=== PATIENT | female | born 1950 | race Caucasian/White ===

== ENCOUNTER 2016-12-12 21:15 | Inpatient (IN) | payer OTHER ==
[~2016-12-12] VITALS: Ht 157.5 cm; Wt 118.6 kg
[~2016-12-12 21:15] MED LIST: ASPEC81 PO; CINN1CAP2 PO; CYAN250T PO; FLUO20CA35 PO; FURO-85 PO; INSDGI SC; LCTX PO; LEVO75TA PO; MECL1TAB42 PO; METO1TAB66 PO; NORT50CA PO; NVLGI SC; PANT40TA PO; SIMV20TA2 PO; TOLT2CAP PO; VTMD1000 PO
[2016-12-12] MEDS ORDERED: SODIUM CHLORIDE 0.9% 1000ML 1,000 ML IV STA (21:46)
[2016-12-12] MEDS ORDERED: ASPI81TA21 PO (21:48)
[2016-12-12] MEDS ORDERED: COLC1TAB25 PO (21:48)
[2016-12-12] MEDS ORDERED: LVMI SC (21:48)
[2016-12-12] MEDS ORDERED: LSN5 PO (21:49)
[2016-12-12] MEDS ORDERED: LPT40 PO (21:49)
[2016-12-12] MEDS ORDERED: WARF-280 PO (21:49)
--- NOTE | 2016-12-12 21:57 | EMERGENCY ROOM VISIT NOTE ---
History Report prepared by Lynnette: Tori Chaves Under the Supervision of: Dr. Hazel White M.D. First contact with patient: 21:44 Chief Complaint: HYPERGLYCEMIA Stated Complaint: HYPERGLYCEMIA Nursing Triage Summary: Patient arrived via EMS. EMS reports patient checked blood sugar for evening insulin coverage and was 647 at 1930. Patient took prescribd dose of insulin of 70 units at 1945 and called ems. Patient states she feels lethargic like she has when her sugar has been high in the past. History of Present Illness The patient is a 66 year old female who presents to the Emergency Room with complaints of constant hyperglycemia beginning yesterday. She states that she is a diabetic and does take insulin. She checked her sugar levels yesterday and it was 547. This evening at 7:30pm she checked her sugar levels again and they were 647. The patient feels lethargic which is common when she has high blood sugar levels. She denies a history of CHF. She denies any other symptoms at this time. Source of History: patient Onset: yesterday Position: other (global) Quality: other (hyperglycemia) Timing: constant Note: Patient feels lethargic. She denies any other symptoms at this time. Review of Systems See HPI for pertinent positives & negatives. A total of 10 systems reviewed and were otherwise negative. Past Medical & Surgical Medical Problems: (1) Abdominal aortic aneurysm (2) Anxiety (3) Atrial fibrillation (4) Benign hypertension (5) Cellulitis Of Leg (6) Chronic kidney disease stage 3 (7) Closed fracture of femur (8) Clostridium difficile infection (9) Deficient knowledge of leg surgery (10) Depression (11) Diab Rosario Wo Compl, Type Ii Or Unspec Type, Not Uncntrld (12) Diabetes (13) Diabetic neuropathy (14) Diabetic retinopathy (15) Generalized osteoarthritis (16) Heart disease (17) History of - peptic ulcer (18) HTN (hypertension) (19) Hyperglycemia (20) Hyperlipidemia (21) Kidney disease (22) Morbid Obesity (23) Obesity Family History Diabetes mellitus FHx: cancer FHx: heart disease FHx: lung disease Hypertension Kidney disease Social History Smoking Status: Former Smoker Alcohol Use: none Drug Use: none Marital Status: Housing Status: lives with family Occupation Status: retired Current/Historical Medications Scheduled Aspirin Enteric Coated (Ecotrin Or Generic), 81 MG PO DAILY Atorvastatin (Atorvastatin Calcium), 40 MG PO QAM Cyanocobalamin (Vitamin B-12), 250 MCG PO DAILY Fluoxetine (Prozac), 20 MG PO DAILY Furosemide (Lasix), 20 MG PO DAILY Insulin Detemir (Levemir), 70 UNITS SC AMHS Lactobacillus Acidophilus (Lactinex), 1 TAB PO TID Levothyroxine Sodium (Synthroid), 75 MCG PO DAILY Lisinopril (Lisinopril), 5 MG PO QAM Metoprolol Succinate (Toprol Xl), 50 MG PO DAILY Nortriptyline (Pamelor), 50 MG PO HS Pantoprazole (Protonix), 40 MG PO DAILY Simvastatin (Zocor), 20 MG PO QPM Tolterodine Tartrate (Detrol La), 2 MG PO DAILY Warfarin Sodium (Warfarin Sodium), 2.5 MG PO QPM Scheduled PRN Colchicine (Colchicine), 0.6 MG PO DAILY PRN for PRN Meclizine Hcl (Meclizine Hcl), 1 TAB PO TID PRN for Nausea Allergies Coded Allergies: No Known Allergies (Verified , 12/12/16) Physical Exam Vital Signs Date Time Temp Pulse Resp B/P Pulse Ox O2 Delivery O2 Flow Rate FiO2 12/13/16 00:21 116 16 113/65 94 Room Air 12/12/16 22:59 125 16 95/74 95 Room Air 12/12/16 22:28 122 12/12/16 21:22 36.7 115 16 95/60 95 Room Air Physical Exam CONSTITUTIONAL: No distress. HEENT: No icterus, moist mucous membranes NECK: No meningismus, trachea is midline. CARDIOVASCULAR: Regular rate, normal perfusion RESPIRATORY: Unlabored breathing. Clear to auscultation. GASTROINTESTINAL: Non-tender GENITOURINARY: No flank tenderness MUSCULOSKELETAL: Full range of motion NEUROLOGIC: No acute gross focal deficits. PSYCHIATRIC: Normal affect SKIN: Normal for ethnicity. Medical Decision & Procedures ER Provider Diagnostic Interpretation: X-ray results as stated below per interpretation by me and the radiologist. CHEST ONE VIEW PORTABLE HISTORY: hyperglycemia COMPARISON: Chest 03/26/2015. FINDINGS: Stable linear densities at the left lung base consistent with scarring or subsegmental atelectasis. The lungs are otherwise clear. The heart is normal in size. No pleural effusions. No pneumothorax. Stable blunting of the costophrenic sulci. IMPRESSION: No significant change compared to the prior study. No acute process. Electronically signed by: Hemant Espinoza M.D. 12/12/2016 10:06 PM Dictated Date/Time: 12/12/2016 10:05 PM Laboratory Results 12/12/16 21:55 Red Blood Count 5.01, Mean Corpuscular Volume 89.8, Mean Corpuscular Hemoglobin 31.1, Mean Corpuscular Hemoglobin Concent 34.7, Mean Platelet Volume 12.3, Neutrophils (%) (Auto) 84.2, Lymphocytes (%) (Auto) 10.8, Monocytes (%) (Auto) 4.1, Eosinophils (%) (Auto) 0.3, Basophils (%) (Auto) 0.4, Neutrophils # (Auto) 8.63, Lymphocytes # (Auto) 1.11, Monocytes # (Auto) 0.42, Eosinophils # (Auto) 0.03, Basophils # (Auto) 0.04 12/12/16 21:55 12/12/16 23:47 Test 12/12/16 21:55 12/12/16 22:30 12/12/16 23:47 White Blood Count 10.25 K/uL (4.8-10.8) Red Blood Count 5.01 M/uL (4.2-5.4) Hemoglobin 15.6 g/dL (12.0-16.0) Hematocrit 45.0 % (37-47) Mean Corpuscular Volume 89.8 fL (80-100) Mean Corpuscular Hemoglobin 31.1 pg (25-34) Mean Corpuscular Hemoglobin Concent 34.7 g/dl (32-36) Platelet Count 189 K/uL (130-400) Mean Platelet Volume 12.3 fL (7.4-10.4) Neutrophils (%) (Auto) 84.2 % Lymphocytes (%) (Auto) 10.8 % Monocytes (%) (Auto) 4.1 % Eosinophils (%) (Auto) 0.3 % Basophils (%) (Auto) 0.4 % Neutrophils # (Auto) 8.63 K/uL (1.4-6.5) Lymphocytes # (Auto) 1.11 K/uL (1.2-3.4) Monocytes # (Auto) 0.42 K/uL (0.11-0.59) Eosinophils # (Auto) 0.03 K/uL (0-0.5) Basophils # (Auto) 0.04 K/uL (0-0.2) RDW Standard Deviation 42.1 fL (36.4-46.3) RDW Coefficient of Variation 12.9 % (11.5-14.5) Immature Granulocyte % (Auto) 0.2 % Immature Granulocyte # (Auto) 0.02 K/uL (0.00-0.02) Anion Gap 14.0 mmol/L (3-11) Est Creatinine Clear Calc Drug Dose 33.8 ml/min Estimated GFR () 29.4 Estimated GFR (Non- 25.4 BUN/Creatinine Ratio 13.1 (10-20) Calcium Level 9.1 mg/dl (8.5-10.1) Troponin I < 0.015 ng/ml (0-0.045) Beta-Hydroxybutyric Acid 4.46 mg/dL (0.2-2.81) Venous Blood pH 7.35 (7.36-7.41) Venous Blood Partial Pressure CO2 58 mmHg (38.0-50.0) Venous Blood Partial Pressure O2 22 mmHg Venous Blood HCO3 31 mmol/L Venous Blood Oxygen Saturation < 60.0 % Venous Blood Base Excess 3.7 mmol/L Prothrombin Time 19.7 SECONDS (9.0-12.0) Prothromb Time International Ratio 1.8 (0.9-1.1) Magnesium Level 2.1 mg/dl (1.8-2.4) Chemistry Specimen Hemolysis Labs reviewed by ED physician. Medications Administered Medications (Trade) Dose Ordered Sig/Emily Route Start Time Stop Time Status Last Admin Dose Admin Sodium Chloride (Nss 500ml) 500 ml @ 999 mls/hr Q31M STAT IV 12/12/16 22:55 12/12/16 23:25 DC 12/13/16 00:17 999 MLS/HR Diltiazem HCl 10 mg 10 mg TODAY@2315 IV 12/12/16 23:15 12/12/16 23:16 DC 12/13/16 00:16 10 MG Insulin Human Regular 3 unit/ Syringe 3 ml @ 1 mls/min NOW STAT IV 12/12/16 23:22 12/12/16 23:24 DC 12/13/16 00:13 1 MLS/MIN Insulin Human Regular/Sodium Chloride (novoLIN-R/Nss 250ml) 252.5 ml @ 0 mls/hr NOW STAT IV 12/12/16 23:22 12/12/16 23:23 DC 12/12/16 23:22 2.9 MLS/HR ECG Indication: other (hypergylcemia) Rate (beats per minute): 128 Rhythm: other (narrow complex) Findings: other (no clear P wave) ED Course 2150: Past medical records reviewed. The patient was evaluated in room C10. A complete history and physical examination was performed. 2145: Sodium Chloride 1,000 ml @ 0 mls/hr Wide Open IV. 2249: Insulin Iv Infusion Protocol 1 ea N/A. 2254: Sodium Chloride 500 ml @ 999 mls/hr IV, Cardizem Bolus / Drip 1 ea IV. 0: Insulin Protocol Moderate Stress Level 1 ea N/A, Insulin Protocol Dka Goal Range 1 ea N/A. 2311: Discussed the patient's case with Dr. Khang Garcia. The patient will be evaluated for further management. 0900: Novolog Aspart Sliding scale SC. Medical Decision Differential diagnoses include but are not limited to; uncontrolled diabetes, DKA. 66-year-old insulin-dependent diabetic presents to the emergency for evaluation of worsening hyperglycemia or the last few days. She was noted to have a glucose over 500 here in the emergency department and serum ketones. He was noted to be in a narrow complex tachycardia that was irregular with a history of A. fib on Coumadin. Insulin drip as well as Cardizem drip were started. History of CHF on Lasix with creatinine 2.0 in context of baseline about 1.6. Normal saline 500 ML bolus ordered. Case d/w Dr. Quiñonez for admission Consults Time Called: [phone] Consulting Physician: Dr. Khang Garcia Returned Call: [phone] Discussed the patient's case. The patient will be evaluated for further management. Impression Primary Impression: DKA (diabetic ketoacidoses) Scribe Attestation The scribe's documentation has been prepared under my direction and personally reviewed by me in its entirety. I confirm that the note above accurately reflects all work, treatment, procedures, and medical decision making performed by me. Departure Information Dispostion Being Evaluated By Hospitalist Ric Gonzalez D.OAstrid (PCP)
[2016-12-12 22:08] LABS: MEAN CELL VOLUME 89.8 fL (80-100); MEAN CORPUSCULAR HEMOGLOBIN 31.1 pg (25-34); MEAN CORPUSCULAR HGB CONC 34.7 g/dl (32-36); RED BLOOD COUNT 5.01 M/uL (4.2-5.4); WHITE BLOOD COUNT 10.25 K/uL (4.8-10.8)
--- NOTE | 2016-12-12 22:08 | DIAGNOSTIC IMAGING REPORT ---
CHEST ONE VIEW PORTABLE HISTORY: hyperglycemia COMPARISON: Chest 03/26/2015. FINDINGS: Stable linear densities at the left lung base consistent with scarring or subsegmental atelectasis. The lungs are otherwise clear. The heart is normal in size. No pleural effusions. No pneumothorax. Stable blunting of the costophrenic sulci. IMPRESSION: No significant change compared to the prior study. No acute process. Electronically signed by: Hemant Espinoza M.D. 12/12/2016 10:06 PM Dictated Date/Time: 12/12/2016 10:05 PM
[2016-12-12 22:09] LABS: BASO % 0.4 %; BASO ABS # 0.04 K/uL (0-0.2); COMPLETE YES; EOS % 0.3 %; IG% 0.2 %; LYMPH % 10.8 %; LYMPH ABS # 1.11 K/uL (1.2-3.4); MEAN PLATELET VOLUME 12.3 fL (7.4-10.4); MONO % 4.1 %; NEUT % 84.2 %; PLATELET COUNT 189 K/uL (130-400)
[2016-12-12 22:28] LABS: BETA-HYDROXYBUTYRATE 4.46 mg/dL (0.2-2.81); BLOOD UREA NITROGEN 26 mg/dl (7-18); BUN/CREATININE RATIO 13.1 (10-20); CALCIUM 9.1 mg/dl (8.5-10.1); CARBON DIOXIDE 28 mmol/L (21-32); CHLORIDE 90 mmol/L (98-107); GLUCOSE 507 mg/dl (70-99); SODIUM 132 mmol/L (136-145)
[2016-12-12 22:40] LABS: VEN BLD GAS O2 SATURATION < 60.0 %; VEN BLOOD GAS BASE EXCESS 3.7 mmol/L; VENOUS BLOOD GAS PCO2 58 mmHg (38.0-50.0); VENOUS BLOOD GAS PO2 22 mmHg
[2016-12-12] MEDS ORDERED: INSULIN IV INFUSION PROTOCOL STA (22:50)
[2016-12-12] MEDS ORDERED: SODIUM CHLORIDE 0.9% 500ML 500 ML IV STA (22:55)
[2016-12-12] MEDS ORDERED: DILTIAZEM BOLUS / DRIP IV STA (22:58)
[2016-12-12] MEDS ORDERED: DKA GOAL RANGE 150-250 mg/dl 1 EA ONE (23:00)
[2016-12-12] MEDS ORDERED: MODERATE STRESS LEVEL ONE (23:00)
[2016-12-12] MEDS ORDERED: INSULIN IV INFUSION PROTOCOL SCH (23:15)
[2016-12-12] MEDS ORDERED: DILTIAZEM HCL 5 MG/ML 5 ML VIAL IV SCH (23:15)
[2016-12-12] MEDS ORDERED: DILTIAZEM HCL INJ 125 MG in DEXTROSE 5% 100ML IV PRN (23:15)
[2016-12-12] MEDS ORDERED: INSULIN HUMAN REGULAR IV BOLUS 3 UNIT in SYRINGE 0 ML IV STA (23:22)
[2016-12-12] MEDS ORDERED: INSULIN REGULAR 250 UNITS in SODIUM CHLORIDE 0.9% 250ML 250 ML IV STA (23:22)
[2016-12-13] VITALS (10 sets, daily range): BP systolic 107–153; BP diastolic 69–83; PULSE 104–124; TEMP 36.6–37.2; O2SAT 92–99; BMI 46.4
[2016-12-13 00:10] LABS: INR 1.8 (0.9-1.1); PROTHROMBIN TIME (PATIENT) 19.7 SECONDS (9.0-12.0)
[2016-12-13 00:14] LABS: MAGNESIUM 2.1 mg/dl (1.8-2.4); POTASSIUM 4.7 mmol/L (3.5-5.1)
[2016-12-13] MEDS ORDERED: INSULIN IV INFUSION PROTOCOL STA (00:19)
[2016-12-13] MEDS ORDERED: NORTRIPTYLINE HCL 25 MG CAP PO ONE (00:19)
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
[2016-12-13] MEDS ORDERED: ACETAMINOPHEN 325 MG TAB PO PRN (00:30)
[2016-12-13] MEDS ORDERED: INSULIN PROTOCOL GOAL RANGE ONE (00:30)
[2016-12-13] MEDS ORDERED: MODERATE STRESS LEVEL ONE (00:30)
[2016-12-13] MEDS ORDERED: WARFARIN SOD 5 MG TAB PO STA (00:35)
[2016-12-13] MEDS ORDERED: GLUCOSE 10 TABS/TUBE PO PRN (02:00)
[2016-12-13] MEDS ORDERED: DEXTROSE 50% 50 ML SYR IV PRN (02:00)
[2016-12-13] MEDS ORDERED: GLUCAGON FOR INJ 1 MG VIAL SQ PRN (02:00)
[2016-12-13] MEDS ORDERED: GLUCOSE 40% GEL 15 GM TUBE PO PRN (02:00)
[2016-12-13] MEDS: NSS + 20MEQ KCL 1000ML 1,000 ML IV SCH ×4 (02:05→23:23)
[2016-12-13] MEDS ORDERED: METOPROLOL TARTRATE 1 MG/ML VIAL IV STA (02:21)
[2016-12-13] MEDS: LEVOTHYROXINE 75 MCG TAB PO SCH (05:45)
[2016-12-13 06:58] LABS: HEMATOCRIT 41.6 % (37-47); MEAN CELL VOLUME 88.5 fL (80-100); MEAN CORPUSCULAR HEMOGLOBIN 30.6 pg (25-34); MEAN CORPUSCULAR HGB CONC 34.6 g/dl (32-36); MEAN PLATELET VOLUME 11.7 fL (7.4-10.4); PLATELET COUNT 181 K/uL (130-400); WHITE BLOOD COUNT 9.99 K/uL (4.8-10.8)
[2016-12-13 07:06] LABS: ESTIMATED AVERAGE GLUCOSE 329 mg/dl; HA1C FLAG Normal (Normal); INR 1.8 (0.9-1.1)
[2016-12-13 07:36] LABS: ALB/GLOB RATIO 0.6 (0.9-2); ALKALINE PHOSPHATASE 157 U/L (45-117); ALT/SGPT 30 U/L (12-78); AST/SGOT 35 U/L (15-37); BLOOD UREA NITROGEN 26 mg/dl (7-18); BUN/CREATININE RATIO 15.3 (10-20); CALCIUM 8.8 mg/dl (8.5-10.1); CARBON DIOXIDE 28 mmol/L (21-32); CHLORIDE 100 mmol/L (98-107); GLUCOSE 287 mg/dl (70-99); POTASSIUM 3.9 mmol/L (3.5-5.1); SODIUM 138 mmol/L (136-145)
[2016-12-13] MEDS: INSULIN ASPART 100 UNITS/ML 3 ML PEN SC SCH ×4 (08:00→21:06)
[2016-12-13] MEDS ORDERED: PHARMACY GLYCEMIC MGMT CONSULT PRN (08:28)
[2016-12-13] MEDS ORDERED: LISINOPRIL 5 MG TAB PO SCH (09:00)
[2016-12-13] MEDS ORDERED: INSULIN ASPART 100 UNITS/ML 3 ML PEN SC SCH (09:00)
[2016-12-13] MEDS: LACTOBACILLUS ACIDOPHILUS (FLORANEX) TAB PO SCH ×3 (09:17→17:17)
[2016-12-13] MEDS: FLUOXETINE HCL 20 MG CAP PO SCH (09:18)
[2016-12-13] MEDS: ATORVASTATIN 40 MG TAB PO SCH (09:18)
[2016-12-13] MEDS: METOPROLOL SUCC 50MG EXT REL TAB PO SCH (09:18)
[2016-12-13] MEDS: ASPIRIN 81 MG ECTAB PO SCH (09:18)
[2016-12-13] MEDS: PANTOprazole SOD 40 MG TAB PO SCH (09:19)
[2016-12-13] MEDS: TOLTERODINE TARTRATE LA 2 MG CAPCR PO SCH (09:19)
--- NOTE | 2016-12-13 09:35 | Pharmacy Progress Note ---
Glycemic Control Intl Consult Date of Service Dec 13, 2016. Scope Glycemic Pharmacist consulted by Dr Hunter on 12/13/16 for glycemic control and to write orders per [facility] inpatient glycemic control protocol Objective Weight (Kilograms): 115.100 Accuchecks BSG (last 24hrs): Test 12/12/16 21:55 12/13/16 02:03 12/13/16 03:59 12/13/16 05:05 Random Glucose 507 mg/dl (70-99) Bedside Glucose 487 mg/dl (70-90) 479 mg/dl (70-90) 417 mg/dl (70-90) Test 12/13/16 06:00 12/13/16 06:14 12/13/16 06:55 12/13/16 07:57 Random Glucose 287 mg/dl (70-99) Bedside Glucose 349 mg/dl (70-90) 229 mg/dl (70-90) 144 mg/dl (70-90) Test 12/13/16 09:16 Bedside Glucose 173 mg/dl (70-90) Laboratory Data (last 24hrs) Test 12/12/16 21:55 12/12/16 23:47 12/13/16 06:00 Anion Gap 14.0 mmol/L 10.0 mmol/L BUN/Creatinine Ratio 13.1 15.3 Blood Urea Nitrogen 26 mg/dl 26 mg/dl Creatinine 2.00 mg/dl 1.70 mg/dl Potassium Level mmol/L 4.7 mmol/L 3.9 mmol/L Sodium Level 132 mmol/L 138 mmol/L White Blood Count 10.25 K/uL 9.99 K/uL Red Blood Count 5.01 M/uL Hemoglobin 15.6 g/dL Hematocrit 45.0 % Mean Corpuscular Volume 89.8 fL Mean Corpuscular Hemoglobin 31.1 pg Mean Corpuscular Hemoglobin Concent 34.7 g/dl Platelet Count 189 K/uL Mean Platelet Volume 12.3 fL Neutrophils (%) (Auto) 84.2 % Lymphocytes (%) (Auto) 10.8 % Monocytes (%) (Auto) 4.1 % Eosinophils (%) (Auto) 0.3 % Basophils (%) (Auto) 0.4 % Neutrophils # (Auto) 8.63 K/uL Lymphocytes # (Auto) 1.11 K/uL Monocytes # (Auto) 0.42 K/uL Eosinophils # (Auto) 0.03 K/uL Basophils # (Auto) 0.04 K/uL Hemoglobin A1c 13.1 % HbA1c Test 12/13/16 06:00 Hemoglobin A1c 13.1 % (4.5-5.6) H Recent Pertinent Medications Outpatient Anti-diabetic Regimen: * Levemir 70 units SQ BID * A1c = 13.3 % 12/13/16 The patient is currently receiving: * Starting IV insulin infusion per moderate stress protocol * Goal Range 140 - 180 mg/dl * Rate of infusion has been about 4.1-4.9units/ hour over the past 6 hours Risk Factors for Insulin Resistance: * IVF: NS+20meqKCl @ 80cc/hr * Diet: Type 2 DM/AHA Assessment & Plan ASSESSMENT: * ADA & AACE recommend a goal blood sugar range 140-180 mg/dl for the majority of critically ill & non-critically ill patients. However, more stringent targets may be selected in individual cases. I will continue this goal range for patient's A1c. * 66 year old female type 2 diabetic, uncontrolled. * Patient's BSG has been at goal and patient is ready to be transitioned off of drip onto basal bolus insulin. 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 I will also check her BSG overnight to ensure glycemic control as she transitions off of drip. PLAN FOR INPATIENT GLYCEMIC CONTROL: * Continue IV insulin infusion protocol for the next 2 hours to overlap with SQ Levemir, then Discontinue at 1700 today * Goal Range 140 - 180 mg/dl * Basal insulin with LEVEMIR 70 units SQ BID - FIRST DOSE NOW * Correctional Insulin with NOVOLOG per scale ACHS or Q6hrs while NPO & at 0000 and 0400 overnight tonight * Goal Range: Low 140 mg/dL - High 180 mg/dL * Correction Factor: 18 mg/dL/unit * Nutritional / Prandial insulin per carb ratio of 1 unit per 6 grams CHO consumed * Please note that the plan above was derived based on current level of insulin resistance and hospital stress. These recommendations are appropriate for inpatient admission only. Plan of care upon discharge will need to be reassessed to avoid potential outpatient hypo/hyperglycemia. Thank you.
[2016-12-13] MEDS ORDERED: INSULIN REGULAR 250 UNITS in SODIUM CHLORIDE 0.9% 250ML 250 ML IV SCH (11:30)
[2016-12-13] MEDS: INSULIN DETEMIR SC SCH ×2 (15:48→21:07)
--- NOTE | 2016-12-13 16:37 | Progress Note ---
Medicine Progress Note Date & Time of Visit: Dec 13, 2016 at 16:31. Subjective Patient seen and examined. Feels good and wants to go home. Objective Last 8 Hrs Date Time Temp Pulse Resp B/P Pulse Ox O2 Delivery O2 Flow Rate FiO2 12/13/16 16:12 36.6 104 18 117/78 98 Room Air 12/13/16 12:17 Room Air 12/13/16 11:01 36.9 107 18 116/69 98 Room Air Physical Exam: General-awake; alert; NAD Eyes-EOMI; no scleral icterus Neck-no stridor; trachea midline Lungs-CTA bilaterally; no wheezes/crackles Heart-irregularly irregular; no m/r/g Abdomen-soft; NTND; nBS Extremities-trace LE edema; no deformity; chronic venous stasis skin changes Neuro-no gross focal deficits Laboratory Results: Last 24 Hours Test 12/12/16 21:55 12/12/16 22:30 12/12/16 23:47 12/13/16 02:03 White Blood Count 10.25 K/uL Red Blood Count 5.01 M/uL Hemoglobin 15.6 g/dL Hematocrit 45.0 % Mean Corpuscular Volume 89.8 fL Mean Corpuscular Hemoglobin 31.1 pg Mean Corpuscular Hemoglobin Concent 34.7 g/dl Platelet Count 189 K/uL Mean Platelet Volume 12.3 fL Neutrophils (%) (Auto) 84.2 % Lymphocytes (%) (Auto) 10.8 % Monocytes (%) (Auto) 4.1 % Eosinophils (%) (Auto) 0.3 % Basophils (%) (Auto) 0.4 % Neutrophils # (Auto) 8.63 K/uL Lymphocytes # (Auto) 1.11 K/uL Monocytes # (Auto) 0.42 K/uL Eosinophils # (Auto) 0.03 K/uL Basophils # (Auto) 0.04 K/uL RDW Standard Deviation 42.1 fL RDW Coefficient of Variation 12.9 % Immature Granulocyte % (Auto) 0.2 % Immature Granulocyte # (Auto) 0.02 K/uL Sodium Level 132 mmol/L Potassium Level mmol/L 4.7 mmol/L Chloride Level 90 mmol/L Carbon Dioxide Level 28 mmol/L Anion Gap 14.0 mmol/L Blood Urea Nitrogen 26 mg/dl Creatinine 2.00 mg/dl Est Creatinine Clear Calc Drug Dose 33.8 ml/min Estimated GFR () 29.4 Estimated GFR (Non- 25.4 BUN/Creatinine Ratio 13.1 Random Glucose 507 mg/dl Calcium Level 9.1 mg/dl Magnesium Level mg/dl 2.1 mg/dl Troponin I < 0.015 ng/ml Beta-Hydroxybutyric Acid 4.46 mg/dL Venous Blood pH 7.35 Venous Blood Partial Pressure CO2 58 mmHg Venous Blood Partial Pressure O2 22 mmHg Venous Blood HCO3 31 mmol/L Venous Blood Oxygen Saturation < 60.0 % Venous Blood Base Excess 3.7 mmol/L Prothrombin Time 19.7 SECONDS Prothromb Time International Ratio 1.8 Chemistry Specimen Hemolysis Bedside Glucose 487 mg/dl Test 12/13/16 03:59 12/13/16 05:05 12/13/16 06:00 12/13/16 06:14 Bedside Glucose 479 mg/dl 417 mg/dl 349 mg/dl White Blood Count 9.99 K/uL Red Blood Count 4.70 M/uL Hemoglobin 14.4 g/dL Hematocrit 41.6 % Mean Corpuscular Volume 88.5 fL Mean Corpuscular Hemoglobin 30.6 pg Mean Corpuscular Hemoglobin Concent 34.6 g/dl RDW Standard Deviation 41.6 fL RDW Coefficient of Variation 12.8 % Platelet Count 181 K/uL Mean Platelet Volume 11.7 fL Prothrombin Time 20.0 SECONDS Prothromb Time International Ratio 1.8 Sodium Level 138 mmol/L Potassium Level 3.9 mmol/L Chloride Level 100 mmol/L Carbon Dioxide Level 28 mmol/L Anion Gap 10.0 mmol/L Blood Urea Nitrogen 26 mg/dl Creatinine 1.70 mg/dl Est Creatinine Clear Calc Drug Dose 39.1 ml/min Estimated GFR () 35.8 Estimated GFR (Non- 30.9 BUN/Creatinine Ratio 15.3 Random Glucose 287 mg/dl Estimated Average Glucose 329 mg/dl Hemoglobin A1c 13.1 % Calcium Level 8.8 mg/dl Magnesium Level 2.0 mg/dl Total Bilirubin 0.4 mg/dl Aspartate Amino Transf (AST/SGOT) 35 U/L Alanine Aminotransferase (ALT/SGPT) 30 U/L Alkaline Phosphatase 157 U/L Troponin I < 0.015 ng/ml Total Protein 6.9 gm/dl Albumin 2.7 gm/dl Globulin 4.2 gm/dl Albumin/Globulin Ratio 0.6 Thyroid Stimulating Hormone (TSH) 1.310 uIu/ml Test 12/13/16 06:55 12/13/16 07:57 12/13/16 09:16 12/13/16 10:38 Bedside Glucose 229 mg/dl 144 mg/dl 173 mg/dl 186 mg/dl Test 12/13/16 11:25 12/13/16 12:16 12/13/16 13:38 12/13/16 14:28 Bedside Glucose 174 mg/dl 166 mg/dl 140 mg/dl 145 mg/dl Test 12/13/16 15:31 12/13/16 16:15 Bedside Glucose 138 mg/dl 128 mg/dl Assessment & Plan DM TYPE 2, UNCONTROLLED DM type 2 x many years, complicated by retinopathy, nephropathy, neuropathy. A1C 13.1. No obvious precipitating factors such as HI or infection. IV fluid resuscitation and insulin infusion initiated in ED. Insulin drip transitioned to SQ insulin. Consulted Diabetes Management Team. ATRIAL FLUTTER WITH RAPID VENTRICULAR RESPONSE Chronic AF / flutter, managed with metoprolol and warfarin. HR in EKG 115-125; EKG shows atrial flutter with variable conduction. Rapid ventricular response may be due to uncontrolled DM. Continue metoprolol and warfarin. TSH normal. HYPOTENSION Systolic BP's in the 90's on admission. Hypotension most likely due to volume depletion from hyperglycemia. Rapid atrial flutter may be contributing factor. Hold lisinopril. IV fluid resuscitation. Improved. ACUTE KIDNEY INJURY CKD III with baseline creatinine of 1.3-1.4 Serum creatinine 2.0 on admission. LAUREN most likely secondary to poorly controlled DM with osmotic diuresis. Continue IV fluids. Downtrending. HYPERTENSION Hypotensive at time of admission as discussed above. Continue metoprolol with hold parameters. Hold lisinopril until renal function improves. VENOUS INSUFFICIENCY / CHRONIC EDEMA Hold furosemide due to LAUREN. GERD Continue pantoprazole. HYPOTHYROIDISM TSH normal. Continue levothyroxine. VTE PROPHYLAXIS Continue warfarin. RESUSCITATION STATUS No living will. Full code. DISPOSITION Expected discharge to home. Family Medicine follow-up with Dr. Keene. Discharge planning: home Current Inpatient Medications: Current Inpatient Medications Medications (Trade) Dose Ordered Sig/Emily Route Start Time Stop Time Status Last Admin Dose Admin Acetaminophen 650 mg 650 mg Q4H PRN PO 12/13/16 00:30 01/12/17 00:29 Potassium Chloride/Sodium Chloride (Nss + 20meq KCl 1000ml) 1,000 ml @ 80 mls/hr [id number] IV 12/13/16 01:45 12/13/16 12:04 200 MLS/HR Nortriptyline HCl (Pamelor Cap) 50 mg HS PO 12/13/16 21:00 01/12/17 20:59 Warfarin Sodium (Coumadin Tab) 2.5 mg QPM PO 12/13/16 21:00 01/12/17 20:59 Aspirin (Ecotrin Tab) 81 mg DAILY PO 12/13/16 09:00 01/12/17 08:59 12/13/16 09:18 81 MG Atorvastatin Calcium (Lipitor Tab) 40 mg QAM PO 12/13/16 09:00 01/12/17 08:59 12/13/16 09:18 40 MG Fluoxetine HCl (Prozac Cap) 20 mg DAILY PO 12/13/16 09:00 01/12/17 08:59 12/13/16 09:18 20 MG Levothyroxine Sodium (Synthroid Tab) 75 mcg DAILYBB PO 12/13/16 06:00 01/12/17 06:59 12/13/16 05:45 75 MCG Metoprolol Succinate (Toprol Xl Tab) 50 mg DAILY PO 12/13/16 09:00 01/12/17 08:59 12/13/16 09:18 50 MG Pantoprazole Sodium (Protonix Tab) 40 mg DAILY PO 12/13/16 09:00 01/12/17 08:59 12/13/16 09:19 40 MG Tolterodine Tartrate (Detrol LA Cap) 2 mg DAILY PO 12/13/16 09:00 01/12/17 08:59 12/13/16 09:19 2 MG Lactobacillus Acidophilus 1 tab 1 tab TIDM PO 12/13/16 08:00 01/12/17 07:59 12/13/16 12:04 1 TAB Insulin Human Regular/Sodium Chloride (novoLIN-R/Nss 250ml) 252.5 ml @ 0 mls/hr DAILY@1130 IV 12/13/16 11:30 12/13/16 17:00 12/13/16 12:13 4.9 MLS/HR Glucose (Glucose 40% Gel) 15-30 GRAMS 15 GRAMS... UD PRN PO 12/13/16 02:00 01/12/17 01:59 Glucose (Glucose Chew Tab) 4-8 Tablets 4 Tabl... UD PRN PO 12/13/16 02:00 01/12/17 01:59 Dextrose (Dextrose 50% 50ML Syringe) 25-50ML OF 50% DW IV FOR... UD PRN IV 12/13/16 02:00 01/12/17 01:59 Glucagon (Glucagon Inj) 1 mg UD PRN SQ 12/13/16 02:00 01/12/17 01:59 Miscellaneous Information (Consult Glycemic Management Pharmacy) 1 ea UD PRN N/A 12/13/16 08:28 01/12/17 08:27 Insulin Detemir (Levemir Insulin) 70 units BID SC 12/13/16 15:00 01/12/17 14:59 12/13/16 15:48 70 UNITS Insulin Aspart (novoLOG ASPART) SLIDING SCALE ACHS SC 12/13/16 16:15 01/12/17 16:14 Insulin Aspart (novoLOG ASPART) SLIDING SCALE 0000,0400 SC 12/14/16 00:00 01/13/17 00:00
[2016-12-13 19:00] LABS: URINE APPEARANCE TURBID (CLEAR); URINE BILIRUBIN NEG (NEG); URINE COLOR YELLOW; URINE EPITHELIAL CELL AUTO >30 /lpf (0-5); URINE NITRITE POS (NEG); URINE SPECIFIC GRAVITY 1.016 (1.000-1.030); UROBILINOGEN NEG (NEG); ZZUR CULT IF INDIC CLEAN CATCH YES
[2016-12-13 19:41] LABS: MANUAL MICROSCOPIC REQUIRED? NO; REVIEW REQ? NO
[2016-12-13] MEDS ORDERED: WARFARIN SOD 2.5 MG TAB PO SCH (21:00)
[2016-12-13] MEDS ORDERED: NORTRIPTYLINE HCL 25 MG CAP PO SCH (21:00)
[2016-12-14] MEDS: INSULIN ASPART 100 UNITS/ML 3 ML PEN SC SCH ×3 (00:03→07:50)
[2016-12-14 04:00] VITALS: O2SAT 99
[2016-12-14 04:14] VITALS: BP 114/78; PULSE 108; TEMP 36.7; O2SAT 97
[2016-12-14] MEDS: LEVOTHYROXINE 75 MCG TAB PO SCH (05:39)
[2016-12-14] MEDS: LACTOBACILLUS ACIDOPHILUS (FLORANEX) TAB PO SCH (05:40)
[2016-12-14 06:18] LABS: HEMATOCRIT 44.9 % (37-47); MEAN CELL VOLUME 89.3 fL (80-100); MEAN CORPUSCULAR HEMOGLOBIN 30.2 pg (25-34); MEAN CORPUSCULAR HGB CONC 33.9 g/dl (32-36); MEAN PLATELET VOLUME 11.6 fL (7.4-10.4); PLATELET COUNT 170 K/uL (130-400); RED BLOOD COUNT 5.03 M/uL (4.2-5.4); WHITE BLOOD COUNT 6.64 K/uL (4.8-10.8)
[2016-12-14 06:26] LABS: INR 2.2 (0.9-1.1); PROTHROMBIN TIME (PATIENT) 24.8 SECONDS (9.0-12.0)
[2016-12-14 06:49] LABS: BUN/CREATININE RATIO 20.3 (10-20); CALCIUM 8.8 mg/dl (8.5-10.1); CREATININE 1.2 mg/dl (0.60-1.20); POTASSIUM 4.6 mmol/L (3.5-5.1)
[2016-12-14 07:37] VITALS: BP 100/69; PULSE 108; TEMP 36.6; O2SAT 97
[2016-12-14] MEDS: METOPROLOL SUCC 50MG EXT REL TAB PO SCH (07:42)
[2016-12-14] MEDS: ASPIRIN 81 MG ECTAB PO SCH (07:42)
[2016-12-14] MEDS: PANTOprazole SOD 40 MG TAB PO SCH (07:43)
[2016-12-14] MEDS: FLUOXETINE HCL 20 MG CAP PO SCH (07:43)
[2016-12-14] MEDS: TOLTERODINE TARTRATE LA 2 MG CAPCR PO SCH (07:43)
[2016-12-14] MEDS: ATORVASTATIN 40 MG TAB PO SCH (07:44)
[2016-12-14] MEDS: INSULIN DETEMIR SC SCH (07:51)
[2016-12-14] MEDS ORDERED: CIPROFLOXACIN 500 MG TAB PO SCH (09:00)
--- NOTE | 2016-12-14 09:46 | Discharge Instructions ---
Discharge Instructions Admission Reason for Admission: A-Fib, Hyperglycemia Discharge Discharge Diagnosis / Problem: Uncontrolled type 2 diabetes; Atrial fibrillation; Urinary tract infection Discharge Goals Goal(s): Improve disease control Activity Recommendations Activity Limitations: resume your previous activity . Instructions / Follow-Up Instructions / Follow-Up You will be contacted regarding a hospital discharge follow up appointment with Family Medicine. Please take the antibiotic Ciprofloxacin as prescribed until complete for your urinary tract infection. Please do not take Lisinopril until instructed to do so by Dr. Keene. Metoprolol was increased from 50mg to 75mg daily. Current Hospital Diet Patient's current hospital diet: AHA Diet (Heart Healthy), Diabetes Type 2 Diet Discharge Diet Recommended Diet: AHA Diet (Heart Healthy), Diabetes Type 2 Diet Pending Studies Studies pending at discharge: yes List of pending studies: Urine culture result Laboratory Results Hemoglobin A1c Test 12/13/16 06:00 Range/Units Estimated Average Glucose 329 mg/dl Hemoglobin A1c 13.1 H 4.5-5.6 % Medical Emergencies . Who to Call and When: Medical Emergencies: If at any time you feel your situation is an emergency, please call 911 immediately. . Non-Emergent Contact Non-Emergency issues call your: Primary Care Provider . . "Provider Documentation" section prepared by Nirali Alvarado. VTE Core Measure Inpt VTE Proph given/why not?: Warfarin (Coumadin)
[2016-12-14] MEDS ORDERED: CPR500 PO (09:51)
[2016-12-14] MEDS ORDERED: METO1TAB66 PO (09:51)
[2016-12-14] MEDS ORDERED: METOPROLOL SUCC 25MG EXT REL TAB PO ONE (10:00)
[2016-12-14 10:19] VITALS: BP 100/69; PULSE 108; TEMP 36.6; O2SAT 97
--- NOTE | 2016-12-14 18:32 | Discharge Summary ---
Discharge Summary Admission Date: Dec 13, 2016 at 00:27 Discharge Date: Dec 14, 2016 Discharge Disposition: Home Principal Diagnosis: Uncontrolled type 2 diabetes Secondary Diagnoses/Problems: A flutter with RVR Uncomplicated UTI Medication Reconciliation New Medications: Cephalexin Monohydrate (Keflex) 500 Mg Cap 500 MG PO QID for 3 Days, #12 CAP Changed Medications: Metoprolol Succinate (Toprol Xl) 50 Mg Tab 75 MG PO DAILY for 30 Days, #45 TABS (Changed from: 50 MG) Continued Medications: Aspirin Enteric Coated (Ecotrin Or Generic) 81 Mg Tab 81 MG PO DAILY, TAB Atorvastatin (Atorvastatin Calcium) 40 Mg Tab 40 MG PO QAM Colchicine (Colchicine) 0.6 Mg Tab 0.6 MG PO DAILY PRN for PRN, #12 Cyanocobalamin (Vitamin B-12) 250 Mcg Tab 250 MCG PO DAILY, 0 Refills Fluoxetine (Prozac) 20 Mg Cap 20 MG PO DAILY, CAP Furosemide (Lasix) 20 Mg Tab 20 MG PO DAILY, TAB Insulin Detemir (Levemir) 100 Units/Ml Inj 70 UNITS SC [facility] Lactobacillus Acidophilus (Lactinex) Tab 1 TAB PO TID, TAB Levothyroxine Sodium (Synthroid) 75 Mcg Tab 75 MCG PO DAILY, TAB Nortriptyline (Pamelor) 50 Mg Cap 50 MG PO HS, 0 Refills Pantoprazole (Protonix) 40 Mg Tab 40 MG PO DAILY Tolterodine Tartrate (Detrol La) 2 Mg Cap 2 MG PO DAILY Warfarin Sodium (Warfarin Sodium) 2.5 Mg Tab 2.5 MG PO QPM Discontinued Medications: Lisinopril (Lisinopril) 5 Mg Tab 5 MG PO QAM Admission Information HPI (per Admitting provider): 66 YO female followed by Dr. Keene for Family Medicine. History of chronic atrial fib / flutter, hypertension, DM type 2, and other problems noted below. Blood sugars running in the 400's - 500's over the past few days. She has noted intermitted blurred vision, polyuria, polydipsia. Today she felt weak and dizzy. EMS summoned. Random blood sugar in the field was 647. She was brought to ED for evaluation. Tachycardic and hypotensive on arrival. No obvious precipitating etiologies for uncontrolled DM. Patient states that she is compliant with insulin and other meds. She indicates that perhaps she could be more careful with her diet. No chest pain or other acute cardiac symptoms. No fever or signs / symptoms of infection. . Physical Exam (per Admitting): General Appearance: WD/WN, no apparent distress Head: normocephalic, atraumatic Eyes: normal inspection, PERRL, EOMI, sclerae normal (conjunctivae pink) ENT: normal ENT inspection, pharynx normal Neck: supple, no adenopathy, thyroid normal, trachea midline Respiratory/Chest: lungs clear, no respiratory distress, no accessory muscle use Cardiovascular: + pertinent finding (neck veins difficult to assess; RRR, tachy; II/ sys murmur @ base; no gallop; 1+ pretibial edema with chronic venous stasis changes) Abdomen/GI: normal bowel sounds, non tender, soft, no organomegaly, no pulsatile mass, + pertinent finding (umbilical hernia) Extremities/Musculoskelatal: no calf tenderness, + slow capillary refill ( about 2 sec), + swelling (bilat 1+ pretibial edema) Neurologic/Psych: marine water tender II-XII nml as tested (PERRL, EOMI, no facial palsy), no motor/sensory deficits (motor grossly intact), alert, oriented x 3 Skin: warm/dry, + pertinent finding (chronic venous stasis changes bilat lower extr) Lymphatic: no adenopathy Hospital Course Patient was admitted with hyperglycemia (in the setting of uncontrolled type 2 DM) and A fib with RVR. A1c was 13.1. Patient received IVF's and was started on an insulin drip due to anion gap. Sugars normalized and insulin was transitioned to patient's home dose of 70units BID. Manager Mobile was consulted to review with patient DM diet as she reported compliance with taking insulin. Patient was in A flutter with RVR on admission. Patient received IVF's and metoprolol dose was increased from 50mg to 75mg daily with improvement of rate control. Patient was continued on warfarin. Patient had LAUREN on admission that resolved with IVF's. Lisinopril was held during hospitalization and was not resumed on discharge due to up-titration of metoprolol. Patient was noted to have a UTI with dirty urinalysis. This may have been the precipitating factor for hyperglycemia and RVR. Urine culture with E coli upon discharge. Patient was discharged on a course of cephalexin based on susceptibilities. Patient was continued on the remainder of her home medications with the exceptions noted above. Patient deemed stable for discharge with Family Medicine followup. PE on discharge: General- awake; alert; NAD Eyes- EOMI; no scleral icterus Neck- no stridor; trachea midline Lungs- CTA bilaterally; no wheezes/crackles Heart- tachycardic but regular; no m/r/g Abdomen- soft; NTND; nBS Back- no gross abnormalities Extremities- no c/c/e; no deformity; wearing compression stockings Neuro- no gross focal deficits Skin- no appreciable rash or bruise . Total time spent on discharge = This includes examination of the patient, discharge planning, medication reconciliation, and communication with other providers. Discharge Instructions Discharge Instructions Admission Reason for Admission: A-Fib, Hyperglycemia Discharge Discharge Diagnosis / Problem: Uncontrolled type 2 diabetes; Atrial fibrillation; Urinary tract infection Discharge Goals Goal(s): Improve disease control Activity Recommendations Activity Limitations: resume your previous activity . Instructions / Follow-Up Instructions / Follow-Up You will be contacted regarding a hospital discharge follow up appointment with Family Medicine. Please take the antibiotic Ciprofloxacin as prescribed until complete for your urinary tract infection. Please do not take Lisinopril until instructed to do so by Dr. Keene. Metoprolol was increased from 50mg to 75mg daily. Current Hospital Diet Patient's current hospital diet: AHA Diet (Heart Healthy), Diabetes Type 2 Diet Discharge Diet Recommended Diet: AHA Diet (Heart Healthy), Diabetes Type 2 Diet Pending Studies Studies pending at discharge: yes List of pending studies: Urine culture result Laboratory Results Hemoglobin A1c Test 12/13/16 06:00 Range/Units Estimated Average Glucose 329 mg/dl Hemoglobin A1c 13.1 H 4.5-5.6 % Medical Emergencies . Who to Call and When: Medical Emergencies: If at any time you feel your situation is an emergency, please call 911 immediately. . Non-Emergent Contact Non-Emergency issues call your: Primary Care Provider . . "Provider Documentation" section prepared by Nirali Alvarado. VTE Core Measure Inpt VTE Proph given/why not?: Warfarin (Coumadin) Additional Copies To Wayne Keene M.D. ([facility])
[2016-12-15] MEDS ORDERED: CEPH500C2 PO (09:39)
--- NOTE | 2016-12-15 09:42 | Progress Note ---
Progress Note Urine culture results showing E coli resistant to fluoroquinolones. Called and left message for patient with significant other. Stop ciprofloxacin. Prescription for cephalexin sent to [facility]. Updated discharge medication list and discharge summary.
[2016-12-17 16:12] VITALS: Ht 157.5 cm; Wt 118.6 kg
[2017-06-10] MEDS ORDERED: CALC0.2510 PO (08:04)
[2017-06-10] MEDS ORDERED: LISI-729 PO (08:05)
[2017-06-10] MEDS ORDERED: METO50TA7 PO (08:07)
[2017-06-10] MEDS ORDERED: ALLO300T2 PO (08:08)
[2017-06-10] MEDS ORDERED: INSPMPNVLG (08:09)
== END 2016-12-14 11:10 | disposition home or self-care (01) | DRG 638 ==
LOC: ENRESERVDT → ENRESERVTM → EDBD 21:15 → C.EDC 21:17 → C.2T 12-13 00:27
PROVIDERS: ADMIT Hospitalist; ATTEND Internal Medicine
DX: E11.65 Type 2 diabetes mellitus with hyperglycemia (principal); I48.92 Unspecified atrial flutter; N39.0 Urinary tract infection, site not specified; N17.9 Acute kidney failure, unspecified; Z68.42 Body mass index [BMI] 45.0-49.9, adult; I48.2 Chronic atrial fibrillation; E11.40 Type 2 diabetes mellitus with diabetic neuropathy, unspecified; E11.319 Type 2 diabetes mellitus with unspecified diabetic retinopathy without macular edema; E11.22 Type 2 diabetes mellitus with diabetic chronic kidney disease; E11.21 Type 2 diabetes mellitus with diabetic nephropathy; K21.9 Gastro-esophageal reflux disease without esophagitis; E03.9 Hypothyroidism, unspecified; F41.9 Anxiety disorder, unspecified; B96.20 Unspecified Escherichia coli [E. coli] as the cause of diseases classified elsewhere; N18.3 Chronic kidney disease, stage 3 (moderate); N39.3 Stress incontinence (female) (male); I87.2 Venous insufficiency (chronic) (peripheral); I12.9 Hypertensive chronic kidney disease with stage 1 through stage 4 chronic kidney disease, or unspecified chronic kidney disease; M19.90 Unspecified osteoarthritis, unspecified site; R60.0 Localized edema; E78.5 Hyperlipidemia, unspecified; K42.9 Umbilical hernia without obstruction or gangrene; F32.9 Major depressive disorder, single episode, unspecified; E66.01 Morbid (severe) obesity due to excess calories; I35.0 Nonrheumatic aortic (valve) stenosis; Z86.79 Personal history of other diseases of the circulatory system; Z87.11 Personal history of peptic ulcer disease; Z87.891 Personal history of nicotine dependence; Z86.19 Personal history of other infectious and parasitic diseases; Z16.23 Resistance to quinolones and fluoroquinolones; Z79.82 Long term (current) use of aspirin; Z79.01 Long term (current) use of anticoagulants; Z79.899 Other long term (current) drug therapy

== ENCOUNTER → 2017-06-10 | Day surgery (SDC) | payer OTHER ==
[~2017-06-10] VITALS: Ht 154.9 cm; Wt 113.0 kg
[2017-06-10] VITALS (9 sets, daily range): BP systolic 124–155; BP diastolic 53–75; PULSE 90–120; TEMP 37.1; O2SAT 93–99; Ht 154.9 cm; Wt 113.0 kg
[~2017-06-10] MED LIST changes: +ALLO300T2 PO; -ASPEC81 PO; +ASPI81TA21 PO; +BENZOCAIN/TETRACA/BUTAM SPRAY 200 APPLN/20 GM SPRY ONE; +CALC0.2510 PO; +CANNULA ONE; -CINN1CAP2 PO; +COLC1TAB25 PO; +FENTANYL CITRATE INJ 50 MCG/1 ML 2 ML VIAL ONE; +GLYCOPYRROLATE INJ 0.2 MG/ML VIAL ONE; -INSDGI SC; +INSPMPNVLG; +LISI-729 PO; +LPT40 PO; +LVMI SC; -MECL1TAB42 PO; +METO50TA7 PO; +MIDAZOLAM HCL 1 MG/ML 2ML VIAL ONE; -NVLGI SC; -SIMV20TA2 PO; -VTMD1000 PO; +WARF-280 PO
[2017-06-10 09:10] LABS: BUN/CREATININE RATIO 21.3 (10-20); CALCIUM 9.7 mg/dl (8.5-10.1); CREATININE 1.6 mg/dl (0.60-1.20); POTASSIUM 5.2 mmol/L (3.5-5.1)
--- NOTE | 2017-06-10 09:30 | History & Physical Bridge Note ---
H&P Re-Evaluation Bridge Note: I have examined the patient, reviewed the History & Physical and in the interval since the performance of the History & Physical I have noted the following changes of clinical significance: No changes noted
--- NOTE | 2017-06-10 09:30 | Procedure Note ---
Pre-Mod Sedation Assessment General Date of Moderate Sedation: Jun 10, 2017. Vital Signs: Vital Signs Past 12 Hours Date Time Temp Pulse Resp B/P (MAP) Pulse Ox O2 Delivery O2 Flow Rate FiO2 06/10/17 07:42 37.1 115 16 139/67 96 Room Air Review Cardiovascular: no edema, no gallop, no JVD, no murmur, normal peripheral pulses, + irregularly irregular Abdomen: normal bowel sounds, non tender, soft, no organomegaly, no pulsatile mass Lungs: chest non-tender, lungs clear, normal breath sounds, no respiratory distress, no accessory muscle use Airway Class: II Pre-Sedation Airway Assessment Oral Cavity: Dentures Short Thick Neck: Yes Hx of Sleep Apnea: No Smoking Status: Former Smoker Notes The planned sedation has been discussed with the patient and consent obtained. I have identified the patient, determined the appropriateness of sedation and have assessed the patient immediately prior to the procedure. All medicine(s) and interventions are by my order.
--- NOTE | 2017-06-10 09:30 | Procedure Note ---
Post-Mod Sedation Assessment General Date of Moderate Sedation Jun 10, 2017. Vital Signs: Vital Signs Past 12 Hours Date Time Temp Pulse Resp B/P (MAP) Pulse Ox O2 Delivery O2 Flow Rate FiO2 06/10/17 07:42 37.1 115 16 139/67 96 Room Air Review - Discharge Criteria Vital Signs Stable: Yes Alert/Oriented/Conversant: Yes Returned to Baseline Mental St: Yes Nausea Absent/Minimal: Yes Pain/Discomfort/Absent/Minimal: Yes Normal/Baseline Respirations: Yes Active Bleeding?: No Pt Received D/C Instructions: Yes Prescriptions Given: None
--- NOTE | 2017-06-10 09:32 | [facility] Post Operative Brief Note ---
Immediate Operative Summary Operative Date Jun 10, 2017. Pre-Operative Diagnosis atrial flutter with variable av block Post-Operative Diagnosis same Procedure(s) Performed NICKO guided cardioversion Surgeon Ervin Grassroots Organizer Surgeon(s) Cheryl PHILLIPS Estimated Blood Loss none Findings no left atrial thrombus successful cardioversion to sinus rhythm start time: Stop time: moderate sedation with a total of 5mg of Versed and 125mcg of Fentanyl Specimens none Complication(s) None Disposition [facility]
--- NOTE | 2017-06-10 09:35 | Procedure Note ---
Procedure Note Date of Service Jun 10, 2017. Procedure Note Informed consent obtained Pt prepped Adequate moderate sedation with a total of 5mg of Versed and 125mcg of Fentanyl NICKO revealed no thrombus in the left atrial appendage with good velocities NICKO completed, probe removed further sedation given 200J of synchronized energy delivered with successful cardioversion to sinus rhythm pt tolerate well recover per protocol in [facility] Plan: cont current meds f/u with EP to discuss possible ablation
--- NOTE | 2017-06-10 10:12 | Discharge Instructions ---
Discharge Instructions Date of Service Jun 10, 2017. Admission Reason for Admission: Ervin Pritchard To Do Discharge Discharge Diagnosis / Problem: atrial flutter s/p cardioversion Discharge Goals Goal(s): Improve function Activity Recommendations Activity Limitations: as noted below Lifting Limitations: none Exercise/Sports Limitations: rest today May Resume Sexual Activity: when tolerated Shower/Bathe: no limitations Driving or Machine Use: resume 1 day after discharge . Instructions / Follow-Up Instructions / Follow-Up F/u with Dr. Hewitt as scheduled Current Hospital Diet Patient's current hospital diet: Discharge Diet Recommended Diet: Regular Diet Procedures Procedures Performed: NICKO guided cardioversion Pending Studies Studies pending at discharge: no Medical Emergencies . Who to Call and When: Medical Emergencies: If at any time you feel your situation is an emergency, please call 911 immediately. . Non-Emergent Contact Non-Emergency issues call your: Primary Care Provider . . "Provider Documentation" section prepared by Aravind Mueller. . VTE Core Measure Inpt VTE Proph given/why not?: Warfarin (Coumadin)
--- NOTE | 2017-06-10 10:47 | TEE ---
*NOTICE TO RECEIVING REPUBLICAN AGENCY This information is strictly Confidential and protected under [place] law. [place] law prohibits you from making any further disclosure of this information unless further disclosure is expressly permitted by the written consent of the person to whom it pertains or is authorized by law. A general authorization for the release of medical or other information is not sufficient for this purpose. Hospital accepts no responsibility if the information is made available to any other person, INCLUDING THE PATIENT. Interpretation Summary * Name: FRANCINE CHAVES Study Date: 06/10/2017 09:07 AM BP: 139/67 mmHg * Patient Location: Cardiopulmonary Lab HR: 114 * : 1950 (M/d/yyyy) Gender: Female Height: 61 in * Age: 66 yrs Ethnicity: [place] Weight: 249 lb * Ordering Physician: Aravind Mueller DO * Referring Physician: Aravind Mueller DO * Performed By: Ivett Diaz RCS * * Reason For Study: A-Fib, Pre-C/V, Eval for CSOE * BSA: 2.1 m2 * -- Conclusions -- * Robinul 0.4 mg administered for to reduce oral secretions. * No thrombus present in the left atrial appendage. * Trileaflet aortic valve, moderately calcified, mild to moderate aortic stenosis, mild aortic regurgitation. Procedure Details * NICKO Probe #1 utilized for procedure. * The study was performed in Cardiopulmonary Department. * Time out was conducted by the physician, nurse, and automotive specialty technician with positive identification of patient and procedure. * Informed consent for Transesophageal Echocardiogram was obtained prior to the procedure. * An intravenous line was placed. A topical anesthetic agent was used for oropharangeal anesthesia. A bite block was inserted. * The patient's vital signs, including blood pressure, heart rate, pulse oximetry and cardiac rhythm were monitored throughout the procedure . * Fentanyl 75 mcg was administered for procedural sedation. * Midazolam 3 mg administered for sedation. * Robinul 0.4 mg administered for to reduce oral secretions. * A multifrequency, multiplane transesopheageal echocardiographic endoscope was inserted and manipulated in the standard fashion to achieve multiplane views. * The transesophageal probe was passed without difficulty. * A 2D transesophageal echocardiogram with spectral and color flow Doppler was performed. * Contrast injection with agitated saline was performed. * The usual views were obtained; basal, mid-esophageal, transgastric and aortic views. * The patient tolerated the procedure well without evidence of orophangeal or esophageal trauma. * Probe insertion time 0911. Probe removable time 09. * A 2D transesophageal echocardiogram was performed. * A 2D transesophageal echocardiogram with color flow Doppler was performed. * A 2D transesophageal echocardiogram with Doppler and color flow Doppler was performed. Left Ventricle * The left ventricle is normal in size. * There is normal left ventricular wall thickness. * Left ventricular systolic function is normal. * The left ventricular wall motion is normal. Right Ventricle * The right ventricular systolic function is normal. Atria * The left atrial size is normal. * No thrombus is detected in the left atrial appendage. * Right atrial size is normal. * Injection of contrast documented no interatrial shunt. Mitral Valve * The mitral valve anatomy is normal. * There is no mitral valve stenosis. * There is trace mitral regurgitation. Tricuspid Valve * The tricuspid valve is normal in structure and function. Aortic Valve * The aortic valve is trileaflet. * Mild to moderate valvular aortic stenosis. * Mild aortic regurgitation. Pulmonic Valve * The pulmonary valve is not well seen, but the Doppler examination is normal without significant regurgitation or stenosis. Great Vessels * The aortic root and proximal ascending aorta are normal sized. Pericardium * There is no pericardial effusion.
== END | disposition home or self-care (01) ==
LOC: C.CPL 06:39
PROVIDERS: ATTEND Internal Medicine Cardiovascular Disease
DX: I48.92 Unspecified atrial flutter (principal); I44.30 Unspecified atrioventricular block; E11.22 Type 2 diabetes mellitus with diabetic chronic kidney disease; I12.9 Hypertensive chronic kidney disease with stage 1 through stage 4 chronic kidney disease, or unspecified chronic kidney disease; N18.3 Chronic kidney disease, stage 3 (moderate); E78.5 Hyperlipidemia, unspecified; F32.9 Major depressive disorder, single episode, unspecified; Z87.891 Personal history of nicotine dependence; Z79.01 Long term (current) use of anticoagulants; Z79.82 Long term (current) use of aspirin; Z79.4 Long term (current) use of insulin; Z79.899 Other long term (current) drug therapy

== ENCOUNTER 2020-09-27 12:41 | Inpatient (IN) ==
[2020-09-27] MEDS ORDERED: ALBUT/IPRATROP 3MG/0.5MG NEB 3 ML VIAL NEB STA (13:02)
--- NOTE | 2020-09-27 13:11 | Emergency Department Note ---
History of Present Illness General Chief complaint: Shortness of Breath/Dyspnea Stated complaint: SOB Time Seen by Provider: 09/27/20 12:42 Source: patient Mode of arrival: EMS Limitations: no limitations History of Present Illness Provider complaint: Shortness of breath This is a 70-year-old female who presents to the ED with a chief complaint of shortness of breath. The patient has been feeling short of breath over the past couple of weeks but significantly worsened over the past day or 2. Patient is on chronic warfarin therapy for A. fib. He denies any fevers. No upper respiratory infectious symptoms such as a runny nose, cough or sneezing. Abdominal pain. Symptoms are worse if she lies flat and with exertion. Home Medications Home Medications Medication Instructions Recorded Confirmed Type Lactobacillus acidoph-L.bulgar 1 tab PO QAM 02/27/19 04/05/20 History [Lactinex] allopurinol 300 mg PO QAM 02/27/19 04/05/20 History aspirin 81 mg PO QAM 02/27/19 04/05/20 History atorvastatin 40 mg PO QAM 02/27/19 04/05/20 History cyanocobalamin (vitamin B-12) 0 mcg PO QAM 02/27/19 04/05/20 History [Vitamin B-12] fluoxetine 40 mg PO QAM 02/27/19 04/05/20 History insulin detemir U-100 [Levemir 85 unit SUBCUT AMHS 02/27/19 04/05/20 History U-100 Insulin] levothyroxine 75 mcg PO QAM 02/27/19 04/05/20 History metoprolol succinate 25 mg PO QAM 02/27/19 04/05/20 History nortriptyline 50 mg PO HS 02/27/19 04/05/20 History tolterodine 2 mg PO QAM 02/27/19 04/05/20 History warfarin See Rx Instructions .ROUTE .COMPLEX 02/27/19 04/05/20 History insulin aspart U-100 [Novolog 50 unit SUBCUT BIDM 04/05/20 04/05/20 History U-100 Insulin aspart] Allergies Allergy/AdvReac Type Severity Reaction Status Date / Time colchicine Allergy Mild GI SYMPTOMS Verified 09/27/20 14:18 Past Med/Surg History Medical History (Updated 09/27/20 @ 14:22 by Vinicius Cochran DO) Anticoagulated on warfarin Aortic stenosis "moderate" Atrial fibrillation Dyslipidemia GERD (gastroesophageal reflux disease) History of Clostridium difficile infection Hypothyroidism Stress incontinence Umbilical hernia Surgical History Status post cataract extraction Family History Other Cancer Diabetes Heart disease Hypertension Kidney disease Social History Smoking Status: Former smoker Tobacco Type: Cigarettes Preferred Language: Amharic Feels Safe at Home: Yes Review of Systems A total of 10 systems reviewed and were otherwise negative Physical Exam Vital Signs Vital Signs - 24 hr 09/27/20 13:00 09/27/20 13:06 09/27/20 13:29 Temperature 37.3 C Temperature Source Oral Pulse Rate 79 Pulse Rate [Right Finger] 78 Respiratory Rate 24 16 Respiratory Effort / Characteristics Non-Labored Spontaneous Blood Pressure 225/94 H Blood Pressure Mean 137 Pulse Oximetry 98 98 95 Oxygen Delivery Method Room Air Room Air Room Air Sepsis Recent Fever Within 48 Hours No Sepsis New/Unexplained Change in Mental Status N/A Sepsis Action Taken by Nursing No Action Required CONSTITUTIONAL/VITAL SIGNS: Reviewed / noted above. GENERAL: Non-toxic in appearance. INTEGUMENTARY: Warm, dry, and [place]. HEAD: Normocephalic. EYES: without scleral icterus or trauma. ENT/OROPHARYNX: clear and moist. LYMPHADENOPATHY/NECK: Is supple without lymphadenopathy or meningismus. RESPIRATORY: Lungs clear and equal. CARDIOVASCULAR: Systolic ejection murmur,regular rate and rhythm. GI/ABDOMEN: Soft and nontender. No organomegaly or pulsatile mass. No rebound or guarding. Normal bowel sounds. EXTREMITIES: Warm and well perfused. BACK: No CVA tenderness. NEUROLOGICAL: Intact without focal deficits. PSYCHIATRIC: normal affect. MUSCULOSKELETAL: Normally developed with good muscle tone. TRIAGE NURSING DOCUMENTATION REVIEWED. Course Administered Medications Discontinued Medications Albuterol (Albut/Ipratrop 3mg/0.5mg Neb 3 Ml Vial) 3 ml NEB NOW STA Stop: 09/27/20 13:03 Last Admin: 09/27/20 13:27 Dose: 3 ml Documented by: [id number] Clonidine HCl (Clonidine Hcl 0.1 Mg Tab) 0.1 mg PO NOW ONE Stop: 09/27/20 13:44 Last Admin: 09/27/20 13:53 Dose: 0.1 mg Documented by: [id number] Furosemide (Furosemide 40 Mg/4 Ml Vial) 40 mg IV NOW STA Stop: 09/27/20 13:43 Last Admin: 09/27/20 13:52 Dose: 40 mg Documented by: [id number] Medical Decision Making Differential Diagnosis The differential was considered includes acute myocardial infarction, acute coronary syndrome, myocarditis, pericarditis, pericardial effusions /tamponad, esophageal perforation, pulmonary embolism, pneumonia, pneumothorax, cardiomyopathy, congestive heart, anemia , COPD/asthma exacerbation. Medical Records Attestation: I reviewed the patient's medical records. Home Medications Current Medication List: was personally reviewed by me Laboratory Data Attestation: I reviewed the patient's lab results. Result diagrams: 09/27/20 13:20 09/27/20 13:20 Lab Results 09/27/20 09/27/20 09/27/20 Range/Units 13:20 13:20 13:20 WBC 9.08 (4.8-10.8) K/uL RBC 4.79 (4.2-5.4) M/uL Hgb 14.0 (12.0-16.0) g/dL Hct 43.3 (37-47) % MCV 90.4 (80-100) fL MCH 29.2 (25-34) pg MCHC 32.3 (32-36) g/dL RDW Std Deviation 44.5 (36.4-46.3) fL RDW Coeff of Mario 13.6 (11.5-14.5) % Plt Count 293 (130-400) K/uL MPV 10.7 H (7.4-10.4) fL Immature Gran % (Auto) 0.2 % Neut % (Auto) 81.9 % Lymph % (Auto) 12.1 % King % (Auto) 4.6 % Eos % (Auto) 1.0 % Baso % (Auto) 0.2 % Neut # (Auto) 7.43 H (1.4-6.5) K/uL Lymph # (Auto) 1.10 L (1.2-3.4) K/uL King # (Auto) 0.42 (0.11-0.59) K/uL Eos # (Auto) 0.09 (0-0.5) K/uL Baso # (Auto) 0.02 (0-0.2) K/uL Immature Gran # (Auto) 0.02 (0.00-0.02) K/uL PT 15.1 H (9.0-12.0) Seconds INR 1.5 H (0.9-1.1) APTT 31.4 H (21.0-31.0) Seconds PTT Ratio 1.1 Sodium 140 (136-145) mmol/L Potassium 4.6 (3.5-5.1) mmol/L Chloride 106 (98-107) mmol/L Carbon Dioxide 32 (21-32) mmol/L Anion Gap 2.0 L (3-11) BUN 21 H (7-18) mg/dl Creatinine 1.17 (0.6-1.2) mg/dl Est Cr Clr Drug Dosing 51.5 ml/min Est GFR ( Amer) 54.7 Est GFR (Non-Af Amer) 47.2 BUN/Creatinine Ratio 17.9 (10-20) Glucose 215 H (70-99) mg/dl Calcium 9.0 (8.5-10.1) mg/dl Magnesium 2.2 (1.8-2.4) mg/dl Total Bilirubin 0.5 (0.2-1) mg/dl AST 13 L (15-37) U/L ALT 11 L (12-78) U/L Alkaline Phosphatase 146 H (45-117) U/L Troponin I 0.179 H* (0-0.045) ng/ml NT-Pro-B Natriuret Pep 4111 H (0-900) pg/ml Total Protein 6.6 (6.4-8.2) gm/dl Albumin 2.2 L (3.4-5.0) gm/dl Globulin 4.4 H (2.5-4.0) gm/dl Albumin/Globulin Ratio 0.5 L (0.9-2) Imaging Data Radiologist's Impression: XR chest 1V portable HISTORY: 70 years-old Female Dyspnea acute shortness of breath COMPARISON: Chest and rib radiographs 04/05/2020 and 02/27/2019. TECHNIQUE: Portable AP view of the chest FINDINGS: Cardiac silhouette is enlarged. Calcified plaque of the thoracic aortic arch. No pneumothorax. Small left greater than right pleural effusions with bibasilar consolidation. Pulmonary vascular congestion. There is sclerosis projecting over the proximal left humerus which on comparison. To represent calcifications within the adjacent soft tissues. Degenerative changes of the shoulders and spine. IMPRESSION: 1. Cardiomegaly with pulmonary vascular congestion. 2. Left greater than right pleural effusions with bibasilar consolidation suggestive of probable atelectasis. ECG Data Attestation: I personally reviewed and interpreted this ECG as follows: Indication: + SOB/dyspnea Rate (beats per minute): 74 Rhythm: + normal sinus ECG Intervals/blocks: + First degree AV block ECG ST segments: + ST depression (Lateral); no ST elevation ECG Findings: no PVCs MDM Narrative This is a 70-year-old female who presents to the ED with a chief complaint of shortness of breath that has progressively worsened over the past couple weeks. It is worse with lying down and exertion. Details listed above. Denies any upper respiratory infectious symptoms. The patient's initial blood pressure was elevated at 225/94. Pulse ox was 95% on room air. She is afebrile. Lung sounds were diminished bilaterally. She is obese. She does have a systolic ejection murmur that is related to her aortic stenosis. A twelve-lead EKG shows a sinus rhythm at a rate of 70 with some T wave inversions laterally. These were previously present on an EKG dated February 27, 2019. Chest x-ray reveals some congestive heart failure findings. The patient's CBC was unremarkable. INR is 1.5. She is on Coumadin. Chemistry panel was unremarkable. Glucose is 215. Troponin is elevated at 0.179. The patient was given clonidine p.o. for hypertension and IV Lasix for her congestive heart failure. The patient was also provided aspirin p.o. She was started on IV heparin without a bolus as her INR is only 1.5. She was also given Nitropaste to the chest wall as well as a breathing treatment. She will be seen with the hospitalist for further evaluation and care. Impression & Plan Hypertensive emergency, Congestive heart failure, Elevated troponin Discharge Plan Visit Data Chief Complaint: Shortness of Breath/Dyspnea Stated Complaint: SOB ED Provider: Vinicius Cochran Discharge Problem: Hypertensive emergency, Congestive heart failure, Elevated troponin Patient Disposition: Being Evaluated by Hospitalist Forms Stand Alone Forms: [facility], [facility] Emergency Department, Important Visit Information Prescriptions Prescriptions: No Action fluoxetine 40 mg capsule 40 mg PO QAM RF: 0 atorvastatin 40 mg tablet 40 mg PO QAM RF: 0 cyanocobalamin (vitamin B-12) [Vitamin B-12] 250 mcg Tablet 0 mcg PO QAM RF: 0 aspirin 81 mg Tablet,Delayed Release (Dr/Ec) 81 mg PO QAM RF: 0 allopurinol 300 mg tablet 300 mg PO QAM RF: 0 Levemir U-100 Insulin 100 unit/mL solution 85 unit subcut AMHS RF: 0 tolterodine 2 mg capsule,extended release 24hr 2 mg PO QAM RF: 0 levothyroxine 75 mcg Tablet 75 mcg PO QAM RF: 0 warfarin 5 mg tablet See Rx Instructions .ROUTE .COMPLEX RF: 0 metoprolol succinate 25 mg tablet extended release 24 hr 25 mg PO QAM RF: 0 nortriptyline 50 mg capsule 50 mg PO HS RF: 0 Lactinex 1 million cell Tablet,Chewable 1 tab PO QAM RF: 0 insulin aspart U-100 [Novolog U-100 Insulin aspart] 100 unit/mL solution 50 unit subcut BIDM RF: 0 Referrals Referrals: Wayne Keene MD [Primary Care Provider] -
--- NOTE | 2020-09-27 13:35 | XRay Report ---
XR chest 1V portable HISTORY: 70 years-old Female Dyspnea acute shortness of breath COMPARISON: Chest and rib radiographs 04/05/2020 and 02/27/2019. TECHNIQUE: Portable AP view of the chest FINDINGS: Cardiac silhouette is enlarged. Calcified plaque of the thoracic aortic arch. No pneumothorax. Small left greater than right pleural effusions with bibasilar consolidation. Pulmonary vascular congestion . There is sclerosis projecting over the proximal left humerus which on comparison. To represent calc ifications within the adjacent soft tissues. Degenerative changes of the shoulders and spine. IMPRESSION: 1. Cardiomegaly with pulmonary vascular congestion. 2. Left greater than right pleural effusions with bibasilar consolidation suggestive of probable atel ectasis. ACT 112: Negative or not required by law. The above report was generated using voice recognition software. It may contain grammatical, syntax o r spelling errors. Electronically signed by: Goyo Modi M.D. 09/27/2020 1:34 PM
[2020-09-27] MEDS ORDERED: FUROSEMIDE 40 MG/4 ML VIAL IV STA (13:42)
[2020-09-27] MEDS ORDERED: cloNIDine HCL 0.1 MG TAB PO ONE (13:43)
[2020-09-27 13:49] LABS: Basophils # (auto) 0.02 K/uL (0-0.2); Basophils % (auto) 0.2 %; Eosinophils # (auto) 0.09 K/uL (0-0.5); Hematocrit (blood only) 43.3 % (37-47); Immature Granulocytes # (auto) 0.02 K/uL (0.00-0.02); Immature Granulocytes % (auto) 0.2 %; Lymphocytes % (auto) 12.1 %; Mean Corpuscular Hemoglobin 29.2 pg (25-34); Mean Corpuscular Hgb Conc 32.3 g/dL (32-36); Mean Corpuscular Volume 90.4 fL (80-100); Mean Platelet Volume 10.7 fL (7.4-10.4); Monocytes # (auto) 0.42 K/uL (0.11-0.59); Monocytes % (auto) 4.6 %; Neutrophils # (auto) 7.43 K/uL (1.4-6.5); Neutrophils % (auto) 81.9 %; Platelet Count 293 K/uL (130-400); RDW Coefficient of Variation 13.6 % (11.5-14.5); RDW Standard Deviation 44.5 fL (36.4-46.3); Red Blood Count 4.79 M/uL (4.2-5.4); White Blood Count 9.08 K/uL (4.8-10.8)
[2020-09-27 13:53] LABS: INR 1.5 (0.9-1.1); Partial Thromboplastin Ratio 1.1; Partial Thromboplastin Time 31.4 Seconds (21.0-31.0); Prothrombin Time 15.1 Seconds (9.0-12.0)
[2020-09-27 14:03] LABS: Albumin Level 2.2 gm/dl (3.4-5.0); BUN Creatinine Ratio 17.9 (10-20); Creatinine Clr Calc Pharmacy 51.5 ml/min; Est GFR (African American) 54.7; Est GFR (Non-African American) 47.2; Magnesium 2.2 mg/dl (1.8-2.4); Potassium 4.6 mmol/L (3.5-5.1)
[2020-09-27 14:12] LABS: Albumin Globulin Ratio 0.5 (0.9-2); Bilirubin,Total 0.5 mg/dl (0.2-1); Globulin 4.4 gm/dl (2.5-4.0); Total Protein 6.6 gm/dl (6.4-8.2); Troponin I 0.179 ng/ml (0-0.045)
[2020-09-27] MEDS ORDERED: NITROGLYCERIN 2% OINTMENT 30GM TUBE EXT STA (14:17)
[2020-09-27] MEDS ORDERED: Heparin IV Standard *NO* Bolus IV ONE (14:18)
[2020-09-27] MEDS ORDERED: ASPIRIN CHEW 324 MG PO STA (14:18)
--- NOTE | 2020-09-27 14:43 | History & Physical Report ---
Date of Service September 27, 2020 Assessment & Plan (1) Hypertensive emergency: (2) Acute heart failure with preserved ejection fraction (HFpEF): (3) Elevated troponin: This is a 70-year-old female who has significant past medical history of insulin-dependent T2DM uncontrolled, paroxysmal atrial fibrillation anticoagulated on warfarin, HTN, HLD, CKD stage III, moderate aortic stenosis, hypothyroidism, depression with anxiety who presents to ED secondary to worsening shortness of breath x2 days. Admit to PCU obtain echocardiogram cycle troponins continue IV heparin in setting of subtherapeutic INR and elevated troponin Lasix IV 40 mg twice daily Daily weights, strict I's and O's nitro paste 1 in continue to monitor BP closely consult cardiology (4) T2DM (type 2 diabetes mellitus): Uncontrolled, last A1c 9.0 With diabetic retinopathy and nephropathy Lantus/NovoLog per protocol Consultation with pharmacy for glycemic management (5) Atrial fibrillation: PAF, rate controlled with metoprolol INR subtherapeutic at 1.5 Patient took 5 mg warfarin this morning, will add additional 2.5 this evening Continue home regimen of 5 mg Thursday, Thursday, and 7.5 mg all other days Continue IV heparin bridge until INR is greater than 2 (6) HTN (hypertension): Pt admitted for hypertensive emergency BP reviewed in [facility] and mostly controlled on metoprolol previously had been on lisinopril 5mg and lasix but no longer takes per pt may need additional agent prior to d/c, will monitor (7) Aortic stenosis: Pt with hx of mild documented on echo in 2014 repeat echo cards on board (8) CKD (chronic kidney disease), stage III: baseline cr 1.1 bun/cr 21 and 1.17 today monitor with diuresis (9) DVT prophylaxis: IV Heparin bridge, d/c Heparin when INR > or = 2.0 Disposition: admit to PCU Follow up: PCP Dr. Keene upon discharge Pt was seen and examined in collaboration with Dr. Bennett, please see addendum History of Present Illness Chief Complaint: Worsening shortness of breath x2 days. Primary Care Provider: Wayne Keene MD This is a 70-year-old female who has significant past medical history of insulin-dependent T2DM uncontrolled, paroxysmal atrial fibrillation anticoagulated on warfarin, HTN, HLD, CKD stage III, moderate aortic stenosis, hypothyroidism, depression with anxiety who presents to ED secondary to worsening shortness of breath x2 days. She admits to having BURTON for the past 2 weeks. She would get short of breath even with little activity. Over the past 2 days it has significantly worsened and she has been having difficulty catching her breath. Even admits to shortness of breath at rest. She denies any recent fever, chills, sweats, lightheadedness, dizziness, chest pain, palpitations, cough, hemoptysis, nausea, vomiting, abdominal pain, dysuria, increased urgency or frequency with urination, melena or hematochezia. She denies any PND. She has 4 pillow orthopnea. She denies any lower extremity edema or significant weight gain. Her baseline weight is approximately 224 and she states previously she had been up in the 400s. She does not take any diuretic on a regular basis. She denies any prior history of coronary artery disease or CHF. She does not monitor her blood pressure at home. She denies any change in dietary intake including salt intake. She denies any known exposure to coronavirus stating she mostly stays home. She is an insulin-dependent diabetic with an A1c of 9.0 and uncontrolled. She does take significant doses of insulin and does not monitor blood sugar on a regular basis. She does have history of PAF anticoagulated on warfarin and she did take her morning dose today. In ED patient was found to have hypertensive emergency with systolic blood pressure of 225. She not requiring supplemental oxygen. She had elevated troponin 0.179, proBNP 4111 glucose 215, BUN 21, creatinine 1.17, INR 1.5. She was afebrile and did not have any leukocytosis. Chest x-ray revealed mild pulmonary vascular congestion. She received 40 mg IV Lasix as well as 0.1 mg of clonidine which improved blood pressure to 181/95. She was 140 systolically during my visit. After receiving Lasix she has urinated and currently states she is feeling much improved and breathing easier. Allergies Allergy/AdvReac Type Severity Reaction Status Date / Time colchicine Allergy Mild GI SYMPTOMS Verified 09/27/20 14:18 Home Medications Home Medications Medication Instructions Recorded Confirmed Type Lactobacillus acidoph-L.bulgar 1 tab PO QAM 02/27/19 09/27/20 History [Lactinex] allopurinol 300 mg PO QAM 02/27/19 09/27/20 History aspirin 81 mg PO QAM 02/27/19 09/27/20 History atorvastatin 40 mg PO QAM 02/27/19 09/27/20 History fluoxetine 40 mg PO QAM 02/27/19 09/27/20 History insulin detemir U-100 [Levemir 80 unit SUBCUT AMHS 02/27/19 09/27/20 History U-100 Insulin] metoprolol succinate 25 mg PO QAM 02/27/19 09/27/20 History nortriptyline 50 mg PO HS 02/27/19 09/27/20 History tolterodine 2 mg PO QAM 02/27/19 09/27/20 History insulin aspart U-100 [Novolog 35 unit SUBCUT BIDM 04/05/20 09/27/20 History U-100 Insulin aspart] pantoprazole 40 mg PO DAILY 09/27/20 09/27/20 History warfarin 5 mg PO SUTUTH 09/27/20 09/27/20 History warfarin 7.5 mg PO MOWEFRSA 09/27/20 09/27/20 History Past Med/Surg History Medical History (Updated 09/27/20 @ 15:37 by Jacey Boles PA-C) Anticoagulated on warfarin Aortic stenosis "moderate" Atrial fibrillation Dyslipidemia GERD (gastroesophageal reflux disease) History of Clostridium difficile infection HTN (hypertension) Hypothyroidism Stress incontinence T2DM (type 2 diabetes mellitus) Umbilical hernia Surgical History History of fracture of leg s/p surgical fixation Status post cataract extraction Family History (Updated 09/27/20 @ 14:40 by Jacey Boles PA-C) Mother , 67 Alzheimer disease Father Myocardial infarction, Onset Age: 47 Social History (Updated 09/27/20 @ 14:42 by Jacey Boles PA-C) Smoking Status: Never smoker Tobacco Type: Cigarettes Years Smoked: 5; Cigarettes Per Day: 20; Smoking End Date: 1979; Hx Alcohol Use: No Hx Substance Use: No Preferred Language: [place]ian Communication Ability: Effective 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 Cleaner Required: No Beliefs That Will Affect Care: None marital status: / Current Living Situation: Alone Other Information That Helps Us Care for You: No Feels Safe at Home: Yes Safety Concerns: Feels Safe At This Time Assistive Devices: None Review of Systems Review of Systems: All systems reviewed & are unremarkable except as noted in HPI & below Physical Exam Physical Exam: Constitutional: WD/WN, vitals as above, NAD, sitting up in bed, pleasant, conversing easily Head: Normocephalic, Atraumatic Eyes: PERRL, conjunctivae normal, anicteric sclerae ENMT: external ear and nose normal, oropharynx normal Neck: trachea midline, no thyromegaly normal visual inspection Respiratory: normal respiratory effort, lungs clear to auscultation, no wheeze, rales, rhonchi. Normal insp/exp effort, no accessory muscle use Cardiovascular: RRR, harsh 3/6 EDE noted best RUSB but heard throughout precordium and into back, bilateral lower extremity venous stasis without active cellulitis, bilateral pedal pulse +2 Vessels: no JVD or carotid bruit Chest: normal inspection of chest Abdomen: normal bowel sounds, soft, nontender, no hepatosplenomegaly Musculoskeletal: no cyanosis or clubbing, extremities motor strength 5/5 Skin: no rashes, warm and dry normal turgor Neurologic: PERRL, EOMI, accommodation nl, no face palsy, no dysarthria CN's II-XI intact bilaterally and moves all extremities Psychiatric: A+Ox3, euthymic affect Lymphatic: no cervical or axillary lymphadenopathy : deferred Results & Data Results & Data ([facility]) Vital Signs (Past 12 Hours) Vital Signs Temp Pulse Pulse Resp BP Pulse Ox 09/27/20 13:29 78 16 95 09/27/20 13:06 98 09/27/20 13:00 37.3 C 79 24 225/94 H 98 Laboratory Results Short CBC 09/27/20 09/27/20 Range/Units 13:20 13:20 WBC 9.08 (4.8-10.8) K/uL Hgb 14.0 (12.0-16.0) g/dL Hct 43.3 (37-47) % Plt Count 293 (130-400) K/uL Troponin I 0.179 H* (0-0.045) ng/ml BMP 09/27/20 13:20 Sodium 140 Potassium 4.6 Chloride 106 Carbon Dioxide 32 BUN 21 H Creatinine 1.17 Glucose 215 H Calcium 9.0 Cardiac Enzymes 09/27/20 Range/Units 13:20 Troponin I 0.179 H* (0-0.045) ng/ml Liver Function 09/27/20 Range/Units 13:20 Total Bilirubin 0.5 (0.2-1) mg/dl AST 13 L (15-37) U/L ALT 11 L (12-78) U/L Alkaline Phosphatase 146 H (45-117) U/L Albumin 2.2 L (3.4-5.0) gm/dl Diagnostic Findings CXR: IMPRESSION: 1. Cardiomegaly with pulmonary vascular congestion. 2. Left greater than right pleural effusions with bibasilar consolidation suggestive of probable atelectasis. Medications Administered Discontinued Medications Albuterol (Albut/Ipratrop 3mg/0.5mg Neb 3 Ml Vial) 3 ml NEB NOW STA Stop: 09/27/20 13:03 Last Admin: 09/27/20 13:27 Dose: 3 ml Documented by: [id number] Clonidine HCl (Clonidine Hcl 0.1 Mg Tab) 0.1 mg PO NOW ONE Stop: 09/27/20 13:44 Last Admin: 09/27/20 13:53 Dose: 0.1 mg Documented by: [id number] Furosemide (Furosemide 40 Mg/4 Ml Vial) 40 mg IV NOW STA Stop: 09/27/20 13:43 Last Admin: 09/27/20 13:52 Dose: 40 mg Documented by: [id number] Code Status & VTE Plan Code Status Full Code VTE Prophylaxis Plan VTE Prophylaxis will be ordered: No Reason for no VTE drug order: Contraindicated Reason for no VTE mechanical prophylaxis: Treatment not indicated Supervising Physician Co-Signing Physician Notes ATTENDING ADDENDUM ; pt seen and examined, care co-ordinated Jacey Boles PA-C 70 yo female with past medical hx chronic Afib /CHF with diastolic dysfunction , type 2 DM , HTN presents to ER with progressively worsening of SOB , orthopnea , increased abdominal girth Chest xray shows pulmonary congestion, BP significantly elevated 225/94 given Lasix 40 mg IV in ER and nitro paste during pt exam -appears to be comfortable SOB improved , no chest pain , no cough physical exam : focused : Gen: obese , no sign of distress HEENT : NAD Heart : no JVD , afib , rate controlled trace bilat lower ext edema Abdomen ; distended , non tender A/p : VOL OVERLOAD /DECOMPENSATED CHF WITH DIASTOLIC HEART FAILURE ( HFpEF) : given IV Lasix 40 mg in ER continue with IV 40 mg BID ECHO ordered cardiology consult requested Hypertensive Urgency : BP was significantly elevated , possible causing decompensated CHF ? continue Nitro paste pt was on Lisinopril 5 mg daily -stopped taking it ordered Lisinopril 5 mg one dose now , then cont in AM Cont Lasix 40 mg IV BID continued home dose of beta raman ECHO to assess hypertensive heart disease Cardiology consulted Chronic Afib : rate controlled on beta raman on coumadin , INR subtheraputic 1.5 cont Iv heparin bridge till INR ~2 please refer to further documentation by Jacey Boles PA-C for discussion of other chronic issues Kiara Bennett MD
[2020-09-27] MEDS: HEPARIN SODIUM/DEXTROSE 25,000 UNITS/500 ML BAG IV SCH (14:47)
[2020-09-27 15:52] LABS: Thyroid Stimulating Hormone 2.33 uIu/ml (0.300-4.500)
--- NOTE | 2020-09-27 16:10 | Electrocardiogram Report ---
Test Reason : Blood Pressure : / mmHG Vent. Rate : 070 BPM Atrial Rate : 070 BPM P-R Int : 214 ms QRS Dur : 076 ms QT Int : 426 ms P-R-T Axes : 039 011 144 degrees QTc Int : 460 ms Sinus rhythm with 1st degree A-V block Septal infarct (cited on or before 12-DEC-2016) T wave abnormality, consider lateral ischemia Abnormal ECG When compared with ECG of 27-FEB-2019 14:14, QRS duration has decreased Confirmed by Joe Frank ([id number]) on 09/27/2020 4:09:45 PM Referred By: REFERRED SELF Confirmed By:Joe Frank
[2020-09-27] MEDS ORDERED: GLUCOSE 10 TABS/TUBE PO PRN (17:23)
[2020-09-27] MEDS ORDERED: POLYETHYLENE (MIRALAX) 17 GM PACK PO PRN (17:23)
[2020-09-27] MEDS ORDERED: ALUMINUM/MAGNESIUM SUSP 30 ML UDC PO PRN (17:23)
[2020-09-27] MEDS ORDERED: MAGNESIUM HYDROXIDE SUSP 30 ML UDC PO PRN (17:23)
[2020-09-27] MEDS ORDERED: ACETAMINOPHEN 325 MG TAB PO PRN (17:23)
[2020-09-27] MEDS ORDERED: GLUCOSE 40% GEL 15 GM TUBE PO PRN (17:23)
[2020-09-27] MEDS ORDERED: GLUCAGON FOR INJ 1 MG VIAL SQ PRN (17:23)
[2020-09-27] MEDS ORDERED: ONDANSETRON INJ 2 MG/ML 2 ML VIAL IV PRN (17:23)
[2020-09-27] MEDS ORDERED: DEXTROSE 50% 50 ML SYRINGE IV PRN (17:23)
[2020-09-27] MEDS ORDERED: PHARMACY GLYCEMIC MGMT CONSULT PRN (17:32)
[2020-09-27] MEDS ORDERED: WARFARIN SOD 5 MG TAB PO SCH (18:00)
[2020-09-27] MEDS: INSULIN ASPART 100 UNITS/ML 3 ML PEN SC SCH ×2 (18:10→20:02)
[2020-09-27] MEDS: NITROGLYCERIN 2% OINTMENT 30GM TUBE EXT SCH ×2 (18:18→23:45)
[2020-09-27] MEDS ORDERED: WARFARIN SOD 2.5 MG TAB PO ONE (18:30)
[2020-09-27] MEDS ORDERED: lisinopril 5 MG TAB PO ONE (18:54)
[2020-09-27] MEDS: NORTRIPTYLINE HCL 25 MG CAP PO SCH (19:40)
[2020-09-27] MEDS: INSULIN GLARGINE SOLOSTAR 100 UNITS/ML 3 ML PEN SC SCH (20:00)
[2020-09-27] MEDS ORDERED: FUROSEMIDE 40 MG in SYRINGE 0 ML IV SCH (21:00)
[2020-09-27] MEDS ORDERED: FUROSEMIDE 40 MG/4 ML VIAL IV SCH (21:00)
[2020-09-27] MEDS ORDERED: INSULIN GLARGINE SOLOSTAR 100 UNITS/ML 3 ML PEN SC SCH ×2 (21:00)
[2020-09-27 21:26] LABS: Partial Thromboplastin Ratio 2.8
[2020-09-27 21:28] LABS: Partial Thromboplastin Time 77.2 Seconds (21.0-31.0)
[2020-09-28 03:38] LABS: Hematocrit (blood only) 40.1 % (37-47); Mean Corpuscular Hemoglobin 29.2 pg (25-34); Mean Corpuscular Hgb Conc 32.4 g/dL (32-36); Mean Corpuscular Volume 90.1 fL (80-100); Mean Platelet Volume 10.3 fL (7.4-10.4); Platelet Count 281 K/uL (130-400); RDW Coefficient of Variation 13.5 % (11.5-14.5); RDW Standard Deviation 44.6 fL (36.4-46.3); Red Blood Count 4.45 M/uL (4.2-5.4)
[2020-09-28 03:55] LABS: BUN Creatinine Ratio 18.3 (10-20); Calcium 8.8 mg/dl (8.5-10.1); Est GFR (African American) 43.6; Est GFR (Non-African American) 37.6; Magnesium 1.7 mg/dl (1.8-2.4); Potassium 4.4 mmol/L (3.5-5.1)
[2020-09-28 03:57] LABS: INR 1.6 (0.9-1.1); Partial Thromboplastin Ratio 3.8; Prothrombin Time 16.1 Seconds (9.0-12.0)
[2020-09-28 04:08] LABS: Partial Thromboplastin Time 105.6 Seconds (21.0-31.0)
[2020-09-28] MEDS: NITROGLYCERIN 2% OINTMENT 30GM TUBE EXT SCH ×3 (05:07→18:25)
[2020-09-28 06:24] LABS: Estimated Average Glucose 220 mg/dl; Hemoglobin A1C 9.3 % (4.5-5.6)
[2020-09-28] MEDS ORDERED: ACETAMINOPHEN 325 MG TAB PO PRN (06:59)
[2020-09-28] MEDS ORDERED: MAGNESIUM SULFATE / D5W 1 GM/100 ML BAG IV ONE (07:15)
[2020-09-28] MEDS: INSULIN ASPART 100 UNITS/ML 3 ML PEN SC SCH ×4 (08:03→20:55)
[2020-09-28] MEDS: INSULIN GLARGINE SOLOSTAR 100 UNITS/ML 3 ML PEN SC SCH ×2 (08:04→20:57)
[2020-09-28] MEDS: PANTOprazole 40 MG TAB PO SCH (08:07)
[2020-09-28] MEDS: lisinopril 5 MG TAB PO SCH (08:07)
[2020-09-28] MEDS: allopurinoL 300 MG TAB PO SCH (08:08)
[2020-09-28] MEDS: ADVANCED PROBIOTIC 1250 MG CAPSULE PO SCH (08:08)
[2020-09-28] MEDS: TOLTERODINE TARTRATE LA 2 MG CAPCR PO SCH (08:08)
[2020-09-28] MEDS: METOPROLOL SUCC 25MG EXT REL TAB PO SCH (08:09)
[2020-09-28] MEDS: FLUoxetine HCL 20 MG CAP PO SCH (08:09)
[2020-09-28] MEDS: ASPIRIN 81 MG ECTAB PO SCH (08:09)
[2020-09-28] MEDS: ATORVASTATIN 40 MG TAB PO SCH (08:09)
--- NOTE | 2020-09-28 08:31 | Cardiology Consultation ---
Date of Consultation September 28, 2020 Assessment & Plan (1) Heart failure due to valvular disease: (2) Aortic stenosis: (3) HTN (hypertension): (4) CKD (chronic kidney disease), stage III: (5) T2DM (type 2 diabetes mellitus): By echocardiography the patient's aortic stenosis has progressed to severe along with at least moderate aortic insufficiency. I believe her symptoms are related to acute pulmonary edema from heart failure on the basis of valvular heart disease as well as possible under compliance with medications. The troponin elevation is type II and not due to ACS. She is comfortable now. I would continue IV Lasix through today. Reassess tomorrow. I discussed with her the pathophysiology of aortic stenosis and treatment options. At some point she will most likely require a cardiac catheterization followed by referral for valve replacement. For now however, I would continue to keep treat her heart failure and optimize her medications. History of Present Illness Attending Physician: Kurt Rahman MD History of Present Illness This is a 70-year-old type II diabetic with the below past medical history. She has a history of paroxysmal atrial fibrillation which has been treated with long-term anticoagulation and rate control. She does have a previous history of moderate aortic stenosis. According to our records however, she has never seen a city recorder. She was actually scheduled to see a provider in our clinic in 2018 but was a no-show. She presented with progressive shortness of breath and orthopnea. She was also markedly hypertensive on admission. She has been given IV Lasix with improvement of her symptoms. Her admission INR was 1.6 which suggests possibly reduce compliance with medications. Problem List: 16 items Diabetes mellitus with background retinopathy (HCC) DM type 2 causing neurological disease (HCC) DM type 2 causing renal disease (HCC) Typical atrial flutter (HCC) Type 2 diabetes mellitus with hemoglobin A1c goal of less than 8.0% (HCC) Type 2 diabetes mellitus with stage 3 chronic kidney disease, with long-term current use of insulin (HCC) Female stress incontinence Vitamin D deficiency Acquired hypothyroidism Dyslipidemia, goal LDL below 100 HTN, goal below 140/90 Depression with anxiety Moderate aortic stenosis Gastroesophageal reflux disease without esophagitis Type 2 diabetes mellitus with diabetic neuropathy, unspecified (HCC) Hypertensive kidney disease with stage 3a chronic kidney disease Allergies Allergy/AdvReac Type Severity Reaction Status Date / Time colchicine Allergy Mild GI SYMPTOMS Verified 09/27/20 14:18 Home Medications Home Medications Medication Instructions Recorded Confirmed Type Lactobacillus acidoph-L.bulgar 1 tab PO QAM 02/27/19 09/27/20 History [Lactinex] allopurinol 300 mg PO QAM 02/27/19 09/27/20 History aspirin 81 mg PO QAM 02/27/19 09/27/20 History atorvastatin 40 mg PO QAM 02/27/19 09/27/20 History fluoxetine 40 mg PO QAM 02/27/19 09/27/20 History insulin detemir U-100 [Levemir 80 unit SUBCUT AMHS 02/27/19 09/27/20 History U-100 Insulin] metoprolol succinate 25 mg PO QAM 02/27/19 09/27/20 History nortriptyline 50 mg PO HS 02/27/19 09/27/20 History tolterodine 2 mg PO QAM 02/27/19 09/27/20 History insulin aspart U-100 [Novolog 35 unit SUBCUT BIDM 04/05/20 09/27/20 History U-100 Insulin aspart] pantoprazole 40 mg PO DAILY 09/27/20 09/27/20 History warfarin 5 mg PO SUTUTH 09/27/20 09/27/20 History warfarin 7.5 mg PO MOWEFRSA 09/27/20 09/27/20 History Patient History Medical History Anticoagulated on warfarin Aortic stenosis "moderate" Atrial fibrillation Dyslipidemia GERD (gastroesophageal reflux disease) History of Clostridium difficile infection HTN (hypertension) Hypothyroidism Stress incontinence T2DM (type 2 diabetes mellitus) Umbilical hernia Surgical History History of fracture of leg s/p surgical fixation Status post cataract extraction Family History Mother , 67 Alzheimer disease Father Myocardial infarction, Onset Age: 47 Social History Smoking Status: Never smoker Tobacco Type: Cigarettes Years Smoked: 5; Cigarettes Per Day: 20; Smoking End Date: 1979; Hx Alcohol Use: No Hx Substance Use: No Preferred Language: Frisian Communication Ability: Effective 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 Physical Exam Physical Exam: General: no acute distress and stated age Head: normocephalic, no masses, lesions, tenderness or abnormalities Eyes: conjunctiva are pink and non-injected, sclera clear Neck: supple, no adenopathy, no bruits, normal jugular venous pulse, no hepatojugular reflux Chest: normal shape and normal respiratory effort Lungs: clear to auscultation and percussion Cardiac Exam: - regular rate & rhythm, systolic murmur left sternal border- normal S1, normal S2 Pulses: 2(+) throughout Abdomen: abdomen soft, non-tender, no abnormal masses and no hepatosplenomegaly Musculoskeletal: no gait disturbance, no joint inflammation, no deforming arthritis Extremities: no edema and no cyanosis Neuro: grossly normal exam Results & Data ([facility]) Vital Signs (Past 12 Hours) Vital Signs Temp Pulse Resp BP Pulse Ox 09/28/20 07:53 36.5 C 64 16 149/73 H 96 09/28/20 05:00 36.6 C 63 136/73 94 09/28/20 00:00 36.4 C L 65 18 163/71 H 95 Laboratory Results Laboratory Results - last 24 hr 09/27/20 09/27/20 09/27/20 13:20 13:20 13:20 WBC 9.08 RBC 4.79 Hgb 14.0 Hct 43.3 MCV 90.4 MCH 29.2 MCHC 32.3 RDW Std Deviation 44.5 RDW Coeff of Mario 13.6 Plt Count 293 MPV 10.7 H Immature Gran % (Auto) 0.2 Neut % (Auto) 81.9 Lymph % (Auto) 12.1 [facility] [facility] % (Auto) 4.6 Eos % (Auto) 1.0 Baso % (Auto) 0.2 Neut # (Auto) 7.43 H Lymph # (Auto) 1.[address] [place] # (Auto) 0.42 Eos # (Auto) 0.09 Baso # (Auto) 0.02 Immature Gran # (Auto) 0.02 PT 15.1 H INR 1.5 H APTT 31.4 H PTT Ratio 1.1 Sodium 140 Potassium 4.6 Chloride 106 Carbon Dioxide 32 Anion Gap 2.0 L BUN 21 H Creatinine 1.17 Est Cr Clr Drug Dosing 51.5 Est GFR ( Amer) 54.7 Est GFR (Non-Af Amer) 47.2 BUN/Creatinine Ratio 17.9 Glucose 215 H POC Glucose Estimat Average Glucose Hemoglobin A1c Calcium 9.0 Magnesium 2.2 Total Bilirubin 0.5 AST 13 L ALT 11 L Alkaline Phosphatase 146 H Troponin I 0.179 H* NT-Pro-B Natriuret Pep 4111 H Total Protein 6.6 Albumin 2.2 L Globulin 4.4 H Albumin/Globulin Ratio 0.5 L TSH 2.330 COVID-19 Eval Order SARS-CoV-2, RNA, NAAT 09/27/20 09/27/20 09/27/20 15:22 15:22 16:23 WBC RBC Hgb Hct MCV MCH MCHC RDW Std Deviation RDW Coeff of Mario Plt Count MPV Immature Gran % (Auto) Neut % (Auto) Lymph % (Auto) [facility] [facility] % (Auto) Eos % (Auto) Baso % (Auto) Neut # (Auto) Lymph # (Auto) [facility] # (Auto) Eos # (Auto) Baso # (Auto) Immature Gran # (Auto) PT INR APTT PTT Ratio Sodium Potassium Chloride Carbon Dioxide Anion Gap BUN Creatinine Est Cr Clr Drug Dosing Est GFR ( Amer) Est GFR (Non-Af Amer) BUN/Creatinine Ratio Glucose POC Glucose 194 H Estimat Average Glucose Hemoglobin A1c Calcium Magnesium Total Bilirubin AST ALT Alkaline Phosphatase Troponin I NT-Pro-B Natriuret Pep Total Protein Albumin Globulin Albumin/Globulin Ratio TSH COVID-19 Eval Order Covid19 [facility]Now [facility], 1928–1983 SARS-CoV-2, RNA, NAAT NEGATIVE 09/27/20 09/27/20 09/27/20 17:36 19:50 20:55 WBC RBC Hgb Hct MCV MCH MCHC RDW Std Deviation RDW Coeff of Mario Plt Count MPV Immature Gran % (Auto) Neut % (Auto) Lymph % (Auto) [facility] % (Auto) Eos % (Auto) Baso % (Auto) Neut # (Auto) Lymph # (Auto) [facility] # (Auto) Eos # (Auto) Baso # (Auto) Immature Gran # (Auto) PT INR APTT 77.2 H* PTT Ratio 2.8 Sodium Potassium Chloride Carbon Dioxide Anion Gap BUN Creatinine Est Cr Clr Drug Dosing Est GFR ( Amer) Est GFR (Non-Af Amer) BUN/Creatinine Ratio Glucose POC Glucose 175 H Estimat Average Glucose Hemoglobin A1c Calcium Magnesium Total Bilirubin AST ALT Alkaline Phosphatase Troponin I 0.184 H* NT-Pro-B Natriuret Pep Total Protein Albumin Globulin Albumin/Globulin Ratio [facility] COVID-19 Eval Order SARS-CoV-2, RNA, NAAT 09/27/20 09/28/20 09/28/20 23:30 00:23 03:16 WBC RBC Hgb Hct MCV MCH MCHC RDW Std Deviation RDW Coeff of Mario Plt Count MPV Immature Gran % (Auto) Neut % (Auto) Lymph % (Auto) [facility] % (Auto) Eos % (Auto) Baso % (Auto) Neut # (Auto) Lymph # (Auto) [facility] # (Auto) Eos # (Auto) Baso # (Auto) Immature Gran # (Auto) PT 16.1 H INR 1.6 H APTT 105.6 H* PTT Ratio 3.8 Sodium Potassium Chloride Carbon Dioxide Anion Gap BUN Creatinine Est Cr Clr Drug Dosing Est GFR ( Amer) Est GFR (Non-Af Amer) BUN/Creatinine Ratio Glucose POC Glucose 114 H Estimat Average Glucose Hemoglobin A1c Calcium Magnesium Total Bilirubin AST ALT Alkaline Phosphatase Troponin I 0.198 H* NT-Pro-B Natriuret Pep Total Protein Albumin Globulin Albumin/Globulin Ratio [facility] COVID-19 Eval Order SARS-CoV-2, RNA, NAAT 09/28/20 09/28/20 09/28/20 03:16 03:16 03:16 WBC 8.40 RBC 4.45 Hgb 13.0 Hct 40.1 MCV 90.1 MCH 29.2 MCHC 32.4 RDW Std Deviation 44.6 RDW Coeff of Mario 13.5 Plt Count 281 MPV 10.3 Immature Gran % (Auto) Neut % (Auto) Lymph % (Auto) [facility] % (Auto) Eos % (Auto) Baso % (Auto) Neut # (Auto) Lymph # (Auto) [facility] # (Auto) Eos # (Auto) Baso # (Auto) Immature Gran # (Auto) PT INR APTT PTT Ratio Sodium 140 Potassium 4.4 Chloride 105 Carbon Dioxide 32 Anion Gap 3.0 BUN 26 H Creatinine 1.41 H Est Cr Clr Drug Dosing 42.0 Est GFR ( Amer) 43.6 Est GFR (Non-Af Amer) 37.6 BUN/Creatinine Ratio 18.3 Glucose 120 H POC Glucose Estimat Average Glucose 220 Hemoglobin A1c 9.3 H Calcium 8.8 Magnesium 1.7 L Total Bilirubin AST ALT Alkaline Phosphatase Troponin I NT-Pro-B Natriuret Pep Total Protein Albumin Globulin Albumin/Globulin Ratio TSH COVID-19 Eval Order SARS-CoV-2, RNA, NAAT 09/28/20 07:42 WBC RBC Hgb Hct MCV MCH MCHC RDW Std Deviation RDW Coeff of Mario Plt Count MPV Immature Gran % (Auto) Neut % (Auto) Lymph % (Auto) [facility] % (Auto) Eos % (Auto) Baso % (Auto) Neut # (Auto) Lymph # (Auto) [facility] # (Auto) Eos # (Auto) Baso # (Auto) Immature Gran # (Auto) PT INR APTT PTT Ratio Sodium Potassium Chloride Carbon Dioxide Anion Gap BUN Creatinine Est Cr Clr Drug Dosing Est GFR ( Amer) Est GFR (Non-Af Amer) BUN/Creatinine Ratio Glucose POC Glucose 111 H Estimat Average Glucose Hemoglobin A1c Calcium Magnesium Total Bilirubin AST ALT Alkaline Phosphatase Troponin I NT-Pro-B Natriuret Pep Total Protein Albumin Globulin Albumin/Globulin Ratio TSH COVID-19 Eval Order SARS-CoV-2, RNA, NAAT Diagnostic Findings EKG reveals a sinus rhythm with left ventricular hypertrophy. Echocardiogram indicates severe calcific aortic stenosis Medications Administered Current Inpatient Medications Acetaminophen (Acetaminophen 325 Mg Tab) 325 mg PO Q6H PRN PRN Reason: Pain or Fever Stop: 10/27/20 17:22 Allopurinol ([facility]ol 300 Mg Tab) [facility] Stop: 10/28/20 08:59 Last Admin: 09/28/20 08:08 Dose: 300 mg Documented by: Aspirin (Aspirin 81 Mg Ectab) [facility] [place] Stop: 10/28/20 08:59 Last Admin: 09/28/20 08:09 Dose: 81 mg Documented by: Atorvastatin Calcium (Atorvastatin 40 Mg Tab) [facility] [place] Stop: 10/28/20 08:59 Last Admin: 09/28/20 08:09 Dose: 40 mg Documented by: Dextrose (Dextrose 50% 50 Ml Syringe) 25 - 50 ml IV UD PRN; Protocol PRN Reason: Hypoglycemia Protocol Stop: 10/27/20 17:22 Fluoxetine HCl (Fluoxetine Hcl 20 Mg Cap) 40 mg PO QAM [facility] Stop: 10/28/20 08:59 Last Admin: 09/28/20 08:09 Dose: 40 mg Documented by: Glucagon (Glucagon For Inj 1 Mg Vial) 1 mg SQ UD PRN; Protocol PRN Reason: Hypoglycemia Protocol Stop: 10/27/20 17:22 Glucose (Glucose 10 Tabs/Tube) 4 - 8 tabs PO UD PRN; Protocol PRN Reason: Hypoglycemia Protocol Stop: 10/27/20 17:22 Glucose (Glucose 40% Gel 15 Gm Tube) 15 - 30 gm PO UD PRN; Protocol PRN Reason: Hypoglycemia Protocol Stop: 10/27/20 17:22 Heparin Sodium/Dextrose (Heparin Sodium/Dextrose) 25,000 units in 500 mls @ 21 mls/hr IV .[id number] [facility]; Protocol Stop: 10/27/20 14:29 Last Titration: 09/28/20 05:11 Dose: 1,050 units/hr, 21 mls/hr Documented by: Furosemide 40 mg/ Syringe 4 mls @ 4 mls/min IV BID [facility] Stop: 10/27/20 20:59 Last Admin: 09/27/20 19:39 Dose: 4 mls/min Documented by: Insulin Aspart (Insulin Aspart 100 Units/Ml 3 Ml Pen) 0 units SC ACHS [facility] Stop: 10/27/20 17:44 Last Admin: 09/28/20 08:03 Dose: 8 units Documented by: Insulin Glargine (Insulin Glargine Solostar 100 Units/Ml 3 Ml Pen) 0 units SC BID [facility]; Protocol Stop: 10/27/20 20:59 Last Admin: 09/28/20 08:04 Dose: 20 units Documented by: Lactobacillus Acidoph/Casei/Rhamnos (Advanced Probiotic 1250 Mg Capsule) 2 cap PO QAM [facility] Stop: 10/28/20 08:59 Last Admin: 09/28/20 08:08 Dose: 2 cap Documented by: Lisinopril (Lisinopril 5 Mg Tab) 5 mg PO QAM [facility] Stop: 10/28/20 08:59 Last Admin: 09/28/20 08:07 Dose: 5 mg Documented by: Magnesium Hydroxide (Magnesium Hydroxide Susp 30 Ml Udc) 30 ml PO Q12H PRN PRN Reason: Constipation Stop: 10/27/20 17:22 Metoprolol Succinate (Metoprolol Succ 25mg Ext Rel Tab) 25 mg PO QAM [facility] Stop: 10/28/20 08:59 Last Admin: 09/28/20 08:09 Dose: 25 mg Documented by: Miscellaneous (Carbohydrates For Hypoglycemia ) 15 - 30 gm PO UD PRN PRN Reason: Hypoglycemia Protocol Stop: 10/27/20 17:22 Miscellaneous Information (Pharmacy Glycemic Mgmt Consult) 1 ea N/A UD PRN; Pr otocol PRN Reason: Consult Stop: 10/27/20 17:31 Nitroglycerin (Nitroglycerin 2% Ointment 30gm Tube) 1 inch EXT Q6 [facility] Stop: 10/27/20 17:59 Last Admin: 09/28/20 05:07 Dose: 1 inch Documented by: Nortriptyline HCl (Nortriptyline Hcl 25 Mg Cap) 50 mg PO HS [facility] Stop: 10/27/20 20:59 Last Admin: 09/27/20 19:40 Dose: 50 mg Documented by: Ondansetron HCl (Ondansetron Inj 2 Mg/Ml 2 Ml Vial) 4 mg IV Q6H PRN PRN Reason: Nausea Stop: 10/27/20 17:22 Pantoprazole Sodium (Pantoprazole 40 Mg Tab) 40 mg PO DAILY [facility] Stop: 10/28/20 08:59 Last Admin: 09/28/20 08:07 Dose: 40 mg Documented by: Polyethylene Glycol (Polyethylene (Miralax) 17 Gm Pack) 17 gm PO DAILY PRN PRN Reason: Constipation Stop: 10/27/20 17:22 Tolterodine Tartrate (Tolterodine Tartrate La 2 Mg Capcr) [facility] [place] Stop: 10/28/20 08:59 Last Admin: 09/28/20 08:08 Dose: 2 mg Documented by: Warfarin Sodium (Warfarin Sod 7.5 Mg Tab) 7.5 mg PO MoWeFrSa@1600 [facility] Stop: 10/28/20 15:59 Warfarin Sodium (Warfarin Sod 5 Mg Tab) 5 mg PO SuTuTh@1600 [facility] Stop: 10/27/20 17:59
[2020-09-28] MEDS ORDERED: FUROSEMIDE 40 MG in SYRINGE 0 ML IV ONE (11:30)
[2020-09-28] MEDS ORDERED: WARFARIN SOD 5 MG TAB PO SCH (11:30)
[2020-09-28 11:49] LABS: Partial Thromboplastin Time 83.3 Seconds (21.0-31.0)
--- NOTE | 2020-09-28 11:51 | Pharmacy Report ---
Glycemic Control Consultation - Date of Service September 28, 2020 - Scope Scope: Glycemic Pharmacist consulted for glycemic control and to write orders per [facility] inpatient glycemic control protocol. - Objective Weight: 103.9 kg Accuchecks BSG (last 24hrs): 09/27/20 09/27/20 09/27/20 13:20 16:23 19:50 Glucose 215 H POC Glucose 194 H 175 H 09/28/20 09/28/20 09/28/20 00:23 03:16 07:42 Glucose 120 H POC Glucose 114 H 111 H 09/28/20 11:19 Glucose POC Glucose 171 H Laboratory Data (last 24hrs): 09/27/20 09/28/20 13:20 03:16 Potassium 4.6 4.4 Carbon Dioxide 32 32 Anion Gap 2.0 L 3.0 Creatinine 1.17 1.41 H Est Cr Clr Drug Dosing 51.5 42.0 HbA1c: Hemoglobin A1c 9.3 % (4.5-5.6) H 09/28/20 03:16 - Recent Pertinent Medications Outpatient Anti-diabetic Regimen: * Levemir 80 units SQ BID + Novolog 35 units SQ BIDM * A1c = 9.3% (09/28/2020) Risk Factors for Insulin Resistance: * IVF: * Heparin drip in D5W * Diet: * T2DM - Assessment & Plan Assessment & Plan: ASSESSMENT: * 70 yo F admitted secondary to hypertensive emergency and acute heart failure exacerbation. Pharmacy is consulted for inpatient glycemic management. * Patient reports taking 80 units of Levemir yesterday morning prior to admission. Her admission BSG was 194 mg/dL. She received 30 units of Lantus last evening. * Fasting BSG this AM was 111 mg/dL - well controlled * No changes will be made to basal regimen at this time * Stressors expected to remain constant over the next 24 hours * Will continue with Novolog parameters based on a weight/stress of 3 PLAN FOR INPATIENT GLYCEMIC CONTROL: * Basal insulin * Lantus 20-40 units SQ BID per BSG (see eMAR for more details) * Bolus insulin * NovoLog per scale ACHS or Q6hrs while NPO * Goal Range: Low 120 mg/dL - High 150 mg/dL * Correction Factor: 15 mg/dL/unit * Nutritional / Prandial insulin per carb ratio of 1 unit per 5 grams CHO consumed * Please note that the plan above was derived based on current level of insulin resistance and hospital stress. These recommendations are appropriate for inpatient admission only. Plan of care upon discharge will need to be reassessed to avoid potential outpatient hypo/hyperglycemia. Thank you.
--- NOTE | 2020-09-28 11:51 | Hospitalist Progress Note ---
Date of Service September 28, 2020 Assessment & Plan (1) Aortic stenosis: Severe Aortic Stenosis -09/27/2020: "This is a 70-year-old female who has significant past medical history of insulin-dependent T2DM uncontrolled, paroxysmal atrial fibrillation anticoagulated on warfarin, HTN, HLD, CKD stage III, moderate aortic stenosis, hypothyroidism, depression with anxiety who presents to ED secondary to worsening shortness of breath x2 days." -mild documented on echo in 2015 -based on this hospitalization echocardiogram and cardiology consultation by Dr. Jeffery on 09/28/2020 "By echocardiography the patient's aortic stenosis has progressed to severe along with at least moderate aortic insufficiency. I believe her symptoms are related to acute pulmonary edema from heart failure on the basis of valvular heart disease as well as possible under compliance with medications. The troponin elevation is type II and not due to ACS. She is comfortable now. I would continue IV Lasix through today. Reassess tomorrow. I discussed with her the pathophysiology of aortic stenosis and treatment options. At some point she will most likely require a cardiac catheterization followed by referral for valve replacement. For now however, I would continue to keep treat her heart failure and optimize her medications." 09/28/2020: Patient seen and examined today while sitting up in the chair and with IV heparin drip running. No acute distress. breathing on room air. she reports her breathing subjectively better today. Her lung bases with some crackles. Patient denies chest pain or pain elsewhere. Patient subsequently seen again after hospitalist discussion with mortgage field inspector. Patient was seen then walking with IV pole with physical therapy (2) Elevated troponin: Elevated troponins on this admission secondary to Type II demand ischemia -assessment as above by cardiology (3) Acute heart failure with preserved ejection fraction (HFpEF): -admission CXR on 09/28/2020 "Cardiomegaly with pulmonary vascular congestion. Left greater than right pleural effusions with bibasilar consolidation suggestive of probable atelectasis" -BNP on admission above 4000 -management with IV diuretics on presentation, currently on IV Lasix 40 mg BID for now (4) Hypertensive emergency: -initial blood pressure in the ED on 09/27/2020 as 225/94 (5) HTN (hypertension): -currently on IV Lasix 40 mg BID with lisinopril 5 mg daily (6) CKD (chronic kidney disease), stage III: acute kidney injury on chronic kidney disease -baseline creatinine around 1.1 -09/27/2020 presentation creatinine of 1.17, patient subsequently received IV Lasix -09/28/[address] Jeffery about elevations in creatinine of 1.41. 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 She had taken coumadin 5 mg prior to ED presentation and given an additional 2.5 mg coumadin. Because of subtherapeutic INR and concerns of initial elevated troponins, patient was started on IV heparin as well -09/28/2020 INR is 1.6. Continue the IV heparin with coumadin as per cardiology Dr. jeffery -trend the INR (9) DVT prophylaxis: -current on IV heparin, continue home dose coumadin, goal INR is between 2 to 3 -because of multiple cardiac issues as above and being on IV heparin and IV Lasix, patient's initial observation is upgraded to full admission on 09/28/2020 -PT/OT evalautions Admission and Anticipated Discharge Date Admission Date: September 27, 2020 Subjective Patient seen and examined today while sitting up in the chair and with IV heparin drip running. No acute distress. breathing on room air. she reports her breathing subjectively better today. Her lung bases with some crackles. Patient denies chest pain or pain elsewhere. Patient subsequently seen again after hospitalist discussion with mortgage field inspector. Patient was seen then walking with IV pole with physical therapy Patient denies other symptoms on review of systems Review of Systems Review of Systems: All systems reviewed & are unremarkable except as noted in Subjective Physical Exam Constitutional: cooperative Eyes: PERRL, conjunctivae normal, anicteric sclerae EOM intact bilaterally ENMT: external ear and nose normal, oropharynx normal Neck: normal visual inspection Respiratory: normal respiratory effort Auscultation: + crackles Cardiovascular: Rate/Rhythm: + bradycardic Gastrointestinal (Abdomen): normal bowel sounds, soft, nontender, no hepatosplenomegaly Musculoskeletal: Head/Neck/Chest: normocephalic and head atraumatic Neurologic: PERRL, EOMI, accommodation nl, no face palsy, no dysarthria CN's II-XI intact bilaterally and moves all extremities Psychiatric: A+Ox3, euthymic affect Results & Data Results & Data ([facility]) Vital Signs (Past 12 Hours) Vital Signs Temp Pulse Resp BP Pulse Ox 09/28/20 11:18 36.7 C 61 18 159/75 H 95 09/28/20 07:53 36.5 C 64 16 149/73 H 96 09/28/20 05:00 36.6 C 63 136/73 94 09/28/20 00:00 36.4 C L 65 18 163/71 H 95
--- NOTE | 2020-09-28 12:19 | Electrocardiogram Report ---
Test Reason : Blood Pressure : / mmHG Vent. Rate : 061 BPM Atrial Rate : 061 BPM P-R Int : 230 ms QRS Dur : 082 ms QT Int : 474 ms P-R-T Axes : 028 003 147 degrees QTc Int : 477 ms Sinus rhythm with 1st degree A-V block Left ventricular hypertrophy with repolarization abnormality Cannot rule out Septal infarct (cited on or before 12-DEC-2016) Abnormal ECG When compared with ECG of 27-SEP-2020 12:57, No significant change was found Confirmed by Joe Frank ([id number]) on 09/28/2020 12:19:04 PM Referred By: REFERRED SELF Confirmed By:Joe Frank
[2020-09-28] MEDS: HEPARIN SODIUM/DEXTROSE 25,000 UNITS/500 ML BAG IV SCH ×2 (12:22→20:58)
[2020-09-28] MEDS: WARFARIN SOD 7.5 MG TAB PO SCH (16:49)
[2020-09-28 18:57] LABS: Partial Thromboplastin Ratio 2.5
[2020-09-28] MEDS: NORTRIPTYLINE HCL 25 MG CAP PO SCH (20:54)
[2020-09-29] MEDS: NITROGLYCERIN 2% OINTMENT 30GM TUBE EXT SCH ×2 (00:09→05:52)
[2020-09-29 01:42] LABS: Hematocrit (blood only) 38.7 % (37-47); Hemoglobin 12.9 g/dL (12.0-16.0); Mean Corpuscular Hemoglobin 29.7 pg (25-34); Mean Corpuscular Hgb Conc 33.3 g/dL (32-36); Mean Platelet Volume 10.5 fL (7.4-10.4); Platelet Count 279 K/uL (130-400); RDW Coefficient of Variation 13.4 % (11.5-14.5); RDW Standard Deviation 43.8 fL (36.4-46.3); Red Blood Count 4.35 M/uL (4.2-5.4); White Blood Count 8.28 K/uL (4.8-10.8)
[2020-09-29 01:51] LABS: INR 1.5 (0.9-1.1); Prothrombin Time 15.6 Seconds (9.0-12.0)
[2020-09-29 02:00] LABS: Albumin Level 2.1 gm/dl (3.4-5.0); BUN Creatinine Ratio 19.1 (10-20); Calcium 8.8 mg/dl (8.5-10.1); Creatinine Clr Calc Pharmacy 35.4 ml/min; Est GFR (African American) 35.6; Est GFR (Non-African American) 30.7; Magnesium 1.9 mg/dl (1.8-2.4); Potassium 4.4 mmol/L (3.5-5.1)
[2020-09-29 02:01] LABS: Partial Thromboplastin Ratio 2.5
[2020-09-29 02:02] LABS: Albumin Globulin Ratio 0.5 (0.9-2); Bilirubin,Total 0.3 mg/dl (0.2-1); Globulin 4.2 gm/dl (2.5-4.0); Total Protein 6.3 gm/dl (6.4-8.2)
[2020-09-29 02:05] LABS: Partial Thromboplastin Time 68.8 Seconds (21.0-31.0)
[2020-09-29] MEDS: ATORVASTATIN 40 MG TAB PO SCH (08:34)
[2020-09-29] MEDS: METOPROLOL SUCC 25MG EXT REL TAB PO SCH ×2 (08:34→20:30)
[2020-09-29] MEDS: lisinopril 5 MG TAB PO SCH (08:35)
[2020-09-29] MEDS: ADVANCED PROBIOTIC 1250 MG CAPSULE PO SCH (08:35)
[2020-09-29] MEDS: TOLTERODINE TARTRATE LA 2 MG CAPCR PO SCH (08:35)
[2020-09-29] MEDS: allopurinoL 300 MG TAB PO SCH (08:35)
[2020-09-29 08:36] LABS: Partial Thromboplastin Ratio 2.5
[2020-09-29] MEDS: FLUoxetine HCL 20 MG CAP PO SCH (08:36)
[2020-09-29] MEDS: ASPIRIN 81 MG ECTAB PO SCH (08:36)
[2020-09-29] MEDS: PANTOprazole 40 MG TAB PO SCH (08:36)
[2020-09-29] MEDS: INSULIN ASPART 100 UNITS/ML 3 ML PEN SC SCH ×4 (08:37→21:00)
[2020-09-29] MEDS: INSULIN GLARGINE SOLOSTAR 100 UNITS/ML 3 ML PEN SC SCH (08:37)
--- NOTE | 2020-09-29 11:16 | Hospitalist Progress Note ---
Date of Service September 29, 2020 Assessment & Plan (1) Aortic stenosis: Severe Aortic Stenosis -09/27/2020: "This is a 70-year-old female who has significant past medical history of insulin-dependent T2DM uncontrolled, paroxysmal atrial fibrillation anticoagulated on warfarin, HTN, HLD, CKD stage III, moderate aortic stenosis, hypothyroidism, depression with anxiety who presents to ED secondary to worsening shortness of breath x2 days." -mild documented on echo in 2015 -based on this hospitalization echocardiogram and cardiology consultation by Dr. Jeffery on 09/28/2020 "By echocardiography the patient's aortic stenosis has progressed to severe along with at least moderate aortic insufficiency. I believe her symptoms are related to acute pulmonary edema from heart failure on the basis of valvular heart disease as well as possible under compliance with medications. The troponin elevation is type II and not due to ACS. She is comfortable now. I would continue IV Lasix through today. Reassess tomorrow. I discussed with her the pathophysiology of aortic stenosis and treatment options. At some point she will most likely require a cardiac catheterization followed by referral for valve replacement. For now however, I would continue to keep treat her heart failure and optimize her medications." -09/28/2020: Patient seen and examined today while sitting up in the chair and with IV heparin drip running. No acute distress. breathing on room air. she reports her breathing subjectively better today. Her lung bases with some crackles. Patient denies chest pain or pain elsewhere. Patient subsequently seen again after hospitalist discussion with grid trimmer. Patient was seen then walking with IV pole with physical therapy and was not feeling shortness of breath -09/29/2020: Patient seen and examined today again in chair with IV Lasix. Continues to be on room air with some residual but mild crackles of the lungs. The creatinine increased to 1.[address] Spencer from cardiology of holding Lasix today. Patient subjectively feels comfortable with her breathing. Patient denies other symptoms currently. No chest pain. No dizziness. No nausea. No other symptoms on review of systems. hospitalist asked nurse to remove the nitropaste and monitor blood pressure. INR is 1.5 and not at goal of between 2 to 3 (2) Elevated troponin: Elevated troponins on this admission secondary to Type II demand ischemia -assessment as above by cardiology (3) Acute heart failure with preserved ejection fraction (HFpEF): -admission CXR on 09/28/2020 "Cardiomegaly with pulmonary vascular congestion. Left greater than right pleural effusions with bibasilar consolidation suggestive of probable atelectasis" -BNP on admission above 4000 -initial management with IV Lasix -09/29/2020: remains on room air with mild crackles on posterior lung exam (4) Hypertensive emergency: -initial blood pressure in the ED on 09/27/2020 as 225/94, patient's blood pressure medication that was started initially also included nitro paste (5) HTN (hypertension): -on home dose lisinopril 5 mg daily -monitor the blood pressure after removing the nitro paste on 09/29/2020 -holding the Lasix at this time because of acute kidney injury (6) CKD (chronic kidney disease), stage III: acute kidney injury on chronic kidney disease -baseline creatinine around 1.1 -09/27/2020 presentation creatinine of 1.17, patient subsequently received IV Lasix -09/28/[address] Jeffery about elevations in creatinine of 1.41. 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 She had taken coumadin 5 mg prior to ED presentation and given an additional 2.5 mg coumadin. Because of subtherapeutic INR and concerns of initial elevated troponins, patient was started on IV heparin as well -09/28/2020 INR is 1.6. Continue the IV heparin with coumadin as per cardiology Dr. Jeffery -09/29/2020 INR is 1.5. discuss further anticoagulation strategy with Dr. Spencer (9) DVT prophylaxis: -current on IV heparin, continue home dose coumadin, goal INR is between 2 to 3 -because of multiple cardiac issues as above and being on IV heparin and IV Lasix, patient's initial observation is upgraded to full admission on 09/28/2020 -PT/OT evalautions Admission and Anticipated Discharge Date Admission Date: September 28, 2020 Subjective -09/29/2020: Patient seen and examined today again in chair with IV Lasix. Continues to be on room air with some residual but mild crackles of the lungs. The creatinine increased to 1.[address] Spencer from cardiology of holding Lasix today. Patient subjectively feels comfortable with her breathing. Patient denies other symptoms currently. No chest pain. No dizziness. No nausea. No other symptoms on review of systems. hospitalist asked nurse to remove the nitropaste and monitor blood pressure. INR is 1.5 and not at goal of between 2 to 3 Review of Systems Review of Systems: All systems reviewed & are unremarkable except as noted in Subjective Physical Exam Constitutional: cooperative Eyes: PERRL, conjunctivae normal, anicteric sclerae EOM intact bilaterally ENMT: external ear and nose normal, oropharynx normal Neck: normal visual inspection Respiratory: normal respiratory effort Auscultation: + crackles ((mild)) Cardiovascular: Rate/Rhythm: + bradycardic Heart Sounds: + murmur Gastrointestinal (Abdomen): normal bowel sounds, soft, nontender, no hepatos plenomegaly (has chronic hernia) Musculoskeletal: Head/Neck/Chest: normocephalic and head atraumatic Neurologic: PERRL, EOMI, accommodation nl, no face palsy, no dysarthria CN's II-XI intact bilaterally and moves all extremities Psychiatric: A+Ox3, euthymic affect Results & Data Results & Data ([facility]) Vital Signs (Past 12 Hours) Vital Signs Temp Pulse Pulse Resp BP Pulse Ox 09/29/20 08:43 59 L 09/29/20 07:10 36.4 C L 63 16 142/76 H 94 09/29/20 04:23 36.4 C L 61 18 127/78 94 09/28/20 23:16 36.5 C 65 18 116/50 L 95
[2020-09-29] MEDS ORDERED: INSULIN GLARGINE SOLOSTAR 100 UNITS/ML 3 ML PEN SC ONE (12:00)
--- NOTE | 2020-09-29 13:18 | Cardiology Progress Note ---
Date of Service September 29, 2020 Assessment & Plan (1) Aortic stenosis: (2) Heart failure due to valvular disease: (3) Pleural effusion, bilateral: (4) Acute kidney injury superimposed on chronic kidney disease: (5) PSVT (paroxysmal supraventricular tachycardia): (6) Atrial flutter, paroxysmal: 7-year-old female admitted with palpitations, acute congestive heart failure, and severe aortic stenosis. Clinically improving with IV diuretic therapy, however, renal function continues to decline suggesting intravascular volume depletion. At least moderate left-sided pleural effusion noted per x-ray and physical exam. Recommend pulmonary consultation to consider thoracentesis. Cou madin will remain on hold today and tomorrow. Continue intravenous heparin infusion for subtherapeutic INR. Titrate Toprol-XL to 25 mg twice daily given salvos of paroxysmal supraventricular tachycardia noted on telemetry. No recurrent episodes of atrial flutter since admission. Ultimately, patient will require a cardiac catheterization in preparation for aortic valve replacement, however, this can likely be performed the outpatient setting when pulmonary and renal status have stabilized. Admission and Anticipated Discharge Date Admission Date: September 28, 2020 Subjective Patient seen and examined the bedside. Feeling better since admission with diuretic therapy, however, creatinine trending upward to 1.6 today. Diuretics placed on hold. Telemetry demonstrates sinus rhythm. No evidence of recurrent atrial flutter. Brief ruiz of paroxysmal supraventricular tachycardia recorded. Patient reports significant palpitations "heart racing" prior to admission. Denies lightheadedness, dizziness, syncope, or near syncope. Echocardiogram performed on admission demonstrates progression of aortic stenosis to severe. X-ray demonstrates bilateral pleural effusion, left greater than right. Review of Systems Review of Systems: All systems reviewed & are unremarkable except as noted in HPI & below Physical Exam Constitutional: well developed and well nourished; no acute distress and not ill appearing Respiratory: Auscultation: + breath sounds absent (Left base) and + diminished lung sounds (Right base and left midlung field); no crackles, no rales, no rhonchi and no wheezes Cardiovascular: Rate/Rhythm: regular rate and regular rhythm Heart Sounds: normal S1 and + murmur (4/6 high-pitched late peaking systolic ejection murmur heard best at the ri); + abnormal S2 (Absent) Vessels: no JVD and + radial pulses abnormal (Right radial pulse not palpable) Extremities: no edema Gastrointestinal (Abdomen): Inspection/Auscultation: abdomen normal to inspection and normal bowel sounds; abdomen not distended Percussion/Palpation: abdomen soft; abdomen nontender, no guarding and abdomen not rigid Skin: Bilateral lower extremity pretibial stasis changes with superficial skin excoriations and contusions bilaterally. Psychiatric: A+Ox3, euthymic affect Results & Data ([facility]) Vital Signs (Past 12 Hours) Vital Signs Temp Pulse Pulse Resp BP BP Pulse Ox 09/29/20 11:22 36.5 C 68 18 135/75 96 09/29/20 08:43 59 L 09/29/20 07:10 36.4 C L 63 16 142/76 H 94 09/29/20 04:23 36.4 C L 61 18 127/78 94
--- NOTE | 2020-09-29 13:55 | Pulmonary Consultation ---
Date of Consultation September 29, 2020 Assessment & Plan (1) Pleural effusion, bilateral: I did do a bedside ultrasound. The effusions are tiny. There is no indication for thoracentesis at this time. The patient symptomatically feels less short of breath since hospital admission. She is saturating 96% on room air. I am going to obtain a post diuresis chest x-ray today. If the chest x- ray demonstrates similar findings or improved findings, we can follow her clinically. I would recommend getting out of bed and physical therapy as she does have some atelectasis related to inactivity. Significant weight loss is advised. Thank you for the consult. We will continue to follow peripherally. Please call with questions. Present on Admission?: Yes (2) Acute kidney injury superimposed on chronic kidney disease: (3) PSVT (paroxysmal supraventricular tachycardia): (4) Atrial flutter, paroxysmal: (5) Acute heart failure with preserved ejection fraction (HFpEF): History of Present Illness Reason for Consultation: Bilateral small pleural effusions Requesting Physician: Certified Hand Therapist Attending Physician: Kurt Rahman MD History of Present Illness 70-year-old female with a past medical history of diastolic heart failure, CKD stage III, diabetes mellitus type 2, hypertension, atrial fibrillation, history of C. difficile infection and severe aortic stenosis who presented to the hospital 2 days ago due to increasing shortness of breath. She is currently saturating 96% on room air. Echo completed on 09/28/2020 demonstrated moderate aortic regurg, severe concentric left ventricular hypertrophy and a severely calcified aortic valve with stenosis. She apparently was having increasing shortness of breath and orthopnea at home. She was very hypertensive at home. She does feel better after IV Lasix. INR was suboptimal on admission. It was 1.6. She is currently on a heparin drip. Chest x-ray completed 2 days ago demonstrated right and left pleural effusions with atelectasis. Pulmonary vascular congestion noted. Pulmonary is consulted for thoracentesis. I evaluated the right and left pleural effusions. There was really very minimal effusion on the right and a small effusion on the left that would likely not improve her symptoms at this point. The risks would likely outweigh the benefits at this point given the small size of the left-sided effusion. I am going to obtain a follow-up chest x-ray that would effectively be a post diuresis film. She has been having significant diarrhea today. Allergies Allergy/AdvReac Type Severity Reaction Status Date / Time colchicine Allergy Mild GI SYMPTOMS Verified 09/27/20 14:18 Home Medications Home Medications Medication Instructions Recorded Confirmed Type Lactobacillus acidoph-L.bulgar 1 tab PO QAM 02/27/19 09/27/20 History [Lactinex] allopurinol 300 mg PO QAM 02/27/19 09/27/20 History aspirin 81 mg PO QAM 02/27/19 09/27/20 History atorvastatin 40 mg PO QAM 02/27/19 09/27/20 History fluoxetine 40 mg PO QAM 02/27/19 09/27/20 History insulin detemir U-100 [Levemir 80 unit SUBCUT AMHS 02/27/19 09/27/20 History U-100 Insulin] metoprolol succinate 25 mg PO QAM 02/27/19 09/27/20 History nortriptyline 50 mg PO HS 02/27/19 09/27/20 History tolterodine 2 mg PO QAM 02/27/19 09/27/20 History insulin aspart U-100 [Novolog 35 unit SUBCUT BIDM 04/05/20 09/27/20 History U-100 Insulin aspart] pantoprazole 40 mg PO DAILY 09/27/20 09/27/20 History warfarin 5 mg PO SUTUTH 09/27/20 09/27/20 History warfarin 7.5 mg PO MOWEFRSA 09/27/20 09/27/20 History Patient History Medical History Anticoagulated on warfarin Aortic stenosis "moderate" Atrial fibrillation Dyslipidemia GERD (gastroesophageal reflux disease) History of Clostridium difficile infection HTN (hypertension) Hypothyroidism Stress incontinence T2DM (type 2 diabetes mellitus) Umbilical hernia Surgical History History of fracture of leg s/p surgical fixation Status post cataract extraction Family History Mother , 67 Alzheimer disease Father Myocardial infarction, Onset Age: 47 Social History Smoking Status: Never smoker Tobacco Type: Cigarettes Years Smoked: 5; Cigarettes Per Day: 20; Smoking End Date: 1979; Hx Alcohol Use: No Hx Substance Use: No Preferred Language: Polish Communication Ability: Effective Floor Tiling Professional Required: No Beliefs That Will Affect Care: None marital status: / Current Living Situation: Alone Other Information That Helps Us Care for You: No Feels Safe at Home: Yes Safety Concerns: Feels Safe At This Time Assistive Devices: None Review of Systems Review of Systems: All systems reviewed & are unremarkable except as noted in HPI & below Physical Exam Constitutional: WD/WN, vitals as above + morbidly obese Eyes: PERRL, conjunctivae normal, anicteric sclerae ENMT: external ear and nose normal, oropharynx normal Neck: trachea midline, no thyromegaly Respiratory: normal respiratory effort, lungs clear to auscultation Cardiovascular: RRR, no murmur, no edema Gastrointestinal (Abdomen): normal bowel sounds, soft, nontender, no hepatosplenomegaly Musculoskeletal: no cyanosis or clubbing, extremities motor strength 5/5 Skin: no rashes, warm and dry Neurologic: PERRL, EOMI, accommodation nl, no face palsy, no dysarthria Psychiatric: A+Ox3, euthymic affect Results & Data Results & Data ([facility]) Vital Signs (Past 12 Hours) Vital Signs Temp Pulse Pulse Resp BP BP Pulse Ox 09/29/20 11:22 97.7 F 68 18 135/75 96 09/29/20 08:43 59 L 09/29/20 07:10 97.5 F L 63 16 142/76 H 94 09/29/20 04:23 97.5 F L 61 18 127/78 94 I reviewed the vital signs, labs and imaging PG Care Time/CCT Total # of Minutes Spent Total Time Spent with Patient: Total time spent is greater than 50% in coordination of care (as documented) at patient's floor/unit and/or counseling patient: Coding Level of Care Code 90309 Initial Inpt Care Lvl 2 Diagnoses Pleural effusion, bilateral J90 Acute kidney injury superimposed on chronic kidney disease N17.9; N18.9 PSVT (paroxysmal supraventricular tachycardia) I47.1 Atrial flutter, paroxysmal I48.92 Acute heart failure with preserved ejection fraction (HFpEF) I50.31
[2020-09-29] MEDS ORDERED: NYSTATIN POWDER 15GM BTL EXT PRN (14:05)
--- NOTE | 2020-09-29 14:17 | Communication Note ---
Date of Service: September 29, 2020 No thoracentesis needed at this time. home dose warfarin can be resumed as the INR remains subtherapeutic. patient noted blood in loose bowel movement. stop current IV heparin. will check the CBC
--- NOTE | 2020-09-29 14:40 | Pharmacy Report ---
Pharmacy Glycemic Short Note 2 - Date of Service September 29, 2020 - Glycemic Short BSG Results (Last 24 hours): 09/28/20 09/28/20 09/28/20 16:37 20:34 22:10 Glucose POC Glucose 172 H 109 H 70 09/29/20 09/29/20 09/29/20 01:10 07:38 11:15 Glucose 106 H POC Glucose 180 H 250 H OUTPATIENT ANTIDIABETIC REGIMEN: * Levemir 80 units SQ BID + Novolog 35 units SQ BIDM * A1c = 9.3% (09/28/2020) ASSESSMENT: * 70 yo F admitted secondary to hypertensive emergency and acute heart failure exacerbation. * Patient received 84 units of insulin yesterday with decent control: * 50 units of basal * 34 units of bolus * Fasting BSG trending upward. Patient takes 160 units of Levemir at home. Will increase basal insulin scale. * Post prandial BSGs looked good yesterday. No change to Novolog today. * Of note, lunch BSG was 250 mg/dL -> I suspect this is partially due to basal deficiency. If this trend continues, carb coverage with be tightened. PLAN FOR INPATIENT GLYCEMIC CONTROL: * Basal insulin - increase * Lantus 30 units qAM + additional 10 units ordered with lunch, then BID per scale: * 20 units for BSG less than 120 * 30 units for BSG 120- 160 * 40 units for BSG greater than 160 * Bolus insulin * NovoLog per scale ACHS or Q6hrs while NPO * Goal Range: Low 120 mg/dL - High 150 mg/dL * Correction Factor: 15 mg/dL/unit * Nutritional / Prandial insulin per carb ratio of 1 unit per 5 grams CHO consumed
[2020-09-29 15:04] LABS: Basophils # (auto) 0.01 K/uL (0-0.2); Basophils % (auto) 0.1 %; Eosinophils # (auto) 0.27 K/uL (0-0.5); Eosinophils % (auto) 3.6 %; Hematocrit (blood only) 39.5 % (37-47); Hemoglobin 12.7 g/dL (12.0-16.0); Immature Granulocytes # (auto) 0.02 K/uL (0.00-0.02); Immature Granulocytes % (auto) 0.3 %; Lymphocytes % (auto) 21.3 %; Mean Corpuscular Hemoglobin 28.6 pg (25-34); Mean Corpuscular Hgb Conc 32.2 g/dL (32-36); Mean Platelet Volume 10.3 fL (7.4-10.4); Monocytes # (auto) 0.38 K/uL (0.11-0.59); Monocytes % (auto) 5.1 %; Neutrophils # (auto) 5.23 K/uL (1.4-6.5); Neutrophils % (auto) 69.6 %; Platelet Count 247 K/uL (130-400); RDW Coefficient of Variation 13.6 % (11.5-14.5); RDW Standard Deviation 44.3 fL (36.4-46.3); Red Blood Count 4.44 M/uL (4.2-5.4); White Blood Count 7.51 K/uL (4.8-10.8)
[2020-09-29 15:18] LABS: Partial Thromboplastin Ratio 1.8
[2020-09-29 15:19] LABS: BUN Creatinine Ratio 22.1 (10-20); Calcium 8.9 mg/dl (8.5-10.1); Creatinine Clr Calc Pharmacy 36.4 ml/min; Est GFR (African American) 36.6; Est GFR (Non-African American) 31.6; Potassium 4.6 mmol/L (3.5-5.1)
[2020-09-29 15:26] LABS: Partial Thromboplastin Time 50.5 Seconds (21.0-31.0)
[2020-09-29] MEDS ORDERED: LOPERAMIDE HCL 2 MG CAP PO STA (16:04)
[2020-09-29] MEDS: WARFARIN SOD 7.5 MG TAB PO SCH (16:49)
[2020-09-29] MEDS: CARBOHYDRATES FOR HYPOGLYCEMIA PO PRN ×2 (20:26→20:58)
[2020-09-29] MEDS: NORTRIPTYLINE HCL 25 MG CAP PO SCH (20:30)
[2020-09-29] MEDS: LOPERAMIDE HCL 2 MG CAP PO PRN (20:49)
[2020-09-29] MEDS ORDERED: DEXTROSE 50% 50 ML SYRINGE IV STA (21:34)
[2020-09-30] MEDS: INSULIN ASPART 100 UNITS/ML 3 ML PEN SC SCH ×6 (00:32→20:47)
[2020-09-30] MEDS ORDERED: LOPERAMIDE HCL 2 MG CAP PO STA (01:15)
--- NOTE | 2020-09-30 06:43 | Electrocardiogram Report ---
Test Reason : Blood Pressure : / mmHG Vent. Rate : 064 BPM Atrial Rate : 064 BPM P-R Int : 222 ms QRS Dur : 078 ms QT Int : 476 ms P-R-T Axes : 054 012 139 degrees QTc Int : 491 ms Sinus rhythm with 1st degree A-V block Septal infarct (cited on or before 12-DEC-2016) Abnormal ECG When compared with ECG of 28-SEP-2020 06:35, No significant change was found Confirmed by Joe Frank ([id number]) on 09/30/2020 6:43:40 AM Referred By: REFERRED SELF Confirmed By:Joe Frank
[2020-09-30 07:17] LABS: Basophils # (auto) 0.02 K/uL (0-0.2); Basophils % (auto) 0.2 %; Eosinophils # (auto) 0.34 K/uL (0-0.5); Hemoglobin 13.1 g/dL (12.0-16.0); Immature Granulocytes # (auto) 0.04 K/uL (0.00-0.02); Immature Granulocytes % (auto) 0.5 %; Lymphocytes # (auto) 2.04 K/uL (1.2-3.4); Mean Corpuscular Hemoglobin 29.2 pg (25-34); Mean Corpuscular Hgb Conc 32.8 g/dL (32-36); Mean Corpuscular Volume 89.1 fL (80-100); Mean Platelet Volume 10.6 fL (7.4-10.4); Monocytes # (auto) 0.77 K/uL (0.11-0.59); Monocytes % (auto) 9.1 %; Neutrophils # (auto) 5.28 K/uL (1.4-6.5); Neutrophils % (auto) 62.2 %; Platelet Count 258 K/uL (130-400); RDW Coefficient of Variation 13.7 % (11.5-14.5); RDW Standard Deviation 44.6 fL (36.4-46.3); Red Blood Count 4.49 M/uL (4.2-5.4); White Blood Count 8.49 K/uL (4.8-10.8)
[2020-09-30 07:33] LABS: INR 1.7 (0.9-1.1); Partial Thromboplastin Ratio 1.2; Partial Thromboplastin Time 33.4 Seconds (21.0-31.0); Prothrombin Time 17.5 Seconds (9.0-12.0)
[2020-09-30 07:55] LABS: BUN Creatinine Ratio 23.8 (10-20); Creatinine Clr Calc Pharmacy 38.7 ml/min; Est GFR (African American) 39.5; Est GFR (Non-African American) 34.1; Potassium 5.2 mmol/L (3.5-5.1)
[2020-09-30] MEDS: METOPROLOL SUCC 25MG EXT REL TAB PO SCH ×2 (08:16→20:52)
[2020-09-30] MEDS: FLUoxetine HCL 20 MG CAP PO SCH (08:16)
[2020-09-30] MEDS: TOLTERODINE TARTRATE LA 2 MG CAPCR PO SCH (08:16)
[2020-09-30] MEDS: ASPIRIN 81 MG ECTAB PO SCH (08:16)
[2020-09-30] MEDS: ADVANCED PROBIOTIC 1250 MG CAPSULE PO SCH (08:16)
[2020-09-30] MEDS: PANTOprazole 40 MG TAB PO SCH (08:16)
[2020-09-30] MEDS: allopurinoL 300 MG TAB PO SCH (08:17)
[2020-09-30] MEDS: ATORVASTATIN 40 MG TAB PO SCH (08:17)
--- NOTE | 2020-09-30 09:04 | XRay Report ---
XR chest 2V PA/lateral HISTORY: 70 years-old Female post diuresis COMPARISON: Chest radiograph 09/27/2020 TECHNIQUE: PA and lateral views of the chest FINDINGS: Unchanged calcifications projecting over the proximal left humerus. Degenerative changes of the shoul ders and spine. Cardiac silhouette is mildly enlarged. Calcified plaque of the thoracic aorta. No pne umothorax. Small bilateral pleural effusions with decreased size of the left effusion. Minimal bibasi lar opacities. No overt pulmonary edema. IMPRESSION: 1. Small pleural effusions have decreased in size from comparison. 2. Mildly improved aeration of the lung bases. ACT 112: Negative or not required by law. The above report was generated using voice recognition software. It may contain grammatical, syntax o r spelling errors. Electronically signed by: Goyo Modi M.D. 09/30/2020 9:03 AM
--- NOTE | 2020-09-30 10:55 | Cardiology Progress Note ---
Date of Service September 30, 2020 Assessment & Plan (1) Aortic stenosis: (2) Heart failure due to valvular disease: (3) Pleural effusion, bilateral: (4) Acute kidney injury superimposed on chronic kidney disease: (5) PSVT (paroxysmal supraventricular tachycardia): (6) Atrial flutter, paroxysmal: 70-year-old female admitted with palpitations, acute congestive heart failure, and severe aortic stenosis. Bilateral pleural effusions have nearly resolved per review of repeat chest x-r ay today. Creatinine trending downward. I had a long discussion with the patient regarding the natural history and pathophysiology of severe calcific aortic stenosis. Discussed indications for aortic valve replacement and preoperative cardiac catheterization. She is reluctant to proceed with further testing or intervention at this time. She would like to follow-up in the cardiology clinic to discuss further. She appears euvolemic/compensated today. Recommend low-dose Lasix, 20 mg on Thursday, Thursday, and Thursday pending review of repeat BMP this week in the outpatient setting. Continue Toprol-XL 25 mg twice daily. Close cardiology follow-up in 1 week. Patient previously followed by Dr. Mueller as well as the undersigned in the outpatient clinic. Admission and Anticipated Discharge Date Admission Date: September 28, 2020 Subjective Patient seen and examined at the bedside. Feeling well from a cardiovascular perspective today. No recurrent palpitations or shortness of breath. Hypoglycemia reported overnight. Tolerating medications including titration of metoprolol. Anxious for discharge. Offers no other concerns/complaints today. Review of Systems Review of Systems: All systems reviewed & are unremarkable except as noted in HPI & below Physical Exam Constitutional: well developed and well nourished; no acute distress and not ill appearing Respiratory: Auscultation: + breath sounds absent (Left base) and + diminished lung sounds (Right base and left midlung field); no crackles, no rales, no rhonchi and no wheezes Cardiovascular: Rate/Rhythm: regular rate and regular rhythm Heart Sounds: normal S1 and + murmur (4/6 high-pitched late peaking systolic ejection murmur heard best at the ri); + abnormal S2 (Absent) Vessels: no JVD and + radial pulses abnormal (Right radial pulse not palpable) Extremities: no edema Gastrointestinal (Abdomen): Inspection/Auscultation: abdomen normal to inspection and normal bowel sounds; abdomen not distended Percussion/Palpation: abdomen soft; abdomen nontender, no guarding and abdomen not rigid Psychiatric: A+Ox3, euthymic affect Results & Data ([facility]) Vital Signs (Past 12 Hours) Vital Signs Temp Pulse Pulse Resp BP Pulse Ox 09/30/20 07:58 73 09/30/20 07:11 36.3 C L 66 19 150/77 H 94 09/30/20 04:12 36.4 C L 86 16 152/78 H 96 09/29/20 23:10 36.5 C 68 16 130/71 95
[2020-09-30] MEDS ORDERED: INSULIN GLARGINE SOLOSTAR 100 UNITS/ML 3 ML PEN SC ONE (11:45)
--- NOTE | 2020-09-30 12:18 | Hospitalist Progress Note ---
Date of Service September 30, 2020 Assessment & Plan (1) Aortic stenosis: Severe Aortic Stenosis -09/27/2020: "This is a 70-year-old female who has significant past medical history of insulin-dependent T2DM uncontrolled, paroxysmal atrial fibrillation anticoagulated on warfarin, HTN, HLD, CKD stage III, moderate aortic stenosis, hypothyroidism, depression with anxiety who presents to ED secondary to worsening shortness of breath x2 days." -mild documented on echo in 2015 -based on this hospitalization echocardiogram and cardiology consultation by Dr. Jeffery on 09/28/2020 "By echocardiography the patient's aortic stenosis has progressed to severe along with at least moderate aortic insufficiency. I believe her symptoms are related to acute pulmonary edema from heart failure on the basis of valvular heart disease as well as possible under compliance with medications. The troponin elevation is type II and not due to ACS. She is comfortable now. I would continue IV Lasix through today. Reassess tomorrow. I discussed with her the pathophysiology of aortic stenosis and treatment options. At some point she will most likely require a cardiac catheterization followed by referral for valve replacement. For now however, I would continue to keep treat her heart failure and optimize her medications." -09/28/2020: Patient seen and examined today while sitting up in the chair and with IV heparin drip running. No acute distress. breathing on room air. she reports her breathing subjectively better today. Her lung bases with some crackles. Patient denies chest pain or pain elsewhere. Patient subsequently seen again after hospitalist discussion with rotary screen printing machine operator. Patient was seen then walking with IV pole with physical therapy and was not feeling shortness of breath -09/29/2020: Patient seen and examined today again in chair with IV Lasix. Continues to be on room air with some residual but mild crackles of the lungs. The creatinine increased to 1.[address] Spencer from cardiology of holding Lasix today. Patient subjectively feels comfortable with her breathing. Patient denies other symptoms currently. No chest pain. No dizziness. No nausea. No other symptoms on review of systems. hospitalist asked nurse to remove the nitropaste and monitor blood pressure. 09/30/2020: CXR with Small pleural effusions have decreased in size from comparison and Mildly improved aeration of the lung bases. As per cardiology Dr. Spencer "discussion with the patient regarding the natural history and pathophysiology of severe calcific aortic stenosis. Discussed indications for aortic valve replacement and preoperative cardiac catheterization. She is reluctant to proceed with further testing or intervention at this time. She would like to follow-up in the cardiology clinic to discuss further. She appears euvolemic/compensated today. Recommend low-dose Lasix, 20 mg on Thursday, Thursday, and Thursday pending review of repeat BMP this week in the outpatient setting. Continue Toprol-XL 25 mg twice daily." (2) Elevated troponin: Elevated troponins on this admission secondary to Type II demand ischemia -assessment as above by cardiology (3) Acute heart failure with preserved ejection fraction (HFpEF): -admission CXR on 09/28/2020 "Cardiomegaly with pulmonary vascular congestion. Left greater than right pleural effusions with bibasilar consolidation suggestive of probable atelectasis" -BNP on admission above 4000 -initial management with IV Lasix -09/29/2020: remains on room air with mild crackles on posterior lung exam (4) Hypertensive emergency: -initial blood pressure in the ED on 09/27/2020 as 225/94, patient's blood pressure medication that was started initially also included nitro paste (5) HTN (hypertension): -has been on home dose lisinopril 5 mg daily -monitor the blood pressure after removing the nitro paste on 09/29/2020, initial Lasix are stopped because of LAUREN -Lisinopril is stopped on 09/30/2020 to prevent hyperkalemia risk (6) CKD (chronic kidney disease), stage III: acute kidney injury on chronic kidney disease -baseline creatinine around 1.1 -09/27/2020 presentation creatinine of 1.17, patient subsequently received IV Lasix -09/28/[address] Jeffery about elevations in creatinine of 1.41. he recommended to continue IV Lasix and a dose given in AM of 09/28/2020 -09/29/2020 creatinine as 1.67 -09/30/2020 creatinine 1.53 Diarrhea -loose bowel movements reported by patient that started on 09/28/2020 -09/29/2020 stool negative of C.difficile -on prn loperamide (7) T2DM (type 2 diabetes mellitus): Uncontrolled Diabetes Mellitus with diabetic retinopathy and nephropathy with tank terminal gauger current use of insulin -HbA1c of 9 in the past, and 9.3 on this admission -currently managed by pharmacy glycemic control service with subcutaneous insulin dosing. patient had hypoglycemic episodes on night times of 09/29/2020. currently insulin being readjusted by pharmacy glycemic control before considering hospital discharge (8) Atrial fibrillation: Paroxysmal Atrial Fibrillation -continue rate control with home dose metoprolol succinate 25 mg daily -her home regimen of coumadin is 5 mg Thursday, Thursday, and 7.5 mg all other days -INR on 09/27/2020 was subtherapeutic as 1.5. She had taken coumadin 5 mg prior to ED presentation and given an additional 2.5 mg coumadin. Because of subtherapeutic INR and concerns of initial elevated troponins, patient was started on IV heparin as well -09/28/2020 INR is 1.6. Continued the IV heparin with coumadin as per cardiology Dr. Jeffery -09/29/2020 INR is 1.5 The IV heparin stopped on 09/29/2020 because patient concerned of blood in loose bowel movements. continued the coumadin -09/30/2020 INR is 1.7 (9) DVT prophylaxis: -on coumadin Admission and Anticipated Discharge Date Admission Date: September 28, 2020 Subjective Patient not ready for hospital discharge because of overnight hypoglycemia while on insulin and also reports diarrhea/loose bowel movements. Patient wishes further monitoring of the glucose and the labs Patient denies acute blood loss per rectum today. on loperamide, continue. no abdomen pain. no dizziness. no chest pain. continues to be breathing on room air. denies pain elsewhere of the body. no other symptoms on review of systems Review of Systems Review of Systems: All systems reviewed & are unremarkable except as noted in Subjective Physical Exam Constitutional: cooperative Eyes: PERRL, conjunctivae normal, anicteric sclerae EOM intact bilaterally ENMT: external ear and nose normal, oropharynx normal Neck: normal visual inspection Respiratory: normal respiratory effort Cardiovascular: Rate/Rhythm: + bradycardic Heart Sounds: + murmur Gastrointestinal (Abdomen): normal bowel sounds, soft, nontender, no hepatosplenomegaly (has chronic hernia) Musculoskeletal: Head/Neck/Chest: normocephalic and head atraumatic Neurologic: PERRL, EOMI, accommodation nl, no face palsy, no dysarthria CN's II-XI intact bilaterally and moves all extremities Psychiatric: A+Ox3, euthymic affect Results & Data Results & Data ([facility]) Vital Signs (Past 12 Hours) Vital Signs Temp Pulse Pulse Resp BP Pulse Ox 09/30/20 11:25 36.6 C 64 19 145/76 H 96 09/30/20 07:58 73 09/30/20 07:11 36.3 C L 66 19 150/77 H 94 09/30/20 04:12 36.4 C L 86 16 152/78 H 96
--- NOTE | 2020-09-30 14:27 | Pharmacy Report ---
Pharmacy Glycemic Short Note 2 - Date of Service September 30, 2020 - Glycemic Short BSG Results (Last 24 hours): 09/29/20 09/29/20 09/29/20 14:38 16:36 20:11 Glucose 161 H POC Glucose 93 62 L* 09/29/20 09/29/20 09/29/20 20:13 20:14 20:51 Glucose POC Glucose 75 64 L* 58 L* 09/29/20 09/29/20 09/29/20 20:53 21:25 22:09 Glucose POC Glucose 62 L* 66 L* 91 09/30/20 09/30/20 09/30/20 00:19 02:08 04:10 Glucose POC Glucose 75 85 81 09/30/20 09/30/20 09/30/20 06:48 07:20 11:22 Glucose 83 POC Glucose 92 192 H 09/30/20 12:33 Glucose POC Glucose 243 H OUTPATIENT ANTIDIABETIC REGIMEN: * Levemir 80 units SQ BID + Novolog 35 units SQ BIDM * A1c = 9.3% (09/28/2020) ASSESSMENT: 09/30: * Patient received 77 units of insulin yesterday: * 40 units of basal * 37 units of bolus * Pt experienced hypoglycemia last evening despite significant reduction compared to home dose of 230 units/day. BSG of 58 mg/dL. She was treated with OJ and IV dextrose. PM Lantus dose was held and Novolog loosened. * Fasting BSG of 92 mg/dL this AM was slightly below goal. Lantus administration was delayed to lunchtime. Dose reduced due to above. * Post prandial BSG elevation noted with lunch. Will tighten Novolog parameters since hypoglycemia resolved overnight. 09/29: * 70 yo F admitted secondary to hypertensive emergency and acute heart failure exacerbation. * Patient received 84 units of insulin yesterday with decent control: * 50 units of basal * 34 units of bolus * Fasting BSG trending upward. Patient takes 160 units of Levemir at home. Will increase basal insulin scale. * Post prandial BSGs looked good yesterday. No change to Novolog today. * Of note, lunch BSG was 250 mg/dL -> I suspect this is partially due to basal deficiency. If this trend continues, carb coverage with be tightened. PLAN FOR INPATIENT GLYCEMIC CONTROL: * Basal insulin - decrease * Lantus 15 units at lunch, then BID per scale: * 10 units for BSG less than 140 * 18 units for BSG 140-200 * 25 units for BSG greater than 200 * Bolus insulin * NovoLog per scale ACHS or Q6hrs while NPO * Goal Range: Low 120 mg/dL - High 150 mg/dL * Correction Factor: 25 mg/dL/unit * Nutritional / Prandial insulin per carb ratio of 1 unit per 8 grams CHO consumed
[2020-09-30] MEDS: INSULIN GLARGINE SOLOSTAR 100 UNITS/ML 3 ML PEN SC SCH (20:48)
[2020-09-30] MEDS: NORTRIPTYLINE HCL 25 MG CAP PO SCH (20:51)
[2020-09-30] MEDS: LOPERAMIDE HCL 2 MG CAP PO PRN (23:33)
[2020-10-01 07:48] LABS: Basophils # (auto) 0.02 K/uL (0-0.2); Basophils % (auto) 0.3 %; Eosinophils % (auto) 3.9 %; Hematocrit (blood only) 39.1 % (37-47); Hemoglobin 12.4 g/dL (12.0-16.0); Immature Granulocytes # (auto) 0.02 K/uL (0.00-0.02); Immature Granulocytes % (auto) 0.3 %; Lymphocytes % (auto) 23.1 %; Mean Corpuscular Hemoglobin 28.8 pg (25-34); Mean Corpuscular Hgb Conc 31.7 g/dL (32-36); Mean Corpuscular Volume 90.9 fL (80-100); Mean Platelet Volume 10.8 fL (7.4-10.4); Monocytes # (auto) 0.66 K/uL (0.11-0.59); Monocytes % (auto) 8.5 %; Neutrophils # (auto) 4.99 K/uL (1.4-6.5); Neutrophils % (auto) 63.9 %; Platelet Count 249 K/uL (130-400); RDW Coefficient of Variation 13.8 % (11.5-14.5); RDW Standard Deviation 45.1 fL (36.4-46.3); White Blood Count 7.79 K/uL (4.8-10.8)
[2020-10-01 07:58] LABS: INR 2.3 (0.9-1.1); Prothrombin Time 23.5 Seconds (9.0-12.0)
[2020-10-01] MEDS: INSULIN ASPART 100 UNITS/ML 3 ML PEN SC SCH ×4 (08:33→21:37)
[2020-10-01] MEDS: INSULIN GLARGINE SOLOSTAR 100 UNITS/ML 3 ML PEN SC SCH ×2 (08:34→21:36)
[2020-10-01] MEDS: METOPROLOL SUCC 25MG EXT REL TAB PO SCH ×2 (08:43→21:35)
[2020-10-01] MEDS: TOLTERODINE TARTRATE LA 2 MG CAPCR PO SCH (08:43)
[2020-10-01] MEDS: ASPIRIN 81 MG ECTAB PO SCH (08:43)
[2020-10-01] MEDS: PANTOprazole 40 MG TAB PO SCH (08:44)
[2020-10-01] MEDS: ADVANCED PROBIOTIC 1250 MG CAPSULE PO SCH (08:44)
[2020-10-01] MEDS: allopurinoL 300 MG TAB PO SCH (08:44)
[2020-10-01] MEDS: ATORVASTATIN 40 MG TAB PO SCH (08:44)
[2020-10-01] MEDS: FLUoxetine HCL 20 MG CAP PO SCH (08:44)
[2020-10-01 09:35] LABS: Albumin Level 2.2 gm/dl (3.4-5.0); BUN Creatinine Ratio 22.3 (10-20); Bilirubin,Total 0.2 mg/dl (0.2-1); Calcium 8.9 mg/dl (8.5-10.1); Creatinine Clr Calc Pharmacy 31.1 ml/min; Est GFR (African American) 30.4; Est GFR (Non-African American) 26.3; Potassium 5.1 mmol/L (3.5-5.1)
[2020-10-01 09:39] LABS: Albumin Globulin Ratio 0.6 (0.9-2); Globulin 3.6 gm/dl (2.5-4.0); Total Protein 5.8 gm/dl (6.4-8.2)
[2020-10-01] MEDS ORDERED: SODIUM CHLORIDE 0.9% 500 ML IV SCH ×2 (09:45→16:30)
--- NOTE | 2020-10-01 10:03 | Cardiology Progress Note ---
Date of Service October 01, 2020 Assessment & Plan (1) Aortic stenosis: (2) Heart failure due to valvular disease: (3) Pleural effusion, bilateral: (4) Acute kidney injury superimposed on chronic kidney disease: (5) PSVT (paroxysmal supraventricular tachycardia): (6) Atrial flutter, paroxysmal: 70-year-old female admitted with palpitations, acute congestive heart failure, and severe aortic stenosis. Serum creatinine trending upward today despite withholding diuretic therapy x48 hours. We discussed indication for diagnostic cardiac catheterization prior to CT surgery referral. Radial and femoral pulses are not easily palpable on exam suggesting peripheral vascular disease. Recommend bilateral lower extremity arterial duplex for further assessment. Natural history and pathophysiology of severe calcific aortic stenosis. Discussed indications for aortic valve replacement. She appears euvolemic/compensated today. With creatinine trending upward, hold diuretic therapy today. Continue Toprol-XL 25 mg twice daily, aspirin 81 mg daily, and atorvastatin. Admission and Anticipated Discharge Date Admission Date: September 28, 2020 Subjective Patient seen and examined at the bedside. Feeling fairly well from a cardiovascular perspective. No dysrhythmias on telemetry. Has questions today regarding proceeding with cardiac catheterization and aortic valve replacement. Notes intermittent cramping of her calves. Radial and femoral pulses are not readily palpable on exam. Her creatinine trending upward to 1.9 today. INR is therapeutic. Review of Systems Review of Systems: All systems reviewed & are unremarkable except as noted in HPI & below Physical Exam Constitutional: well developed and well nourished; no acute distress and not ill appearing Respiratory: Auscultation: + breath sounds absent (Left base) and + diminished lung sounds (Right base and left midlung field); no crackles, no rales, no rhonchi and no wheezes Cardiovascular: Rate/Rhythm: regular rate and regular rhythm Heart Sounds: normal S1 and + murmur (4/6 high-pitched late peaking systolic ejection murmur heard best at the ri); + abnormal S2 (Absent) Vessels: no JVD, + femoral pulses abnormal and + radial pulses abnormal (Right radial pulse not palpable) Extremities: no edema Gastrointestinal (Abdomen): Inspection/Auscultation: abdomen normal to inspection and normal bowel sounds; abdomen not distended Percussion/Palpation: abdomen soft; abdomen nontender, no guarding and abdomen n ot rigid Psychiatric: A+Ox3, euthymic affect Results & Data ([place]) Vital Signs (Past 12 Hours) Vital Signs Temp Pulse Pulse Resp BP Pulse Ox 10/01/20 07:26 36.4 C L 61 18 136/69 96 10/01/20 04:07 36.6 C 60 18 126/68 94 09/30/20 23:40 36.4 C L 56 L 19 137/72 96
--- NOTE | 2020-10-01 10:23 | Hospitalist Progress Note ---
Date of Service October 01, 2020 Assessment & Plan (1) Aortic stenosis: Severe Aortic Stenosis -09/27/2020: "This is a 70-year-old female who has significant past medical history of insulin-dependent T2DM uncontrolled, paroxysmal atrial fibrillation anticoagulated on warfarin, HTN, HLD, CKD stage III, moderate aortic stenosis, hypothyroidism, depression with anxiety who presents to ED secondary to worsening shortness of breath x2 days." -mild documented on echo in 2015 -based on this hospitalization echocardiogram and cardiology consultation by Dr. Jeffery on 09/28/2020 "By echocardiography the patient's aortic stenosis has progressed to severe along with at least moderate aortic insufficiency. I believe her symptoms are related to acute pulmonary edema from heart failure on the basis of valvular heart disease as well as possible under compliance with medications. The troponin elevation is type II and not due to ACS. She is comfortable now. I would continue IV Lasix through today. Reassess tomorrow. I discussed with her the pathophysiology of aortic stenosis and treatment options. At some point she will most likely require a cardiac catheterization followed by referral for valve replacement. For now however, I would continue to keep treat her heart failure and optimize her medications." -09/28/2020: Patient seen and examined today while sitting up in the chair and with IV heparin drip running. No acute distress. breathing on room air. she reports her breathing subjectively better today. Her lung bases with some crackles. Patient denies chest pain or pain elsewhere. Patient subsequently seen again after hospitalist discussion with retention representative. Patient was seen then walking with IV pole with physical therapy and was not feeling shortness of breath -09/29/2020: Patient seen and examined today again in chair with IV Lasix. Continues to be on room air with some residual but mild crackles of the lungs. The creatinine increased to 1.[address] Spencer from cardiology of holding Lasix today. Patient subjectively feels comfortable with her breathing. Patient denies other symptoms currently. No chest pain. No dizziness. No nausea. No other symptoms on review of systems. hospitalist asked nurse to remove the nitropaste and monitor blood pressure. 09/30/2020: CXR with Small pleural effusions have decreased in size from comparison and Mildly improved aeration of the lung bases. As per cardiology Dr. Spencer "discussion with the patient regarding the natural history and pathophysiology of severe calcific aortic stenosis. Discussed indications for aortic valve replacement and preoperative cardiac catheterization. She is reluctant to proceed with further testing or intervention at this time. She would like to follow-up in the cardiology clinic to discuss further. She appears euvolemic/compensated today. Recommend low-dose Lasix, 20 mg on Thursday, Thursday, and Thursday pending review of repeat BMP this week in the outpatient setting. Continue Toprol-XL 25 mg twice daily." for when patient is discharged from hospital (2) Elevated troponin: Elevated troponins on this admission secondary to Type II demand ischemia -assessment as above by cardiology (3) Acute heart failure with preserved ejection fraction (HFpEF): -admission CXR on 09/28/2020 "Cardiomegaly with pulmonary vascular congestion. Left greater than right pleural effusions with bibasilar consolidation suggestive of probable atelectasis" -BNP on admission above 4000 -initial management with IV Lasix -09/29/2020: remains on room air with mild crackles on posterior lung exam (4) Hypertensive emergency: -initial blood pressure in the ED on 09/27/2020 as 225/94, patient's blood pressure medication that was started initially also included nitro paste (5) HTN (hypertension): -has been on home dose lisinopril 5 mg daily -monitor the blood pressure after removing the nitro paste on 09/29/2020, initial Lasix are stopped because of LAUREN -Lisinopril is stopped on 09/30/2020 to prevent hyperkalemia risk (6) CKD (chronic kidney disease), stage III: acute kidney injury on chronic kidney disease -baseline creatinine around 1.1 -09/27/2020 presentation creatinine of 1.17, patient subsequently received IV Lasix -09/28/[address] Jeffery about elevations in creatinine of 1.41. he recommended to continue IV Lasix and a dose given in AM of 09/28/2020 -09/29/2020 creatinine as 1.67 -09/30/2020 creatinine 1.53 Lasix remained held -10/01/2020 creatinine 1.90 Diarrhea -loose bowel movements reported by patient that started on 09/28/2020 -09/29/2020 stool negative of C.difficile -on prn loperamide -diarrhea stopped as of 10/01/2020 report from patient. However her creatinine 1.9 likely from previous diarrhea. Patient to get 500 cc IV fluids of normal saline at 100 ml/hr and will have creatinine rechecked. Otherwise patient feeling well and ambulating well on room air. Patient denies other symptoms. no abdomen pain. no nausea. no vomiting. no dizziness. no blood per rectum in bowel movements. negative review of systems for other symptoms (7) T2DM (type 2 diabetes mellitus): Uncontrolled Diabetes Mellitus with diabetic retinopathy and nephropathy with long-term current use of insulin -HbA1c of 9 in the past, and 9.3 on this admission -currently managed by pharmacy glycemic control service with subcutaneous insulin dosing. patient had hypoglycemic episodes on night times of 09/29/2020. currently insulin being readjusted by pharmacy glycemic control before considering hospital discharge (8) Atrial fibrillation: Paroxysmal Atrial Fibrillation -continue rate control with home dose metoprolol succinate 25 mg daily -her home regimen of coumadin is 5 mg Thursday, Thursday, and 7.5 mg all other days -INR on 09/27/2020 was subtherapeutic as 1.5. She had taken coumadin 5 mg prior to ED presentation and given an additional 2.5 mg coumadin. Because of subtherapeutic INR and concerns of initial elevated troponins, patient was started on IV heparin as well -09/28/2020 INR is 1.6. Continued the IV heparin with coumadin as per cardiology Dr. Jeffery -09/29/2020 INR is 1.5 The IV heparin stopped on 09/29/2020 because patient concerned of blood in loose bowel movements. continued the coumadin -09/30/2020 INR is 1.7 -INR 2.3 on 10/01/2020, no further blood in bowel movements as per patient (9) DVT prophylaxis: -on coumadin Admission and Anticipated Discharge Date Admission Date: September 28, 2020 Subjective -diarrhea stopped as of 10/01/2020 report from patient. However her creatinine 1.9 likely from previous diarrhea. Patient to get 500 cc IV fluids of normal saline at 100 ml/hr and will have creatinine rechecked. Otherwise patient feeling well and ambulating well on room air. Patient denies other symptoms. no abdomen pain. no nausea. no vomiting. no dizziness. no blood per rectum in bowel movements. negative review of systems for other symptoms Review of Systems Review of Systems: All systems reviewed & are unremarkable except as noted in Subjective Physical Exam Constitutional: cooperative Eyes: PERRL, conjunctivae normal, anicteric sclerae EOM intact bilaterally ENMT: external ear and nose normal, oropharynx normal Neck: normal visual inspection Respiratory: normal respiratory effort, lungs clear to auscultation Cardiovascular: Rate/Rhythm: + bradycardic Gastrointestinal (Abdomen): normal bowel sounds, soft, nontender, no hepatosplenomegaly (has chronic hernia) Musculoskeletal: Head/Neck/Chest: normocephalic and head atraumatic Neurologic: PERRL, EOMI, accommodation nl, no face palsy, no dysarthria CN's II-XI intact bilaterally and moves all extremities Psychiatric: A+Ox3, euthymic affect Results & Data Results & Data ([facility]) Vital Signs (Past 12 Hours) Vital Signs Temp Pulse Pulse Pulse Resp BP Pulse Ox 10/01/20 08:00 61 10/01/20 07:26 36.4 C L 61 18 136/69 96 10/01/20 04:07 36.6 C 60 18 126/68 94 09/30/20 23:40 36.4 C L 56 L 19 137/72 96
--- NOTE | 2020-10-01 15:21 | Ultrasound Report ---
BILATERAL LOWER EXTREMITY ARTERIAL DOPPLER ULTRASOUND CLINICAL HISTORY: PVD, femoral pulses not palpable, pre-cath COMPARISON STUDY: No previous studies for comparison. TECHNIQUE: Grayscale, color and duplex sonography of the arterial systems of both lower extremities w as performed. Ankle to brachial indices could not be obtained as patient was unable to tolerate compr ession. FINDINGS: Exam is compromised by suboptimal penetration. Extensive calcified atherosclerotic plaque w as noted within each lower extremity. However, no elevated velocities were identified to suggest a he modynamically significant stenosis. There was biphasic flow within the bilateral common femoral, supe rficial femoral, popliteal, anterior tibial, posterior tibial, talus pedis and right peroneal arterie s. Left peroneal artery flow was not identified on this examination. IMPRESSION: 1. Extensive calcified atherosclerotic plaque within the bilateral lower extremities. No sonographic evidence for a hemodynamically significant stenosis. Patent bilateral groin vessels. 2. Biphasic flow throughout both lower extremities with the exception of no flow identified within th e left peroneal artery which could be due to slow flow or occlusion. ACT 112: Negative or not required by law. Electronically signed by: Napoleon Hutton M.D. 10/01/2020 3:20 PM
[2020-10-01 15:50] LABS: BUN Creatinine Ratio 25.4 (10-20); Calcium 9.2 mg/dl (8.5-10.1); Creatinine Clr Calc Pharmacy 32.7 ml/min; Est GFR (African American) 32.3; Est GFR (Non-African American) 27.8
[2020-10-01] MEDS: WARFARIN SOD 7.5 MG TAB PO SCH (16:45)
[2020-10-01] MEDS: NORTRIPTYLINE HCL 25 MG CAP PO SCH (21:34)
[2020-10-02] MEDS ORDERED: oxyCODONE HCL IR 5 MG TAB (IMMEDIATE RELEASE) PO STA (01:58)
[2020-10-02 08:34] LABS: INR 3.5 (0.9-1.1); Prothrombin Time 34.5 Seconds (9.0-12.0)
[2020-10-02 08:38] LABS: Albumin Level 2.3 gm/dl (3.4-5.0); BUN Creatinine Ratio 28.3 (10-20); Calcium 9.1 mg/dl (8.5-10.1); Creatinine Clr Calc Pharmacy 33.1 ml/min; Est GFR (African American) 32.5; Potassium 5.4 mmol/L (3.5-5.1)
[2020-10-02 08:39] LABS: Albumin Globulin Ratio 0.6 (0.9-2); Bilirubin,Total 0.1 mg/dl (0.2-1); Globulin 3.7 gm/dl (2.5-4.0)
[2020-10-02] MEDS: INSULIN ASPART 100 UNITS/ML 3 ML PEN SC SCH ×4 (08:44→21:16)
[2020-10-02] MEDS: METOPROLOL SUCC 25MG EXT REL TAB PO SCH ×2 (08:47→21:15)
[2020-10-02] MEDS: ASPIRIN 81 MG ECTAB PO SCH (08:47)
[2020-10-02] MEDS: ADVANCED PROBIOTIC 1250 MG CAPSULE PO SCH (08:47)
[2020-10-02] MEDS: allopurinoL 300 MG TAB PO SCH (08:48)
[2020-10-02] MEDS: ATORVASTATIN 40 MG TAB PO SCH (08:48)
[2020-10-02] MEDS: FLUoxetine HCL 20 MG CAP PO SCH (08:48)
[2020-10-02] MEDS: TOLTERODINE TARTRATE LA 2 MG CAPCR PO SCH (08:48)
[2020-10-02] MEDS: PANTOprazole 40 MG TAB PO SCH (08:48)
[2020-10-02] MEDS: INSULIN GLARGINE SOLOSTAR 100 UNITS/ML 3 ML PEN SC SCH ×2 (08:49→21:17)
[2020-10-02] MEDS ORDERED: SODIUM CHLORIDE 0.9% 500 ML IV SCH (09:00)
--- NOTE | 2020-10-02 09:01 | Hospitalist Progress Note ---
Date of Service October 02, 2020 Assessment & Plan (1) Aortic stenosis: Severe Aortic Stenosis -09/27/2020: "This is a 70-year-old female who has significant past medical history of insulin-dependent T2DM uncontrolled, paroxysmal atrial fibrillation anticoagulated on warfarin, HTN, HLD, CKD stage III, moderate aortic stenosis, hypothyroidism, depression with anxiety who presents to ED secondary to worsening shortness of breath x2 days." -mild documented on echo in 2015 -based on this hospitalization echocardiogram and cardiology consultation by Dr. Jeffery on 09/28/2020 "By echocardiography the patient's aortic stenosis has progressed to severe along with at least moderate aortic insufficiency. I believe her symptoms are related to acute pulmonary edema from heart failure on the basis of valvular heart disease as well as possible under compliance with medications. The troponin elevation is type II and not due to ACS. She is comfortable now. I would continue IV Lasix through today. Reassess tomorrow. I discussed with her the pathophysiology of aortic stenosis and treatment options. At some point she will most likely require a cardiac catheterization followed by referral for valve replacement. For now however, I would continue to keep treat her heart failure and optimize her medications." -09/28/2020: Patient seen and examined today while sitting up in the chair and with IV heparin drip running. No acute distress. breathing on room air. she reports her breathing subjectively better today. Her lung bases with some crackles. Patient denies chest pain or pain elsewhere. Patient subsequently seen again after hospitalist discussion with radiology specialist. Patient was seen then walking with IV pole with physical therapy and was not feeling shortness of breath -09/29/2020: Patient seen and examined today again in chair with IV Lasix. Continues to be on room air with some residual but mild crackles of the lungs. The creatinine increased to 1.[address] Spencer from cardiology of holding Lasix today. Patient subjectively feels comfortable with her breathing. Patient denies other symptoms currently. No chest pain. No dizziness. No nausea. No other symptoms on review of systems. hospitalist asked nurse to remove the nitropaste and monitor blood pressure. 09/30/2020: CXR with Small pleural effusions have decreased in size from comparison and Mildly improved aeration of the lung bases. As per cardiology Dr. Spencer "discussion with the patient regarding the natural history and pathophysiology of severe calcific aortic stenosis. Discussed indications for aortic valve replacement and preoperative cardiac catheterization. She is reluctant to proceed with further testing or intervention at this time. She would like to follow-up in the cardiology clinic to discuss further. She appears euvolemic/compensated today. 10/01/2020: BILATERAL LOWER EXTREMITY ARTERIAL DOPPLER ULTRASOUND 10/01/[address] Spencer in regards for any future cardiac workup up in regards to the using this information 1. Extensive calcified atherosclerotic plaque within the bilateral lower extremities. No sonographic evidence for a hemodynamically significant stenosis. Patent bilateral groin vessels. 2. Biphasic flow throughout both lower extremities with the exception of no flow identified within the left peroneal artery which could be due to slow flow or occlusion. 10/01/2020 to 10/02/2020 : although cardiology service suggested for possible outpatient dosing of Lasix as 20 mg on Thursday, Thursday, and Thursday; the patinet's diuretics were held on 10/01/2020 and 10/02/2020 because of creatinine above baseline. likely from combination of previous Lasix and recently resolved diarrhea see below (2) Elevated troponin: Elevated troponins on this admission secondary to Type II demand ischemia -assessment as above by cardiology (3) Acute heart failure with preserved ejection fraction (HFpEF): -admission CXR on 09/28/2020 "Cardiomegaly with pulmonary vascular congestion. Left greater than right pleural effusions with bibasilar consolidation suggestive of probable atelectasis" -BNP on admission above 4000 -initial management with IV Lasix -09/29/2020: remains on room air with mild crackles on posterior lung exam (4) Hypertensive emergency: -initial blood pressure in the ED on 09/27/2020 as 225/94, patient's blood pressure medication that was started initially also included nitro paste (5) HTN (hypertension): -has been on home dose lisinopril 5 mg daily -monitor the blood pressure after removing the nitro paste on 09/29/2020, initial Lasix are stopped because of LAUREN -Lisinopril is stopped on 09/30/2020 to prevent hyperkalemia risk (6) CKD (chronic kidney disease), stage III: acute kidney injury on chronic kidney disease -baseline creatinine around 1.1 -09/27/2020 presentation creatinine of 1.17, patient subsequently received IV Lasix -09/28/[address] Jeffery about elevations in creatinine of 1.41. he recommended to continue IV Lasix and a dose given in AM of 09/28/2020 -09/29/2020 creatinine as 1.67 -09/30/2020 creatinine 1.53 Lasix remained held, and off further lisinopril -10/01/2020 AM creatinine 1.90, after total 500 ml IV fluids the creatinine 1.81 on 10/01/2020 afternoon labs and and additional total 500 ml of IV fluids given -10/02/2020 creatinine still elevated as 1.8, IV fluids of 500 ml to be given as 80 ml/hr and patient agrees for nephrology consult Diarrhea -loose bowel movements reported by patient that started on 09/28/2020 -09/29/2020 stool negative of C.difficile -on prn loperamide -diarrhea stopped as of 10/01/2020 report from patient. However her creatinine 1.9 likely from previous diarrhea. Patient to get 500 cc IV fluids of normal saline at 100 ml/hr and will have creatinine rechecked. Otherwise patient fee ling well and ambulating well on room air. Patient denies other symptoms. no abdomen pain. no nausea. no vomiting. no dizziness. no blood per rectum in bowel movements. negative review of systems for other symptoms (7) T2DM (type 2 diabetes mellitus): Uncontrolled Diabetes Mellitus with diabetic retinopathy and nephropathy with retirement current use of insulin -HbA1c of 9 in the past, and 9.3 on this admission -currently managed by pharmacy glycemic control service with subcutaneous insulin dosing. patient had hypoglycemic episodes on night times of 09/29/2020. currently insulin being readjusted by pharmacy glycemic control before considering hospital discharge (8) Atrial fibrillation: Paroxysmal Atrial Fibrillation -continue rate control with home dose metoprolol succinate 25 mg daily -her home regimen of coumadin is 5 mg Thursday, Thursday, and 7.5 mg all other days -INR on 09/27/2020 was subtherapeutic as 1.5. She had taken coumadin 5 mg prior to ED presentation and given an additional 2.5 mg coumadin. Because of subtherapeutic INR and concerns of initial elevated troponins, patient was started on IV heparin as well -09/28/2020 INR is 1.6. Continued the IV heparin with coumadin as per cardiology Dr. Jeffery -09/29/2020 INR is 1.5 The IV heparin stopped on 09/29/2020 because patient con cerned of blood in loose bowel movements. continued the coumadin -09/30/2020 INR is 1.7 -INR 2.3 on 10/01/2020, no further blood in bowel movements as per patient and coumadin continued -INR 3.5 on 10/02/2020 hold home dose coumadin (9) DVT prophylaxis: -INR 3.5 on 10/02/2020 hold home dose coumadin Admission and Anticipated Discharge Date Admission Date: September 28, 2020 Subjective Patient breathing on room air. no respiratory distress. discussed results of creatinine which remains elevated and patient agrees to further IV fluids and nephrology consultation. discussed with patient about ultrasound results of the 10/01/2020 arterial ultrasound. patient has been walking okay. she has chronic brown skin colors of bilateral ann area. no nausea. no vomiting. no chest pain. no dizziness. no problems with current bowel movements. Review of Systems Review of Systems: All systems reviewed & are unremarkable except as noted in Subjective Physical Exam Constitutional: cooperative Eyes: PERRL, conjunctivae normal, anicteric sclerae EOM intact bilaterally ENMT: external ear and nose normal, oropharynx normal Neck: normal visual inspection Respiratory: normal respiratory effort Cardiovascular: Rate/Rhythm: + bradycardic Heart Sounds: + murmur Gastrointestinal (Abdomen): normal bowel sounds, soft, nontender, no hepatosplenomegaly (has chronic hernia) Musculoskeletal: Head/Neck/Chest: normocephalic and head atraumatic Extremities: + lower extremity abnormal to inspection (chronic skin changes of the bilateral shins) Neurologic: PERRL, EOMI, accommodation nl, no face palsy, no dysarthria CN's II-XI intact bilaterally and moves all extremities Psychiatric: A+Ox3, euthymic affect Results & Data Results & Data ([facility]) Vital Signs (Past 12 Hours) Vital Signs Temp Pulse Pulse Resp BP Pulse Ox 10/02/20 07:21 36.5 C 61 18 150/65 H 94 10/02/20 04:12 36.4 C L 59 L 16 144/71 H 97 10/02/20 00:23 37 C 97 H 16 125/74 95 10/01/20 23:00 61
--- NOTE | 2020-10-02 10:11 | Cardiology Progress Note ---
Date of Service October 02, 2020 Assessment & Plan (1) Aortic stenosis: (2) Heart failure due to valvular disease: (3) Pleural effusion, bilateral: (4) Acute kidney injury superimposed on chronic kidney disease: (5) PSVT (paroxysmal supraventricular tachycardia): (6) Atrial flutter, paroxysmal: 70-year-old female admitted with palpitations, acute congestive heart failure, and severe aortic stenosis. Renal function improving with gentle hydration. Diuretic therapy remains on ho ld. Results of lower extremity arterial duplex reviewed. Nonobstructed disease with severe calcification visualized. Reviewed the natural history and pathophysiology of severe calcific aortic steno sis. Discussed indications for coronary angiography and aortic valve replacement. She appears euvolemic/compensated today. Continue Toprol-XL 25 mg twice daily, aspirin 81 mg daily, and atorvastatin. Close outpatient cardiology follow-up within 1 week with repeat basic metabolic panel to evaluate volume status, diuretic requirements, and schedule diagnostic catheterization, cardiothoracic surgery evaluation in [place]. Admission and Anticipated Discharge Date Admission Date: September 28, 2020 Subjective Patient seen and examined at the bedside. Feeling fatigued today. Denies chest pain, palpitations, shortness of breath. Ambulating in the ortiz without restr iction. Denies lightheadedness, dizziness, syncope, or near syncope. Receiving gentle hydration with mild improvement of renal function. Lower extremity arterial duplex demonstrates patent proximal vessels with severe calcification. No dysrhythmias on telemetry. Review of Systems Review of Systems: All systems reviewed & are unremarkable except as noted in HPI & below Physical Exam Constitutional: well developed and well nourished; no acute distress and not ill appearing Respiratory: Auscultation: + breath sounds absent (Left base) and + diminished lung sounds (Right base and left midlung field); no crackles, no rales, no rhonchi and no wheezes Cardiovascular: Rate/Rhythm: regular rate and regular rhythm Heart Sounds: normal S1 and + murmur (4/6 high-pitched late peaking systolic ejection murmur heard best at the ri); + abnormal S2 (Absent) Vessels: no JVD, + femoral pulses abnormal and + radial pulses abnormal (Right radial pulse not palpable) Extremities: no edema Gastrointestinal (Abdomen): Inspection/Auscultation: abdomen normal to inspection and normal bowel sounds; abdomen not distended Percussion/Palpation: abdomen soft; abdomen nontender, no guarding and abdomen not rigid Psychiatric: A+Ox3, euthymic affect Results & Data ([facility]) Vital Signs (Past 12 Hours) Vital Signs Temp Pulse Pulse Resp BP Pulse Ox 10/02/20 07:21 36.5 C 61 18 150/65 H 94 10/02/20 04:12 36.4 C L 59 L 16 144/71 H 97 10/02/20 00:23 37 C 97 H 16 125/74 95 10/01/20 23:00 61
[2020-10-02] MEDS ORDERED: FUROSEMIDE 80 MG in SYRINGE 0 ML IV ONE (10:45)
--- NOTE | 2020-10-02 11:28 | Pharmacy Report ---
Pharmacy Glycemic Short Note 2 - Date of Service October 02, 2020 - Glycemic Short BSG Results (Last 24 hours): OUTPATIENT ANTIDIABETIC REGIMEN: * Levemir 80 units SQ BID + Novolog 35 units SQ BIDM * A1c = 9.3% (09/28/2020) ASSESSMENT: 10/02: * Quin received a total of 46 units of insulin yesterday - ~ 30% increase from previous day * 28 units basal + 18 units bolus * BSGs were acceptable: [id number] mg/dL * Fasting BSG was elevated this AM at 171 mg/dL * Will continue with the current basal scale that is ordered and continue to trend fasting BSGs * Lunchtime BSG was acceptable at 163 mg/dL * No changes to Novolog today 09/30: * 70 yo F admitted secondary to hypertensive emergency and acute heart failure exacerbation. * Patient received 77 units of insulin yesterday: * 40 units of basal * 37 units of bolus * Pt experienced hypoglycemia last evening despite significant reduction compared to home dose of 230 units/day. BSG of 58 mg/dL. She was treated with OJ and IV dextrose. PM Lantus dose was held and Novolog loosened. * Fasting BSG of 92 mg/dL this AM was slightly below goal. Lantus administration was delayed to lunchtime. Dose reduced due to above. * Post prandial BSG elevation noted with lunch. Will tighten Novolog parameters since hypoglycemia resolved overnight. PLAN FOR INPATIENT GLYCEMIC CONTROL: * Basal insulin - No change * Lantus 15 units at lunch, then BID per scale: * 10 units for BSG less than 140 * 18 units for BSG 140-200 * 25 units for BSG greater than 200 * Bolus insulin - No change * NovoLog per scale ACHS or Q6hrs while NPO * Goal Range: Low 120 mg/dL - High 150 mg/dL * Correction Factor: 25 mg/dL/unit * Nutritional / Prandial insulin per carb ratio of 1 unit per 8 grams CHO co nsumed DISCHARGE RECOMMENDATIONS: * HbA1c was 9.3% from 09/28/2020. Goal HbA1c for this patient would be < 8% given age and comorbidities. Patient does report frequent hypoglycemia prior to bed or during the middle of the night. She is on large doses of insulin as an outpatient and lives alone which is concerning. * Recommend decreasing Levemir to 65 units SC BID * This is an approximate 20% decrease in basal insulin dose to hopefully prevent any further bedtime/nocturnal hypoglycemia * Recommend changing Novolog to 10 units SC AC with sliding scale as follows: * Blood Sugar 70-150 --> administer --> 0 units * Blood Sugar 151-200 --> administer --> 1 units * Blood Sugar 201-250 --> administer --> 3 units * Blood Sugar 251-300 --> administer --> 5 units * Blood Sugar 301-350 --> administer --> 7 units * Blood Sugar 351-400 --> administer --> 9 units * Blood Sugar > 400 --> administer --> 11 units and call MD * This sliding scale should be in addition to scheduled 10 units prior to meals. As for bedtime accuchecks, patient should use sliding scale only for insulin dose. * Recommend close follow up with outpatient provider and consider MTM referral.
--- NOTE | 2020-10-02 12:54 | Consultation Report ---
DATE OF CONSULTATION: 10/02/2020 REASON FOR CONSULT: Acute renal failure in a patient with congestive heart failure. HISTORY OF PRESENT ILLNESS: The patient is a 70-year-old female with history of diabetes for more than 50 years, but relatively good kidney function prior to this hospitalization at baseline with creatinine of around 1.2. She presented to the hospital 4 days ago with severe shortness of breath and hypertensive urgency. This was attributed to decompensated congestive heart failure related mainly with worsening of the aortic stenosis. Her blood pressure has started to get gradually better after some diuresis. Creatinine was 1.17 at baseline, but since then it gradually went up to 1.9 after which diuretics were held. The patient does feel better from breathing standpoint by about 50%. She has not received any diuretics for the last 2 days. Potassium was slightly higher earlier today. She was started on IV fluid. ALLERGIES: COLCHICINE. HOME MEDICATIONS: List was reviewed in detail and includes Coumadin, Protonix, insulin, nortriptyline, metoprolol, insulin, fluoxetine, Lipitor, aspirin, allopurinol. PAST MEDICAL AND SURGICAL HISTORY: Includes moderate aortic stenosis which has now progressed to severe aortic stenosis, atrial fibrillation, dyslipidemia, GERD, hypertension, history of C. diff infection, hypothyroidism, type 2 diabetes for more than 50 years, chronic anticoagulation, fractured leg repair, cataracts. FAMILY HISTORY: Positive for Alzheimer's and myocardial infarction. SOCIAL HISTORY: No smoking, no alcohol. She is a , lives alone. REVIEW OF SYSTEMS: As detailed in HPI, unless stated otherwise, 12 systems reviewed and negative. PHYSICAL EXAMINATION: GENERAL: Elderly white female who is obese. She is awake, alert, oriented x3, able to speak in full clear sentence accurate history. HEENT: Mucous membranes moist. NECK: Supple. Cannot assess jugular venous distension because of short neck. CHEST: Decreased breath sounds, poor inspiratory effort. CARDIOVASCULAR: S1 and S2, regular. Loud systolic murmur heard. ABDOMEN: Soft, nontender, obese. EXTREMITIES: Shows trace to 1+ edema with chronic skin changes and as per the patient it appears to be better than before. VITAL SIGNS: Blood pressure 145/75, pulse 64, temperature 36.4, 95% on room air. Mucous membranes moist. LABORATORY TESTS: Sodium 139, potassium 5.4, BUN 51, creatinine is 1.8. Creatinine was 1.17, which peaked at 1.9 and is now trending down. BNP was 4111 at the time of admission. Urine test not done, hemoglobin 12.4, platelet count 249. Chest x-ray shows cardiomegaly with pulmonary vascular congestion at the time of admission as well as pleural effusion. Duplex of the lower extremity were done, did not show any DVT. ASSESSMENT AND PLAN: A 70-year-old female with longstanding type 2 diabetes and mild chronic kidney disease III prior to this hospitalization. Admitted 4 days ago with decompensated congestive heart failure/pulmonary edema with hypertensive urgency, most likely secondary to worsening of the aortic stenosis. I have been consulted for acute renal failure. Acute renal failure. ----With the significant worsening of the aortic stenosis, she will have a higher baseline creatinine going forward with diuretics. Her admission creatinine is misleading as it was in the setting of significant fluid overload with hypertensive urgency. We should not try to hold her diuretics anymore. She does need diuretics and will continue to need diuretics in the future. A higher baseline creatinine is not only acceptable, it is desirable in her case. Potassium is high. I will give her Lasix 80 mg x1 now. She will need some dose of loop diuretics for maintenance as an outpatient. The exact dose will be decided at the time of discharge. MTDD
[2020-10-02 13:21] LABS: Appearance Urine Cloudy (Clear); Bacteria Urine Automated 4+ (Negative); Bilirubin Urine Negative (Negative); Blood Urine 1+ (Negative); Color Urine Yellow; Epithelial Cell Urine Auto >30 /lpf (0-5); Glucose Urine UA Negative (Negative); Ketones Urine Negative (Negative); Leukocyte Esterase Urine 3+ (Negative); Nitrite Urine Negative (Negative); Protein Urine 2+ (Negative); RBC Urine Automated 0-4 /hpf (0-4); Specific Gravity Urine 1.014 (1.000-1.030); Urobilinogen Urine Negative (Negative); WBC Urine Automated >30 /hpf (0-5)
[2020-10-02 13:59] LABS: Creatinine Urine Random 54.4 mg/dl; Protein Creatinine Ratio Urine 1.3 (0-0.2); Total Protein Urine Random 72.6 mg/dl (0-11.9)
[2020-10-02 17:35] LABS: BUN Creatinine Ratio 30.7 (10-20); Calcium 9.3 mg/dl (8.5-10.1); Creatinine Clr Calc Pharmacy 35.1 ml/min; Est GFR (African American) 34.8; Potassium 5.2 mmol/L (3.5-5.1)
[2020-10-02] MEDS: NORTRIPTYLINE HCL 25 MG CAP PO SCH (21:15)
[2020-10-03 06:38] LABS: INR 4.1 (0.9-1.1); Prothrombin Time 39.9 Seconds (9.0-12.0)
[2020-10-03 06:44] LABS: Albumin Level 2.3 gm/dl (3.4-5.0); BUN Creatinine Ratio 31.2 (10-20); Calcium 9.3 mg/dl (8.5-10.1); Creatinine Clr Calc Pharmacy 32.9 ml/min; Est GFR (African American) 32.3; Est GFR (Non-African American) 27.8; Potassium 4.8 mmol/L (3.5-5.1)
[2020-10-03 06:47] LABS: Albumin Globulin Ratio 0.6 (0.9-2); Bilirubin,Total 0.2 mg/dl (0.2-1); Globulin 3.8 gm/dl (2.5-4.0); Total Protein 6.1 gm/dl (6.4-8.2)
[2020-10-03] MEDS: PANTOprazole 40 MG TAB PO SCH (07:55)
[2020-10-03] MEDS: ATORVASTATIN 40 MG TAB PO SCH (07:55)
[2020-10-03] MEDS: ADVANCED PROBIOTIC 1250 MG CAPSULE PO SCH (07:55)
[2020-10-03] MEDS: FLUoxetine HCL 20 MG CAP PO SCH (07:55)
[2020-10-03] MEDS: TOLTERODINE TARTRATE LA 2 MG CAPCR PO SCH (07:55)
[2020-10-03] MEDS: ASPIRIN 81 MG ECTAB PO SCH (07:55)
[2020-10-03] MEDS: allopurinoL 300 MG TAB PO SCH (07:56)
[2020-10-03] MEDS: METOPROLOL SUCC 25MG EXT REL TAB PO SCH ×2 (07:56→20:51)
[2020-10-03] MEDS: INSULIN GLARGINE SOLOSTAR 100 UNITS/ML 3 ML PEN SC SCH ×2 (08:27→20:52)
[2020-10-03] MEDS: INSULIN ASPART 100 UNITS/ML 3 ML PEN SC SCH ×4 (08:27→20:53)
--- NOTE | 2020-10-03 09:59 | Progress Notes ---
DATE: 10/03/2020 SUBJECTIVE: The patient feels better breathing smith. Her blood pressure is also better. No new issues. PHYSICAL EXAMINATION: VITAL SIGNS: Blood pressure 126/54, pulse rate 62, 95% on room air. HEENT: Mucous membranes moist. NECK: Supple. No jugular venous distention. CHEST: Bilateral clear to auscultation. Decreased breath sounds secondary to decreased inspiratory effort. CARDIOVASCULAR: S1 and S2, regular. Systolic murmur heard. ABDOMEN: Soft, nontender. EXTREMITIES: Shows trace edema with chronic skin changes from chronic edema. LABORATORY TESTS: From this morning shows BUN 57, creatinine 1.8. Creatinine has been in the 1.8 range now for the last 4 days and BUN has been in the 50s for the last 4 days and stable condition. ASSESSMENT AND PLAN: A 70-year-old female with longstanding type 2 diabetes and mild chronic kidney disease stage III, prior to this hospitalization. She was admitted 5 days ago with decompensated congestive heart failure/pulmonary edema with hypertensive urgency, most likely secondary to significant worsening of the aortic stenosis. I have been consulted for acute renal failure. Acute renal failure ----with significant worsening of the aortic stenosis, she will have a higher baseline creatinine going forward with diuretics. Her admission creatinine was misleading as it was in the setting of significant fluid overload with hypertensive urgency. We should restart her diuretics. She will definitely need some diuretics going forward to manage her fluid status. Higher baseline creatinine going forward, is not only acceptable but it is desirable in her case to keep her volume status in check. I would recommend using at least 40 mg daily of Lasix. She might need even more than that. Follow with Nephrology within the next 1-2 weeks. CARLOS
--- NOTE | 2020-10-03 11:29 | Cardiology Progress Note ---
Date of Service October 03, 2020 Assessment & Plan (1) Aortic stenosis: (2) Heart failure due to valvular disease: (3) Pleural effusion, bilateral: (4) Acute kidney injury superimposed on chronic kidney disease: (5) PSVT (paroxysmal supraventricular tachycardia): (6) Atrial flutter, paroxysmal: 70-year-old female admitted with palpitations, acute congestive heart failure, and severe aortic stenosis. Nephrology input appreciated. Add Lasix 40 mg daily. Results of lower extremity arterial duplex reviewed. Nonobstructed disease with severe calcification visualized. Reviewed the natural history and pathophysiology of severe calcific aortic stenosis. Discussed indications for coronary angiography and aortic valve replacement. Continue Toprol-XL 25 mg twice daily, aspirin 81 mg daily, and atorvastatin. Close outpatient cardiology follow-up within 1 week with repeat basic metabolic panel to evaluate volume status, diuretic requirements, and schedule diagnostic catheterization, cardiothoracic surgery evaluation in [place]. Admission and Anticipated Discharge Date Admission Date: September 28, 2020 Subjective Patient seen and examined the bedside. Reports dyspnea on exertion. No orthopnea or paroxysmal nocturnal dyspnea. No dysrhythmias on telemetry. Evaluated by nephrology yesterday who ordered 80 mg of Lasix. Renal function unchanged. Review of Systems Review of Systems: All systems reviewed & are unremarkable except as noted in HPI & below Physical Exam Constitutional: well developed and well nourished; no acute distress and not ill appearing Respiratory: Auscultation: + crackles (Bases bilaterally); no rhonchi and no wheezes Cardiovascular: Rate/Rhythm: regular rate and regular rhythm Heart Sounds: normal S1 and + murmur (4/6 high-pitched late peaking systolic ejection murmur heard best at the ri); + abnormal S2 (Absent) Vessels: no JVD, + femoral pulses abnormal and + radial pulses abnormal (Right radial pulse not palpable) Extremities: no edema Gastrointestinal (Abdomen): Inspection/Auscultation: abdomen normal to inspection and normal bowel sounds; abdomen not distended Percussion/Palpation: abdomen soft; abdomen nontender, no guarding and abdomen not rigid Psychiatric: A+Ox3, euthymic affect Results & Data ([facility]) Vital Signs (Past 12 Hours) Vital Signs Temp Pulse Pulse Resp BP Pulse Ox 10/03/20 11:14 36.5 C 60 18 152/70 H 98 10/03/20 07:16 37.0 C 62 18 126/54 L 95 10/03/20 07:06 62 10/03/20 03:35 36.5 C 67 18 167/60 H 95 10/03/20 01:00 63
--- NOTE | 2020-10-03 12:05 | Pharmacy Report ---
Pharmacy Glycemic Short Note 2 - Date of Service October 03, 2020 - Glycemic Short BSG Results (Last 24 hours): 10/02/20 10/02/20 10/02/20 16:19 16:49 20:49 Glucose 120 H POC Glucose 116 H 158 H 10/03/20 10/03/20 10/03/20 05:54 08:01 11:38 Glucose 100 H POC Glucose 82 84 OUTPATIENT ANTIDIABETIC REGIMEN: * Levemir 80 units SQ BID + Novolog 35 units SQ BIDM * A1c = 9.3% (09/28/2020) ASSESSMENT: 10/03: * Patient received a total of 47 units of insulin yesterday * 36 units basal + 11 units bolus * BSGs were acceptable at [phone] mg/dL * Fasting BSG was significantly decreased at 82 mg/dL this morning * Will reduce basal insulin scale today * Believe patient requires somewhere between 25-30 units of basal insulin per day 10/02: * [place] received a total of 46 units of insulin yesterday - ~ 30% increase from previous day * 28 units basal + 18 units bolus * BSGs were acceptable: [phone] mg/dL * Fasting BSG was elevated this AM at 171 mg/dL * Will continue with the current basal scale that is ordered and continue to trend fasting BSGs * Lunchtime BSG was acceptable at 163 mg/dL * No changes to Novolog today 09/30: * 70 yo F admitted secondary to hypertensive emergency and acute heart failure exacerbation. * Patient received 77 units of insulin yesterday: * 40 units of basal * 37 units of bolus * Pt experienced hypoglycemia last evening despite significant reduction compared to home dose of 230 units/day. BSG of 58 mg/dL. She was treated with OJ and IV dextrose. PM Lantus dose was held and Novolog loosened. * Fasting BSG of 92 mg/dL this AM was slightly below goal. Lantus administration was delayed to lunchtime. Dose reduced due to above. * Post prandial BSG elevation noted with lunch. Will tighten Novolog parameters since hypoglycemia resolved overnight. PLAN FOR INPATIENT GLYCEMIC CONTROL: * Basal insulin - decreased * Lantus 15 units at lunch, then BID per scale: * 10 units for BSG less than 140 * 15 units for BSG 140-200 * 20 units for BSG greater than 200 * Bolus insulin - No change * NovoLog per scale ACHS or Q6hrs while NPO * Goal Range: Low 120 mg/dL - High 150 mg/dL * Correction Factor: 25 mg/dL/unit * Nutritional / Prandial insulin per carb ratio of 1 unit per 8 grams CHO consumed DISCHARGE RECOMMENDATIONS: * HbA1c was 9.3% from 09/28/2020. Goal HbA1c for this patient would be < 8% given age and comorbidities. Patient does report frequent hypoglycemia prior to bed or during the middle of the night. She is on large doses of insulin as an outpatient and lives alone which is concerning because she has not required more than 90 units total in a single day since admission. * Recommend decreasing Levemir to 50 units SC BID * This is an approximate 40% decrease in basal insulin dose to hopefully prevent any further bedtime/nocturnal hypoglycemia * Recommend changing Novolog to 5 units SC AC with sliding scale as follows: * Blood Sugar 70-150 --> administer --> 0 units * Blood Sugar 151-200 --> administer --> 1 units * Blood Sugar 201-250 --> administer --> 3 units * Blood Sugar 251-300 --> administer --> 5 units * Blood Sugar 301-350 --> administer --> 7 units * Blood Sugar 351-400 --> administer --> 9 units * Blood Sugar > 400 --> administer --> 11 units and call MD * This sliding scale should be in addition to scheduled 10 units prior to meals. As for bedtime accuchecks, patient should use sliding scale only for insulin dose. * Recommend close follow up with outpatient provider and consider MTM referral.
[2020-10-03] MEDS: buPROPion SR 150 MG TABCR PO SCH ×2 (12:48→20:54)
[2020-10-03] MEDS: FUROSEMIDE 40 MG TAB PO SCH (12:48)
--- NOTE | 2020-10-03 18:56 | Hospitalist Progress Note ---
Date of Service October 03, 2020 Assessment & Plan (1) Aortic stenosis: Severe Aortic Stenosis -09/27/2020: "This is a 70-year-old female who has significant past medical history of insulin-dependent T2DM uncontrolled, paroxysmal atrial fibrillation anticoagulated on warfarin, HTN, HLD, CKD stage III, moderate aortic stenosis, hypothyroidism, depression with anxiety who presents to ED secondary to worsening shortness of breath x2 days." -mild documented on echo in 2015 -based on this hospitalization echocardiogram and cardiology consultation by Dr. Jeffery on 09/28/2020 "By echocardiography the patient's aortic stenosis has progressed to severe along with at least moderate aortic insufficiency. I believe her symptoms are related to acute pulmonary edema from heart failure on the basis of valvular heart disease as well as possible under compliance with medications. The troponin elevation is type II and not due to ACS. She is comfortable now. I would continue IV Lasix through today. Reassess tomorrow. I discussed with her the pathophysiology of aortic stenosis and treatment options. At some point she will most likely require a cardiac catheterization followed by referral for valve replacement. For now however, I would continue to keep treat her heart failure and optimize her medications." -09/28/2020: Patient seen and examined today while sitting up in the chair and with IV heparin drip running. No acute distress. breathing on room air. she reports her breathing subjectively better today. Her lung bases with some crackles. Patient denies chest pain or pain elsewhere. Patient subsequently seen again after hospitalist discussion with teacher resource. Patient was seen then walking with IV pole with physical therapy and was not feeling shortness of breath -09/29/2020: Patient seen and examined today again in chair with IV Lasix. Continues to be on room air with some residual but mild crackles of the lungs. The creatinine increased to 1.[address] Spencer from cardiology of holding Lasix today. Patient subjectively feels comfortable with her breathing. Patient denies other symptoms currently. No chest pain. No dizziness. No nausea. No other symptoms on review of systems. hospitalist asked nurse to remove the nitropaste and monitor blood pressure. 09/30/2020: CXR with Small pleural effusions have decreased in size from comparison and Mildly improved aeration of the lung bases. As per cardiology Dr. Spencer "discussion with the patient regarding the natural history and pathophysiology of severe calcific aortic stenosis. Discussed indications for aortic valve replacement and preoperative cardiac catheterization. She is reluctant to proceed with further testing or intervention at this time. She would like to follow-up in the cardiology clinic to discuss further. She appears euvolemic/compensated today. 10/01/2020: BILATERAL LOWER EXTREMITY ARTERIAL DOPPLER ULTRASOUND 10/01/[address] Spencer in regards for any future cardiac workup up in regards to the using this information 1. Extensive calcified atherosclerotic plaque within the bilateral lower extremities. No sonographic evidence for a hemodynamically significant stenosis. Patent bilateral groin vessels. 2. Biphasic flow throughout both lower extremities with the exception of no flow identified within the left peroneal artery which could be due to slow flow or occlusion. 10/01/2020 to 10/02/2020 : although cardiology service suggested for possible outpatient dosing of Lasix as 20 mg on Thursday, Thursday, and Thursday; the patinet's diuretics were held on 10/01/2020 and 10/02/2020 because of creatinine above baseline. likely from combination of previous Lasix and recently resolved diarrhea 10/03/20 Clinically improves Continue Toprol-XL 25 mg twice daily, aspirin 81 mg daily, and atorvastatin. Cardiology on board Continue lasix 40mg daily and monitor BMP while on lasix Follow up with cardiology in 1 week Plan to schedule for diagnostic catheterization, cardiothoracic surgery evaluation in [place]. (2) Elevated troponin: Elevated troponins on this admission secondary to Type II demand ischemia cardiology on board Continue metoprolol, Aspirin and Statin (3) Acute heart failure with preserved ejection fraction (HFpEF): CXR showed cardiomegaly with pulmonary vascular congestion. Left greater than right pleural effusions with bibasilar consolidation suggestive of probable atelectasis. BNP on admission above 4000 Continue lasix daily Clinically improves (4) Hypertensive emergency: BP on admission was 225/94 Continue Metoprolol and Lasix BP stable (5) HTN (hypertension): BP stable Lisinopril stopped on 09/30/2020 to prevent hyperkalemia risk (6) CKD (chronic kidney disease), stage III: Acute Kidney Injury on chronic kidney disease Creatinine increased to 1.9 on 12/01, baseline creatinine around 1.1 Nephrology on board recommeded to continue lasix 40mg Creatinine might get higher from baseline creatinine going forward, is not only acceptable but it is desirable in her case to keep her volume status stable as per nephrology Continue monitor BMP Diarrhea -loose bowel movements reported by patient that started on 09/28/2020 -09/29/2020 stool negative of C.difficile -on prn loperamide -diarrhea stopped as of 10/01/2020 report from patient. However her creatinine 1.9 likely from previous diarrhea. Patient to get 500 cc IV fluids of normal saline at 100 ml/hr and will have creatinine rechecked. Otherwise patient feeling well and ambulating well on room air. Patient denies other symptoms. no abdomen pain. no nausea. no vomiting. no dizziness. no blood per rectum in bowel movements. negative review of systems for other symptoms (7) T2DM (type 2 diabetes mellitus): Uncontrolled Diabetes Mellitus with diabetic retinopathy and nephropathy with fpc current use of insulin -HbA1c of 9 in the past, and 9.3 on this admission -currently managed by pharmacy glycemic control service with subcutaneous insulin dosing. patient had hypoglycemic episodes on night times of 09/29/2020. currently insulin being readjusted by pharmacy glycemic control before considering hospital discharge (8) Atrial fibrillation: Paroxysmal Atrial Fibrillation -continue rate control with home dose metoprolol succinate 25 mg daily -her home regimen of coumadin is 5 mg Thursday, Thursday, and 7.5 mg all other days -INR on 09/27/2020 was subtherapeutic as 1.5. She had taken coumadin 5 mg prior to ED presentation and given an additional 2.5 mg coumadin. Because of subtherapeutic INR and concerns of initial elevated troponins, patient was started on IV heparin as well -09/28/2020 INR is 1.6. Continued the IV heparin with coumadin as per cardiology Dr. Jeffery -09/29/2020 INR is 1.5 The IV heparin stopped on 09/29/2020 because patient concerned of blood in loose bowel movements. continued the coumadin -09/30/2020 INR is 1.7 -INR 2.3 on 10/01/2020, no further blood in bowel movements as per patient and coumadin continued -INR 3.5 on 10/02/2020 hold home dose coumadin -INR 4.1 today, continue to hold coumadin (9) DVT prophylaxis: -INR 4.1 today, continue to hold coumadin Admission and Anticipated Discharge Date Admission Date: September 28, 2020 Subjective Pt was seen and examined Lying in the recliner with no distress Pt said that her breathing seems to improve She said that she feels a little better today Pt said that she has history of depression and feels her mood seems to be the same She denies any psychosis, hallucination, suicidal thought, chest pain, palpitation and SOB Physical Exam Physical Exam: General- No acute distress Head- atraumatic Eyes- PERRL, EOMI, ENT- oropharynx clear Neck- supple, no JVD Lungs- clear to auscultation Heart- +murmur Abdomen- normal bowel sounds, soft, nontender Extremities- no calf tenderness Neuro- alert, oriented x 3; PERRL, EOMI; no facial palsy; no dysarthria Skin- warm & dry Results & Data Results & Data ([facility]) Vital Signs (Past 12 Hours) Vital Signs Temp Pulse Pulse Resp BP Pulse Ox 10/03/20 18:06 59 L 10/03/20 15:12 36.6 C 59 L 16 131/67 95 10/03/20 11:14 36.5 C 60 18 152/70 H 98 10/03/20 07:16 37.0 C 62 18 126/54 L 95 10/03/20 07:06 62
[2020-10-03] MEDS: NORTRIPTYLINE HCL 25 MG CAP PO SCH (20:51)
[2020-10-04 06:49] LABS: INR 3.5 (0.9-1.1); Prothrombin Time 34.5 Seconds (9.0-12.0)
[2020-10-04 07:15] LABS: BUN Creatinine Ratio 31.5 (10-20); Calcium 9.2 mg/dl (8.5-10.1); Creatinine Clr Calc Pharmacy 33.9 ml/min; Est GFR (African American) 33.1; Est GFR (Non-African American) 28.6
[2020-10-04] MEDS: METOPROLOL SUCC 25MG EXT REL TAB PO SCH ×2 (08:40→20:27)
[2020-10-04] MEDS: buPROPion SR 150 MG TABCR PO SCH ×2 (08:40→20:26)
[2020-10-04] MEDS: allopurinoL 300 MG TAB PO SCH (08:42)
[2020-10-04] MEDS: PANTOprazole 40 MG TAB PO SCH (08:42)
[2020-10-04] MEDS: ATORVASTATIN 40 MG TAB PO SCH (08:42)
[2020-10-04] MEDS: ASPIRIN 81 MG ECTAB PO SCH (08:43)
[2020-10-04] MEDS: ADVANCED PROBIOTIC 1250 MG CAPSULE PO SCH (08:43)
[2020-10-04] MEDS: FLUoxetine HCL 20 MG CAP PO SCH (08:43)
[2020-10-04] MEDS: TOLTERODINE TARTRATE LA 2 MG CAPCR PO SCH (08:43)
[2020-10-04] MEDS: FUROSEMIDE 40 MG TAB PO SCH (08:44)
[2020-10-04] MEDS: INSULIN ASPART 100 UNITS/ML 3 ML PEN SC SCH ×4 (08:46→20:27)
[2020-10-04] MEDS: INSULIN GLARGINE SOLOSTAR 100 UNITS/ML 3 ML PEN SC SCH ×2 (08:47→20:28)
--- NOTE | 2020-10-04 11:21 | Cardiology Progress Note ---
Date of Service October 04, 2020 Assessment & Plan (1) Aortic stenosis: (2) Heart failure due to valvular disease: (3) Pleural effusion, bilateral: (4) Acute kidney injury superimposed on chronic kidney disease: (5) PSVT (paroxysmal supraventricular tachycardia): (6) PVD (peripheral vascular disease): (7) Atrial flutter, paroxysmal: 70-year-old female admitted with palpitations, acute congestive heart failure, and severe aortic stenosis. Nephrology input appreciated. Continue Lasix 40 mg daily. Results of lower extremity arterial duplex reviewed. Nonobstructive disease with severe calcification visualized. Reviewed the natural history and pathophysiology of severe calcific aortic stenosis. Discussed indications for coronary angiography and aortic valve replacement. Continue Toprol-XL 25 mg twice daily, aspirin 81 mg daily, and atorvastatin.' Repeat BMP in the outpatient setting in 5 to 7 days. Outpatient cardiology follow-up scheduled 10/08/2020. Plan scheduling of cardiac catheterization and cardiothoracic surgery consultation in [place] pending review of repeat BMP during that visit. Admission and Anticipated Discharge Date Admission Date: September 28, 2020 Subjective Patient seen and examined at the bedside. Feeling better from a cardiovascular perspective. Dyspnea on exertion improved. Lower extremity edema stable. No orthopnea or paroxysmal nocturnal dyspnea. Denies chest discomfort, lightheadedness, dizziness, syncope, or near syncope. Telemetry demonstrates sinus rhythm. Review of Systems Review of Systems: All systems reviewed & are unremarkable except as noted in HPI & below Physical Exam Constitutional: well developed and well nourished; no acute distress and not ill appearing Respiratory: Auscultation: no crackles, no rales, no rhonchi and no wheezes Cardiovascular: Rate/Rhythm: regular rate and regular rhythm Heart Sounds: normal S1 and + murmur (4/6 high-pitched late peaking systolic ejection murmur heard best at the ri); + abnormal S2 (Absent) Vessels: no JVD, + femoral pulses abnormal and + radial pulses abnormal (Right radial pulse not palpable) Extremities: no edema Gastrointestinal (Abdomen): Inspection/Auscultation: abdomen normal to inspection and normal bowel sounds; abdomen not distended Percussion/Palpation: abdomen soft; abdomen nontender, no guarding and abdomen not rigid Psychiatric: A+Ox3, euthymic affect Results & Data ([facility]) Vital Signs (Past 12 Hours) Vital Signs Temp Pulse Pulse Resp BP Pulse Ox 10/04/20 07:17 37.0 C 61 18 138/73 95 10/04/20 07:15 61 10/04/20 03:00 36.7 C 60 16 145/75 H 94 10/04/20 01:00 61
[2020-10-04] MEDS: cephALEXin 500 MG CAP PO SCH ×2 (11:46→20:26)
--- NOTE | 2020-10-04 12:15 | Progress Notes ---
DATE: 10/04/2020 SUBJECTIVE: The patient feels better breathing. Making urine. Her blood pressure is also better. No new issues. PHYSICAL EXAMINATION: VITAL SIGNS: Blood pressure 138/73, pulse 61, respiratory rate 18, temperature 37 degrees Celsius, 95% on room air. HEENT: Mucous membranes moist. NECK: Supple. No jugular venous distention. CHEST: Bilateral clear to auscultation. CARDIOVASCULAR: S1, S2 regular. Loud systolic murmur heard. ABDOMEN: Soft, nontender. EXTREMITIES: Shows trace edema, but does has significant skin changes from chronic edema, which she had before. LABORATORIES: Sodium 140, potassium 5.0, chloride 110, CO2 of 27, BUN 56, creatinine is 1.77. ASSESSMENT AND PLAN: A 70-year-old female with longstanding type 2 diabetes and mild chronic kidney disease stage III, prior to this hospitalization. She was admitted with decompensated congestive heart failure/pulmonary edema with hypertensive urgency secondary to significant worsening of the aortic stenosis. I have been consulted for acute renal failure. Acute renal failure with significant worsening of the aortic stenosis. She will have a higher baseline creatinine going forward with diuretics. For the last 4 days, her creatinine has been in a pretty narrow range between 1.7 and 1.9. This might be her new baseline going forward. Continue Lasix 40 mg daily p.o. at the time of discharge. She might need more than that as an outpatient, but that can be adjusted as an outpatient. Follow with Nephrology within the next 1-2 weeks.
[2020-10-04] MEDS: WARFARIN SOD 5 MG TAB PO SCH (16:40)
[2020-10-04] MEDS: NORTRIPTYLINE HCL 25 MG CAP PO SCH (20:26)
--- NOTE | 2020-10-04 20:28 | Hospitalist Progress Note ---
Date of Service October 04, 2020 Assessment & Plan (1) Aortic stenosis: Severe Aortic Stenosis -09/27/2020: "This is a 70-year-old female who has significant past medical history of insulin-dependent T2DM uncontrolled, paroxysmal atrial fibrillation anticoagulated on warfarin, HTN, HLD, CKD stage III, moderate aortic stenosis, hypothyroidism, depression with anxiety who presents to ED secondary to worsening shortness of breath x2 days." -mild documented on echo in 2015 -based on this hospitalization echocardiogram and cardiology consultation by Dr. Jeffery on 09/28/2020 "By echocardiography the patient's aortic stenosis has progressed to severe along with at least moderate aortic insufficiency. I believe her symptoms are related to acute pulmonary edema from heart failure on the basis of valvular heart disease as well as possible under compliance with medications. The troponin elevation is type II and not due to ACS. She is comfortable now. I would continue IV Lasix through today. Reassess tomorrow. I discussed with her the pathophysiology of aortic stenosis and treatment options. At some point she will most likely require a cardiac catheterization followed by referral for valve replacement. For now however, I would continue to keep treat her heart failure and optimize her medications." -09/28/2020: Patient seen and examined today while sitting up in the chair and with IV heparin drip running. No acute distress. breathing on room air. she reports her breathing subjectively better today. Her lung bases with some crackles. Patient denies chest pain or pain elsewhere. Patient subsequently seen again after hospitalist discussion with profiling machine setup operator. Patient was seen then walking with IV pole with physical therapy and was not feeling shortness of breath -09/29/2020: Patient seen and examined today again in chair with IV Lasix. Continues to be on room air with some residual but mild crackles of the lungs. The creatinine increased to 1.[address] Spencer from cardiology of holding Lasix today. Patient subjectively feels comfortable with her breathing. Patient denies other symptoms currently. No chest pain. No dizziness. No nausea. No other symptoms on review of systems. hospitalist asked nurse to remove the nitropaste and monitor blood pressure. 09/30/2020: CXR with Small pleural effusions have decreased in size from comparison and Mildly improved aeration of the lung bases. As per cardiology Dr. Spencer "discussion with the patient regarding the natural history and pathophysiology of severe calcific aortic stenosis. Discussed indications for aortic valve replacement and preoperative cardiac catheterization. She is reluctant to proceed with further testing or intervention at this time. She would like to follow-up in the cardiology clinic to discuss further. She appears euvolemic/compensated today. 10/01/2020: BILATERAL LOWER EXTREMITY ARTERIAL DOPPLER ULTRASOUND 10/01/[address] Spencer in regards for any future cardiac workup up in regards to the using this information 1. Extensive calcified atherosclerotic plaque within the bilateral lower extremities. No sonographic evidence for a hemodynamically significant stenosis. Patent bilateral groin vessels. 2. Biphasic flow throughout both lower extremities with the exception of no flow identified within the left peroneal artery which could be due to slow flow or occlusion. 10/01/2020 to 10/02/2020 : although cardiology service suggested for possible outpatient dosing of Lasix as 20 mg on Thursday, Thursday, and Thursday; the patinet's diuretics were held on 10/01/2020 and 10/02/2020 because of creatinine above baseline. likely from combination of previous Lasix and recently resolved diarrhea 10/03/20 Clinically improves Continue Toprol-XL 25 mg twice daily, aspirin 81 mg daily, and atorvastatin. Cardiology on board Continue lasix 40mg daily and monitor BMP while on lasix Repeat BMP in the outpatient setting in 5 to 7 days. Outpatient cardiology follow-up scheduled 10/08/2020. Plan to schedule for diagnostic catheterization, cardiothoracic surgery evaluation in [place]. (2) Elevated troponin: Elevated troponins on this admission secondary to Type II demand ischemia cardiology on board Continue metoprolol, Aspirin and Statin (3) Acute heart failure with preserved ejection fraction (HFpEF): CXR showed cardiomegaly with pulmonary vascular congestion. Left greater than right pleural effusions with bibasilar consolidation suggestive of probable atelectasis. BNP on admission above 4000 Continue lasix daily Clinically improves (4) Hypertensive emergency: BP on admission was 225/94 Continue Metoprolol and Lasix BP stable (5) HTN (hypertension): BP stable Lisinopril stopped on 09/30/2020 to prevent hyperkalemia risk (6) UTI (urinary tract infection): Urine cx positive for Ecoli Will start on Keflex BID (7) CKD (chronic kidney disease), stage III: Acute Kidney Injury on chronic kidney disease Creatinine increased to 1.9 on 12/01, baseline creatinine around 1.1 Nephrology on board recommeded to continue lasix 40mg Creatinine might get higher from baseline creatinine going forward, is not only acceptable but it is desirable in her case to keep her volume status stable as per nephrology Continue monitor BMP Diarrhea -loose bowel movements reported by patient that started on 09/28/2020 -09/29/2020 stool negative of C.difficile -on prn loperamide -diarrhea stopped as of 10/01/2020 report from patient. However her creatinine 1.9 likely from previous diarrhea. Patient to get 500 cc IV fluids of normal saline at 100 ml/hr and will have creatinine rechecked. Otherwise patient feeling well and ambulating well on room air. Patient denies other symptoms. no abdomen pain. no nausea. no vomiting. no dizziness. no blood per rectum in bowel movements. 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 patient had hypoglycemic episodes on night times of 09/29/2020. currently insulin being readjusted by pharmacy glycemic control before considering hospital discharge (9) Atrial fibrillation: Paroxysmal Atrial Fibrillation -continue rate control with home dose metoprolol succinate 25 mg daily -her home regimen of coumadin is 5 mg Thursday, Thursday, and 7.5 mg all other days -INR on 09/27/2020 was subtherapeutic as 1.5. She had taken coumadin 5 mg prior to ED presentation and given an additional 2.5 mg coumadin. Because of subtherapeutic INR and concerns of initial elevated troponins, patient was started on IV heparin as well -09/28/2020 INR is 1.6. Continued the IV heparin with coumadin as per cardiology Dr. Jeffery -09/29/2020 INR is 1.5 The IV heparin stopped on 09/29/2020 because patient concerned of blood in loose bowel movements. continued the coumadin -09/30/2020 INR is 1.7 -INR 2.3 on 10/01/2020, no further blood in bowel movements as per patient and coumadin continued -INR 3.5 on 10/02/2020 hold home dose coumadin -INR 4.1 10/03/20 hold coumadin -INR 3.5 today, coumadin resumed (10) DVT prophylaxis: -INR 3.5 today Continue Coumadin Disposition Discharge home today Admission and Anticipated Discharge Date Admission Date: September 28, 2020 Subjective Pt was seen and examined Lying in the recliner with no distress Pt said that her breathing feels much better She said that she feels tired today today She would like to stay tonight in the hospital and discharge home tomorrow Denies any chest pain, palpitation, dizziness and SOB Physical Exam Physical Exam: General- No acute distress Head- atraumatic Eyes- PERRL, EOMI, ENT- oropharynx clear Neck- supple, no JVD Lungs- clear to auscultation Heart- +murmur Abdomen- normal bowel sounds, soft, nontender Extremities- no calf tenderness Neuro- alert, oriented x 3; PERRL, EOMI; no facial palsy; no dysarthria Skin- warm & dry Results & Data Results & Data ([facility]) Vital Signs (Past 12 Hours) Vital Signs Temp Pulse Pulse Pulse Resp BP Pulse Ox 10/04/20 20:26 65 145/75 H 10/04/20 19:00 36.7 C 63 20 153/76 H 99 10/04/20 15:07 36.5 C 64 18 131/67 98 10/04/20 15:00 63 10/04/20 11:45 36.4 C L 72 18 160/72 H 96
[2020-10-05] MEDS: LOPERAMIDE HCL 2 MG CAP PO PRN (01:58)
[2020-10-05] MEDS: INSULIN ASPART 100 UNITS/ML 3 ML PEN SC SCH ×2 (08:48→12:45)
[2020-10-05] MEDS: TOLTERODINE TARTRATE LA 2 MG CAPCR PO SCH (08:50)
[2020-10-05] MEDS: INSULIN GLARGINE SOLOSTAR 100 UNITS/ML 3 ML PEN SC SCH (08:51)
[2020-10-05] MEDS: cephALEXin 500 MG CAP PO SCH (08:51)
[2020-10-05] MEDS: ASPIRIN 81 MG ECTAB PO SCH (08:51)
[2020-10-05] MEDS: FUROSEMIDE 40 MG TAB PO SCH (08:52)
[2020-10-05] MEDS: ATORVASTATIN 40 MG TAB PO SCH (08:52)
[2020-10-05] MEDS: ADVANCED PROBIOTIC 1250 MG CAPSULE PO SCH (08:53)
[2020-10-05] MEDS: allopurinoL 300 MG TAB PO SCH (08:53)
[2020-10-05] MEDS: PANTOprazole 40 MG TAB PO SCH (08:53)
[2020-10-05] MEDS: FLUoxetine HCL 20 MG CAP PO SCH (08:53)
[2020-10-05] MEDS: buPROPion SR 150 MG TABCR PO SCH (08:53)
[2020-10-05] MEDS: METOPROLOL SUCC 25MG EXT REL TAB PO SCH (09:56)
[2020-10-05 12:09] LABS: INR 3.5 (0.9-1.1); Prothrombin Time 34.5 Seconds (9.0-12.0)
[2020-10-05] MEDS: WARFARIN SOD 5 MG TAB PO SCH (16:07)
--- NOTE | 2020-10-05 16:18 | Discharge Summary ---
Date of Service October 05, 2020 Admission HPI Per Admitting Provider This is a 70-year-old female who has significant past medical history of insulin-dependent T2DM uncontrolled, paroxysmal atrial fibrillation anticoagulated on warfarin, HTN, HLD, CKD stage III, moderate aortic stenosis, hypothyroidism, depression with anxiety who presents to ED secondary to worsening shortness of breath x2 days. She admits to having BURTON for the past 2 weeks. She would get short of breath even with little activity. Over the past 2 days it has significantly worsened and she has been having difficulty catching her breath. Even admits to shortness of breath at rest. She denies any recent fever, chills, sweats, lightheadedness, dizziness, chest pain, palpitations, cough, hemoptysis, nausea, vomiting, abdominal pain, dysuria, increased urgency or frequency with urination, melena or hematochezia. She denies any PND. She has 4 pillow orthopnea. She denies any lower extremity edema or significant weight gain. Her baseline weight is approximately 224 and she states previously she had been up in the 400s. She does not take any diuretic on a regular basis. She denies any prior history of coronary artery disease or CHF. She does not monitor her blood pressure at home. She denies any change in dietary intake including salt intake. She denies any known exposure to coronavirus stating she mostly stays home. She is an insulin-dependent diabetic with an A1c of 9.0 and uncontrolled. She does take significant doses of insulin and does not monitor blood sugar on a regular basis. She does have history of PAF anticoagulated on warfarin and she did take her morning dose today. In ED patient was found to have hypertensive emergency with systolic blood pressure of 225. She not requiring supplemental oxygen. She had elevated troponin 0.179, proBNP 4111 glucose 215, BUN 21, creatinine 1.17, INR 1.5. She was afebrile and did not have any leukocytosis. Chest x-ray revealed mild pulmonary vascular congestion. She received 40 mg IV Lasix as well as 0.1 mg of clonidine which improved blood pressure to 181/95. She was 140 systolically during my visit. After receiving Lasix she has urinated and currently states she is feeling much improved and breathing easier. Admission Exam Per Admitting Provider Constitutional: WD/WN, vitals as above, NAD, sitting up in bed, pleasant, conversing easily Head: Normocephalic, Atraumatic Eyes: PERRL, conjunctivae normal, anicteric sclerae ENMT: external ear and nose normal, oropharynx normal Neck: trachea midline, no thyromegaly normal visual inspection Respiratory: normal respiratory effort, lungs clear to auscultation, no wheeze, rales, rhonchi. Normal insp/exp effort, no accessory muscle use Cardiovascular: RRR, harsh 3/6 EDE noted best RUSB but heard throughout precordium and into back, bilateral lower extremity venous stasis without active cellulitis, bilateral pedal pulse +2 Vessels: no JVD or carotid bruit Chest: normal inspection of chest Abdomen: normal bowel sounds, soft, nontender, no hepatosplenomegaly Musculoskeletal: no cyanosis or clubbing, extremities motor strength 5/5 Skin: no rashes, warm and dry normal turgor Neurologic: PERRL, EOMI, accommodation nl, no face palsy, no dysarthria CN's II-XI intact bilaterally and moves all extremities Psychiatric: A+Ox3, euthymic affect Lymphatic: no cervical or axillary lymphadenopathy : deferred Principal Diagnosis Hypertension/Hypertensive Emergency Acute heart failure with preserved ejection fraction (Heart failure due to valvular disease) Severe Aortic Stenosis Elevated troponins on this admission secondary to Type II demand ischemia Acute kidney injury on chronic kidney disease Paroxysmal Atrial Fibrillation Type 2 diabetes mellitus with long term care pharmacist current use of insulin (with hypoglycemia when in hospital) Diarrhea Discharge Exam General- No acute distress Head- atraumatic Eyes- PERRL, EOMI, ENT- oropharynx clear Neck- supple, no JVD Lungs- clear to auscultation Heart- +murmur Abdomen- normal bowel sounds, soft, nontender Extremities- no calf tenderness Neuro- alert, oriented x 3; PERRL, EOMI; no facial palsy; no dysarthria Skin- warm & dry Discharge Data Allergies Allergy/AdvReac Type Severity Reaction Status Date / Time colchicine Allergy Mild GI SYMPTOMS Verified 09/27/20 14:18 Consultations 09/27/20 14:33 ED Decision to Admit Stat 09/27/20 14:49 Consult Cardiology Routine 09/27/20 17:23 Consult Case Management - Discharge Planning Routine 09/29/20 13:07 Consult Pulmonology Routine 10/02/20 08:59 Consult Nephrology Routine 10/02/20 13:20 Consult Behavioral Health Liaison Routine Ordered Studies 10/01/20 14:00 US arterial duplex LE BI Urgent BILATERAL LOWER EXTREMITY ARTERIAL DOPPLER ULTRASOUND CLINICAL HISTORY: PVD, femoral pulses not palpable, pre-cath COMPARISON STUDY: No previous studies for comparison. TECHNIQUE: Grayscale, color and duplex sonography of the arterial systems of both lower extremities was performed. Ankle to brachial indices could not be obtained as patient was unable to tolerate compression. FINDINGS: Exam is compromised by suboptimal penetration. Extensive calcified atherosclerotic plaque was noted within each lower extremity. However, no elevated velocities were identified to suggest a hemodynamically significant stenosis. There was biphasic flow within the bilateral common femoral, superficial femoral, popliteal, anterior tibial, posterior tibial, talus pedis and right peroneal arteries. Left peroneal artery flow was not identified on this examination. IMPRESSION: 1. Extensive calcified atherosclerotic plaque within the bilateral lower extremities. No sonographic evidence for a hemodynamically significant stenosis. Patent bilateral groin vessels. 2. Biphasic flow throughout both lower extremities with the exception of no flow identified within the left peroneal artery which could be due to slow flow or occlusion. ACT 112: Negative or not required by law. Electronically signed by: Napoleon Hutton M.D. 10/01/2020 3:20 PM Dictated: 10/01/20 1512Transcribed: 10/01/20 1514 XR chest 2V PA/lateral HISTORY: 70 years-old Female post diuresis COMPARISON: Chest radiograph 09/27/2020 TECHNIQUE: PA and lateral views of the chest FINDINGS: Unchanged calcifications projecting over the proximal left humerus. Degenerative changes of the shoulders and spine. Cardiac silhouette is mildly enlarged. Calcified plaque of the thoracic aorta. No pneumothorax. Small bilateral pleural effusions with decreased size of the left effusion. Minimal bibasilar opacities. No overt pulmonary edema. IMPRESSION: 1. Small pleural effusions have decreased in size from comparison. 2. Mildly improved aeration of the lung bases. ACT 112: Negative or not required by law. The above report was generated using voice recognition software. It may contain grammatical, syntax or spelling errors. Electronically signed by: Goyo Modi M.D. 09/30/2020 9:03 AM Dictated: 09/30/20901Transcribed: 09/30/20901 XR chest 1V portable HISTORY: 70 years-old Female Dyspnea acute shortness of breath COMPARISON: Chest and rib radiographs 04/05/2020 and 02/27/2019. TECHNIQUE: Portable AP view of the chest FINDINGS: Cardiac silhouette is enlarged. Calcified plaque of the thoracic aortic arch. No pneumothorax. Small left greater than right pleural effusions with bibasilar consolidation. Pulmonary vascular congestion. There is sclerosis projecting over the proximal left humerus which on comparison. To represent calcifications within the adjacent soft tissues. Degenerative changes of the shoulders and spine. IMPRESSION: 1. Cardiomegaly with pulmonary vascular congestion. 2. Left greater than right pleural effusions with bibasilar consolidation suggestive of probable atelectasis. ACT 112: Negative or not required by law. The above report was generated using voice recognition software. It may contain grammatical, syntax or spelling errors. Electronically signed by: Goyo Modi M.D. 09/27/2020 1:34 PM Dictated: 09/27/20 1332Transcribed: 09/27/20 1332 Diabetes Follow up Diabetes Follow-up Needed for HgbA1c >9% Hospital Course (1) Aortic stenosis: Severe Aortic Stenosis -09/27/2020: "This is a 70-year-old female who has significant past medical history of insulin-dependent T2DM uncontrolled, paroxysmal atrial fibrillation anticoagulated on warfarin, HTN, HLD, CKD stage III, moderate aortic stenosis, hypothyroidism, depression with anxiety who presents to ED secondary to worsening shortness of breath x2 days." -mild documented on echo in 2014 -based on this hospitalization echocardiogram and cardiology consultation by Dr. Jeffery on 09/28/2020 "By echocardiography the patient's aortic stenosis has progressed to severe along with at least moderate aortic insufficiency. I b elieve her symptoms are related to acute pulmonary edema from heart failure on the basis of valvular heart disease as well as possible under compliance with medications. The troponin elevation is type II and not due to ACS. She is comfortable now. I would continue IV Lasix through today. Reassess tomorrow. I discussed with her the pathophysiology of aortic stenosis and treatment options. At some point she will most likely require a cardiac catheterization followed by referral for valve replacement. For now however, I would continue to keep treat her heart failure and optimize her medications." -09/28/2020: Patient seen and examined today while sitting up in the chair and with IV heparin drip running. No acute distress. breathing on room air. she reports her breathing subjectively better today. Her lung bases with some crackles. Patient denies chest pain or pain elsewhere. Patient subsequently seen again after hospitalist discussion with motor setter. Patient was seen then walking with IV pole with physical therapy and was not feeling shortness of breath -09/29/2020: Patient seen and examined today again in chair with IV Lasix. Continues to be on room air with some residual but mild crackles of the lungs. The creatinine increased to 1.[address] Spencer from cardiology of holding Lasix today. Patient subjectively feels comfortable with her breathing. Patient denies other symptoms currently. No chest pain. No dizziness. No nausea. No other symptoms on review of systems. hospitalist asked nurse to remove the nitropaste and monitor blood pressure. 09/30/2020: CXR with Small pleural effusions have decreased in size from comparison and Mildly improved aeration of the lung bases. As per cardiology Dr. Spencer "discussion with the patient regarding the natural history and pathophysiology of severe calcific aortic stenosis. Discussed indications for aortic valve replacement and preoperative cardiac catheterization. She is reluctant to proceed with further testing or intervention at this time. She would like to follow-up in the cardiology clinic to discuss further. She appears euvolemic/compensated today. 10/01/2020: BILATERAL LOWER EXTREMITY ARTERIAL DOPPLER ULTRASOUND 10/01/[address] Spencer in regards for any future cardiac workup up in regards to the using this information 1. Extensive calcified atherosclerotic plaque within the bilateral lower extremities. No sonographic evidence for a hemodynamically significant stenosis. Patent bilateral groin vessels. 2. Biphasic flow throughout both lower extremities with the exception of no flow identified within the left peroneal artery which could be due to slow flow or occlusion. 10/01/2020 to 10/02/2020 : although cardiology service suggested for possible outpatient dosing of Lasix as 20 mg on Thursday, Thursday, and Thursday; the patinet's diuretics were held on 10/01/2020 and 10/02/2020 because of creatinine above baseline. likely from combination of previous Lasix and recently resolved diarrhea 10/04/20 Clinically improves Continue Toprol-XL 25 mg twice daily, aspirin 81 mg daily, and atorvastatin. Cardiology on board Continue lasix 40mg daily and monitor BMP while on lasix Repeat BMP in the outpatient setting in 5 to 7 days. Outpatient cardiology follow-up scheduled 10/08/2020. Plan to schedule for diagnostic catheterization, cardiothoracic surgery evaluation in [place]. (2) Elevated troponin: Elevated troponins on this admission secondary to Type II demand ischemia cardiology on board Continue metoprolol, Aspirin and Statin (3) Acute heart failure with preserved ejection fraction (HFpEF): CXR showed cardiomegaly with pulmonary vascular congestion. Left greater than right pleural effusions with bibasilar consolidation suggestive of probable atelectasis. BNP on admission above 4000 Continue lasix daily Clinically improves (4) Hypertensive emergency: BP on admission was 225/94 Continue Metoprolol and Lasix BP stable (5) HTN (hypertension): BP stable Lisinopril stopped on 09/30/2020 to prevent hyperkalemia risk (6) UTI (urinary tract infection): Urine cx positive for Ecoli Will start on Keflex BID (7) CKD (chronic kidney disease), stage III: Acute Kidney Injury on chronic kidney disease Creatinine increased to 1.9 on 12/01, baseline creatinine around 1.1 Nephrology on board recommeded to continue lasix 40mg Creatinine might get higher from baseline creatinine going forward, is not only acceptable but it is desirable in her case to keep her volume status stable as per nephrology Continue monitor BMP Diarrhea -loose bowel movements reported by patient that started on 09/28/2020 -09/29/2020 stool negative of C.difficile -on prn loperamide -diarrhea stopped as of 10/01/2020 report from patient. However her creatinine 1.9 likely from previous diarrhea. Patient to get 500 cc IV fluids of normal saline at 100 ml/hr and will have creatinine rechecked. Otherwise patient feeling well and ambulating well on room air. Patient denies other symptoms. no abdomen pain. no nausea. no vomiting. no dizziness. no blood per rectum in bowel movements. negative review of systems for other symptoms case discussed with pharmacy recommended to decrease levemir to 50units BID Novolog changed to 5 units before each meal in addition to follow the sliding scale before each meal and at bedtime as follows: Blood Sugar 70-150 --> administer --> 0 units Blood Sugar 151-200 --> administer --> 1 units Blood Sugar 201-250 --> administer --> 3 units Blood Sugar 251-300 --> administer --> 5 units Blood Sugar 301-350 --> administer --> 7 units Blood Sugar 351-400 --> administer --> 9 units Blood Sugar > 400 --> administer --> 11 units and call MD (8) T2DM (type 2 diabetes mellitus): Uncontrolled Diabetes Mellitus with diabetic retinopathy and nephropathy with long term care pharmacist current use of insulin -HbA1c of 9 in the past, and 9.3 on this admission -currently managed by pharmacy glycemic control service with subcutaneous insulin dosing. patient had hypoglycemic episodes on night times of 09/29/2020. currently insulin being readjusted by pharmacy glycemic control before considering hospital discharge (9) Atrial fibrillation: Paroxysmal Atrial Fibrillation -continue rate control with home dose metoprolol succinate 25 mg daily -her home regimen of coumadin is 5 mg Thursday, Thursday, and 7.5 mg all other days -INR on 09/27/2020 was subtherapeutic as 1.5. She had taken coumadin 5 mg prior to ED presentation and given an additional 2.5 mg coumadin. Because of subtherapeutic INR and concerns of initial elevated troponins, patient was started on IV heparin as well -09/28/2020 INR is 1.6. Continued the IV heparin with coumadin as per cardiology Dr. Jeffery -09/29/2020 INR is 1.5 The IV heparin stopped on 09/29/2020 because patient concerned of blood in loose bowel movements. continued the coumadin -09/30/2020 INR is 1.7 -INR 2.3 on 10/01/2020, no further blood in bowel movements as per patient and coumadin continued -INR 3.5 on 10/02/2020 hold home dose coumadin -INR 4.1 10/03/20 hold coumadin -INR 3.5 today, coumadin resumed Follow up with the coag clinic (10) DVT prophylaxis: -INR 3.5 today Continue Coumadin Disposition Discharge home today Total Time Total Time Spent Total Time Spent (In Minutes): 35 minutes Total Time Includes: Examination of the Patient, Discharge Planning, Medication Reconciliation, Communication With Other Providers and Other Discharge Plan Discharge Items Patient Disposition: Home - Self-Care Reason For Visit: HYPERTENSIVE EMERGNCY,ELEVATED TROPONIN,ACUTE CHF Discharge Diagnosis: Hypertension/Hypertensive Emergency Acute heart failure with preserved ejection fraction (Heart failure due to valvular disease) Severe Aortic Stenosis Elevated troponins on this admission secondary to Type II demand ischemia Acute kidney injury on chronic kidney disease Paroxysmal Atrial Fibrillation Type 2 diabetes mellitus with [facility] current use of insulin (with hy poglycemia when in hospital) Diarrhea Condition on Discharge: Good Activity: Per Instructions section Non-emergency contact: Primary Care Provider and Neonatal Intensive Care Unit Nurse Call non-emergency contact if: you have any medication questions Follow-up/Referrals: Wayne Keene MD [Primary Care Provider] - ( Date & Time 10/08/2020 6:00 PM Provider Wayne Keene MD Department [facility] ) Diet: Carb Consistent or DM2 and Heart Healthy Addtl Attending Provider Instructions: discharge pharmacy [facility] [address] [place] [address] Follow up appointment on 10/08/2020 @ 6:00 PM Provider Wayne Keene MD Department [facility] Follow up appointment on 10/08/2020 @ 1:[address] Merida at the [facility] Follow up with nephrology Dr. Alonzo or his colleague in 1 -2 weeks (Please call to schedule for the follow up appointment) Follow up with the coumadin clinic to monitor PT/INR (INR today 3.5) Continue coumadin 5 mg for now until the coumadin clinic intructing you to adjust the dose Lasix increased to 40mg daily to prevent dyspnea from aortic stenosis versus fluid overload Check BMP in 1 week to monitor your electrolytes and renal function Complete the course of the antibiotic with Keflex for the urinary tract infection Continue monitor your blood sugar and bring your blood sugar log at your next appointment with your provider Levemir decreased to 50 units SC twice a day Novolog changed to 5 units before each meal in addition to follow the sliding scale before each meal and at bedtime as follows: Blood Sugar 70-150 --> administer --> 0 units Blood Sugar 151-200 --> administer --> 1 units Blood Sugar 201-250 --> administer --> 3 units Blood Sugar 251-300 --> administer --> 5 units Blood Sugar 301-350 --> administer --> 7 units Blood Sugar 351-400 --> administer --> 9 units Blood Sugar > 400 --> administer --> 11 units and call Recommend close follow up with outpatient provider and consider MTM referral. The home dose lisinopril discontinued to prevent risk of increased creatinine or increase in serum potassium Complete the course of the antibiotic with Keflex for the urinary tract infection Addtl Scrip Clerk Provider Instructions: BILATERAL LOWER EXTREMITY ARTERIAL DOPPLER ULTRASOUND 10/01/[address] Spencer in regards for any future cardiac workup up in regards to the using this information 1. Extensive calcified atherosclerotic plaque within the bilateral lower extremities. No sonographic evidence for a hemodynamically significant stenosis. Patent bilateral groin vessels. 2. Biphasic flow throughout both lower extremities with the exception of no flow identified within the left peroneal artery which could be due to slow flow or occlusion. Continue home dose aspirin and warfarin. Pending Studies at Discharge: No Stand-Alone Forms: My [facility] [place], Smoking Cessation Medications and DC Order Prescriptions: New cephalexin 500 mg Capsule 500 mg PO BID 4 Days Qty: 8 RF: 0 furosemide 40 mg Tablet 40 mg PO QAM Qty: 30 RF: 0 Continued fluoxetine 40 mg capsule 40 mg PO QAM RF: 0 atorvastatin 40 mg tablet 40 mg PO QAM RF: 0 aspirin 81 mg Tablet,Delayed Release (Dr/Ec) 81 mg PO QAM RF: 0 allopurinol 300 mg tablet 300 mg PO QAM RF: 0 tolterodine 2 mg capsule,extended release 24hr 2 mg PO QAM RF: 0 metoprolol succinate 25 mg tablet extended release 24 hr 25 mg PO QAM RF: 0 nortriptyline 50 mg capsule 50 mg PO HS RF: 0 Lactinex 1 million cell Tablet,Chewable 1 tab PO QAM RF: 0 pantoprazole 40 mg tablet,delayed release (DR/EC) 40 mg PO DAILY RF: 0 bupropion HCl 150 mg tablet sustained-release 12 hr 150 mg PO BID RF: 0 Changed warfarin 5 mg Tablet 5 mg PO DAILY Qty: 0 RF: 0 insulin aspart U-100 [Novolog U-100 Insulin aspart] 100 unit/mL solution 5 unit subcut AC Qty: 0 RF: 0 Levemir U-100 Insulin 100 unit/mL solution 50 unit subcut AMHS Qty: 0 RF: 0 Discontinued warfarin 5 mg Tablet 7.5 mg PO MOWEFRSA RF: 0 Discharge Orders: Discharge Order (Routine); Ordered 10/05/20 Ordered By: Salazar Dewitt/Other Patient Handouts: Tips for Using Less Salt, Low-Salt Choices, Heart Failure Making Changes to ... Admission Data Admit Date/Time: 09/28/20 12:07 Attending Provider: Salazar Tiwari Admit Provider: Kiara Bennett Primary Care Provider: Wayne Keene Other Providers: Kiara Bennett ; Ron Jeffery ; Sukhjinder Weston ; Walter Phillips ; Mahnaz Glynn ; Kelvin Fregoso ; Doug Lam ; Ish Kapoor ; Rob Martinez ; Hakeem Reyna ; Duke Alonzo
== END 2020-10-05 17:15 | disposition home or self-care (01) | DRG 291 ==
LOC: ED 12:41 → 2S 12:41 → SUATTDRO 14:49 → 2S 15:55 → SUATTDRO 09-28 12:07 → 2N 10-02 20:48

== ENCOUNTER 2021-03-07 15:08 | Inpatient (IN) ==
--- NOTE | 2021-03-07 16:18 | XRay Report ---
XR chest 1V portable CLINICAL HISTORY: Shortness of breath COMPARISON STUDY: January 12, 2021 FINDINGS: The heart is mildly enlarged. Mild interstitial prominence may relate to technical factors given the patient's large body habitus. There is no lobar consolidation. There is mild basilar atelec tasis. Calcifications are visualized projected over the left proximal humerus.[ IMPRESSION: 1. Mild cardiomegaly 2. Minor basilar atelectasis 3. No evidence of lobar consolidation 4. Interstitial prominence, a finding which may be related to technical factors given the patient's l arge body habitus ACT 112: Negative or not required by law. Electronically signed by: Jasper Elliott M.D. 03/07/2021 4:17 PM
[2021-03-07 16:19] LABS: Basophils # (auto) 0.03 K/uL (0-0.2); Basophils % (auto) 0.3 %; Eosinophils # (auto) 0.14 K/uL (0-0.5); Eosinophils % (auto) 1.5 %; Hematocrit (blood only) 38.1 % (37-47); Hemoglobin 12.8 g/dL (12.0-16.0); Immature Granulocytes # (auto) 0.01 K/uL (0.00-0.02); Immature Granulocytes % (auto) 0.1 %; Lymphocytes % (auto) 18.3 %; Mean Corpuscular Hgb Conc 33.6 g/dL (32-36); Mean Corpuscular Volume 89.4 fL (80-100); Mean Platelet Volume 10.3 fL (7.4-10.4); Monocytes # (auto) 0.55 K/uL (0.11-0.59); Monocytes % (auto) 5.9 %; Neutrophils # (auto) 6.86 K/uL (1.4-6.5); Neutrophils % (auto) 73.9 %; Platelet Count 272 K/uL (130-400); RDW Coefficient of Variation 13.7 % (11.5-14.5); RDW Standard Deviation 43.9 fL (36.4-46.3); Red Blood Count 4.26 M/uL (4.2-5.4); White Blood Count 9.29 K/uL (4.8-10.8)
--- NOTE | 2021-03-07 16:35 | Emergency Department Note ---
History of Present Illness General Chief complaint: Shortness of Breath/Dyspnea Stated complaint: FLUID BUILD UP Time Seen by Provider: 03/07/21 15:52 Source: patient Mode of arrival: ambulatory Limitations: no limitations History of Present Illness Provider complaint: Shortness of breath, fluid retention Onset (ago): day(s) 3 Location: abdomen and lower extremity Radiation: non-radiation Severity: moderate Maximum Pain Intensity: 0 Relieved By: + none Exacerbated By: + movement Associated symptoms: + cough and + shortness of breath; no chest pain, no fever/chills and no nausea/vomiting Treatments prior to arrival: none This is a 70-year-old female presents the emergency department after being referred from her PCP for concern for fluid retention and volume overload. Patient states she does have a history of congestive heart failure and does see Dr. Spencer of cardiology as well as other early learning teacher down at [facility] in [place]. Patient states she started noticing approximately 3 days ago that she had increased fluid retention and felt more short of breath with talking and exertion. Also feels it is hard to breathe lying flat. Patient cannot recall the last time she saw Dr. Spencer. She states they had told her they were going to send her a special scale to check her weights daily but never did so she does not weigh herself. She states she does not make much urine and does have an additional history of kidney problems and does see a rn discharge. No recent illness or known sick contact. Patient has not yet had a Covid vaccination and denies any known exposure to a Covid positive individual. De nies accompanying fevers or chills, denies chest pain, abdominal pain. Patient denies any other change in her medications. Patient is anticoagulated. Pt seen during a time of high acuity and national emergency pandemic while wearing PPE. Home Medications Medication Instructions Recorded Confirmed Type allopurinol 300 mg PO QAM 02/27/19 03/07/21 History aspirin 81 mg PO QAM 02/27/19 03/07/21 History atorvastatin 40 mg PO QAM 02/27/19 03/07/21 History fluoxetine 40 mg PO QAM 02/27/19 03/07/21 History nortriptyline 50 mg PO HS 02/27/19 03/07/21 History tolterodine 2 mg PO QAM 02/27/19 03/07/21 History pantoprazole 40 mg PO DAILY 11/12/20 04/22/21 History bupropion HCl 150 mg PO DAILY 10/03/20 03/07/21 History Levemir U-100 Insulin 54 unit SUBCUT AMHS 01/12/21 03/07/21 History apixaban [Eliquis] 5 mg PO BID 01/12/21 03/07/21 History insulin aspart U-100 [Novolog 30 unit SUBCUT AC 01/12/21 03/07/21 History U-100 Insulin aspart] carvedilol 3.125 mg PO BID 03/07/21 03/07/21 History ferrous sulfate 27 mg PO DAILY 03/07/21 03/07/21 History furosemide 20 mg PO QAM 03/07/21 03/07/21 History magnesium oxide 400 mg PO DAILY 03/07/21 03/07/21 History nystatin [Nystop] 1 applic TOPICAL UD 03/07/21 03/07/21 History Allergies Allergy/AdvReac Type Severity Reaction Status Date / Time colchicine Allergy Mild GI SYMPTOMS Verified 03/07/21 17:40 Past Med/Surg History Medical History Anticoagulated on warfarin Atrial fibrillation Congestive heart failure Dyslipidemia Elevated troponin GERD (gastroesophageal reflux disease) History of Clostridium difficile infection HTN (hypertension) Hypertensive emergency Hypothyroidism Stress incontinence T2DM (type 2 diabetes mellitus) Umbilical hernia Surgical History History of fracture of leg s/p surgical fixation Status post cataract extraction Family History Mother , 67 Alzheimer disease Father Myocardial infarction, Onset Age: 47 Social History (Updated 03/07/21 @ 17:53 by Odalis Mathis PA-C) Smoking Status: Former smoker Tobacco Type: Cigarettes Years Smoked: 5; Hx Alcohol Use: No Hx Substance Use: No Preferred Language: Maldivian Communication Ability: Effective Pie Dough Roller Required: No Beliefs That Will Affect Care: None marital status: / Current Living Situation: Alone Other Information That Helps Us Care for You: No Feels Safe at Home: Yes Safety Concerns: Feels Safe At This Time Assistive Devices: Cane and Walker Review of Systems See HPI for pertinent positives & negatives. and A total of 10 systems reviewed and were otherwise negative Physical Exam Vital Signs Vital Signs - 24 hr 03/07/21 15:12 03/07/21 15:24 03/07/21 15:41 Temperature 36.6 C Temperature Source Oral Pulse Rate 64 61 Pulse Rate from SpO2 Sensor 61 Respiratory Rate 20 19 Respiratory Pattern Regular Blood Pressure 183/76 H 168/70 H Blood Pressure Mean 111 102 Pulse Oximetry 98 98 Oxygen Delivery Method Room Air Room Air Sepsis Recent Fever Within 48 Hours No Sepsis New/Unexplained Change in Mental Status N/A Sepsis Action Taken by Nursing No Action Required 03/07/21 15:44 03/07/21 15:50 03/07/21 16:00 Temperature Temperature Source Pulse Rate 62 60 59 L Pulse Rate from SpO2 Sensor 62 60 59 L Respiratory Rate 24 18 19 Respiratory Pattern Blood Pressure 168/67 H Blood Pressure Mean 100 Pulse Oximetry 98 97 97 Oxygen Delivery Method Sepsis Recent Fever Within 48 Hours Sepsis New/Unexplained Change in Mental Status Sepsis Action Taken by Nursing 03/07/21 16:10 03/07/21 16:20 03/07/21 16:30 Temperature Temperature Source Pulse Rate 61 61 73 Pulse Rate from SpO2 Sensor 61 61 Respiratory Rate 19 24 25 H Respiratory Pattern Blood Pressure Blood Pressure Mean Pulse Oximetry 97 98 Oxygen Delivery Method Sepsis Recent Fever Within 48 Hours Sepsis New/Unexplained Change in Mental Status Sepsis Action Taken by Nursing 03/07/21 16:31 03/07/21 16:40 03/07/21 16:50 Temperature Temperature Source Pulse Rate 70 63 60 Pulse Rate from SpO2 Sensor Respiratory Rate 23 20 17 Respiratory Pattern Blood Pressure 228/94 H Blood Pressure Mean 138 Pulse Oximetry Oxygen Delivery Method Sepsis Recent Fever Within 48 Hours Sepsis New/Unexplained Change in Mental Status Sepsis Action Taken by Nursing 03/07/21 17:00 03/07/21 17:01 03/07/21 17:10 Temperature Temperature Source Pulse Rate 61 64 64 Pulse Rate from SpO2 Sensor Respiratory Rate 21 23 24 Respiratory Pattern Blood Pressure 182/68 H Blood Pressure Mean 106 Pulse Oximetry Oxygen Delivery Method Sepsis Recent Fever Within 48 Hours Sepsis New/Unexplained Change in Mental Status Sepsis Action Taken by Nursing 03/07/21 17:20 Temperature Temperature Source Pulse Rate 63 Pulse Rate from SpO2 Sensor Respiratory Rate 24 Respiratory Pattern Blood Pressure Blood Pressure Mean Pulse Oximetry Oxygen Delivery Method Sepsis Recent Fever Within 48 Hours Sepsis New/Unexplained Change in Mental Status Sepsis Action Taken by Nursing GENERAL: alert, well appearing, well nourished, no distress, non-toxic, obese EYE EXAM: normal conjunctiva, PERRL and EOM's grossly intact OROPHARYNX: no exudate, no erythema, lips, buccal mucosa, and tongue normal and mucous membranes are moist NECK: supple, no nuchal rigidity, no adenopathy, non-tender LUNGS: Clear to auscultation. Normal chest wall mechanics, no w/r/r HEART: no murmurs, S1 normal and S2 normal ABDOMEN: abdomen soft, non-tender, normo-active bowel sounds, no masses, no rebound or guarding. BACK: Back is symmetrical on inspection and there is no deformity, no midline tenderness, no CVA tenderness. SKIN: no rashes and no bruising UPPER EXTREMITIES: upper extremities are grossly normal. FROM, nml pulses b/l. LOWER EXTREMITIES: 1+ b/l pitting edema. FROM, nml pulses b/l. NEURO EXAM: Normal sensorium, cranial nerves II-XII grossly intact, normal speech, no gross weakness of arms, no gross weakness of legs. Gross sensation intact. Course Course 1649: Discussed with Dr. Marinelli. 1719: Discussed with Jose Jacobo hospitalist team. Administered Medications Apixaban (Apixaban 5 Mg Tablet) 5 mg PO BID LISA Stop: 04/06/21 20:59 Last Admin: 03/07/21 21:10 Dose: 5 mg Documented by: [id number] Carvedilol (Carvedilol 3.125 Mg Tab) 3.125 mg PO BID LISA Stop: 04/06/21 20:59 Last Admin: 03/07/21 21:10 Dose: 3.125 mg Documented by: [id number] Furosemide 40 mg/ Syringe 4 mls @ 4 mls/min IV [id number] LISA Stop: 04/06/21 21:14 Last Admin: 03/07/21 21:46 Dose: 4 mls/min Documented by: [id number] Nortriptyline HCl (Nortriptyline Hcl 25 Mg Cap) 50 mg PO HS LISA Stop: 04/06/21 20:59 Last Admin: 03/07/21 21:11 Dose: 50 mg Documented by: [id number] Discontinued Medications Dextrose (Dextrose 50% 50 Ml Syringe) 50 ml IV NOW ONE Stop: 03/07/21 16:50 Last Admin: 03/07/21 17:03 Dose: 50 ml Documented by: [id number] Furosemide (Furosemide 40 Mg/4 Ml Vial) 40 mg IV NOW STA Stop: 03/07/21 16:55 Last Admin: 03/07/21 17:32 Dose: 40 mg Documented by: [id number] Medical Decision Making Differential Diagnosis Differential diagnoses includes but is not limited to pneumonia, bronchitis, COPD/Asthma exacerbation, pneumothorax, pulmonary embolism, congestive heart failure, acute coronary syndrome Medical Records Attestation: I reviewed the patient's medical records. Home Medications Current Medication List: was personally reviewed by sd Laboratory Data Attestation: I reviewed the patient's lab results. Result diagrams: 03/07/21 15:40 03/07/21 15:40 Lab Results 03/07/21 03/07/21 03/07/21 Range/Units 15:40 15:40 15:40 WBC 9.29 (4.8-10.8) K/uL RBC 4.26 (4.2-5.4) M/uL Hgb 12.8 (12.0-16.0) g/dL Hct 38.1 (37-47) % MCV 89.4 (80-100) fL MCH 30.0 (25-34) pg MCHC 33.6 (32-36) g/dL RDW Std Deviation 43.9 (36.4-46.3) fL RDW Coeff of Mario 13.7 (11.5-14.5) % Plt Count 272 (130-400) K/uL MPV 10.3 (7.4-10.4) fL Immature Gran % (Auto) 0.1 % Neut % (Auto) 73.9 % Lymph % (Auto) 18.3 % [place] % (Auto) 5.9 % Eos % (Auto) 1.5 % Baso % (Auto) 0.3 % Neut # (Auto) 6.86 H (1.4-6.5) K/uL Lymph # (Auto) 1.70 (1.2-3.4) K/uL [place] # (Auto) 0.55 (0.11-0.59) K/uL Eos # (Auto) 0.14 (0-0.5) K/uL Baso # (Auto) 0.03 (0-0.2) K/uL Immature Gran # (Auto) 0.01 (0.00-0.02) K/uL PT 11.0 (9.0-12.0) Seconds INR 1.1 (0.9-1.1) Sodium 143 (136-145) mmol/L Potassium 4.2 (3.5-5.1) mmol/L Chloride 112 H (98-107) mmol/L Carbon Dioxide 27 (21-32) mmol/L Anion Gap 4.0 (3-11) BUN 31 H (7-18) mg/dl Creatinine 1.22 H (0.6-1.2) mg/dl Est Cr Clr Drug Dosing Not Reportable Est GFR ( Amer) 52.0 Est GFR (Non-Af Amer) 44.8 BUN/Creatinine Ratio 25.6 H (10-20) Glucose 75 (70-99) mg/dl POC Glucose (70-99) mg/dl Calcium 9.0 (8.5-10.1) mg/dl Magnesium 1.9 (1.8-2.4) mg/dl Total Bilirubin 0.4 (0.2-1) mg/dl AST 12 L (15-37) U/L ALT 13 (12-78) U/L Alkaline Phosphatase 143 H (45-117) U/L Troponin I 0.023 (0-0.045) ng/ml NT-Pro-B Natriuret Pep 6070 H (0-900) pg/ml Total Protein 6.8 (6.4-8.2) gm/dl Albumin 2.7 L (3.4-5.0) gm/dl Globulin 4.1 H (2.5-4.0) gm/dl Albumin/Globulin Ratio 0.7 L (0.9-2) Lipase 68 L (73-393) U/L TSH 3.910 (0.300-4.500) uIu/ml COVID-19 Eval Order SARS-CoV-2 (PCR) (Negative) Influenza Type A (PCR) (Neg) Influenza Type B (PCR) (Neg) RSV (RT-PCR) (Neg) 03/07/21 03/07/21 03/07/21 Range/Units 16:24 16:44 17:30 WBC (4.8-10.8) K/uL RBC (4.2-5.4) M/uL Hgb (12.0-16.0) g/dL Hct (37-47) % MCV (80-100) fL MCH (25-34) pg MCHC (32-36) g/dL RDW Std Deviation (36.4-46.3) fL RDW Coeff of Mario (11.5-14.5) % Plt Count (130-400) K/uL MPV (7.4-10.4) fL Immature Gran % (Auto) % Neut % (Auto) % Lymph % (Auto) % [place] % (Auto) % Eos % (Auto) % Baso % (Auto) % Neut # (Auto) (1.4-6.5) K/uL Lymph # (Auto) (1.2-3.4) K/uL [place] # (Auto) (0.11-0.59) K/uL Eos # (Auto) (0-0.5) K/uL Baso # (Auto) (0-0.2) K/uL Immature Gran # (Auto) (0.00-0.02) K/uL PT (9.0-12.0) Seconds INR (0.9-1.1) Sodium (136-145) mmol/L Potassium (3.5-5.1) mmol/L Chloride (98-107) mmol/L Carbon Dioxide (21-32) mmol/L Anion Gap (3-11) BUN (7-18) mg/dl Creatinine (0.6-1.2) mg/dl Est Cr Clr Drug Dosing Est GFR ( Amer) Est GFR (Non-Af Amer) BUN/Creatinine Ratio (10-20) Glucose (70-99) mg/dl POC Glucose 61 L* 53 L* (70-99) mg/dl Calcium (8.5-10.1) mg/dl Magnesium (1.8-2.4) mg/dl Total Bilirubin (0.2-1) mg/dl AST (15-37) U/L ALT (12-78) U/L Alkaline Phosphatase (45-117) U/L Troponin I (0-0.045) ng/ml NT-Pro-B Natriuret Pep (0-900) pg/ml Total Protein (6.4-8.2) gm/dl Albumin (3.4-5.0) gm/dl Globulin (2.5-4.0) gm/dl Albumin/Globulin Ratio (0.9-2) Lipase (73-393) U/L TSH (0.300-4.500) uIu/ml COVID-19 Eval Order [facility] at [facility] SARS-CoV-2 (PCR) (Negative) Influenza Type A (PCR) (Neg) Influenza Type B (PCR) (Neg) RSV (RT-PCR) (Neg) 03/07/21 Range/Units 17:30 WBC (4.8-10.8) K/uL RBC (4.2-5.4) M/uL Hgb (12.0-16.0) g/dL Hct (37-47) % MCV (80-100) fL MCH (25-34) pg MCHC (32-36) g/dL RDW Std Deviation (36.4-46.3) fL RDW Coeff of Mario (11.5-14.5) % Plt Count (130-400) K/uL MPV (7.4-10.4) fL Immature Gran % (Auto) % Neut % (Auto) % Lymph % (Auto) % [place] % (Auto) % Eos % (Auto) % Baso % (Auto) % Neut # (Auto) (1.4-6.5) K/uL Lymph # (Auto) (1.2-3.4) K/uL [place] # (Auto) (0.11-0.59) K/uL Eos # (Auto) (0-0.5) K/uL Baso # (Auto) (0-0.2) K/uL Immature Gran # (Auto) (0.00-0.02) K/uL PT (9.0-12.0) Seconds INR (0.9-1.1) Sodium (136-145) mmol/L Potassium (3.5-5.1) mmol/L Chloride (98-107) mmol/L Carbon Dioxide (21-32) mmol/L Anion Gap (3-11) BUN (7-18) mg/dl Creatinine (0.6-1.2) mg/dl Est Cr Clr Drug Dosing Est GFR ( Amer) Est GFR (Non-Af Amer) BUN/Creatinine Ratio (10-20) Glucose (70-99) mg/dl POC Glucose (70-99) mg/dl Calcium (8.5-10.1) mg/dl Magnesium (1.8-2.4) mg/dl Total Bilirubin (0.2-1) mg/dl AST (15-37) U/L ALT (12-78) U/L Alkaline Phosphatase (45-117) U/L Troponin I (0-0.045) ng/ml NT-Pro-B Natriuret Pep (0-900) pg/ml Total Protein (6.4-8.2) gm/dl Albumin (3.4-5.0) gm/dl Globulin (2.5-4.0) gm/dl Albumin/Globulin Ratio (0.9-2) Lipase (73-393) U/L TSH (0.300-4.500) uIu/ml COVID-19 Eval Order SARS-CoV-2 (PCR) NEGATIVE (Negative) Influenza Type A (PCR) Negative (Neg) Influenza Type B (PCR) Negative (Neg) RSV (RT-PCR) Negative (Neg) Imaging Data Radiologist's Impression: Chest X-Ray 03/07/21 16:06 XR chest 1V portable CLINICAL HISTORY: Shortness of breath COMPARISON STUDY: January 12, 2021 FINDINGS: The heart is mildly enlarged. Mild interstitial prominence may relate to technical factors given the patient's large body habitus. There is no lobar consolidation. There is mild basilar atelectasis. Calcifications are visualized projected over the left proximal humerus.[ IMPRESSION: 1. Mild cardiomegaly 2. Minor basilar atelectasis 3. No evidence of lobar consolidation 4. Interstitial prominence, a finding which may be related to technical factors given the patient's large body habitus ACT 112: Negative or not required by law. Electronically signed by: Jasper Elliott M.D. 03/07/2021 4:17 PM ECG Data Attestation: I personally reviewed and interpreted this ECG as follows: Indication: + SOB/dyspnea Rate (beats per minute): 60 Rhythm: + normal sinus ECG Intervals/blocks: + First degree AV block, + Normal QRS and + Normal QT ECG ST segments: + T-wave inversions (I, aVL) Blood Pressure Blood Pressure Findings: Elevated blood pressure Blood Pressure Disposition: further management by hospitalist CHRISS Padilla This is a 70-year-old female who was sent to the emergency department for additional evaluation and possible admission from the [facility] cardiology group office. Patient states she has previously been admitted, has a history of CHF, heart valve problems, and chronic kidney disease. Patient admitted to recent worsening shortness of breath, worse with exertion and worse lying supine. Patient admitted to increased abdominal girth and lower extremity edema. Patient does have a history of CHF as noted in the records that were able to be obtained with the assistance of case management through the [employer] system. This list a history of paroxysmal atrial flutter for which patient is anticoagulated, history of chronic diastolic heart failure, as well as severe aortic stenosis. Labs are drawn and sent, chest x-ray performed, EKG performed, patient placed on the monitor. Given the story and concern for acute exacerbation of CHF, an additional dose of Lasix was ordered. I did discuss the case with Dr. Marinelli, [facility] cardiology on-call as a precaution given she was referred from their office. He agreed with the plan for additional diuresis as an inpatient. He states on his review of the records patient is scheduled to undergo a TAVR next month. On review of records patient did have an echo performed January 08, 2021 which showed an LVEF of 55 to 59% with normal LV wall motion. Severe aortic valve stenosis was present at that time with mild aortic valve regurgita tion. Patient was made aware of results and in agreement with plan. No known exposure to coronavirus, a swab was sent as a precaution due to need for hospitalization. Patient otherwise remained hemodynamically stable. Patient has not had any recent syncope or accompanying chest pain. Patient did have recurrent hypoglycemia when checked here. Patient stated she ate very little this morning it took her normal insulin. Patient was initially given food and drink, however bedside glucose check continued to drop so patient was given IV dextrose. No evidence of acute infectious etiology contributing to symptoms. An order was placed for continuous cardiac monitoring. The monitor shows a rate of _61_ with _normal sinus_ rhythm. Impression & Plan Dyspnea, Heart failure, diastolic, with acute decompensation, Hypoglycemia Discharge Plan Visit Data Chief Complaint: Shortness of Breath/Dyspnea Stated Complaint: FLUID BUILD UP ED Provider: Merary Dewitt Discharge Problem: Dyspnea, Heart failure, diastolic, with acute decompensation, Hypoglycemia Patient Disposition: Admitted As Inpatient Discharge Instructions Interventions: ED Discharge Assessment Last Done: 03/07/21 20:07 Discharge Problem: Dyspnea Qualifiers: Dyspnea type: shortness of breath Qualified Code(s): R06.02 - Shortness of breath
[2021-03-07 16:38] LABS: Alanine Aminotransferase 13 U/L (12-78); Albumin Level 2.7 gm/dl (3.4-5.0); Aspartate Aminotransferase 12 U/L (15-37); BUN Creatinine Ratio 25.6 (10-20); Blood Urea Nitrogen 31 mg/dl (7-18); Carbon Dioxide 27 mmol/L (21-32); Chloride 112 mmol/L (98-107); Est GFR (Non-African American) 44.8; Glucose 75 mg/dl (70-99); Lipase 68 U/L (73-393); Magnesium 1.9 mg/dl (1.8-2.4); Potassium 4.2 mmol/L (3.5-5.1); Sodium 143 mmol/L (136-145)
[2021-03-07 16:44] LABS: INR 1.1 (0.9-1.1)
[2021-03-07] MEDS ORDERED: DEXTROSE 50% 50 ML SYRINGE IV ONE (16:49)
[2021-03-07 16:50] LABS: Albumin Globulin Ratio 0.7 (0.9-2); Alkaline Phosphatase 143 U/L (45-117); Bilirubin,Total 0.4 mg/dl (0.2-1); Globulin 4.1 gm/dl (2.5-4.0); NT Pro B Type Natriuretic Pept 6070 pg/ml (0-900); Total Protein 6.8 gm/dl (6.4-8.2); Troponin I 0.023 ng/ml (0-0.045)
[2021-03-07] MEDS ORDERED: FUROSEMIDE 40 MG/4 ML VIAL IV STA (16:54)
--- NOTE | 2021-03-07 17:47 | History & Physical Report ---
Date of Service March 07, 2021 Assessment & Plan (1) Heart failure, diastolic, with acute decompensation: (2) Severe aortic stenosis: (3) Atrial flutter, paroxysmal: (4) HTN (hypertension): (5) PVD (peripheral vascular disease): (6) CKD (chronic kidney disease), stage III: (7) T2DM (type 2 diabetes mellitus): (8) Hypothyroidism: (9) Mood disorder: This is a 70-year-old female with PMH of chronic diastolic heart failure in the setting of severe aortic stenosis, type 2 diabetes, paroxysmal atrial flutter, CKD 3, hyperlipidemia, hypothyroidism and other medical problems as below who presents from cardiology clinic for treatment of decompensated heart failure. Acute decompensated chronic diastolic heart failure Severe aortic stenosis Sent from cardiology clinic due to decompensated heart failure with 18 pound weight gain, dyspnea on exertion, orthopnea [place] [facility] [place] ProBNP 6070, initial troponin within normal limits, chest x-ray with mild cardiomegaly and interstitial prominence noted ED physician discussed case with Dr. Marinelli of cardiology group Given 40 mg IV Lasix in ED Daily weights, strict I&O's, low-sodium diet Plan to continue 40 mg IV Lasix twice daily Continue carvedilol Cardiology consulted Paroxysmal atrial flutter Currently in normal sinus rhythm Continue carvedilol Eliquis for anticoagulation Monitor on telemetry Hypertension BP 163/59 with larger cuff Continue carvedilol Peripheral vascular disease Continue aspirin and statin CKD III Kidney function slightly improved from baseline of mid-1s Continue diuretic therapy, monitor renal function with daily BMP DM II A1c 5.9 in Dec 2020 Hypoglycemic initially in ED, given IV dextrose Glycemic consult placed BSG AC HS Hypothyroidism Continue levothyroxine Mood disorder Continue fluoxetine, bupropion DVT Ppx: Eliquis Code status: FULL PCP: Eliza Dispo: Admitted to PCU. Plan to return home once medically stable. Patient seen in collaboration with Dr. Box. Please see addendum. History of Present Illness Chief Complaint: Volume overload Primary Care Provider: MAURO Diamond This is a 70-year-old female with PMH of chronic diastolic heart failure in the setting of severe aortic stenosis, type 2 diabetes, paroxysmal atrial flutter, CKD 3, hyperlipidemia, hypothyroidism and other medical problems as below who presents from cardiology clinic for treatment of decompensated heart failure. Patient was seen in clinic today for CHF follow-up prior to scheduled TAVR on 03/14/2021. Presented with hypervolemia with an approximate 18 pound weight gain from baseline. Has been taking 40 mg of Lasix daily but remains short of breath at rest and with exertion. Endorsing orthopnea and dry cough. No fever, chills, lightheadedness, headache, chest pain, wheezing, nausea, vomiting, abdominal pain, dysuria, diarrhea or constipation. Taking all medications as scheduled. Allergies Allergy/AdvReac Type Severity Reaction Status Date / Time colchicine Allergy Mild GI SYMPTOMS Verified 03/07/21 17:40 Home Medications Medication Instructions Recorded Confirmed Type allopurinol 300 mg PO QAM 02/27/19 03/07/21 History aspirin 81 mg PO QAM 02/27/19 03/07/21 History atorvastatin 40 mg PO QAM 02/27/19 03/07/21 History fluoxetine 40 mg PO QAM 02/27/19 03/07/21 History nortriptyline 50 mg PO HS 02/27/19 03/07/21 History tolterodine 2 mg PO QAM 02/27/19 03/07/21 History pantoprazole 40 mg PO DAILY 09/27/20 03/07/21 History bupropion HCl 150 mg PO DAILY 10/03/20 03/07/21 History Levemir U-100 Insulin 54 unit SUBCUT AMHS 01/12/21 03/07/21 History apixaban [Eliquis] 5 mg PO BID 01/12/21 03/07/21 History insulin aspart U-100 [Novolog 30 unit SUBCUT AC 01/12/21 03/07/21 History U-100 Insulin aspart] carvedilol 3.125 mg PO BID 03/07/21 03/07/21 History ferrous sulfate 27 mg PO DAILY 03/07/21 03/07/21 History furosemide 20 mg PO QAM 03/07/21 03/07/21 History magnesium oxide 400 mg PO DAILY 03/07/21 03/07/21 History nystatin [Nystop] 1 applic TOPICAL UD 03/07/21 03/07/21 History Past Med/Surg History Medical History Anticoagulated on warfarin Atrial fibrillation Congestive heart failure Dyslipidemia Elevated troponin GERD (gastroesophageal reflux disease) History of Clostridium difficile infection HTN (hypertension) Hypertensive emergency Hypothyroidism Stress incontinence T2DM (type 2 diabetes mellitus) Umbilical hernia Surgical History History of fracture of leg s/p surgical fixation Status post cataract extraction Family History Mother , 67 Alzheimer disease Father Myocardial infarction, Onset Age: 47 Social History (Updated 03/07/21 @ 17:53 by Odalis Mathis PA-C) Smoking Status: Former smoker Tobacco Type: Cigarettes Years Smoked: 5; Hx Alcohol Use: No Hx Substance Use: No Preferred Language: Turkish Communication Ability: Effective French Drawer Required: No Beliefs That Will Affect Care: None marital status: / Current Living Situation: Alone Other Information That Helps Us Care for You: No Feels Safe at Home: Yes Safety Concerns: Feels Safe At This Time Assistive Devices: Cane and Walker Review of Systems Review of Systems: At least ten systems reviewed and negative except as noted in the HPI. Physical Exam Physical Exam: General Appearance: WD/WN, vitals as above, NAD, sitting up in bedside chair, conversational dyspnea, pleasant Head: normocephalic, atraumatic Eyes: normal inspection, PERRL, conjunctivae normal, anicteric sclerae ENT: external ear and nose normal, oropharynx normal Neck: normal visual inspection, trachea midline, no thyromegaly Respiratory: increased respiratory effort, coarse breath sounds at bases, no wheeze or rhonchi. No accessory muscle use Cardiovascular: regular rate, rhythm, +systolic murmur, normal peripheral pulses, trace BLE edema. Vessels: + JVD Chest: normal inspection of chest Abdomen/GI: normal bowel sounds, mildly distended but soft, nontender, no hepatosplenomegaly Extremities/Musculoskeletal: no cyanosis or clubbing, extremities motor strength 5/5 Neurologic: PERRL, EOMI, accommodation nl, no face palsy, no dysarthria, CN's II-XI intact bilaterally and moves all extremities Psychiatric: A+Ox3, euthymic affect Skin: no rashes, normal color, warm/dry Results & Data Results & Data ([facility]) Vital Signs (Past 12 Hours) Vital Signs Temp Pulse Resp BP Pulse Ox 03/07/21 15:12 36.6 C 64 20 183/76 H 98 Laboratory Results Short CBC 03/07/21 Range/Units 15:40 WBC 9.29 (4.8-10.8) K/uL Hgb 12.8 (12.0-16.0) g/dL Hct 38.1 (37-47) % Plt Count 272 (130-400) K/uL BMP 03/07/21 15:40 Sodium 143 Potassium 4.2 Chloride 112 H Carbon Dioxide 27 BUN 31 H Creatinine 1.22 H Glucose 75 Calcium 9.0 Cardiac Enzymes 03/07/21 Range/Units 15:40 Troponin I 0.023 (0-0.045) ng/ml Liver Function 03/07/21 Range/Units 15:40 Total Bilirubin 0.4 (0.2-1) mg/dl AST 12 L (15-37) U/L ALT 13 (12-78) U/L Alkaline Phosphatase 143 H (45-117) U/L Albumin 2.7 L (3.4-5.0) gm/dl Diagnostic Findings Chest X-Ray 03/07/21 16:06 XR chest 1V portable CLINICAL HISTORY: Shortness of breath COMPARISON STUDY: January 12, 2021 FINDINGS: The heart is mildly enlarged. Mild interstitial prominence may relate to technical factors given the patient's large body habitus. There is no lobar consolidation. There is mild basilar atelectasis. Calcifications are visualized projected over the left proximal humerus.[ IMPRESSION: 1. Mild cardiomegaly 2. Minor basilar atelectasis 3. No evidence of lobar consolidation 4. Interstitial prominence, a finding which may be related to technical factors given the patient's large body habitus ACT 112: Negative or not required by law. Electronically signed by: Jasper Elliott M.D. 03/07/2021 4:17 PM Supervising Physician Co-Signing Physician Notes I have seen and examined the patient and have discussed the case with the provi mateus above. I agree with the assessment and plan as stated. The patient is a 7-year-old female with symptomatic aortic stenosis and plan for TAVR next week presenting with acute heart failure after decrease in daily furosemide by 50% 2 weeks ago. She was taking 40 mg daily and reports being instructed to start taking 20 mg daily. She reports no dietary indiscretions and sticks to a very low salt diet according to her reports. She denies any edema but reports significant orthopnea PND and exercise intolerance. As discussed above she has had an 18 pound weight gain. She is mostly concerned that this will delay her surgery. Lasix started in the ER, patient declined Almanza but educated on importance of strict I's and O's. Physical exam reveals an obese female in no acute distress. Lungs are clear to auscultation throughout with no increased respiratory effort however, conversational dyspnea is present. She has a 3 out of 6 systolic ejection murmur throughout the precordium that is also heard when auscultating her posterior lung gomez. Abdomen is protuberant with large pannus but is soft and nondistended and nontender. No peripheral edema noted. No evidence of ACS on initial work-up. Continue Lasix and cardiology consult in a.m. Low-salt diet, daily weights. Continue other home medications as listed above. DO Isauro
--- NOTE | 2021-03-07 18:10 | Cardiology Consultation ---
Date of Consultation March 07, 2021 Assessment & Plan (1) Heart failure, diastolic, with acute decompensation: Patient with severe valvular disease with severe aortic stenosis, mild to moderate insufficiency presents with signs and symptoms of decompensated diastolic heart failure secondary to valvular disease. Weight is up 15 to 20 pounds and there is evidence of volume overload by exam. We will begin IV diuretics with ultimate goal hemodynamic optimization prior to upcoming procedure. Patient currently stable, renal function at baseline and in sinus rhythm. Patient is orally anticoagulated with apixaban We will follow in hospital (2) Severe aortic stenosis: (3) Atrial flutter, paroxysmal: (4) HTN (hypertension): (5) CKD (chronic kidney disease), stage III: History of Present Illness Reason for Consultation: Decompensated diastolic heart failure secondary to severe valvular disease History of Present Illness Patient is a 70-year-old female with underlying issues which include per review of outpatient rec 1. Severe Aortic Stenosis moderate aortic 2. Chronic diastolic heart failure, d/t to diastolic dysfunction and valvular heart disease, NYHA class III 3. Paroxysmal atrial flutter, on beta raman and eliquis 4. CKD 5. PVD 6. Diabetes type 2, HbA1c 5.9% 7. Hyperkalemia 8. Nonobstructive CAD, cardiac catheterization 11/22/2020 See full outpatient note of 03/07/2021 patient tentatively planned for TAVR for severe aortic stenosis on 02/11/2021. Previous cancellation due to urinary tract infection and scheduling issues. She presented today noting gradually increasing edema and shortness of breath with 18 to 20 pound weight gain despite outpatient oral diuretic regimen. She is referred now for IV diuresis/inpatient management. Allergies Allergy/AdvReac Type Severity Reaction Status Date / Time colchicine Allergy Mild GI SYMPTOMS Verified 03/07/21 17:40 Home Medications Medication Instructions Recorded Confirmed Type allopurinol 300 mg PO QAM 02/27/19 03/07/21 History aspirin 81 mg PO QAM 02/27/19 03/07/21 History atorvastatin 40 mg PO QAM 02/27/19 03/07/21 History fluoxetine 40 mg PO QAM 02/27/19 03/07/21 History nortriptyline 50 mg PO HS 02/27/19 03/07/21 History tolterodine 2 mg PO QAM 02/27/19 03/07/21 History pantoprazole 40 mg PO DAILY 09/27/20 03/07/21 History bupropion HCl 150 mg PO DAILY 10/03/20 03/07/21 History Levemir U-100 Insulin 54 unit SUBCUT AMHS 01/12/21 03/07/21 History apixaban [Eliquis] 5 mg PO BID 01/12/21 03/07/21 History insulin aspart U-100 [Novolog 30 unit SUBCUT AC 01/12/21 03/07/21 History U-100 Insulin aspart] carvedilol 3.125 mg PO BID 03/07/21 03/07/21 History ferrous sulfate 27 mg PO DAILY 03/07/21 03/07/21 History furosemide 20 mg PO QAM 03/07/21 03/07/21 History magnesium oxide 400 mg PO DAILY 03/07/21 03/07/21 History nystatin [Nystop] 1 applic TOPICAL UD 03/07/21 03/07/21 History Patient History Medical History Anticoagulated on warfarin Atrial fibrillation Congestive heart failure Dyslipidemia Elevated troponin GERD (gastroesophageal reflux disease) History of Clostridium difficile infection HTN (hypertension) Hypertensive emergency Hypothyroidism Stress incontinence T2DM (type 2 diabetes mellitus) Umbilical hernia Surgical History History of fracture of leg s/p surgical fixation Status post cataract extraction Family History Mother , 67 Alzheimer disease Father Myocardial infarction, Onset Age: 47 Social History (Updated 03/07/21 @ 17:53 by Odalis Mathis PA-C) Smoking Status: Former smoker Tobacco Type: Cigarettes Years Smoked: 5; Cigarettes Per Day: 20; Hx Alcohol Use: No Hx Substance Use: No Preferred Language: Frisian Communication Ability: Effective Tube Fitter Required: No Beliefs That Will Affect Care: None marital status: / Current Living Situation: Alone Feels Safe at Home: Yes Assistive Devices: None Review of Systems Review of Systems: All systems reviewed & are unremarkable except as noted in HPI & below Physical Exam Constitutional: + morbidly obese; no acute distress Eyes: PERRL, conjunctivae normal, anicteric sclerae ENMT: external ear and nose normal, oropharynx normal Neck: + thick neck Respiratory: Auscultation: + diminished lung sounds Cardiovascular: Rate/Rhythm: regular rate and regular rhythm Heart Sounds: + murmur (Harsh grade 3/6 systolic murmur no diastolic) Palpation: + abnormal PMI Vessels: + JVD Extremities: + edema Gastrointestinal (Abdomen): Inspection/Auscultation: + abdomen distended and + abdominal edema Musculoskeletal: no cyanosis or clubbing, extremities motor strength 5/5 Neurologic: PERRL, EOMI, accommodation nl, no face palsy, no dysarthria Results & Data ([facility]) Vital Signs (Past 12 Hours) Vital Signs Temp Pulse Resp BP Pulse Ox 03/07/21 18:01 66 20 179/46 H 96 03/07/21 17:20 63 24 03/07/21 17:10 64 24 03/07/21 17:01 64 23 182/68 H 03/07/21 17:00 61 21 03/07/21 16:50 60 17 03/07/21 16:40 63 20 03/07/21 16:31 70 23 228/94 H 03/07/21 16:30 73 25 H 03/07/21 16:20 61 24 98 03/07/21 16:10 61 19 97 03/07/21 16:00 59 L 19 168/67 H 97 03/07/21 15:50 60 18 97 03/07/21 15:44 62 24 98 03/07/21 15:41 61 19 168/70 H 98 03/07/21 15:12 36.6 C 64 20 183/76 H 98 Laboratory Results Laboratory Results - last 24 hr 03/07/21 03/07/21 03/07/21 15:40 15:40 15:40 WBC 9.29 RBC 4.26 Hgb 12.8 Hct 38.1 MCV 89.4 MCH 30.0 MCHC 33.6 RDW Std Deviation 43.9 RDW Coeff of Mario 13.7 Plt Count 272 MPV 10.3 Immature Gran % (Auto) 0.1 Neut % (Auto) 73.9 Lymph % (Auto) 18.3 [place] % (Auto) 5.9 Eos % (Auto) 1.5 Baso % (Auto) 0.3 Neut # (Auto) 6.86 H Lymph # (Auto) 1.70 [place] # (Auto) 0.55 Eos # (Auto) 0.14 Baso # (Auto) 0.03 Immature Gran # (Auto) 0.01 PT 11.0 INR 1.1 Sodium 143 Potassium 4.2 Chloride 112 H Carbon Dioxide 27 Anion Gap 4.0 BUN 31 H Creatinine 1.22 H Est Cr Clr Drug Dosing Not Reportable Est GFR ( Amer) 52.0 Est GFR (Non-Af Amer) 44.8 BUN/Creatinine Ratio 25.6 H Glucose 75 POC Glucose Calcium 9.0 Magnesium 1.9 Total Bilirubin 0.4 AST 12 L ALT 13 Alkaline Phosphatase 143 H Troponin I 0.023 NT-Pro-B Natriuret Pep 6070 H Total Protein 6.8 Albumin 2.7 L Globulin 4.1 H Albumin/Globulin Ratio 0.7 L Lipase 68 L TSH 3.910 COVID-19 Eval Order SARS-CoV-2 (PCR) Influenza Type A (PCR) Influenza Type B (PCR) RSV (RT-PCR) 03/07/21 03/07/21 03/07/21 16:24 16:44 17:30 WBC RBC Hgb Hct MCV MCH MCHC RDW Std Deviation RDW Coeff of Mario Plt Count MPV Immature Gran % (Auto) Neut % (Auto) Lymph % (Auto) [place] % (Auto) Eos % (Auto) Baso % (Auto) Neut # (Auto) Lymph # (Auto) [place] # (Auto) Eos # (Auto) Baso # (Auto) Immature Gran # (Auto) PT INR Sodium Potassium Chloride Carbon Dioxide Anion Gap BUN Creatinine Est Cr Clr Drug Dosing Est GFR ( Amer) Est GFR (Non-Af Amer) BUN/Creatinine Ratio Glucose POC Glucose 61 L* 53 L* Calcium Magnesium Total Bilirubin AST ALT Alkaline Phosphatase Troponin I NT-Pro-B Natriuret Pep Total Protein Albumin Globulin Albumin/Globulin Ratio Lipase TSH COVID-19 Eval Order CovFluRsv at [facility] SARS-CoV-2 (PCR) Influenza Type A (PCR) Influenza Type B (PCR) RSV (RT-PCR) 03/07/21 03/07/21 17:30 18:05 WBC RBC Hgb Hct MCV MCH MCHC RDW Std Deviation RDW Coeff of Mario Plt Count MPV Immature Gran % (Auto) Neut % (Auto) Lymph % (Auto) [place] % (Auto) Eos % (Auto) Baso % (Auto) Neut # (Auto) Lymph # (Auto) [place] # (Auto) Eos # (Auto) Baso # (Auto) Immature Gran # (Auto) PT INR Sodium Potassium Chloride Carbon Dioxide Anion Gap BUN Creatinine Est Cr Clr Drug Dosing Est GFR ( Amer) Est GFR (Non-Af Amer) BUN/Creatinine Ratio Glucose POC Glucose 225 H Calcium Magnesium Total Bilirubin AST ALT Alkaline Phosphatase Troponin I NT-Pro-B Natriuret Pep Total Protein Albumin Globulin Albumin/Globulin Ratio Lipase TSH COVID-19 Eval Order SARS-CoV-2 (PCR) NEGATIVE Influenza Type A (PCR) Negative Influenza Type B (PCR) Negative RSV (RT-PCR) Negative
[2021-03-07 18:27] LABS: Influenza A virus by PCR Negative (Neg); Influenza B virus by PCR Negative (Neg); RSV by PCR Negative (Neg); SARS CoV2 RNA(COVID-19) InHosp NEGATIVE (Negative)
[2021-03-07] MEDS ORDERED: NYSTATIN POWDER 15GM BTL EXT SCH (19:15)
[2021-03-07] MEDS ORDERED: GLUCAGON FOR INJ 1 MG VIAL SQ PRN (20:45)
[2021-03-07] MEDS ORDERED: CARBOHYDRATES FOR HYPOGLYCEMIA PO PRN (20:45)
[2021-03-07] MEDS ORDERED: GLUCOSE 40% GEL 15 GM TUBE PO PRN (20:45)
[2021-03-07] MEDS ORDERED: ACETAMINOPHEN 325 MG TAB PO PRN (20:45)
[2021-03-07] MEDS ORDERED: ONDANSETRON INJ 2 MG/ML 2 ML VIAL IV PRN (20:45)
[2021-03-07] MEDS ORDERED: DEXTROSE 50% 50 ML SYRINGE IV PRN (20:45)
[2021-03-07] MEDS ORDERED: POLYETHYLENE (MIRALAX) 17 GM PACK PO PRN (20:45)
[2021-03-07] MEDS ORDERED: GLUCOSE 10 TABS/TUBE PO PRN (20:45)
[2021-03-07] MEDS ORDERED: PHARMACY GLYCEMIC MGMT CONSULT SCH (21:02)
[2021-03-07] MEDS: carvediloL 3.125 MG TAB PO SCH (21:10)
[2021-03-07] MEDS: APIXABAN 5 MG TABLET PO SCH (21:10)
[2021-03-07] MEDS: NORTRIPTYLINE HCL 25 MG CAP PO SCH (21:11)
[2021-03-07] MEDS: FUROSEMIDE 40 MG in SYRINGE 0 ML IV SCH (21:46)
[2021-03-07] MEDS: INSULIN DETEMIR FLEXPEN/FLEX TOUCH 100 UNITS/ML 3ML SC SCH (22:04)
[2021-03-07] MEDS: INSULIN ASPART 100 UNITS/ML 3 ML PEN SC SCH (22:07)
[2021-03-07] MEDS ORDERED: NITROGLYCERIN 2% OINTMENT 30GM TUBE EXT SCH (22:45)
[2021-03-07] MEDS ORDERED: hydrALAZINE HCL 20 MG/ML VIAL IV STA (22:46)
[2021-03-08] MEDS: INSULIN ASPART 100 UNITS/ML 3 ML PEN SC SCH ×5 (02:10→20:58)
[2021-03-08 07:09] LABS: Hematocrit (blood only) 34.6 % (37-47); Hemoglobin 11.6 g/dL (12.0-16.0); Mean Corpuscular Hgb Conc 33.5 g/dL (32-36); Mean Corpuscular Volume 89.4 fL (80-100); Platelet Count 229 K/uL (130-400); RDW Coefficient of Variation 13.9 % (11.5-14.5); RDW Standard Deviation 45.1 fL (36.4-46.3); Red Blood Count 3.87 M/uL (4.2-5.4); White Blood Count 8.79 K/uL (4.8-10.8)
[2021-03-08 07:45] LABS: BUN Creatinine Ratio 24.5 (10-20); Calcium 8.6 mg/dl (8.5-10.1); Est GFR (African American) 48.6; Est GFR (Non-African American) 41.9; Potassium 4.5 mmol/L (3.5-5.1)
[2021-03-08] MEDS: FUROSEMIDE 40 MG in SYRINGE 0 ML IV SCH ×2 (08:16→17:48)
[2021-03-08] MEDS: MAGNESIUM OXIDE 400 MG TAB PO SCH (08:16)
[2021-03-08] MEDS: APIXABAN 5 MG TABLET PO SCH ×2 (08:16→20:57)
[2021-03-08] MEDS: PANTOprazole 40 MG TAB PO SCH (08:16)
[2021-03-08] MEDS: carvediloL 3.125 MG TAB PO SCH ×2 (08:16→20:57)
[2021-03-08] MEDS: buPROPion SR 150 MG TABCR PO SCH (08:17)
[2021-03-08] MEDS: FLUoxetine HCL 20 MG CAP PO SCH (08:17)
[2021-03-08] MEDS: ASPIRIN 81 MG ECTAB PO SCH (08:17)
[2021-03-08] MEDS: allopurinoL 300 MG TAB PO SCH (08:17)
[2021-03-08] MEDS: FERROUS SULFATE 325 MG TAB PO SCH (08:17)
[2021-03-08] MEDS: TOLTERODINE TARTRATE LA 2 MG CAPCR PO SCH (08:17)
[2021-03-08] MEDS: ATORVASTATIN 40 MG TAB PO SCH (08:17)
[2021-03-08] MEDS: INSULIN DETEMIR FLEXPEN/FLEX TOUCH 100 UNITS/ML 3ML SC SCH ×2 (08:18→20:58)
[2021-03-08] MEDS ORDERED: FUROSEMIDE 40 MG/4 ML VIAL IV SCH (09:00)
--- NOTE | 2021-03-08 10:22 | Cardiology Progress Note ---
Date of Service March 08, 2021 Assessment & Plan (1) Heart failure, diastolic, with acute decompensation: (2) Severe aortic stenosis: (3) Atrial flutter, paroxysmal: (4) HTN (hypertension): (5) CKD (chronic kidney disease), stage III: Improving evidence of acute decompensated diastolic heart failure secondary to severe aortic valvular disease. Maintaining sinus rhythm. Continue IV diuretics, goal of hemodynamic optimization prior to upcoming TAVR on 03/14/2021 at [facility] Continue low dose beta raman and Eliquis anticoagulation Monitor renal function and electrolytes. Admission and Anticipated Discharge Date Admission Date: March 07, 2021 Supervising Physician Co-Signing Physician Notes Patient was seen and personally examined. Chart and telemetry reviewed. Blood pressure was elevated last night but under better control today is responding to IV diuretics. No acute complaints at time of examination. Does note some GI nausea on occasion, no fevers chills Plan as outlined above we will continue slow gradual diuresis ultimate goal hemodynamic improvement prior to referral for TAVR next week. Subjective Patient seen and examined. Chart, medications, and telemetry review. Feels better overall since admission. Still short of breath, with orthopnea and abdominal fluid. No chest pain. No palpitations. No PND. No dizziness. No syncope. No fevers or chills. I/O's: - 805 mL's overall Weight 109.9 -> 108.1 kg Telemetry: Sinus in the 60's to 90's, currently at 70 bpm. November 22, 2020: Cardiac catheterization: Minimal luminal irregularities in left coronary system and diffuse 50% stenosis in mid RCA. Rescheduled for TAVR at [facility] on 03/14/2021 Review of Systems Review of Systems: All systems reviewed & are unremarkable except as noted in Subjective Physical Exam Physical Exam: General: A&Ox3. NAD. Elevated BMI HENT: Normocephalic. Atraumatic. Eyes: PER. Conjunctiva pink, sclera clear. Neck: Transmitted systolic murmur versus bilateral carotid bruits. No overt JVD. Heart: RRR. Grade III/ systolic murmur. No diastolic murmur appreciated. Lungs: Decreased. Diminished. No wheeze. Abdomen: +BS. Firm. Nontender. No overt masses or organomegaly. Extremities: Trace to 1+. Lymphedematous change. Stasis changes. No clubbing. No cyanosis. Limited neurological examination is without focal deficits. Pulses: radial=1/4, posterior tibial=1/4. Results & Data ([facility]) Vital Signs (Past 12 Hours) Vital Signs Temp Pulse Pulse Resp BP BP Pulse Ox 03/08/21 07:45 37.2 C 69 18 168/74 H 96 03/08/21 04:43 37.0 C 67 20 159/70 H 94 03/08/21 03:32 37 C 68 18 150/72 H 95 03/08/21 00:15 36.7 C 66 20 136/77 97 03/07/21 23:05 60 171/59 H 03/07/21 22:30 76 03/07/21 22:15 60 206/67 H Laboratory Results Laboratory Results - last 24 hr 03/07/21 03/07/21 03/07/21 15:40 15:40 15:40 WBC 9.29 RBC 4.26 Hgb 12.8 Hct 38.1 MCV 89.4 MCH 30.0 MCHC 33.6 RDW Std Deviation 43.9 RDW Coeff of Mario 13.7 Plt Count 272 MPV 10.3 Immature Gran % (Auto) 0.1 Neut % (Auto) 73.9 Lymph % (Auto) 18.3 Sully % (Auto) 5.9 Eos % (Auto) 1.5 Baso % (Auto) 0.3 Neut # (Auto) 6.86 H Lymph # (Auto) 1.70 Sully # (Auto) 0.55 Eos # (Auto) 0.14 Baso # (Auto) 0.03 Immature Gran # (Auto) 0.01 PT 11.0 INR 1.1 Sodium 143 Potassium 4.2 Chloride 112 H Carbon Dioxide 27 Anion Gap 4.0 BUN 31 H Creatinine 1.22 H Est Cr Clr Drug Dosing Not Reportable Est GFR ( Amer) 52.0 Est GFR (Non-Af Amer) 44.8 BUN/Creatinine Ratio 25.6 H Glucose 75 POC Glucose Calcium 9.0 Magnesium 1.9 Total Bilirubin 0.4 AST 12 L ALT 13 Alkaline Phosphatase 143 H Troponin I 0.023 NT-Pro-B Natriuret Pep 6070 H Total Protein 6.8 Albumin 2.7 L Globulin 4.1 H Albumin/Globulin Ratio 0.7 L Lipase 68 L TSH 3.910 COVID-19 Eval Order SARS-CoV-2 (PCR) Influenza Type A (PCR) Influenza Type B (PCR) RSV (RT-PCR) 03/07/21 03/07/21 03/07/21 16:24 16:44 17:30 WBC RBC Hgb Hct MCV MCH MCHC RDW Std Deviation RDW Coeff of Mario Plt Count MPV Immature Gran % (Auto) Neut % (Auto) Lymph % (Auto) Sully % (Auto) Eos % (Auto) Baso % (Auto) Neut # (Auto) Lymph # (Auto) Sully # (Auto) Eos # (Auto) Baso # (Auto) Immature Gran # (Auto) PT INR Sodium Potassium Chloride Carbon Dioxide Anion Gap BUN Creatinine Est Cr Clr Drug Dosing Est GFR ( Amer) Est GFR (Non-Af Amer) BUN/Creatinine Ratio Glucose POC Glucose 61 L* 53 L* Calcium Magnesium Total Bilirubin AST ALT Alkaline Phosphatase Troponin I NT-Pro-B Natriuret Pep Total Protein Albumin Globulin Albumin/Globulin Ratio Lipase TSH COVID-19 Eval Order [facility]Rsv at [facility] SARS-CoV-2 (PCR) Influenza Type A (PCR) Influenza Type B (PCR) RSV (RT-PCR) 03/07/21 03/07/21 03/07/21 17:30 18:05 21:53 WBC RBC Hgb Hct MCV MCH MCHC RDW Std Deviation RDW Coeff of Mario Plt Count MPV Immature Gran % (Auto) Neut % (Auto) Lymph % (Auto) Sully % (Auto) Eos % (Auto) Baso % (Auto) Neut # (Auto) Lymph # (Auto) Sully # (Auto) Eos # (Auto) Baso # (Auto) Immature Gran # (Auto) PT INR Sodium Potassium Chloride Carbon Dioxide Anion Gap BUN Creatinine Est Cr Clr Drug Dosing Est GFR ( Amer) Est GFR (Non-Af Amer) BUN/Creatinine Ratio Glucose POC Glucose 225 H 125 H Calcium Magnesium Total Bilirubin AST ALT Alkaline Phosphatase Troponin I NT-Pro-B Natriuret Pep Total Protein Albumin Globulin Albumin/Globulin Ratio Lipase TSH COVID-19 Eval Order SARS-CoV-2 (PCR) NEGATIVE Influenza Type A (PCR) Negative Influenza Type B (PCR) Negative RSV (RT-PCR) Negative 03/08/21 03/08/21 03/08/21 02:07 06:42 06:42 WBC 8.79 RBC 3.87 L Hgb 11.6 L Hct 34.6 L MCV 89.4 MCH 30.0 MCHC 33.5 RDW Std Deviation 45.1 RDW Coeff of Mario 13.9 Plt Count 229 MPV 10.0 Immature Gran % (Auto) Neut % (Auto) Lymph % (Auto) Sully % (Auto) Eos % (Auto) Baso % (Auto) Neut # (Auto) Lymph # (Auto) Sully # (Auto) Eos # (Auto) Baso # (Auto) Immature Gran # (Auto) PT INR Sodium 140 Potassium 4.5 Chloride 110 H Carbon Dioxide 28 Anion Gap 2.0 L BUN 32 H Creatinine 1.29 H Est Cr Clr Drug Dosing 47.0 Est GFR ( Amer) 48.6 Est GFR (Non-Af Amer) 41.9 BUN/Creatinine Ratio 24.5 H Glucose 177 H POC Glucose 167 H Calcium 8.6 Magnesium Total Bilirubin AST ALT Alkaline Phosphatase Troponin I NT-Pro-B Natriuret Pep Total Protein Albumin Globulin Albumin/Globulin Ratio Lipase TSH COVID-19 Eval Order SARS-CoV-2 (PCR) Influenza Type A (PCR) Influenza Type B (PCR) RSV (RT-PCR) 03/08/21 07:34 WBC RBC Hgb Hct MCV MCH MCHC RDW Std Deviation RDW Coeff of Mario Plt Count MPV Immature Gran % (Auto) Neut % (Auto) Lymph % (Auto) Sully % (Auto) Eos % (Auto) Baso % (Auto) Neut # (Auto) Lymph # (Auto) Sully # (Auto) Eos # (Auto) Baso # (Auto) Immature Gran # (Auto) PT INR Sodium Potassium Chloride Carbon Dioxide Anion Gap BUN Creatinine Est Cr Clr Drug Dosing Est GFR ( Amer) Est GFR (Non-Af Amer) BUN/Creatinine Ratio Glucose POC Glucose 196 H Calcium Magnesium Total Bilirubin AST ALT Alkaline Phosphatase Troponin I NT-Pro-B Natriuret Pep Total Protein Albumin Globulin Albumin/Globulin Ratio Lipase TSH COVID-19 Eval Order SARS-CoV-2 (PCR) Influenza Type A (PCR) Influenza Type B (PCR) RSV (RT-PCR)
--- NOTE | 2021-03-08 11:59 | Pharmacy Report ---
Pharmacy Glycemic Short Note 2 - Date of Service March 08, 2021 - Glycemic Short BSG Results (Last 24 hours): 03/07/21 03/07/21 03/07/21 15:40 16:24 16:44 Glucose 75 POC Glucose 61 L* 53 L* 03/07/21 03/07/21 03/08/21 18:05 21:53 02:07 Glucose POC Glucose 225 H 125 H 167 H 03/08/21 03/08/21 03/08/21 06:42 07:34 11:21 Glucose 177 H POC Glucose 196 H 223 H OUTPATIENT ANTIDIABETIC REGIMEN: * Levermir 54 units BID, Novolog 30 units AC * A1c 9.3% 09/2020 ASSESSMENT: * 70 year old admitted with CHF, hypoglycemic on admission. Type 2 diabetic managed on insulin at home. Per provider, patient with labile blood sugars and recent low BSGs. Pharmacy consulted for glycemic management * Fasting BSG 177 mg/dL this AM, patient recently admitted 09/27/20 and insulin needs were much less then home insulin needs at that time. Patient requiring about ~30-50 units total of insulin per day * Plan to continue with Levemir scale until insulin needs better known. Start novolog stress of 2/3. Will continue close follow up PLAN FOR INPATIENT GLYCEMIC CONTROL: * Hold outpatient oral diabetes medications * Basal insulin * Lantus 10-20 units bid based upon BSG value * Bolus insulin * NovoLog per scale ACHS or Q6hrs while NPO * Goal Range: Low 120 mg/dL - High 150 mg/dL * Correction Factor: 15 mg/dL/unit * Nutritional / Prandial insulin per carb ratio of 1 unit per 7 grams CHO consumed PLAN FOR DISCHARGE: * tbd
--- NOTE | 2021-03-08 13:00 | Electrocardiogram Report ---
Test Reason : Blood Pressure : / mmHG Vent. Rate : 060 BPM Atrial Rate : 060 BPM P-R Int : 248 ms QRS Dur : 092 ms QT Int : 458 ms P-R-T Axes : 046 026 126 degrees QTc Int : 458 ms Sinus rhythm with 1st degree A-V block Abnormal ECG Confirmed by Julian Schreiber ([id number]) on 03/08/2021 12:59:32 PM Referred By: Nicole Gibbs Confirmed By:Kali Schreiber
--- NOTE | 2021-03-08 13:07 | Hospitalist Progress Note ---
Date of Service March 08, 2021 Assessment & Plan (1) Heart failure, diastolic, with acute decompensation: Doing well on intravenous furosemide. Cont current regimen. Continue daily weights, low-salt diet, strict I/Os. Monitor BMP (2) Severe aortic stenosis: plan for TAVR upcoming. Optimizing her for surgery as a goal. (3) Atrial flutter, paroxysmal: Sinus rhythm overnight on telemetry continue apixaban, Coreg 3.125 p.o. twice daily per home regimen. (4) HTN (hypertension): Stable and at goal continue Coreg per home regimen. Also being diuresed with Lasix 40 mg IV twice daily (5) PVD (peripheral vascular disease): Continue medical management, stable (6) CKD (chronic kidney disease), stage III: Creatinine remains at baseline. Trend BMP in a.m. while diuresing with Lasix IV. (7) T2DM (type 2 diabetes mellitus): Glucose currently at goal, continue basal bolus insulin while hospitalized. Glycemic pharmacist is following and managing blood sugar. Will update A1c in a.m. (8) Mood disorder: Continue fluoxetine and bupropion per home regimen. Nortriptyline 50 mg p.o. nightly per home regimen also. (9) DVT prophylaxis: Eliquis Full code Disposition-continue monitoring in PCU. DO [facility] Hospitalist Admission and Anticipated Discharge Date Admission Date: March 07, 2021 Subjective 70 yo F with severe presented with fluid overload and admitted for acute heart failure exacerbation she feels improved today denies chest pain tolerating PO Review of Systems Review of Systems: All systems reviewed & are unremarkable except as noted in Subjective Physical Exam Physical Exam: CONSTITUTIONAL: obese, vitals as above, generally well- appearing EYES: normal conjunctivae, no scleral icterus ENT: external ear and nose normal, MMM RESPIRATORY: clear to auscultation bilaterally, no crackles, rales or wheezes, normal respiratory effort CARDIOVASCULAR: regular rate and rhythm, 3/6 EDE heard throughout precordium, no gallops or rubs, no JVD, no peripheral edema CHEST: inspection of chest was normal GASTROINTESTINAL: soft, nontender, nondistended, no guarding MUSCULOSKELETAL: strength 5/5 throughout, head is normocephalic and atraumatic SKIN: warm and dry NEUROLOGIC: CN 2-12 grossly intact, normal cognition, normal speech, no tremor, no gross focal deficits. PSYCHIATRIC: alert cooperative and oriented to person, place and time. Results & Data Results & Data ([facility]) Vital Signs (Past 12 Hours) Vital Signs Temp Pulse Resp BP BP Pulse Ox 03/08/21 11:58 36.7 C 64 17 157/73 H 95 03/08/21 07:45 37.2 C 69 18 168/74 H 96 03/08/21 04:43 37.0 C 67 20 159/70 H 94 03/08/21 03:32 37 C 68 18 150/72 H 95 Laboratory Results Short CBC 03/07/21 03/08/21 Range/Units 15:40 06:42 WBC 9.29 8.79 (4.8-10.8) K/uL Hgb 12.8 11.6 L (12.0-16.0) g/dL Hct 38.1 34.6 L (37-47) % Plt Count 272 229 (130-400) K/uL BMP 03/07/21 03/08/21 15:40 06:42 Sodium 143 140 Potassium 4.2 4.5 Chloride 112 H 110 H Carbon Dioxide 27 28 BUN 31 H 32 H Creatinine 1.22 H 1.29 H Glucose 75 177 H Calcium 9.0 8.6 Cardiac Enzymes 03/07/21 Range/Units 15:40 Troponin I 0.023 (0-0.045) ng/ml Liver Function 03/07/21 Range/Units 15:40 Total Bilirubin 0.4 (0.2-1) mg/dl AST 12 L (15-37) U/L ALT 13 (12-78) U/L Alkaline Phosphatase 143 H (45-117) U/L Albumin 2.7 L (3.4-5.0) gm/dl Medications Administered Current Inpatient Medications Acetaminophen (Acetaminophen 325 Mg Tab) 650 mg PO Q4H PRN PRN Reason: Pain or Fever Stop: 04/06/21 20:44 Allopurinol (Allopurinol 300 Mg Tab) 300 mg PO QAM [facility] Stop: 04/07/21 08:59 Last Admin: 03/08/21 08:17 Dose: 300 mg Documented by: Apixaban (Apixaban 5 Mg Tablet) 5 mg PO BID LISA Stop: 04/06/21 20:59 Last Admin: 03/08/21 08:16 Dose: 5 mg Documented by: Aspirin (Aspirin 81 Mg Ectab) 81 mg PO QAM [facility] Stop: 04/07/21 08:59 Last Admin: 03/08/21 08:17 Dose: 81 mg Documented by: Atorvastatin Calcium (Atorvastatin 40 Mg Tab) 40 mg PO QAM [facility] Stop: 04/07/21 08:59 Last Admin: 03/08/21 08:17 Dose: 40 mg Documented by: Bupropion HCl (Bupropion Sr 150 Mg Tabcr) 150 mg PO DAILY [facility] Stop: 04/07/21 08:59 Last Admin: 03/08/21 08:17 Dose: 150 mg Documented by: Carvedilol (Carvedilol 3.125 Mg Tab) 3.125 mg PO BID [facility] Stop: 04/06/21 20:59 Last Admin: 03/08/21 08:16 Dose: 3.125 mg Documented by: Dextrose (Dextrose 50% 50 Ml Syringe) 25 - 50 ml IV UD PRN; Protocol PRN Reason: Hypoglycemia Protocol Stop: 04/06/21 20:44 Ferrous Sulfate (Ferrous Sulfate 325 Mg Tab) 325 mg PO DAILY [facility] Stop: 04/07/21 08:59 Last Admin: 03/08/21 08:17 Dose: 325 mg Documented by: Fluoxetine HCl (Fluoxetine Hcl 20 Mg Cap) 40 mg PO [facility] Stop: 04/07/21 08:59 Last Admin: 03/08/21 08:17 Dose: 40 mg Documented by: Glucagon (Glucagon For Inj 1 Mg Vial) 1 mg SQ UD PRN; Protocol PRN Reason: Hypoglycemia Protocol Stop: 04/06/21 20:44 Glucose (Glucose 10 Tabs/Tube) 4 - 8 tabs PO UD PRN; Protocol PRN Reason: Hypoglycemia Protocol Stop: 04/06/21 20:44 Glucose (Glucose 40% Gel 15 Gm Tube) 15 - 30 gm PO UD PRN; Protocol PRN Reason: Hypoglycemia Protocol Stop: 04/06/21 20:44 Furosemide 40 mg/ Syringe 4 mls @ 4 mls/min IV BID17 [facility] Stop: 04/06/21 21:14 Last Admin: 03/08/21 08:16 Dose: 4 mls/min Documented by: Insulin Aspart (Insulin Aspart 100 Units/Ml 3 Ml Pen) 0 units SC ACHS [facility]; Protocol Stop: 04/06/21 21:14 Last Admin: 03/08/21 12:19 Dose: 8 units Documented by: Insulin Aspart (Insulin Aspart 100 Units/Ml 3 Ml Pen) 0 units SC 0200 [facility]; Protocol Stop: 04/07/21 01:59 Last Admin: 03/08/21 02:10 Dose: 1 units Documented by: Insulin Detemir (Insulin Detemir Flexpen/Flex Touch 100 Units/Ml 3ml) 0 units SC BID [facility]; Protocol Stop: 04/06/21 21:14 Last Admin: 03/08/21 08:18 Dose: 20 units Documented by: Magnesium Oxide (Magnesium Oxide 400 Mg Tab) 400 mg PO DAILY [facility] Stop: 04/07/21 08:59 Last Admin: 03/08/21 08:16 Dose: 400 mg Documented by: Miscellaneous (Carbohydrates For Hypoglycemia ) 15 - 30 gm PO UD PRN PRN Reason: Hypoglycemia Protocol Stop: 04/06/21 20:44 Miscellaneous Information (Pharmacy Glycemic Mgmt Consult) 1 ea N/A UD [facility]; Protocol Stop: 04/06/21 21:01 Nortriptyline HCl (Nortriptyline Hcl 25 Mg Cap) 50 mg PO HS [facility] Stop: 04/06/21 20:59 Last Admin: 03/07/21 21:11 Dose: 50 mg Documented by: Nystatin (Nystatin Powder 15gm Btl) 1 appln EXT UD [facility] Stop: 04/06/21 19:14 Ondansetron HCl (Ondansetron Inj 2 Mg/Ml 2 Ml Vial) 4 mg IV Q6H PRN PRN Reason: Nausea Stop: 04/06/21 20:44 Last Admin: 03/08/21 10:49 Dose: 4 mg Documented by: Pantoprazole Sodium (Pantoprazole 40 Mg Tab) 40 mg PO DAILY [facility] Stop: 04/07/21 08:59 Last Admin: 03/08/21 08:16 Dose: 40 mg Documented by: Polyethylene Glycol (Polyethylene (Miralax) 17 Gm Pack) 17 gm PO DAILY PRN PRN Reason: Constipation Stop: 04/06/21 20:44 Tolterodine Tartrate (Tolterodine Tartrate La 2 Mg Capcr) 2 mg PO QAM [facility] Stop: 04/07/21 08:59 Last Admin: 03/08/21 08:17 Dose: 2 mg Documented by:
--- NOTE | 2021-03-08 16:17 | Electrocardiogram Report ---
Test Reason : Blood Pressure : / mmHG Vent. Rate : 069 BPM Atrial Rate : 069 BPM P-R Int : 232 ms QRS Dur : 080 ms QT Int : 440 ms P-R-T Axes : 066 040 105 degrees QTc Int : 471 ms Sinus rhythm with 1st degree A-V block Abnormal ECG When compared with ECG of 07-MAR-2021 16:19, (unconfirmed) No significant change was found Confirmed by Julian Schreiber ([id number]) on 03/08/2021 4:16:54 PM Referred By: Nicole Gibbs Confirmed By:Kali Schreiber
[2021-03-08] MEDS: NORTRIPTYLINE HCL 25 MG CAP PO SCH (20:57)
[2021-03-09] MEDS: INSULIN ASPART 100 UNITS/ML 3 ML PEN SC SCH ×5 (02:30→20:07)
[2021-03-09 06:43] LABS: Hematocrit (blood only) 35.9 % (37-47); Hemoglobin 11.9 g/dL (12.0-16.0); Mean Corpuscular Hemoglobin 29.9 pg (25-34); Mean Corpuscular Hgb Conc 33.1 g/dL (32-36); Mean Corpuscular Volume 90.2 fL (80-100); Mean Platelet Volume 10.1 fL (7.4-10.4); Platelet Count 243 K/uL (130-400); RDW Coefficient of Variation 13.9 % (11.5-14.5); Red Blood Count 3.98 M/uL (4.2-5.4); White Blood Count 10.13 K/uL (4.8-10.8)
[2021-03-09 07:24] LABS: BUN Creatinine Ratio 23.2 (10-20); Creatinine Clr Calc Pharmacy 37.1 ml/min; Est GFR (African American) 37.2; Est GFR (Non-African American) 32.1; Potassium 4.6 mmol/L (3.5-5.1)
[2021-03-09] MEDS: carvediloL 3.125 MG TAB PO SCH ×2 (08:46→20:03)
[2021-03-09] MEDS: ASPIRIN 81 MG ECTAB PO SCH (08:46)
[2021-03-09] MEDS: FERROUS SULFATE 325 MG TAB PO SCH (08:46)
[2021-03-09] MEDS: MAGNESIUM OXIDE 400 MG TAB PO SCH (08:46)
[2021-03-09] MEDS: FLUoxetine HCL 20 MG CAP PO SCH (08:46)
[2021-03-09] MEDS: PANTOprazole 40 MG TAB PO SCH (08:46)
[2021-03-09] MEDS: FUROSEMIDE 40 MG in SYRINGE 0 ML IV SCH ×2 (08:46→16:43)
[2021-03-09] MEDS: buPROPion SR 150 MG TABCR PO SCH (08:46)
[2021-03-09] MEDS: TOLTERODINE TARTRATE LA 2 MG CAPCR PO SCH (08:46)
[2021-03-09] MEDS: allopurinoL 300 MG TAB PO SCH (08:46)
[2021-03-09] MEDS: ATORVASTATIN 40 MG TAB PO SCH (08:47)
[2021-03-09] MEDS: INSULIN DETEMIR FLEXPEN/FLEX TOUCH 100 UNITS/ML 3ML SC SCH ×2 (08:47→20:07)
[2021-03-09] MEDS: APIXABAN 5 MG TABLET PO SCH ×2 (08:53→20:03)
--- NOTE | 2021-03-09 13:54 | Cardiology Progress Note ---
Date of Service March 09, 2021 Assessment & Plan (1) Heart failure, diastolic, with acute decompensation: Patient with severe valvular disease with severe aortic stenosis, mild to moderate insufficiency presents with signs and symptoms of decompensated diastolic heart failure secondary to valvular disease. Weight is up 15 to 20 pounds and there is evidence of volume overload by exam. (2) Severe aortic stenosis: (3) Atrial flutter, paroxysmal: (4) HTN (hypertension): (5) CKD (chronic kidney disease), stage III: Improving evidence of acute decompensated diastolic heart failure secondary to severe aortic valvular disease. Maintaining sinus rhythm. Continue IV diuretics, goal of hemodynamic optimization prior to [place] [facility] Continue low dose beta raman and Eliquis anticoagulation Monitor renal function and electrolytes. Admission and Anticipated Discharge Date Admission Date: March 07, 2021 Subjective Patient seen and examined, chart reviewed. States that she is feeling better today. Notes that her breathing is improving and lower extremity edema seems to be improving as well. Denies chest pain, palpitations, lightheadedness, dizziness or syncope. Telemetry reviewed: Sinus rhythm without any significant arrhythmias. Review of Systems Review of Systems: All systems reviewed & are unremarkable except as noted in HPI & below Physical Exam Physical Exam: General: Awake, alert and oriented x 3. No acute distress. HEENT: Normocephalic, atraumatic. Pupils equal, round and reactive to light and accommodation. Extraocular muscles are intact. Anicteric sclera. Moist mucous membranes. Neck: No JVD. No bruit. Cardiovascular: Regular. Positive S-4. Normal S-1 and S-2. No S-3. 3/6 mid to late systolic ejection murmur, greatest at the right sternal border, second intercostal space with radiation to the bilateral carotids. No rubs. Pulmonary: Clear to auscultation bilaterally. No rales, rhonchi, or wheezing. Abdomen: Bowel sounds x 4, soft. No rebound, guarding or tenderness. No organomegaly. Extremities: No clubbing, cyanosis or edema. +2 pedal pulses bilaterally. Skin: Warm and dry. Results & Data ([facility]) Vital Signs (Past 12 Hours) Vital Signs Temp Pulse Pulse Pulse Resp BP BP 03/09/21 12:00 36.6 C 75 18 116/72 03/09/21 09:00 71 03/09/21 06:47 36.7 C 72 17 134/66 03/09/21 03:37 36.8 C 72 18 133/65 Pulse Ox 03/09/21 12:00 99 03/09/21 09:00 03/09/21 06:47 96 03/09/21 03:37 92
--- NOTE | 2021-03-09 15:17 | Hospitalist Progress Note ---
Date of Service March 09, 2021 Assessment & Plan (1) Heart failure, diastolic, with acute decompensation: Doing well on intravenous furosemide. Question diarrhea as a side effect, will discuss with head knitting machine fixer in a.m. regarding possible switch to Bumex and if this will help? Cont current regimen. Continue daily weights, low-salt diet, strict I/Os. Monitor BMP (2) Severe aortic stenosis: plan for TAVR upcoming. Optimizing her for surgery as a goal. (3) Atrial flutter, paroxysmal: Sinus rhythm overnight on telemetry continue apixaban, Coreg 3.125 p.o. twice daily per home regimen. (4) HTN (hypertension): Stable and at goal continue Coreg per home regimen. Also being diuresed with Lasix 40 mg IV twice daily (5) PVD (peripheral vascular disease): Continue medical management, stable (6) CKD (chronic kidney disease), stage III: Creatinine slightly elevated from 1.2 on admission to 1.6. Trend BMP in a.m. while diuresing with Lasix IV. (7) T2DM (type 2 diabetes mellitus): Glucose currently at goal, continue basal bolus insulin while hospitalized. Glycemic pharmacist is following and managing blood sugar. Will update A1c in a.m. (8) Mood disorder: Continue fluoxetine and bupropion per home regimen. Nortriptyline 50 mg p.o. nightly per home regimen also. (9) DVT prophylaxis: Eliquis Full code Disposition-continue monitoring in PCU. Bethany Box DO [facility] Hospitalist Admission and Anticipated Discharge Date Admission Date: March 07, 2021 Subjective 70-year-old female with history of severe aortic stenosis presented with acute decompensated heart failure. Doing well today except concerned about significant diarrhea She feels the diarrhea is in response to IV Lasix and happens only when she is in house Then she commented she uses up to 8 pills of Imodium at home and this has been ongoing for the last month Nurse sent C. difficile study this morning as patient has had several bouts of diarrhea today, this was negative but will send stool culture as well. Imodium as needed given for comfort Consider Bumex will discuss with cardiology in a.m. Patient denies any chest pain or trouble breathing and feels she is improving. Review of Systems Review of Systems: All systems reviewed & are unremarkable except as noted in Subjective Physical Exam Physical Exam: CONSTITUTIONAL: obese, vitals as above, generally well- appearing EYES: normal conjunctivae, no scleral icterus ENT: external ear and nose normal, MMM RESPIRATORY: clear to auscultation bilaterally, no crackles, rales or wheezes, normal respiratory effort CARDIOVASCULAR: regular rate and rhythm, S1 and 2 heard without murmurs, gallops or rubs, no JVD, no peripheral edema CHEST: inspection of chest was normal GASTROINTESTINAL: soft, nontender, nondistended, no guarding MUSCULOSKELETAL: strength 5/5 throughout, head is normocephalic and atraumatic SKIN: warm and dry NEUROLOGIC: CN 2-12 grossly intact, normal cognition, normal speech, no tremor, no gross focal deficits. PSYCHIATRIC: alert cooperative and oriented to person, place and time. Results & Data Results & Data ([facility]) Vital Signs (Past 12 Hours) Vital Signs Temp Pulse Pulse Pulse Resp BP BP 03/09/21 12:00 36.6 C 75 18 116/72 03/09/21 09:00 71 03/09/21 06:47 36.7 C 72 17 134/66 03/09/21 03:37 36.8 C 72 18 133/65 Pulse Ox 03/09/21 12:00 99 03/09/21 09:00 03/09/21 06:47 96 03/09/21 03:37 92
[2021-03-09] MEDS ORDERED: LOPERAMIDE HCL 2 MG CAP PO PRN (17:26)
[2021-03-09] MEDS: NORTRIPTYLINE HCL 25 MG CAP PO SCH (20:03)
[2021-03-10 07:50] LABS: BUN Creatinine Ratio 24.2 (10-20); Creatinine Clr Calc Pharmacy 32.6 ml/min; Est GFR (African American) 31.8; Est GFR (Non-African American) 27.5; Magnesium 1.8 mg/dl (1.8-2.4); Potassium 4.5 mmol/L (3.5-5.1)
[2021-03-10] MEDS: INSULIN ASPART 100 UNITS/ML 3 ML PEN SC SCH ×4 (08:53→21:48)
[2021-03-10] MEDS: allopurinoL 300 MG TAB PO SCH (08:54)
[2021-03-10] MEDS: APIXABAN 5 MG TABLET PO SCH ×2 (08:54→19:48)
[2021-03-10] MEDS: ATORVASTATIN 40 MG TAB PO SCH (08:55)
[2021-03-10] MEDS: carvediloL 3.125 MG TAB PO SCH ×2 (08:55→19:47)
[2021-03-10] MEDS: ASPIRIN 81 MG ECTAB PO SCH (08:55)
[2021-03-10] MEDS: buPROPion SR 150 MG TABCR PO SCH (08:55)
[2021-03-10] MEDS: FUROSEMIDE 40 MG in SYRINGE 0 ML IV SCH (08:56)
[2021-03-10] MEDS: FLUoxetine HCL 20 MG CAP PO SCH (08:56)
[2021-03-10] MEDS: FERROUS SULFATE 325 MG TAB PO SCH (08:56)
[2021-03-10] MEDS: INSULIN DETEMIR FLEXPEN/FLEX TOUCH 100 UNITS/ML 3ML SC SCH ×2 (08:58→21:48)
[2021-03-10] MEDS: MAGNESIUM OXIDE 400 MG TAB PO SCH (08:58)
[2021-03-10] MEDS: TOLTERODINE TARTRATE LA 2 MG CAPCR PO SCH (08:59)
[2021-03-10] MEDS: PANTOprazole 40 MG TAB PO SCH (08:59)
--- NOTE | 2021-03-10 12:32 | Pharmacy Report ---
Pharmacy Glycemic Short Note 2 - Date of Service March 10, 2021 - Glycemic Short BSG Results (Last 24 hours): 03/09/21 03/09/21 03/10/21 16:35 20:06 06:46 Glucose 110 H POC Glucose 118 H 125 H 03/10/21 03/10/21 07:11 11:41 Glucose POC Glucose 119 H 157 H OUTPATIENT ANTIDIABETIC REGIMEN: * Levermir 54 units BID, Novolog 30 units AC * A1c 9.3% 09/2020 ASSESSMENT: 03/10: * Quin received a total of 49 units of insulin yesterday * 30 units basal + 19 units bolus * BSGs were: [id number] mg/dL * Fasting BSG was 119 mg/dL this AM * No change to Levemir * Tightened carb ratio with breakfast only today 03/08: * 70 year old admitted with CHF, hypoglycemic on admission. Type 2 diabetic managed on insulin at home. Per provider, patient with labile blood sugars and recent low BSGs. Pharmacy consulted for glycemic management * Fasting BSG 177 mg/dL this AM, patient recently admitted 09/27/20 and insulin needs were much less then home insulin needs at that time. Patient requiring about ~30-50 units total of insulin per day * Plan to continue with Levemir scale until insulin needs better known. Start novolog stress of 2/3. Will continue close follow up PLAN FOR INPATIENT GLYCEMIC CONTROL: * Basal insulin * Lantus 10-20 units SC BID (based upon BSG value) * Bolus insulin * NovoLog per scale ACHS or Q6hrs while NPO * Goal Range: Low 120 mg/dL - High 150 mg/dL * Breakfast: Correction Factor: 15 mg/dL/unit; Carb ratio of 1 unit per 5 grams CHO consumed * Lunch, Dinner, Bedtime: Correction Factor: 15 mg/dL/unit; Carb ratio of 1 unit per 7 grams CHO consumed PLAN FOR DISCHARGE: * HbA1c = 5.9% from December 2020. Patient reports hypoglycemia at home. * Given HbA1c, hypoglycemia, and inpatient dosing, patient will likely require a dose reduction in insulin prior to discharge.
--- NOTE | 2021-03-10 12:39 | Cardiology Progress Note ---
Date of Service March 10, 2021 Assessment & Plan (1) Heart failure, diastolic, with acute decompensation: Patient with severe valvular disease with severe aortic stenosis, mild to moderate insufficiency presents with signs and symptoms of decompensated diastolic heart failure secondary to valvular disease. Weight is up 15 to 20 pounds and there is evidence of volume overload by exam. (2) Severe aortic stenosis: (3) Atrial flutter, paroxysmal: (4) HTN (hypertension): (5) CKD (chronic kidney disease), stage III: Improving evidence of acute decompensated diastolic heart failure secondary to severe aortic valvular disease. Maintaining sinus rhythm. Continue IV diuretics, goal of hemodynamic optimization prior to [place] [facility] [place] give p.m. dose of IV Lasix this evening and reevaluate volume status clinically in the a.m., hopeful for discharge at that time. Continue low dose beta raman and Eliquis anticoagulation Monitor renal function and electrolytes. Admission and Anticipated Discharge Date Admission Date: March 07, 2021 Subjective Patient seen and examined, chart reviewed. States that she is feeling much better today and that breathing is just about back to baseline. Notes the lower extremity edema is improving as well. Denies chest pain, palpitations, lightheadedness or dizziness. Telemetry reviewed: Sinus rhythm without arrhythmia. Review of Systems Review of Systems: All systems reviewed & are unremarkable except as noted in HPI & below Physical Exam Physical Exam: General: Awake, alert and oriented x 3. No acute distress. HEENT: Normocephalic, atraumatic. Pupils equal, round and reactive to light and accommodation. Extraocular muscles are intact. Anicteric sclera. Moist mucous membranes. Neck: No JVD. No bruit. Cardiovascular: Regular. Positive S-4. Normal S-1 and S-2. No S-3. 3/6 mid to late systolic ejection murmur, greatest at the right sternal border, second intercostal space with radiation to the bilateral carotids. No rubs. Pulmonary: Clear to auscultation bilaterally. No rales, rhonchi, or wheezing. Abdomen: Bowel sounds x 4, soft. No rebound, guarding or tenderness. No organomegaly. Extremities: No clubbing, cyanosis or edema. +2 pedal pulses bilaterally. Skin: Warm and dry. Results & Data ([facility]) Vital Signs (Past 12 Hours) Vital Signs Temp Pulse Resp BP Pulse Ox 03/10/21 12:09 37.1 C 87 16 146/72 H 93 03/10/21 08:27 36.7 C 81 18 100/57 L 92 03/10/21 05:02 36.9 C 78 16 147/79 H 92
--- NOTE | 2021-03-10 14:46 | Hospitalist Progress Note ---
Date of Service March 10, 2021 Assessment & Plan (1) Heart failure, diastolic, with acute decompensation: Doing well on intravenous furosemide. Cont current regimen, holding pm lasix today. Continue daily weights, low-salt diet, strict I/Os. Monitor BMP (2) Severe aortic stenosis: plan for TAVR upcoming. Optimizing her for surgery as a goal. (3) Atrial flutter, paroxysmal: Sinus rhythm overnight on telemetry continue apixaban, Coreg 3.125 p.o. twice daily per home regimen. (4) HTN (hypertension): Stable and at goal continue Coreg per home regimen. Lasix (5) PVD (peripheral vascular disease): Continue medical management, stable (6) CKD (chronic kidney disease), stage III: Creatinine remains at baseline. Trend BMP in a.m. while diuresing with Lasix IV. (7) T2DM (type 2 diabetes mellitus): Glucose currently at goal, continue basal bolus insulin while hospitalized. Glycemic pharmacist is following and managing blood sugar. Will update A1c in a.m. (8) Mood disorder: Continue fluoxetine and bupropion per home regimen. Nortriptyline 50 mg p.o. nightly per home regimen also. (9) DVT prophylaxis: Eliquis Full code Disposition-continue monitoring in PCU. Bethany Box DO [facility] Hospitalist Admission and Anticipated Discharge Date Admission Date: March 07, 2021 Subjective 70-year-old female with history of severe aortic stenosis presented with acute decompensated heart failure. Patient doing well today and states that her diarrhea has improved, she only had one episode this morning. Creatinine bumped so afternoon Lasix held She is asking when she can go home, deferred that decision between her and the roll filler Review of Systems Review of Systems: All systems reviewed & are unremarkable except as noted in Subjective Physical Exam Physical Exam: CONSTITUTIONAL: obese, vitals as above, generally well- appearing EYES: normal conjunctivae, no scleral icterus ENT: external ear and nose normal, MMM RESPIRATORY: clear to auscultation bilaterally, no crackles, rales or wheezes, normal respiratory effort CARDIOVASCULAR: regular rate and rhythm, 3/6 EDE heard throughout precordium, no gallops or rubs, no JVD, no peripheral edema CHEST: inspection of chest was normal GASTROINTESTINAL: soft, nontender, nondistended, no guarding MUSCULOSKELETAL: strength 5/5 throughout, head is normocephalic and atraumatic SKIN: warm and dry NEUROLOGIC: CN 2-12 grossly intact, normal cognition, normal speech, no tremor, no gross focal deficits. PSYCHIATRIC: alert cooperative and oriented to person, place and time. Results & Data Results & Data ([facility]) Vital Signs (Past 12 Hours) Vital Signs Temp Pulse Resp BP Pulse Ox 03/10/21 12:09 37.1 C 87 16 146/72 H 93 03/10/21 08:27 36.7 C 81 18 100/57 L 92 03/10/21 05:02 36.9 C 78 16 147/79 H 92 Laboratory Results BMP 03/10/21 06:46 Sodium 139 Potassium 4.5 Chloride 107 Carbon Dioxide 28 BUN 44 H Creatinine 1.83 H Glucose 110 H Calcium 9.0 Medications Administered Current Inpatient Medications Acetaminophen (Acetaminophen 325 Mg Tab) 650 mg PO Q4H PRN PRN Reason: Pain or Fever Stop: 04/06/21 20:44 Allopurinol (Allopurinol 300 Mg Tab) 300 mg PO QAM LISA Stop: 04/07/21 08:59 Last Admin: 03/10/21 08:54 Dose: 300 mg Documented by: Apixaban (Apixaban 5 Mg Tablet) 5 mg PO BID LISA Stop: 04/06/21 20:59 Last Admin: 03/10/21 08:54 Dose: 5 mg Documented by: Aspirin (Aspirin 81 Mg Ectab) 81 mg PO QAM LISA Stop: 04/07/21 08:59 Last Admin: 03/10/21 08:55 Dose: 81 mg Documented by: Atorvastatin Calcium (Atorvastatin 40 Mg Tab) 40 mg PO QAM LISA Stop: 04/07/21 08:59 Last Admin: 03/10/21 08:55 Dose: 40 mg Documented by: Bupropion HCl (Bupropion Sr 150 Mg Tabcr) 150 mg PO DAILY LISA Stop: 04/07/21 08:59 Last Admin: 03/10/21 08:55 Dose: 150 mg Documented by: Carvedilol (Carvedilol 3.125 Mg Tab) 3.125 mg PO BID LISA Stop: 04/06/21 20:59 Last Admin: 03/10/21 08:55 Dose: 3.125 mg Documented by: Dextrose (Dextrose 50% 50 Ml Syringe) 25 - 50 ml IV UD PRN; Protocol PRN Reason: Hypoglycemia Protocol Stop: 04/06/21 20:44 Ferrous Sulfate (Ferrous Sulfate 325 Mg Tab) 325 mg PO DAILY [facility] Stop: 04/07/21 08:59 Last Admin: 03/10/21 08:56 Dose: 325 mg Documented by: Fluoxetine HCl (Fluoxetine Hcl 20 Mg Cap) 40 mg PO QAM [facility] Stop: 04/07/21 08:59 Last Admin: 03/10/21 08:56 Dose: 40 mg Documented by: Glucagon (Glucagon For Inj 1 Mg Vial) 1 mg SQ UD PRN; Protocol PRN Reason: Hypoglycemia Protocol Stop: 04/06/21 20:44 Glucose (Glucose 10 Tabs/Tube) 4 - 8 tabs PO UD PRN; Protocol PRN Reason: Hypoglycemia Protocol Stop: 04/06/21 20:44 Glucose (Glucose 40% Gel 15 Gm Tube) 15 - 30 gm PO UD PRN; Protocol PRN Reason: Hypoglycemia Protocol Stop: 04/06/21 20:44 Furosemide 40 mg/ Syringe 4 mls @ 4 mls/min IV BID17 [facility] Stop: 04/06/21 21:14 Last Admin: 03/10/21 08:56 Dose: 4 mls/min Documented by: Insulin Aspart (Insulin Aspart 100 Units/Ml 3 Ml Pen) 0 units SC 1130,1630,2100 [facility]; Protocol Stop: 04/08/21 16:29 Last Admin: 03/10/21 12:13 Dose: 3 units Documented by: Insulin Aspart (Insulin Aspart 100 Units/Ml 3 Ml Pen) 0 units SC 0730 [facility]; Protocol Stop: 04/09/21 07:29 Last Admin: 03/10/21 08:53 Dose: 1 units Documented by: Insulin Detemir (Insulin Detemir Flexpen/Flex Touch 100 Units/Ml 3ml) 0 units SC BID [facility]; Protocol Stop: 04/06/21 21:14 Last Admin: 03/10/21 08:58 Dose: 10 units Documented by: Loperamide HCl (Loperamide Hcl 2 Mg Cap) 2 mg PO UD PRN PRN Reason: Diarrhea Stop: 04/08/21 17:25 Last Admin: 03/10/21 09:00 Dose: 2 mg Documented by: Magnesium Oxide (Magnesium Oxide 400 Mg Tab) 400 mg PO DAILY [facility] Stop: 04/07/21 08:59 Last Admin: 03/10/21 08:58 Dose: 400 mg Documented by: Miscellaneous (Carbohydrates For Hypoglycemia ) 15 - 30 gm PO UD PRN PRN Reason: Hypoglycemia Protocol Stop: 04/06/21 20:44 Miscellaneous Information (Pharmacy Glycemic Mgmt Consult) 1 ea N/A [facility] [place]; Protocol Stop: 04/06/21 21:01 Nortriptyline HCl (Nortriptyline Hcl 25 Mg Cap) 50 mg PO HS [facility] Stop: 04/06/21 20:59 Last Admin: 03/09/21 20:03 Dose: 50 mg Documented by: Nystatin (Nystatin Powder 15gm Btl) 1 appln EXT UD [facility] Stop: 04/06/21 19:14 Ondansetron HCl (Ondansetron Inj 2 Mg/Ml 2 Ml Vial) 4 mg IV Q6H PRN PRN Reason: Nausea Stop: 04/06/21 20:44 Last Admin: 03/08/21 10:49 Dose: 4 mg Documented by: Pantoprazole Sodium (Pantoprazole 40 Mg Tab) 40 mg PO DAILY [facility] Stop: 04/07/21 08:59 Last Admin: 03/10/21 08:59 Dose: 40 mg Documented by: Polyethylene Glycol (Polyethylene (Miralax) 17 Gm Pack) 17 gm PO DAILY PRN PRN Reason: Constipation Stop: 04/06/21 20:44 Tolterodine Tartrate (Tolterodine Tartrate La 2 Mg Capcr) 2 mg PO QAM [facility] Stop: 04/07/21 08:59 Last Admin: 03/10/21 08:59 Dose: 2 mg Documented by:
[2021-03-10] MEDS: NORTRIPTYLINE HCL 25 MG CAP PO SCH (19:48)
[2021-03-11 06:17] LABS: Estimated Average Glucose 143 mg/dl; Hemoglobin A1C 6.6 % (4.5-5.6)
[2021-03-11] MEDS: PANTOprazole 40 MG TAB PO SCH (07:57)
[2021-03-11] MEDS: MAGNESIUM OXIDE 400 MG TAB PO SCH (07:57)
[2021-03-11] MEDS: ASPIRIN 81 MG ECTAB PO SCH (07:57)
[2021-03-11] MEDS: FLUoxetine HCL 20 MG CAP PO SCH (07:57)
[2021-03-11] MEDS: ATORVASTATIN 40 MG TAB PO SCH (07:57)
[2021-03-11] MEDS: FERROUS SULFATE 325 MG TAB PO SCH (07:57)
[2021-03-11] MEDS: allopurinoL 300 MG TAB PO SCH (07:57)
[2021-03-11] MEDS: APIXABAN 5 MG TABLET PO SCH (07:57)
[2021-03-11] MEDS: TOLTERODINE TARTRATE LA 2 MG CAPCR PO SCH (07:57)
[2021-03-11] MEDS: buPROPion SR 150 MG TABCR PO SCH (07:57)
[2021-03-11] MEDS: INSULIN ASPART 100 UNITS/ML 3 ML PEN SC SCH ×2 (07:58→12:33)
[2021-03-11] MEDS: carvediloL 3.125 MG TAB PO SCH (07:59)
[2021-03-11] MEDS: INSULIN DETEMIR FLEXPEN/FLEX TOUCH 100 UNITS/ML 3ML SC SCH (07:59)
[2021-03-11 08:09] LABS: BUN Creatinine Ratio 26.6 (10-20); Calcium 9.1 mg/dl (8.5-10.1); Creatinine Clr Calc Pharmacy 33.8 ml/min; Est GFR (African American) 33.4; Est GFR (Non-African American) 28.8; Potassium 4.2 mmol/L (3.5-5.1)
--- NOTE | 2021-03-11 08:31 | Cardiology Progress Note ---
Date of Service March 11, 2021 Assessment & Plan (1) Heart failure, diastolic, with acute decompensation: Patient with severe valvular disease with severe aortic stenosis, mild to moderate insufficiency presents with signs and symptoms of decompensated diastolic heart failure secondary to valvular disease. Weight is up 15 to 20 pounds and there is evidence of volume overload by exam. (2) Severe aortic stenosis: (3) Atrial flutter, paroxysmal: (4) HTN (hypertension): (5) CKD (chronic kidney disease), stage III: Improving evidence of acute decompensated diastolic heart failure secondary to severe aortic valvular disease. Maintaining sinus rhythm. Patient has been adequately diuresed and now examines is euvolemic. I believe she is now medically optimized prior to upcoming [place]R on 03/14/2021 at [facility] [place] We will start torsemide 20 mg p.o. every morning with an afternoon dose as needed, signs and symptoms of volume overload reviewed with patient. Continue low dose beta raman and Eliquis anticoagulation Okay to discharge home from cardiac standpoint. Admission and Anticipated Discharge Date Admission Date: March 07, 2021 Subjective Patient seen and examined, chart reviewed. States that she is feeling much better today and that breathing is just about back to baseline. Notes the lower extremity edema is improving as well. Denies chest pain, palpitations, lightheadedness or dizziness. Anxious for discharge. Telemetry reviewed: Sinus rhythm without arrhythmia. Review of Systems Review of Systems: All systems reviewed & are unremarkable except as noted in HPI & below Physical Exam Physical Exam: General: Awake, alert and oriented x 3. No acute distress. HEENT: Normocephalic, atraumatic. Pupils equal, round and reactive to light and accommodation. Extraocular muscles are intact. Anicteric sclera. Moist mucous membranes. Neck: No JVD. No bruit. Cardiovascular: Regular. Positive S-4. Normal S-1 and S-2. No S-3. 3/6 mid to late systolic ejection murmur, greatest at the right sternal border, second intercostal space with radiation to the bilateral carotids. No rubs. Pulmonary: Clear to auscultation bilaterally. No rales, rhonchi, or wheezing. Abdomen: Bowel sounds x 4, soft. No rebound, guarding or tenderness. No organomegaly. Extremities: No clubbing, cyanosis or edema. +2 pedal pulses bilaterally. Skin: Warm and dry. Results & Data ([facility]) Vital Signs (Past 12 Hours) Vital Signs Temp Pulse Pulse Resp BP Pulse Ox 03/11/21 08:15 36.5 C 78 18 149/67 H 94 03/11/21 03:35 36.5 C 76 19 145/77 H 92 03/11/21 02:53 77 03/11/21 00:07 36.5 C 74 18 146/79 H 93
[2021-03-11] MEDS ORDERED: TORSEMIDE 10 MG TAB PO SCH (10:15)
--- NOTE | 2021-03-11 14:46 | Discharge Summary ---
Date of Service March 11, 2021 Admission HPI Per Admitting Provider This is a 70-year-old female with PMH of chronic diastolic heart failure in the setting of severe aortic stenosis, type 2 diabetes, paroxysmal atrial flutter, CKD 3, hyperlipidemia, hypothyroidism and other medical problems as below who presents from cardiology clinic for treatment of decompensated heart failure. Patient was seen in clinic today for CHF follow-up prior to scheduled TAVR on 03/14/2021. Presented with hypervolemia with an approximate 18 pound weight gain from baseline. Has been taking 40 mg of Lasix daily but remains short of breath at rest and with exertion. Endorsing orthopnea and dry cough. No fever, chills, lightheadedness, headache, chest pain, wheezing, nausea, vomiting, abdominal pain, dysuria, diarrhea or constipation. Taking all medications as scheduled. Admission Exam Per Admitting Provider General Appearance: WD/WN, vitals as above, NAD, sitting up in bedside chair, conversational dyspnea, pleasant Head: normocephalic, atraumatic Eyes: normal inspection, PERRL, conjunctivae normal, anicteric sclerae ENT: external ear and nose normal, oropharynx normal Neck: normal visual inspection, trachea midline, no thyromegaly Respiratory: increased respiratory effort, coarse breath sounds at bases, no wheeze or rhonchi. No accessory muscle use Cardiovascular: regular rate, rhythm, +systolic murmur, normal peripheral pulses, trace BLE edema. Vessels: + JVD Chest: normal inspection of chest Abdomen/GI: normal bowel sounds, mildly distended but soft, nontender, no hepatosplenomegaly Extremities/Musculoskeletal: no cyanosis or clubbing, extremities motor strength 5/5 Neurologic: PERRL, EOMI, accommodation nl, no face palsy, no dysarthria, CN's II-XI intact bilaterally and moves all extremities Psychiatric: A+Ox3, euthymic affect Skin: no rashes, normal color, warm/dry Principal Diagnosis Acute decompensated heart failure Severe aortic stenosis Discharge Exam CONSTITUTIONAL: obese, vitals as above, generally well-appearing EYES: normal conjunctivae, no scleral icterus ENT: external ear and nose normal, MMM RESPIRATORY: clear to auscultation bilaterally, no crackles, rales or wheezes, normal respiratory effort CARDIOVASCULAR: regular rate and rhythm, 3/6 EDE heard throughout precordium, no gallops or rubs, no JVD, no peripheral edema CHEST: inspection of chest was normal GASTROINTESTINAL: soft, nontender, nondistended, no guarding MUSCULOSKELETAL: strength 5/5 throughout, head is normocephalic and atraumatic SKIN: warm and dry NEUROLOGIC: CN 2-12 grossly intact, normal cognition, normal speech, no tremor, no gross focal deficits. PSYCHIATRIC: alert cooperative and oriented to person, place and time. Discharge Data Allergies Allergy/AdvReac Type Severity Reaction Status Date / Time colchicine Allergy Mild GI SYMPTOMS Verified 03/07/21 17:40 Consultations 03/07/21 17:22 ED Decision to Admit Stat 03/08/21 08:00 Consult Cardiology Routine Ordered Studies Laboratory Results WBC 10.13 K/uL (4.8-10.8) 03/09/21 06:12 RBC 3.98 M/uL (4.2-5.4) L 03/09/21 06:12 Hgb 11.9 g/dL (12.0-16.0) L 03/09/21 06:12 Hct 35.9 % (37-47) L 03/09/21 06:12 MCV 90.2 fL (80-100) 03/09/21 06:12 MCH 29.9 pg (25-34) 03/09/21 06:12 MCHC 33.1 g/dL (32-36) 03/09/21 06:12 RDW Std Deviation 45.0 fL (36.4-46.3) 03/09/21 06:12 RDW Coeff of Mario 13.9 % (11.5-14.5) 03/09/21 06:12 Plt Count 243 K/uL (130-400) 03/09/21 06:12 MPV 10.1 fL (7.4-10.4) 03/09/21 06:12 Immature Gran % (Auto) 0.1 % 03/07/21 15:40 Neut % (Auto) 73.9 % 03/07/21 15:40 Lymph % (Auto) 18.3 % 03/07/21 15:40 George % (Auto) 5.9 % 03/07/21 15:40 Eos % (Auto) 1.5 % 03/07/21 15:40 Baso % (Auto) 0.3 % 03/07/21 15:40 Neut # (Auto) 6.86 K/uL (1.4-6.5) H 03/07/21 15:40 Lymph # (Auto) 1.70 K/uL (1.2-3.4) 03/07/21 15:40 George # (Auto) 0.55 K/uL (0.11-0.59) 03/07/21 15:40 Eos # (Auto) 0.14 K/uL (0-0.5) 03/07/21 15:40 Baso # (Auto) 0.03 K/uL (0-0.2) 03/07/21 15:40 Immature Gran # (Auto) 0.01 K/uL (0.00-0.02) 03/07/21 15:40 PT 11.0 Seconds (9.0-12.0) 03/07/21 15:40 INR 1.1 (0.9-1.1) 03/07/21 15:40 Sodium 141 mmol/L (136-145) 03/11/21 07:04 Potassium 4.2 mmol/L (3.5-5.1) 03/11/21 07:04 Chloride 108 mmol/L (98-107) H 03/11/21 07:04 Carbon Dioxide 28 mmol/L (21-32) 03/11/21 07:04 Anion Gap 6.0 (3-11) 03/11/21 07:04 BUN 47 mg/dl (7-18) H 03/11/21 07:04 Creatinine 1.76 mg/dl (0.6-1.2) H 03/11/21 07:04 Est Cr Clr Drug Dosing 33.8 ml/min 03/11/21 07:04 Est GFR ( Amer) 33.4 03/11/21 07:04 Est GFR (Non-Af Amer) 28.8 03/11/21 07:04 BUN/Creatinine Ratio 26.6 (10-20) H 03/11/21 07:04 Glucose 112 mg/dl (70-99) H 03/11/21 07:04 POC Glucose 115 mg/dl (70-99) H 03/11/21 11:32 Estimat Average Glucose 143 mg/dl 03/10/21 06:46 Hemoglobin A1c 6.6 % (4.5-5.6) H 03/10/21 06:46 Calcium 9.1 mg/dl (8.5-10.1) 03/11/21 07:04 Magnesium 1.8 mg/dl (1.8-2.4) 03/10/21 06:46 Total Bilirubin 0.4 mg/dl (0.2-1) 03/07/21 15:40 AST 12 U/L (15-37) L 03/07/21 15:40 ALT 13 U/L (12-78) 03/07/21 15:40 Alkaline Phosphatase 143 U/L (45-117) H 03/07/21 15:40 Troponin I 0.023 ng/ml (0-0.045) 03/07/21 15:40 NT-Pro-B Natriuret Pep 6070 pg/ml (0-900) H 03/07/21 15:40 Total Protein 6.8 gm/dl (6.4-8.2) 03/07/21 15:40 Albumin 2.7 gm/dl (3.4-5.0) L 03/07/21 15:40 Globulin 4.1 gm/dl (2.5-4.0) H 03/07/21 15:40 Albumin/Globulin Ratio 0.7 (0.9-2) L 03/07/21 15:40 Lipase 68 U/L (73-393) L 03/07/21 15:40 TSH 3.910 uIu/ml (0.300-4.500) 03/07/21 15:40 Stl C. diff Tox B Gene Negative Cdiff Gene (Neg) 03/09/21 08:42 COVID-19 Eval Order [facility]sv at [facility] 03/07/21 17:30 SARS-CoV-2 (PCR) NEGATIVE (Negative) 03/07/21 17:30 Influenza Type A (PCR) Negative (Neg) 03/07/21 17:30 Influenza Type B (PCR) Negative (Neg) 03/07/21 17:30 RSV (RT-PCR) Negative (Neg) 03/07/21 17:30 Impressions Chest X-Ray 03/07/21 16:06 XR chest 1V portable CLINICAL HISTORY: Shortness of breath COMPARISON STUDY: January 12, 2021 FINDINGS: The heart is mildly enlarged. Mild interstitial prominence may relate to technical factors given the patient's large body habitus. There is no lobar consolidation. There is mild basilar atelectasis. Calcifications are visualized projected over the left proximal humerus.[ IMPRESSION: 1. Mild cardiomegaly 2. Minor basilar atelectasis 3. No evidence of lobar consolidation 4. Interstitial prominence, a finding which may be related to technical factors given the patient's large body habitus ACT 112: Negative or not required by law. Electronically signed by: Jasper Elliott M.D. 03/07/2021 4:17 PM Hospital Course (1) Heart failure, diastolic, with acute decompensation: (2) Severe aortic stenosis: The patient is a 70-year-old female with known history of severe aortic stenosis. She has an upcoming TAVR scheduled at [facility] on 03/14/2021. She presented after gaining approximately 20 pounds at home after cutting her diuretic in half a couple of weeks ago. She was admitted to the hospitalist service and started on intravenous diuretics. Cardiology was consulted. The goal of care was hemodynamic optimization prior to upcoming procedure. She remained at her baseline renal function with a gradual climb and creatinine to 1.76 at time of discharge from 1.22 at admission. She has a known history of CK D stage III and this is around her baseline. By time of discharge she had lost 5 kg, approximately 10 pounds with diuresis efforts. She was started on daily torsemide 20 mg every morning in place of her Lasix and continued on low-dose beta-raman and Eliquis anticoagulation. She was discharged in stable condition to home with close follow-up in 3 days with [facility] for her valve replacement. Primary care follow-up is recommended as soon as feasible post procedure to ensure she still doing well in follow-up from this hospital stay. BMP in 2 weeks is recommended with change to torsemide. Total Time Total Time Spent Total Time Spent (In Minutes): 60 Total Time Includes: Examination of the Patient, Discharge Planning, Medication Reconciliation and Communication With Other Providers Discharge Plan Discharge Items Patient Disposition: Home - Self-Care Reason For Visit: ACUTE DECOMPENSATED HF, AV STENOSIS Discharge Diagnosis: Acute decompensated heart failure Severe aortic stenosis Condition on Discharge: Fair Activity: Resume your previous activity Non-emergency contact: Primary Care Provider and Coder Call non-emergency contact if: you have any medication questions and your symptoms worsen Follow-up/Referrals: Garrett Kay DO [Outside Practitioners] - (Date & Time 03/15/2021 12:00 PM Provider Garrett Kay DO Department [facility] ) Nicole Gibbs CRNP [Primary Care Provider] - Diet: Carb Consistent or DM2 and Low Sodium (2gm) Addtl Attending Provider Instructions: Please take all medications as instructed on discharge list below. Please follow all pre-operative instructions to hold medications per your Cardiothoracic surgeon in [facility]. It is recommended that you follow-up with your primary care provider (PCP) within one week of discharge from your procedure, to ensure you are doing well after going home. It was a pleasure taking care of you! Please call if you have any questions or problems. You can reach a [facility] hospitalist on duty at [facility] [address] 24 hours a day by calling [phone]. Take care of yourself. Bethany Box DO [facility] Pending Studies at Discharge: No Stand-Alone Forms: My [facility] Medications and DC Order Prescriptions: New torsemide 20 mg tablet 20 mg PO QAM Qty: 30 RF: 0 Continued Eliquis 5 mg tablet 5 mg PO BID RF: 0 Levemir U-100 Insulin 100 unit/mL solution 54 unit subcut AMHS RF: 0 insulin aspart U-100 [Novolog U-100 Insulin aspart] 100 unit/mL solution 30 unit subcut AC RF: 0 fluoxetine 40 mg capsule 40 mg PO QAM RF: 0 atorvastatin 40 mg tablet 40 mg PO QAM RF: 0 aspirin 81 mg Tablet,Delayed Release (Dr/Ec) 81 mg PO QAM RF: 0 allopurinol 300 mg tablet 300 mg PO QAM RF: 0 tolterodine 2 mg capsule,extended release 24hr 2 mg PO QAM RF: 0 nortriptyline 50 mg capsule 50 mg PO HS RF: 0 pantoprazole 40 mg tablet,delayed release (DR/EC) 40 mg PO DAILY RF: 0 bupropion HCl 150 mg tablet sustained-release 12 hr 150 mg PO DAILY RF: 0 carvedilol 3.125 mg tablet 3.125 mg PO BID RF: 0 nystatin [Nystop] 100,000 unit/gram powder 1 applic TOPICAL UD RF: 0 ferrous sulfate 27 mg iron Tablet 27 mg PO DAILY RF: 0 magnesium oxide 400 mg magnesium Tablet 400 mg PO DAILY RF: 0 Discontinued furosemide 40 mg tablet 20 mg PO QAM RF: 0 Discharge Orders: Discharge Order (Routine); Ordered 03/11/21 Ordered By: Bethany Dewitt/Other Patient Handouts: Managing Type 2 Diabetes, Managing Diabetes: The A1C Test Admission Data Admit Date/Time: 03/07/21 17:45 Attending Provider: Bethany Box Admit Provider: Bethany Box Primary Care Provider: Nicole Gibbs Other Providers: Bethany Box ; Roberto Marinelli Other Interventions: Discharge Summary Assessment (RN) Last Done: 03/11/21 15:35
== END 2021-03-11 16:16 | disposition home or self-care (01) | DRG 291 ==
LOC: ED 15:08 → 2S 17:45

== ENCOUNTER 2021-08-27 13:45 | Inpatient (IN) ==
[2021-08-27] MEDS ORDERED: dilTIAZem HCl 5 MG/ML 5 ML VIAL IV STA ×2 (14:02→15:05)
[2021-08-27] MEDS ORDERED: SODIUM CHLORIDE 0.9% 1000ML 500 ML IV ONE (14:02)
--- NOTE | 2021-08-27 14:11 | Emergency Department Note ---
Impression & Plan Atrial fibrillation with rapid ventricular response, Hypomagnesemia, Chest pain, Abnormal EKG ED Provider Note NAME: FRANCINE CHAVES AGE: 70 SEX: F : 1950 ARRIVES VIA: Ambulance INFORMANT: Patient, ED PROVIDER(S): Sukhjinder Dubois DO CHIEF COMPLAINT: Palpitations HPI: The patient is a 70-year-old female who presented to emergency department by ambulance for an evaluation of palpitations and chest pain. The patient stat es that she has a history of atrial fibrillation. She also has a history of valve replacement. The patient states she has a history of using medications for blood pressure rate control as well as a blood thinner. Unfortunately she is not been compliant with her medications over the last 48 hours. She started having episodes of nausea and vomiting today. She was also having chest pain and palpitations. She called 911 after the visiting nurse came to see her today and found her to be in tachycardia. The patient states at this time she has no chest pain. She notices no further nausea or vomiting. She denies having any abdominal pain or back pain. The patient states she has noticed some swelling in her legs but this is not new for her. She denies having any weight gain. She was not seen by her primary care physician prior to coming to the emergency department. ROS: See above HPI for pertinent positives & negatives. A total of 10 systems reviewed and were otherwise negative. PAST MEDICAL HISTORY: See Below PAST SURGICAL HISTORY: See Below FAMILY HISTORY: See Below SOCIAL HISTORY: See Below HOME MEDICATIONS: See Below ALLERGIES: See Below VITALS: See Below PHYSICAL EXAMINATION: GENERAL: Patient is awake alert in no acute distress patient is resting comfortably and showing no signs of anxiety EYES: The conjunctivae are clear. The pupils are round and reactive. EARS, NOSE, MOUTH AND THROAT: The nose is without any evidence of any deformity. Mucous membranes are moist. There is a small area of ecchymosis on the left forehead. NECK: The neck is nontender and supple. RESPIRATORY: Normal respiratory effort is noted there is no evidence of wheezing rhonchi or rales CARDIOVASCULAR: Tachycardic and regular heart sounds were noted to auscultation. No definite murmur could be noted to auscultation.. GASTROINTESTINAL: The abdomen is soft. Abdomen is nontender. MUSCULOSKELETAL/EXTREMITIES: There is no evidence of gross deformity full range of motion is noted in the hips and shoulders. SKIN: Chronic venous stasis changes were noted. Pedal edema was noted bilaterally. Skin is warm dry NEUROLOGIC: Patient is awake alert and oriented x3 MEDICAL DECISION MAKING: The patient is a 70-year-old female who presented to the emergency department for palpitations. The patient was found to have an EKG consistent with atrial fibrillation. She has a history of atrial fibrillation. She is been having some loose bowel movements and also some vomiting. She thinks she may have not kept her morning medications down. She was treated with IV fluids as well as IV Lopressor and IV Cardizem in the emergency department. She was reevaluated multiple times. Symptoms improved somewhat. She was no longer having any chest pain. Her heart rate improved. I discussed her condition [facility] They have agreed to evaluate the patient in the emergency department for further management and disposition. The patient was also treated with magnesium replacement as well as IV fluids. Her creatinine was mildly elevated compared to baseline. Triage Nursing notes reviewed. Prior medical records reviewed Vital Signs: reviewed and remarkable for tachycardia. Differential diagnosis: Cardiac ischemia, aortic dissection, pulmonary embolism, pneumothorax, pneumonia, pericarditis, myocarditis, esophageal rupture, GERD, cholecystitis, pancreatitis, musculoskeletal, as well as other pathologies. ER treatment provided: See below Diagnostics interpreted by me: ECG: EKG was obtained in the emergency department. My interpretation is atrial flutter at 138 beats per minute. There were no PVCs. Left bundle branch block pattern was suggested. LVH was suggested by voltage criteria. There was also low lateral T wave abnormalities. This was compared to a tracing from July 252020. The left bundle branch block is new as well as the T wave versions. Cardiac Monitoring: An order was placed for continuous cardiac monitoring. The monitor shows a rate of 132 bpm with atrial fibrillation rhythm. Laboratory studies: As stated above and show below. Imaging studies: See below Consultation(s): I discussed this case with Rosamaria wood who is on-call for the [facility]. She will evaluate the patient in the emergency department. ED COURSE: Procedures: none PDMP:reviewed and no issues Critical Care: I have personally spent greater than 45 minutes of critical care time in the direct management of this patient. This includes bedside care, interpretation of diagnostic studies, and testing, discussion with consultants, patient, and family members, and other required patient management activities. This 45 minutes is in excess of all separately billable procedures. Past Med/Surg History Medical History Chronic anticoagulation Chronic diastolic CHF (congestive heart failure) CKD (chronic kidney disease), stage III DM type 2 (diabetes mellitus, type 2) Dyslipidemia Dyspnea GERD (gastroesophageal reflux disease) History of Clostridium difficile infection Hypothyroidism Paroxysmal atrial flutter Stress incontinence Umbilical hernia Surgical History History of fracture of leg s/p surgical fixation S/P TAVR (transcatheter aortic valve replacement) 03/2021 Status post cataract extraction Family History Mother , 67 Alzheimer disease Father Myocardial infarction, Onset Age: 47 Social History Smoking Status: Former smoker Tobacco Type: Cigarettes Years Smoked: 5; Second Hand Exposure: No; Do You Dip or Chew Tobacco: No; Tobacco Cessation Education Requested by Patient: No Hx Alcohol Use: No Hx Substance Use: No Preferred Language: Bengali Communication Ability: Effective Master Ocean Required: No Beliefs That Will Affect Care: None marital status: / Current Living Situation: Alone Other Information That Helps Us Care for You: No Feels Safe at Home: Yes Safety Concerns: Feels Safe At This Time Assistive Devices: Glasses and Walker Allergies Allergies Allergy/AdvReac Type Severity Reaction Status Date / Time colchicine Allergy Mild GI SYMPTOMS Verified 08/27/21 14:28 Home Meds Home Medications Medication Instructions Recorded Confirmed allopurinol 300 mg tablet 300 mg PO QAM 02/27/19 08/27/21 aspirin 81 mg tablet,delayed 81 mg PO QAM 02/27/19 08/27/21 release atorvastatin 40 mg tablet 40 mg PO QAM 02/27/19 08/27/21 fluoxetine 40 mg capsule 40 mg PO QAM 02/27/19 08/27/21 nortriptyline 50 mg capsule 50 mg PO HS 02/27/19 08/27/21 tolterodine 2 mg capsule,extended 2 mg PO QAM 02/27/19 08/27/21 release 24 hr pantoprazole 40 mg tablet,delayed 40 mg PO DAILY 09/27/20 08/27/21 release bupropion HCl 150 mg tablet,12 hr 150 mg PO DAILY 10/03/20 08/27/21 sustained-release apixaban 5 mg tablet (Eliquis) 5 mg PO BID 01/12/21 08/27/21 insulin aspart U-100 100 unit/mL 30 unit SUBCUT BIDM 01/12/21 08/27/21 subcutaneous solution (Novolog U-100 Insulin aspart) insulin detemir U-100 100 unit/mL 55 unit SUBCUT AMHS 01/12/21 08/27/21 subcutaneous solution (Levemir U-100 Insulin) magnesium oxide 400 mg PO DAILY 03/07/21 08/27/21 nystatin 100,000 unit/gram topical 1 applic TOPICAL UD PRN 03/07/21 08/27/21 powder (Nystop) amlodipine 5 mg tablet 5 mg PO DAILY 08/27/21 08/27/21 carvedilol 12.5 mg tablet 12.5 mg PO BID 08/27/21 08/27/21 furosemide 40 mg tablet 20 mg PO DAILY 08/27/21 08/27/21 multivitamin 1 tab PO DAILY 08/27/21 08/27/21 ondansetron 4 mg disintegrating 4 mg PO Q8H PRN 08/27/21 08/27/21 tablet Results & Data (ED) Vital Signs Vital Signs - 24 hr 08/27/21 13:45 08/27/21 14:04 08/27/21 14:05 Temperature 37.5 C Temperature Source Oral Pulse Rate 137 H 139 H Pulse Rate from SpO2 Sensor 140 H Pulse Rhythm Irregular Irregular Respiratory Rate 21 19 Respiratory Effort / Characteristics Non-Labored Spontaneous Respiratory Depth Normal Respiratory Pattern Regular Blood Pressure 165/87 H Blood Pressure Mean 113 Blood Pressure Position Lying Pulse Oximetry 98 96 97 Oxygen Delivery Method Room Air Room Air Room Air Sepsis Recent Fever Within 48 Hours No Sepsis New/Unexplained Change in Mental Status No Sepsis Action Taken by Nursing No Action Required 08/27/21 14:15 08/27/21 14:30 08/27/21 14:46 Temperature Temperature Source Pulse Rate 138 H 137 H 136 H Pulse Rate from SpO2 Sensor 138 H 137 H 137 H Pulse Rhythm Respiratory Rate 18 23 19 Respiratory Effort / Characteristics Respiratory Depth Respiratory Pattern Blood Pressure Blood Pressure Mean Blood Pressure Position Pulse Oximetry 97 96 96 Oxygen Delivery Method Sepsis Recent Fever Within 48 Hours Sepsis New/Unexplained Change in Mental Status Sepsis Action Taken by Nursing 08/27/21 15:00 08/27/21 15:15 08/27/21 15:30 Temperature Temperature Source Pulse Rate 137 H 138 H 140 H Pulse Rate from SpO2 Sensor 138 H 138 H 140 H Pulse Rhythm Respiratory Rate 18 19 19 Respiratory Effort / Characteristics Respiratory Depth Respiratory Pattern Blood Pressure Blood Pressure Mean Blood Pressure Position Pulse Oximetry 94 94 95 Oxygen Delivery Method Sepsis Recent Fever Within 48 Hours Sepsis New/Unexplained Change in Mental Status Sepsis Action Taken by Nursing 08/27/21 15:45 08/27/21 16:10 08/27/21 16:15 Temperature Temperature Source Pulse Rate 139 H 125 H 125 H Pulse Rate from SpO2 Sensor 140 H 125 H Pulse Rhythm Respiratory Rate 16 17 Respiratory Effort / Characteristics Respiratory Depth Respiratory Pattern Blood Pressure Blood Pressure Mean Blood Pressure Position Pulse Oximetry 94 98 Oxygen Delivery Method Sepsis Recent Fever Within 48 Hours Sepsis New/Unexplained Change in Mental Status Sepsis Action Taken by Nursing 08/27/21 16:30 Temperature Temperature Source Pulse Rate 124 H Pulse Rate from SpO2 Sensor 123 H Pulse Rhythm Respiratory Rate 15 Respiratory Effort / Characteristics Respiratory Depth Respiratory Pattern Blood Pressure Blood Pressure Mean Blood Pressure Position Pulse Oximetry 99 Oxygen Delivery Method Sepsis Recent Fever Within 48 Hours Sepsis New/Unexplained Change in Mental Status Sepsis Action Taken by [facility] Medications Current Medication List: was personally reviewed by me Laboratory Data Attestation: I reviewed the patient's lab results. Result diagrams: 08/27/21 14:15 08/27/21 14:15 Lab Results 08/27/21 08/27/21 08/27/21 Range/Units 14:07 14:07 14:15 WBC 12.32 H (4.8-10.8) K/uL RBC 4.51 (4.2-5.4) M/uL Hgb 13.2 (12.0-16.0) g/dL Hct 40.0 (37-47) % MCV 88.7 (80-100) fL MCH 29.3 (25-34) pg MCHC 33.0 (32-36) g/dL RDW Std Deviation 46.8 H (36.4-46.3) fL RDW Coeff of Mario 14.4 (11.5-14.5) % Plt Count 226 (130-400) K/uL MPV 10.3 (7.4-10.4) fL Immature Gran % (Auto) 0.2 % Neut % (Auto) 84.5 % Lymph % (Auto) 9.8 % [place] % (Auto) 4.4 % Eos % (Auto) 0.9 % Baso % (Auto) 0.2 % Neut # (Auto) 10.41 H (1.4-6.5) K/uL Lymph # (Auto) 1.21 (1.2-3.4) K/uL [place] # (Auto) 0.54 (0.11-0.59) K/uL Eos # (Auto) 0.11 (0-0.5) K/uL Baso # (Auto) 0.02 (0-0.2) K/uL Immature Gran # (Auto) 0.03 H (0.00-0.02) K/uL PT (9.0-12.0) Seconds INR (0.9-1.1) APTT (21.0-31.0) Seconds PTT Ratio Sodium (136-145) mmol/L Potassium (3.5-5.1) mmol/L Chloride (98-107) mmol/L Carbon Dioxide (21-32) mmol/L Anion Gap (3-11) BUN (7-18) mg/dl Creatinine (0.6-1.2) mg/dl Est Cr Clr Drug Dosing ml/min Est GFR ( Amer) ml/min Est GFR (Non-Af Amer) ml/min BUN/Creatinine Ratio (10-20) Glucose (70-99) mg/dl Calcium (8.5-10.1) mg/dl Magnesium (1.8-2.4) mg/dl Total Bilirubin (0.2-1) mg/dl AST (15-37) U/L ALT (12-78) U/L Alkaline Phosphatase (45-117) U/L Troponin I (0-0.045) ng/ml Total Protein (6.4-8.2) gm/dl Albumin (3.4-5.0) gm/dl Globulin (2.5-4.0) gm/dl Albumin/Globulin Ratio (0.9-2) TSH (0.300-4.500) uIu/ml COVID-19 Eval Order Covid19 at [facility] SARS-CoV-2 (PCR) NEGATIVE (Negative) 08/27/21 08/27/21 Range/Units 14:15 14:15 WBC (4.8-10.8) K/uL RBC (4.2-5.4) M/uL Hgb (12.0-16.0) g/dL Hct (37-47) % MCV (80-100) fL MCH (25-34) pg MCHC (32-36) g/dL RDW Std Deviation (36.4-46.3) fL RDW Coeff of Mario (11.5-14.5) % Plt Count (130-400) K/uL MPV (7.4-10.4) fL Immature Gran % (Auto) % Neut % (Auto) % Lymph % (Auto) % [place] % (Auto) % Eos % (Auto) % Baso % (Auto) % Neut # (Auto) (1.4-6.5) K/uL Lymph # (Auto) (1.2-3.4) K/uL [place] # (Auto) (0.11-0.59) K/uL Eos # (Auto) (0-0.5) K/uL Baso # (Auto) (0-0.2) K/uL Immature Gran # (Auto) (0.00-0.02) K/uL PT 10.9 (9.0-12.0) Seconds INR 1.1 (0.9-1.1) APTT 25.9 (21.0-31.0) Seconds PTT Ratio 1.0 Sodium 136 (136-145) mmol/L Potassium 4.9 (3.5-5.1) mmol/L Chloride 104 (98-107) mmol/L Carbon Dioxide 26 (21-32) mmol/L Anion Gap 6.0 (3-11) BUN 38 H (7-18) mg/dl Creatinine 1.83 H (0.6-1.2) mg/dl Est Cr Clr Drug Dosing 32.0 ml/min Est GFR ( Amer) 31.8 ml/min Est GFR (Non-Af Amer) 27.5 ml/min BUN/Creatinine Ratio 20.8 H (10-20) Glucose 167 H (70-99) mg/dl Calcium 9.3 (8.5-10.1) mg/dl Magnesium 1.6 L (1.8-2.4) mg/dl Total Bilirubin 0.4 (0.2-1) mg/dl AST 19 (15-37) U/L ALT 13 (12-78) U/L Alkaline Phosphatase 141 H (45-117) U/L Troponin I 0.015 (0-0.045) ng/ml Total Protein 6.5 (6.4-8.2) gm/dl Albumin 2.5 L (3.4-5.0) gm/dl Globulin 4.0 (2.5-4.0) gm/dl Albumin/Globulin Ratio 0.6 L (0.9-2) TSH 4.110 (0.300-4.500) uIu/ml COVID-19 Eval Order SARS-CoV-2 (PCR) (Negative) Administered Medications Apixaban (Apixaban 5 Mg Tablet) 5 mg PO BID LISA Stop: 09/26/21 20:59 Last Admin: 08/27/21 20:40 Dose: 5 mg Documented by: [id number] Carvedilol (Carvedilol 25 Mg Tab) 25 mg PO BID LISA Stop: 09/26/21 17:39 Last Admin: 08/27/21 20:41 Dose: 25 mg Documented by: [id number] Sodium Chloride (Nss 1000ml) 1,000 mls @ 100 mls/hr IV .Q10H LISA Stop: 08/28/21 13:44 Last Admin: 08/27/21 20:40 Dose: 100 mls/hr Documented by: [id number] Insulin Aspart (Insulin Aspart 100 Units/Ml 3 Ml Pen) 0 units SC ACHS LISA Stop: 09/26/21 20:59 Last Admin: 08/27/21 21:37 Dose: 4 units Documented by: [id number] Cosigned by: [id number] Insulin Glargine (Insulin Glargine Solostar 100 Units/Ml 3 Ml Pen) 20 units SC BID LISA Stop: 09/26/21 20:59 Last Admin: 08/27/21 21:36 Dose: 20 units Documented by: [id number] Cosigned by: [id number] Nortriptyline HCl (Nortriptyline Hcl 25 Mg Cap) 50 mg PO HS LISA Stop: 09/26/21 20:59 Last Admin: 08/27/21 21:36 Dose: 50 mg Documented by: [id number] Discontinued Medications Diltiazem HCl (Diltiazem Hcl 5 Mg/Ml 5 Ml Vial) 20 mg IV NOW STA Stop: 08/27/21 14:03 Last Admin: 08/27/21 14:19 Dose: 20 mg Documented by: [id number] Cosigned by: [id number] Diltiazem HCl (Diltiazem Hcl 5 Mg/Ml 5 Ml Vial) 10 mg IV NOW STA Stop: 08/27/21 15:06 Last Admin: 08/27/21 15:13 Dose: 10 mg Documented by: [id number] Cosigned by: [id number] Sodium Chloride (Nss 1000ml) 500 mls @ 999 mls/hr IV .Q31M ONE Stop: 08/27/21 14:32 Last Infusion: 08/27/21 14:45 Dose: 0 mls/hr Documented by: [id number] Admin: 08/27/21 14:17 Dose: 999 mls/hr Documented by: [id number] Magnesium Sulfate/Dextrose (Magnesium Sulfate / D5w) 1 gm in 100 mls @ 100 mls/hr IV Q1H LISA Stop: 08/27/21 17:04 Last Infusion: 08/27/21 19:00 Dose: 0 mls/hr Documented by: [id number] Admin: 08/27/21 17:13 Dose: 100 mls/hr Documented by: [id number] Infusion: 08/27/21 15:49 Dose: 0 mls/hr Documented by: [id number] Admin: 08/27/21 15:13 Dose: 100 mls/hr Documented by: [id number] Sodium Chloride (Nss) 500 mls @ 999 mls/hr IV .Q31M ONE Stop: 08/27/21 16:13 Last Infusion: 08/27/21 16:37 Dose: 0 mls/hr Documented by: [id number] Admin: 08/27/21 15:49 Dose: 999 mls/hr Documented by: [id number] Metoprolol Tartrate (Metoprolol Tartrate 1 Mg/Ml Vial) 5 mg IV NOW STA Stop: 08/27/21 15:44 Last Admin: 08/27/21 15:49 Dose: 5 mg Documented by: [id number] Metoprolol Tartrate (Metoprolol Tartrate 1 Mg/Ml Vial) 5 mg IV NOW STA Stop: 08/27/21 16:18 Last Admin: 08/27/21 16:27 Dose: 5 mg Documented by: [id number] Imaging Data Radiologist's Impression: Chest X-Ray 08/27/21 14:02 XR chest 1V portable HISTORY: weakness COMPARISON: Chest 03/07/2021. FINDINGS: No pneumothorax. No pleural effusions. The cardiac silhouette remains normal in size. A few left basilar linear densities likely representing scarring or subsegmental atelectasis. Otherwise, lungs are clear. No evidence for pulmonary edema. IMPRESSION: No acute process. ACT 112: Negative or not required by law. Electronically signed by: Hemant Espinoza M.D. 08/27/2021 2:50 PM Discharge Plan Visit Data Chief Complaint: Tachycardia Stated Complaint: TACHYCARDIA ED Provider: Sukhjinder Dubois Discharge Problem: Atrial fibrillation with rapid ventricular response, Hypomagnesemia, Chest pain, Abnormal EKG Patient Disposition: Admitted As Inpatient Discharge Instructions Interventions: ED Discharge Assessment Last Done: 08/27/21 19:44
[2021-08-27 14:30] LABS: Basophils # (auto) 0.02 K/uL (0-0.2); Basophils % (auto) 0.2 %; Eosinophils # (auto) 0.11 K/uL (0-0.5); Eosinophils % (auto) 0.9 %; Hemoglobin 13.2 g/dL (12.0-16.0); Immature Granulocytes # (auto) 0.03 K/uL (0.00-0.02); Immature Granulocytes % (auto) 0.2 %; Lymphocytes # (auto) 1.21 K/uL (1.2-3.4); Lymphocytes % (auto) 9.8 %; Mean Corpuscular Hemoglobin 29.3 pg (25-34); Mean Corpuscular Volume 88.7 fL (80-100); Mean Platelet Volume 10.3 fL (7.4-10.4); Monocytes # (auto) 0.54 K/uL (0.11-0.59); Monocytes % (auto) 4.4 %; Neutrophils # (auto) 10.41 K/uL (1.4-6.5); Neutrophils % (auto) 84.5 %; Platelet Count 226 K/uL (130-400); RDW Coefficient of Variation 14.4 % (11.5-14.5); RDW Standard Deviation 46.8 fL (36.4-46.3); Red Blood Count 4.51 M/uL (4.2-5.4); White Blood Count 12.32 K/uL (4.8-10.8)
[2021-08-27 14:49] LABS: Albumin Level 2.5 gm/dl (3.4-5.0); BUN Creatinine Ratio 20.8 (10-20); Calcium 9.3 mg/dl (8.5-10.1); Est GFR (African American) 31.8 ml/min; Est GFR (Non-African American) 27.5 ml/min; Magnesium 1.6 mg/dl (1.8-2.4); Potassium 4.9 mmol/L (3.5-5.1)
[2021-08-27 14:50] LABS: INR 1.1 (0.9-1.1); Partial Thromboplastin Time 25.9 Seconds (21.0-31.0); Prothrombin Time 10.9 Seconds (9.0-12.0)
--- NOTE | 2021-08-27 14:52 | XRay Report ---
XR chest 1V portable HISTORY: weakness COMPARISON: Chest 03/07/2021. FINDINGS: No pneumothorax. No pleural effusions. The cardiac silhouette remains normal in size. A few left basilar linear densities likely representing scarring or subsegmental atelectasis. Otherwise, l ungs are clear. No evidence for pulmonary edema. IMPRESSION: No acute process. ACT 112: Negative or not required by law. Electronically signed by: Hemant Espinoza M.D. 08/27/2021 2:50 PM
[2021-08-27 15:00] LABS: Albumin Globulin Ratio 0.6 (0.9-2); Bilirubin,Total 0.4 mg/dl (0.2-1); Thyroid Stimulating Hormone 4.11 uIu/ml (0.300-4.500); Total Protein 6.5 gm/dl (6.4-8.2); Troponin I 0.015 ng/ml (0-0.045)
[2021-08-27] MEDS: MAGNESIUM SULFATE / D5W 1 GM/100 ML BAG IV SCH ×2 (15:13→17:13)
--- NOTE | 2021-08-27 15:41 | Electrocardiogram Report ---
Test Reason : Blood Pressure : / mmHG Vent. Rate : 138 BPM Atrial Rate : 138 BPM P-R Int : 130 ms QRS Dur : 116 ms QT Int : 284 ms P-R-T Axes : 069 -17 167 degrees QTc Int : 430 ms Sinus tachycardia Septal infarct (cited on or before 27-AUG-2021) Left ventricular hypertrophy with repolarization abnormality Abnormal ECG When compared with ECG of 25-JUL-2021 21:13, Premature atrial complexes are no longer Present PA interval has decreased Vent. rate has increased BY 51 BPM QRS duration has increased Serial changes of Septal infarct Present Confirmed by Sukhjinder Funk ([id number]) on 08/27/2021 3:40:59 PM Referred By: REFERRED SELF Confirmed By:Sukhjinder Funk
[2021-08-27] MEDS ORDERED: SODIUM CHLORIDE 0.9% 500 ML IV ONE (15:43)
[2021-08-27] MEDS ORDERED: METOPROLOL TARTRATE 1 MG/ML VIAL IV STA ×2 (15:43→16:17)
--- NOTE | 2021-08-27 18:22 | History & Physical Report ---
Date of Service August 27, 2021 Assessment & Plan (1) Atrial flutter with rapid ventricular response: Plan: -Admit to telemetry -Patient presenting from home with reports of generalized weakness and diarrhea x 2 weeks -In the ED, found to be in atrial flutter with RVR with rates in the 130s. History of paroxysmal atrial flutter typically controlled on carvedilol 12.5 mg twice daily and anticoagulated on apixaban. History of aortic stenosis s/p TAVR 03/2021 -Patient received diltiazem 10 mg and 20mg IV, metoprolol 5 mg IV x 2 doses without much improvement in HR -RVR likely secondary to dehydration from ongoing diarrhea in combination with missed a.m. dose beta-raman dose -Case discussed with Dr. Marinelli -increase carvedilol to 25 mg twice daily giving evening dose now, treat dehydration with IVF, replace magnesium. N.p.o. after midnight for possible cardioversion tomorrow. -Continue apixaban for anticoagulation (2) Acute kidney injury superimposed on CKD: (3) CKD (chronic kidney disease), stage III: Plan: -Creatinine 1.8, baseline ~ 1.5 -Likely prerenal in nature due to dehydration from diarrhea -IVF, follow renal functions (4) Diarrhea: Plan: -No abdominal pain, has had some intermittent nausea and vomiting -Clear liquid diet for now -C. difficile and stool culture (5) Chronic diastolic CHF (congestive heart failure): Plan: -Hold furosemide and giving IVF as above (6) DM type 2 (diabetes mellitus, type 2): Plan: -Hgb A1c 5.9 12/2020 -Lantus/NovoLog (7) DVT prophylaxis: Plan: -On apixaban History of Present Illness Chief Complaint: Weakness, diarrhea Primary Care Provider: Garrett Kay DO 70-year-old female with PMH IDDM, CKD stage III, paroxysmal atrial flutter rate controlled on beta-raman and anticoagulated on apixaban, chronic diastolic CHF, aortic valve stenosis s/p TAVR 03/2021, HTN, GERD, and other problems listed below who presents the ED for evaluation of generalized weakness and diarrhea. Patient reports she has been having diarrhea for the past 2 weeks. Reports going up to 10 times per day. Describes stools as watery and brown. Denies abdominal pain. Has had some intermittent episodes of nausea and vomiting however ate a cheese steak last night for dinner. Last episode of vomiting was this morning. Patient denies bright red bleeding per rectum, dark tarry stools, hematemesis, coffee-ground emesis. Today while walking back from the bathroom she had a brief episode of left-sided chest pain. She reports this resolved quickly with sitting down. Denies shortness of breath and palpitations. No lig htheadedness, dizziness, diaphoresis, syncopal events. She denies fevers and chills. No urinary symptoms. In the ED, patient is found to be in atrial flutter with RVR with rates in the 130s. Labs show a mild LAUREN with creatinine 1.8 (baseline 1.5) and mild hypomagnesemia with magnesium 1.6. Patient received diltiazem 10 mg IV and 20 mg IV, metoprolol 5 mg IV x2 doses, IVF, magnesium replacement. Allergies Allergy/AdvReac Type Severity Reaction Status Date / Time colchicine Allergy Mild GI SYMPTOMS Verified 08/27/21 14:28 Home Medications Medication Instructions Recorded Confirmed Type allopurinol 300 mg tablet 300 mg PO QAM 02/27/19 08/27/21 History aspirin 81 mg tablet,delayed 81 mg PO QAM 02/27/19 08/27/21 History release atorvastatin 40 mg tablet 40 mg PO QAM 02/27/19 08/27/21 History fluoxetine 40 mg capsule 40 mg PO QAM 02/27/19 08/27/21 History nortriptyline 50 mg capsule 50 mg PO HS 02/27/19 08/27/21 History tolterodine 2 mg capsule,extended 2 mg PO QAM 02/27/19 08/27/21 History release 24 hr pantoprazole 40 mg tablet,delayed 40 mg PO DAILY 09/27/20 08/27/21 History release bupropion HCl 150 mg tablet,12 hr 150 mg PO DAILY 10/03/20 08/27/21 History sustained-release apixaban 5 mg tablet (Eliquis) 5 mg PO BID 01/12/21 08/27/21 History insulin aspart U-100 100 unit/mL 30 unit SUBCUT BIDM 01/12/21 08/27/21 History subcutaneous solution (Novolog U-100 Insulin aspart) insulin detemir U-100 100 unit/mL 55 unit SUBCUT AMHS 01/12/21 08/27/21 History subcutaneous solution (Levemir U-100 Insulin) magnesium oxide 400 mg PO DAILY 03/07/21 08/27/21 History nystatin 100,000 unit/gram topical 1 applic TOPICAL UD PRN 03/07/21 08/27/21 History powder (Nystop) amlodipine 5 mg tablet 5 mg PO DAILY 08/27/21 08/27/21 History carvedilol 12.5 mg tablet 12.5 mg PO BID 08/27/21 08/27/21 History furosemide 40 mg tablet 20 mg PO DAILY 08/27/21 08/27/21 History multivitamin 1 tab PO DAILY 08/27/21 08/27/21 History ondansetron 4 mg disintegrating 4 mg PO Q8H PRN 08/27/21 08/27/21 History tablet Past Med/Surg History Medical History Chronic anticoagulation Chronic diastolic CHF (congestive heart failure) CKD (chronic kidney disease), stage III DM type 2 (diabetes mellitus, type 2) Dyslipidemia Dyspnea GERD (gastroesophageal reflux disease) History of Clostridium difficile infection Hypothyroidism Paroxysmal atrial flutter Stress incontinence Umbilical hernia Surgical History History of fracture of leg s/p surgical fixation S/P TAVR (transcatheter aortic valve replacement) 03/2021 Status post cataract extraction Family History Mother , 67 Alzheimer disease Father Myocardial infarction, Onset Age: 47 Social History Smoking Status: Former smoker Tobacco Type: Cigarettes Years Smoked: 5; Second Hand Exposure: No; Do You Dip or Chew Tobacco: No; Tobacco Cessation Education Requested by Patient: No Hx Alcohol Use: No Hx Substance Use: No Preferred Language: Yoruba Communication Ability: Effective 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 Beliefs That Will Affect Care: None marital status: / Current Living Situation: Alone Other Information That Helps Us Care for You: No Feels Safe at Home: Yes Safety Concerns: Feels Safe At This Time Assistive Devices: Glasses and Walker Review of Systems Review of Systems: ROS per HPI, all other systems reviewed and negative Physical Exam Constitutional: WD/WN, vitals as above Eyes: PERRL, conjunctivae normal, anicteric sclerae ENMT: external ear and nose normal, oropharynx normal Respiratory: normal respiratory effort, lungs clear to auscultation Cardiovascular: Rate/Rhythm: regular rhythm and + tachycardic Vessels: normal peripheral pulses Extremities: no edema Gastrointestinal (Abdomen): normal bowel sounds, soft, nontender, no hepatosplenomegaly Musculoskeletal: no cyanosis or clubbing, extremities motor strength 5/5 Skin: no rashes, warm and dry Chronic venous changes BLE Neurologic: PERRL, EOMI, accommodation nl, no face palsy, no dysarthria Psychiatric: A+Ox3, euthymic affect Results & Data Results & Data ([facility]) Vital Signs (Past 12 Hours) Vital Signs Temp Pulse Resp BP Pulse Ox 08/27/21 17:45 127 H 19 96 08/27/21 17:30 127 H 18 167/104 H 96 08/27/21 17:15 133 H 23 99 08/27/21 17:03 131 H 16 99 08/27/21 16:30 124 H 15 99 08/27/21 16:15 125 H 17 98 08/27/21 16:10 125 H 08/27/21 15:45 139 H 16 94 08/27/21 15:30 140 H 19 95 08/27/21 15:15 138 H 19 94 08/27/21 15:00 137 H 18 94 08/27/21 14:46 136 H 19 96 08/27/21 14:30 137 H 23 96 08/27/21 14:15 138 H 18 97 08/27/21 14:05 97 08/27/21 14:04 139 H 19 96 08/27/21 13:45 37.5 C 137 H 21 165/87 H 98 Laboratory Results Short CBC 08/27/21 Range/Units 14:15 WBC 12.32 H (4.8-10.8) K/uL Hgb 13.2 (12.0-16.0) g/dL Hct 40.0 (37-47) % Plt Count 226 (130-400) K/uL BMP 08/27/21 14:15 Sodium 136 Potassium 4.9 Chloride 104 Carbon Dioxide 26 BUN 38 H Creatinine 1.83 H Glucose 167 H Calcium 9.3 Cardiac Enzymes 08/27/21 Range/Units 14:15 Troponin I 0.015 (0-0.045) ng/ml Liver Function 08/27/21 Range/Units 14:15 Total Bilirubin 0.4 (0.2-1) mg/dl AST 19 (15-37) U/L ALT 13 (12-78) U/L Alkaline Phosphatase 141 H (45-117) U/L Albumin 2.5 L (3.4-5.0) gm/dl Diagnostic Findings Chest X-Ray 08/27/21 14:02 XR chest 1V portable HISTORY: weakness COMPARISON: Chest 03/07/2021. FINDINGS: No pneumothorax. No pleural effusions. The cardiac silhouette remains normal in size. A few left basilar linear densities likely representing scarring or subsegmental atelectasis. Otherwise, lungs are clear. No evidence for pulmonary edema. IMPRESSION: No acute process. ACT 112: Negative or not required by law. Electronically signed by: Hemant Espinoza M.D. 08/27/2021 2:50 PM Code Status & VTE Plan Code Status Patient is a full code as per my discussion with her. VTE Prophylaxis Plan VTE Prophylaxis will be ordered: No Supervising Physician Co-Signing Physician Notes I have seen and examined the patient and have discussed the case with the provider above. I agree with the assessment and plan as stated. 70 yo F diabetic female with chronic diastolic heart failure and h/o atrial fluter s/p TAVR this year presents with rapid ventricular response after two weeks of reported diarrhea. Has a h/o c-diff, currently denying any fevers, chills, abdominal pain and no distension or concerning findings on abdominal exam. There is no evidence of underlying infection from initial workup and patient reports actually feeling well despite her heart rate in the 120s. Denies chest pain, SOB or other issues. She is enjoying her broth for dinner and is NPO after midnight in case a DCCV is recommended by cardiology after evaluation. She has undergone cardioversions in the past. She does have some protein and min microscopic hematuria so further characterization with spot protein/creat ratio and urine cytology was ordered. She does have LAUREN which is likely prerenal in setting of diarrhea and diuretic use. Low magnesium is possible evidence of this and was replaced. BMP and Mg in am. Cont with plan as listed above. Isauro, DO
[2021-08-27] MEDS ORDERED: CARBOHYDRATES FOR HYPOGLYCEMIA PO PRN (20:00)
[2021-08-27] MEDS ORDERED: DEXTROSE 50% 50 ML SYRINGE IV PRN (20:00)
[2021-08-27] MEDS ORDERED: GLUCOSE 40% GEL 15 GM TUBE PO PRN (20:00)
[2021-08-27] MEDS ORDERED: GLUCOSE 10 TABS/TUBE PO PRN (20:00)
[2021-08-27] MEDS ORDERED: GLUCAGON FOR INJ 1 MG VIAL SQ PRN (20:00)
[2021-08-27] MEDS ORDERED: ACETAMINOPHEN 325 MG TAB PO PRN (20:00)
[2021-08-27 20:10] LABS: Appearance Urine Clear (Clear); Bacteria Urine Automated Negative (Negative); Bilirubin Urine Negative (Negative); Blood Urine 2+ (Negative); Color Urine Yellow; Epithelial Cell Urine Auto >30 /lpf (0-5); Glucose Urine UA 1+ (Negative); Ketones Urine Negative (Negative); Leukocyte Esterase Urine Negative (Negative); Nitrite Urine Negative (Negative); Protein Urine 3+ (Negative); Specific Gravity Urine 1.015 (1.000-1.030); Urobilinogen Urine Negative (Negative); pH Urine 5.5 (4.5-7.5)
[2021-08-27] MEDS: SODIUM CHLORIDE 0.9% 1000ML 1,000 ML IV SCH (20:40)
[2021-08-27] MEDS: APIXABAN 5 MG TABLET PO SCH (20:40)
[2021-08-27] MEDS: carvediloL 25 MG TAB PO SCH (20:41)
[2021-08-27] MEDS: INSULIN GLARGINE SOLOSTAR 100 UNITS/ML 3 ML PEN SC SCH (21:36)
[2021-08-27] MEDS: NORTRIPTYLINE HCL 25 MG CAP PO SCH (21:36)
[2021-08-27] MEDS: INSULIN ASPART 100 UNITS/ML 3 ML PEN SC SCH (21:37)
[2021-08-28 01:51] LABS: Protein Creatinine Ratio Urine 2.2 (0-0.2); Total Protein Urine Random 225.3 mg/dl (0-11.9)
[2021-08-28] MEDS: SODIUM CHLORIDE 0.9% 1000ML 1,000 ML IV SCH (04:55)
[2021-08-28 06:25] LABS: Hematocrit (blood only) 36.4 % (37-47); Hemoglobin 11.8 g/dL (12.0-16.0); Mean Corpuscular Hemoglobin 28.8 pg (25-34); Mean Corpuscular Hgb Conc 32.4 g/dL (32-36); Mean Corpuscular Volume 88.8 fL (80-100); Mean Platelet Volume 10.9 fL (7.4-10.4); Platelet Count 193 K/uL (130-400); RDW Coefficient of Variation 14.7 % (11.5-14.5); RDW Standard Deviation 47.6 fL (36.4-46.3); White Blood Count 7.48 K/uL (4.8-10.8)
[2021-08-28 07:08] LABS: BUN Creatinine Ratio 21.5 (10-20); Calcium 8.6 mg/dl (8.5-10.1); Est GFR (African American) 34.3 ml/min; Est GFR (Non-African American) 29.6 ml/min; Potassium 4.7 mmol/L (3.5-5.1)
[2021-08-28 07:41] LABS: Estimated Average Glucose 263 mg/dl; Hemoglobin A1C 10.8 % (4.5-5.6)
[2021-08-28] MEDS: INSULIN ASPART 100 UNITS/ML 3 ML PEN SC SCH ×4 (08:09→21:12)
[2021-08-28] MEDS: carvediloL 25 MG TAB PO SCH ×2 (08:10→20:04)
[2021-08-28] MEDS: TOLTERODINE TARTRATE LA 2 MG CAPCR PO SCH (08:11)
[2021-08-28] MEDS: buPROPion SR 150 MG TABCR PO SCH (08:11)
[2021-08-28] MEDS: FLUoxetine HCL 20 MG CAP PO SCH (08:11)
[2021-08-28] MEDS: ASPIRIN 81 MG ECTAB PO SCH (08:11)
[2021-08-28] MEDS: amLODIPine BESYLATE 5 MG TAB PO SCH (08:11)
[2021-08-28] MEDS: MAGNESIUM OXIDE 400 MG TAB PO SCH (08:11)
[2021-08-28] MEDS: ATORVASTATIN 40 MG TAB PO SCH (08:12)
[2021-08-28] MEDS: APIXABAN 5 MG TABLET PO SCH ×2 (08:12→20:04)
[2021-08-28] MEDS: INSULIN GLARGINE SOLOSTAR 100 UNITS/ML 3 ML PEN SC SCH ×3 (08:24→21:13)
--- NOTE | 2021-08-28 09:51 | Anesthesiology Consultation ---
Date of Service August 28, 2021 Assessment & Plan (1) Encounter for pre-operative examination: Chart Review Chart Review: clerk entry level initiated History Height/Weight Height: 5 ft 2 in Weight: 101.7 kg Allergies Allergy/AdvReac Type Severity Reaction Status Date / Time colchicine Allergy Mild GI SYMPTOMS Verified 08/27/21 14:28 Medications Home Medications Medication Instructions Recorded Confirmed Last Taken allopurinol 300 mg tablet 300 mg PO QAM 02/27/19 08/27/21 08/20/21 aspirin 81 mg tablet,delayed 81 mg PO QAM 02/27/19 08/27/21 08/26/21 release atorvastatin 40 mg tablet 40 mg PO QAM 02/27/19 08/27/21 08/26/21 fluoxetine 40 mg capsule 40 mg PO QAM 02/27/19 08/27/21 08/26/21 nortriptyline 50 mg capsule 50 mg PO HS 02/27/19 08/27/21 08/26/21 tolterodine 2 mg capsule,extended 2 mg PO QAM 02/27/19 08/27/21 08/26/21 release 24 hr pantoprazole 40 mg tablet,delayed 40 mg PO DAILY 09/27/20 08/27/21 08/20/21 release bupropion HCl 150 mg tablet,12 hr 150 mg PO DAILY 10/03/20 08/27/21 08/26/21 sustained-release apixaban 5 mg tablet (Eliquis) 5 mg PO BID 01/12/21 08/27/21 08/26/21 insulin aspart U-100 100 unit/mL 30 unit SUBCUT BIDM 01/12/21 08/27/21 08/26/21 subcutaneous solution (Novolog U-100 Insulin aspart) insulin detemir U-100 100 unit/mL 55 unit SUBCUT AMHS 01/12/21 08/27/21 08/26/21 subcutaneous solution (Levemir U-100 Insulin) magnesium oxide 400 mg PO DAILY 03/07/21 08/27/21 08/26/21 nystatin 100,000 unit/gram topical 1 applic TOPICAL UD PRN 03/07/21 08/27/21 08/26/21 powder (Nystop) amlodipine 5 mg tablet 5 mg PO DAILY 08/27/21 08/27/21 08/26/21 carvedilol 12.5 mg tablet 12.5 mg PO BID 08/27/21 08/27/21 08/26/21 furosemide 40 mg tablet 20 mg PO DAILY 08/27/21 08/27/21 08/20/21 multivitamin 1 tab PO DAILY 08/27/21 08/27/21 08/26/21 ondansetron 4 mg disintegrating 4 mg PO Q8H PRN 08/27/21 08/27/21 Unknown tablet Active Medications Generic Name Dose Route Start Last Admin Trade Name Bryce PRN Reason Stop Dose Admin Amlodipine Besylate 5 mg 08/28/21 09:00 08/28/21 08:11 Amlodipine Besylate 5 Mg Tab PO 09/27/21 08:59 5 mg DAILY LISA Administration Apixaban 5 mg 08/27/21 21:00 08/28/21 08:12 Apixaban 5 Mg Tablet PO 09/26/21 20:59 5 mg BID LISA Administration Aspirin 81 mg 08/28/21 09:00 08/28/21 08:11 Aspirin 81 Mg Ectab PO 09/27/21 08:59 81 mg QAM LISA Administration Atorvastatin Calcium 40 mg 08/28/21 09:00 08/28/21 08:12 Atorvastatin 40 Mg Tab PO 09/27/21 08:59 40 mg QAM LISA Administration Bupropion HCl 150 mg 08/28/21 09:00 08/28/21 08:11 Bupropion Sr 150 Mg Tabcr PO 09/27/21 08:59 150 mg DAILY LISA Administration Carvedilol 25 mg 08/27/21 17:40 08/28/21 08:10 Carvedilol 25 Mg Tab PO 09/26/21 17:39 25 mg BID LISA Administration Fluoxetine HCl 40 mg 08/28/21 09:00 08/28/21 08:11 Fluoxetine Hcl 20 Mg Cap PO 09/27/21 08:59 40 mg QAM LISA Administration Sodium Chloride 1,000 mls @ 100 mls/hr 08/27/21 17:45 08/28/21 04:55 Nss 1000ml IV 08/28/21 13:44 100 mls/hr .Q10H LISA Administration Insulin Aspart 0 units 08/27/21 21:00 08/28/21 08:09 Insulin Aspart 100 Units/Ml 3 Ml Pen SC 09/26/21 20:59 3 units ACHS LISA Administration Insulin Glargine 20 units 08/27/21 21:00 08/28/21 08:24 Insulin Glargine Solostar 100 Units/Ml 3 Ml Pen SC 09/26/21 20:59 Not Given BID LISA Magnesium Oxide 400 mg 08/28/21 09:00 08/28/21 08:11 Magnesium Oxide 400 Mg Tab PO 09/27/21 08:59 400 mg DAILY LISA Administration Nortriptyline HCl 50 mg 08/27/21 21:00 08/27/21 21:36 Nortriptyline Hcl 25 Mg Cap PO 09/26/21 20:59 50 mg HS LISA Administration Tolterodine Tartrate 2 mg 08/28/21 09:00 08/28/21 08:11 Tolterodine Tartrate La 2 Mg Capcr PO 09/27/21 08:59 2 mg QAM LISA Administration Past Medical History Medical History Chronic anticoagulation Chronic diastolic CHF (congestive heart failure) CKD (chronic kidney disease), stage III DM type 2 (diabetes mellitus, type 2) Dyslipidemia Dyspnea GERD (gastroesophageal reflux disease) History of Clostridium difficile infection Hypothyroidism Paroxysmal atrial flutter Stress incontinence Umbilical hernia Past Family History Family History Mother , 67 Alzheimer disease Father Myocardial infarction, Onset Age: 47 Past Surgical History Surgical History History of fracture of leg s/p surgical fixation S/P TAVR (transcatheter aortic valve replacement) 03/2021 Status post cataract extraction Social History Smoking Status: Former smoker tobacco type: cigarettes Do You Dip or Chew Tobacco: No Hx Alcohol Use: No Hx Substance Use: No substance use type: does not use Physical Exam Vital Signs Last Vital Signs Temp 97.5 F L 08/28/21 08:22 Pulse 129 H 08/28/21 08:22 Resp 20 08/28/21 08:22 BP 115/81 08/28/21 08:37 Pulse Ox 99 08/28/21 08:22 Testing Laboratory Results 08/28/21 05:58 08/28/21 05:58 PT 10.9 Seconds (9.0-12.0) 08/27/21 14:15 INR 1.1 (0.9-1.1) 08/27/21 14:15 APTT 25.9 Seconds (21.0-31.0) 08/27/21 14:15 Hemoglobin A1c 10.8 % (4.5-5.6) H 08/28/21 05:58 Urine Color Yellow 08/27/21 20:01 Urine Appearance Clear (Clear) 08/27/21 20:01 Urine pH 5.5 (4.5-7.5) 08/27/21 20:01 Ur Specific Keyser 1.015 (1.000-1.030) 08/27/21 20:01 Urine Protein 3+ (Negative) H 08/27/21 20:01 Urine Glucose (UA) 1+ (Negative) H 08/27/21 20:01 Urine Ketones Negative (Negative) 08/27/21 20:01 Urine Nitrite Negative (Negative) 08/27/21 20:01 Ur Leukocyte Esterase Negative (Negative) 08/27/21 20:01 Urine WBC (Auto) 1-5 /hpf (0-5) 08/27/21 20:01 Urine RBC (Auto) 5-10 /hpf (0-4) H 08/27/21 20:01 U Hyaline Cast (Auto) 1-5 /lpf (0-5) 08/27/21 20:01 U Epithel Cells (Auto) >30 /lpf (0-5) H 08/27/21 20:01 Urine Bacteria (Auto) Negative (Negative) 08/27/21 20:01 08/28/21 08:05 POC Glucose 214 H Laboratory Tests 08/27/21 14:07 SARS-CoV-2 (PCR) NEGATIVE Electrocardiogram Date: 08/28/21 Atrial flutter with 2:1 A-V conduction, rate 127 bpm Septal infarct (cited on or before 27-AUG-2021) Inferior injury pattern ACUTE MO / STEMI Consider right ventricular involvement in acute inferior infarct Abnormal ECG When compared with ECG of 27-AUG-2021 14:01, Atrial flutter has replaced Sinus rhythm Questionable change in QRS duration Chest X-Ray Date: 08/27/21 Findings: + NAD Echocardiogram Date: 09/28/20 There is severe concentric LVH LV cavity is small EF 65-70% There is mild to mod RVH RV systolic function is normal LA is mildly dilated RA size is normal Moderate aortic regurgitation There is aortic root sclerosis/calcification The aortic root is normal size
--- NOTE | 2021-08-28 10:23 | Cardiology Consultation ---
Date of Consultation August 28, 2021 Assessment & Plan (1) Atrial flutter: (2) Chronic diastolic CHF (congestive heart failure): (3) S/P TAVR (transcatheter aortic valve replacement): (4) CAD (coronary artery disease): NPO for direct current cardioversion with anesthesia Continue anticoagulation without interruption Carvedilol dosing notably increased for additional heart rate as well as blood pressure control Maintain normokalemia and normomagnesemia. Outpatient Electrophysiology Consultation Supervising Physician Co-Signing Physician Notes Assessment and plan as noted above patient seen day of admission. Patient underwent synchronized electrical cardioversion with successful conversion to sinus rhythm. Patient tolerated procedure well History of Present Illness Reason for Consultation: Atrial fibrillation Requesting Physician: Dunia Attending Physician: Nav History of Present Illness Patient is a complex 70-year-old female who has had on and off diarrhea over the last 2 weeks. [email or web address]; findings included pallor, elevated heart rate of 150 bpm. She was referred to the ER with EKG on presentation revealing atrial flutter with a rapid ventricular response. Patient notably chronically prescribed anticoagulation with apixaban 5 mg twice per day, without recent interruption. Patient denies chest pain, overt palpitations, worsening dyspnea, cough, chest congestion, abdominal bloating, orthopnea, PND, or increased peripheral edema. No fevers or chills. No melena or hematochezia. Past Medical and Surgical History Severe aortic valve stenosis status post April 04, 2021 TAVR (29 CoreValve) Chronic diastolic heart failure History of paroxysmal atrial flutter status post cardioversion circa 2010, with transient utilization of amiodarone at that time. Coronary angiography on November 22, 2020 revealed minimal luminal irregularities of the left coronary system, diffuse 50% stenosis in the mid RCA. Hypertension Dyslipidemia Chronic kidney disease Chart history of peripheral vascular disease Type 2 diabetes mellitus GERD Hypothyroidism Depression Cataract extraction Family History: Father with an AK in his 40s. Mother with dementia. Social History: Reformed smoker having quit around 1979 after smoking for approximately 5 years. Social alcohol. No illegal drug use. 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, [employer] Allergies Allergy/AdvReac Type Severity Reaction Status Date / Time colchicine Allergy Mild GI SYMPTOMS Verified 08/27/21 14:28 Home Medications Medication Instructions Recorded Confirmed Type allopurinol 300 mg tablet 300 mg PO QAM 02/27/19 08/27/21 History aspirin 81 mg tablet,delayed 81 mg PO QAM 02/27/19 08/27/21 History release atorvastatin 40 mg tablet 40 mg PO QAM 02/27/19 08/27/21 History fluoxetine 40 mg capsule 40 mg PO QAM 02/27/19 08/27/21 History nortriptyline 50 mg capsule 50 mg PO HS 02/27/19 08/27/21 History tolterodine 2 mg capsule,extended 2 mg PO QAM 02/27/19 08/27/21 History release 24 hr pantoprazole 40 mg tablet,delayed 40 mg PO DAILY 09/27/20 08/27/21 History release bupropion HCl 150 mg tablet,12 hr 150 mg PO DAILY 10/03/20 08/27/21 History sustained-release apixaban 5 mg tablet (Eliquis) 5 mg PO BID 01/12/21 08/27/21 History insulin aspart U-100 100 unit/mL 30 unit SUBCUT BIDM 01/12/21 08/27/21 History subcutaneous solution (Novolog U-100 Insulin aspart) insulin detemir U-100 100 unit/mL 55 unit SUBCUT AMHS 01/12/21 08/27/21 History subcutaneous solution (Levemir U-100 Insulin) magnesium oxide 400 mg PO DAILY 03/07/21 08/27/21 History nystatin 100,000 unit/gram topical 1 applic TOPICAL UD PRN 03/07/21 08/27/21 History powder (Nystop) amlodipine 5 mg tablet 5 mg PO DAILY 08/27/21 08/27/21 History carvedilol 12.5 mg tablet 12.5 mg PO BID 08/27/21 08/27/21 History furosemide 40 mg tablet 20 mg PO DAILY 08/27/21 08/27/21 History multivitamin 1 tab PO DAILY 08/27/21 08/27/21 History ondansetron 4 mg disintegrating 4 mg PO Q8H PRN 08/27/21 08/27/21 History tablet Patient History Medical History Chronic anticoagulation Chronic diastolic CHF (congestive heart failure) CKD (chronic kidney disease), stage III DM type 2 (diabetes mellitus, type 2) Dyslipidemia Dyspnea GERD (gastroesophageal reflux disease) History of Clostridium difficile infection Hypothyroidism Paroxysmal atrial flutter Stress incontinence Umbilical hernia Surgical History History of fracture of leg s/p surgical fixation S/P TAVR (transcatheter aortic valve replacement) 03/2021 Status post cataract extraction Family History Mother , 67 Alzheimer disease Father Myocardial infarction, Onset Age: 47 Social History Smoking Status: Former smoker Tobacco Type: Cigarettes Years Smoked: 5; Second Hand Exposure: No; Do You Dip or Chew Tobacco: No; Tobacco Cessation Education Requested by Patient: No Hx Alcohol Use: No Hx Substance Use: No Preferred Language: Sinhala Communication Ability: Effective Paper Stripper Required: No Beliefs That Will Affect Care: None marital status: / Current Living Situation: Alone Other Information That Helps Us Care for You: No Feels Safe at Home: Yes Safety Concerns: Feels Safe At This Time Assistive Devices: Walker Review of Systems Review of Systems: Complete Review of Systems is as stated above, negative, or noncontributory. Physical Exam Physical Exam: General: A&Ox3. NAD. Elevated BMI HENT: Normocephalic. Atraumatic. Eyes: PER. Conjunctiva pink, sclera clear. Neck: No carotid bruits. No JVD. No HJR. Heart: Regular at 120 bpm. No murmur. No rub. No gallop. PMI is nondisplaced. Lungs: Clear to auscultation. Abdomen: +BS. Soft. Nontender. No masses or organomegaly. Extremities: Stasis changes. Mild edema. No clubbing. No cyanosis. No posterior tibial pulses appreciated. Limited neurological examination without focal deficit. Results & Data ([facility]) Vital Signs (Past 12 Hours) Vital Signs Temp Pulse Resp BP Pulse Ox 08/28/21 08:37 115/81 08/28/21 08:22 36.4 C L 129 H 20 167/109 H 99 08/28/21 04:39 36.3 C L 126 H 16 102/69 95 08/28/21 00:18 36.8 C 124 H 18 134/81 95 Laboratory Results Laboratory Results - last 24 hr 08/27/21 08/27/21 08/27/21 01:05 14:07 14:07 WBC RBC Hgb Hct MCV MCH MCHC RDW Std Deviation RDW Coeff of Mario Plt Count MPV Immature Gran % (Auto) Neut % (Auto) Lymph % (Auto) Traill % (Auto) Eos % (Auto) Baso % (Auto) Neut # (Auto) Lymph # (Auto) Traill # (Auto) Eos # (Auto) Baso # (Auto) Immature Gran # (Auto) PT INR APTT PTT Ratio Sodium Potassium Chloride Carbon Dioxide Anion Gap BUN Creatinine Est Cr Clr Drug Dosing Est GFR ( Amer) Est GFR (Non-Af Amer) BUN/Creatinine Ratio Glucose POC Glucose Estimat Average Glucose Hemoglobin A1c Calcium Magnesium Total Bilirubin AST ALT Alkaline Phosphatase Troponin I Total Protein Albumin Globulin Albumin/Globulin Ratio TSH Urine Color Urine Appearance Urine pH Ur Specific [place] Urine Protein Urine Glucose (UA) Urine Ketones Urine Blood Urine Nitrite Urine Bilirubin Urine Urobilinogen Ur Leukocyte Esterase Urine WBC (Auto) Urine RBC (Auto) U Hyaline Cast (Auto) U Epithel Cells (Auto) Urine Bacteria (Auto) Ur Random Creatinine 103.0 U Random Total Protein 225.3 H Ur Random Sodium 58 Ur Random Urea Nitrogn 602 Protein/Creatinin Ratio 2.2 H COVID-19 Eval Order Covid19 at [facility] SARS-CoV-2 (PCR) NEGATIVE 08/27/21 08/27/21 08/27/21 14:15 14:15 14:15 WBC 12.32 H RBC 4.51 Hgb 13.2 Hct 40.0 MCV 88.7 MCH 29.3 MCHC 33.0 RDW Std Deviation 46.8 H RDW Coeff of Mario 14.4 Plt Count 226 MPV 10.3 Immature Gran % (Auto) 0.2 Neut % (Auto) 84.5 Lymph % (Auto) 9.8 Traill % (Auto) 4.4 Eos % (Auto) 0.9 Baso % (Auto) 0.2 Neut # (Auto) 10.41 H Lymph # (Auto) 1.21 Traill # (Auto) 0.54 Eos # (Auto) 0.11 Baso # (Auto) 0.02 Immature Gran # (Auto) 0.03 H PT 10.9 INR 1.1 APTT 25.9 PTT Ratio 1.0 Sodium 136 Potassium 4.9 Chloride 104 Carbon Dioxide 26 Anion Gap 6.0 BUN 38 H Creatinine 1.83 H Est Cr Clr Drug Dosing 32.0 Est GFR ( Amer) 31.8 Est GFR (Non-Af Amer) 27.5 BUN/Creatinine Ratio 20.8 H Glucose 167 H POC Glucose Estimat Average Glucose Hemoglobin A1c Calcium 9.3 Magnesium 1.6 L Total Bilirubin 0.4 AST 19 ALT 13 Alkaline Phosphatase 141 H Troponin I 0.015 Total Protein 6.5 Albumin 2.5 L Globulin 4.0 Albumin/Globulin Ratio 0.6 L TSH 4.110 Urine Color Urine Appearance Urine pH Ur Specific [place] Urine Protein Urine Glucose (UA) Urine Ketones Urine Blood Urine Nitrite Urine Bilirubin Urine Urobilinogen Ur Leukocyte Esterase Urine WBC (Auto) Urine RBC (Auto) U Hyaline Cast (Auto) U Epithel Cells (Auto) Urine Bacteria (Auto) Ur Random Creatinine U Random Total Protein Ur Random Sodium Ur Random Urea Nitrogn Protein/Creatinin Ratio COVID-19 Eval Order SARS-CoV-2 (PCR) 08/27/21 08/27/21 08/27/21 20:01 20:34 21:02 WBC RBC Hgb Hct MCV MCH MCHC RDW Std Deviation RDW Coeff of Mario Plt Count MPV Immature Gran % (Auto) Neut % (Auto) Lymph % (Auto) Traill % (Auto) Eos % (Auto) Baso % (Auto) Neut # (Auto) Lymph # (Auto) Traill # (Auto) Eos # (Auto) Baso # (Auto) Immature Gran # (Auto) PT INR APTT PTT Ratio Sodium Potassium Chloride Carbon Dioxide Anion Gap BUN Creatinine Est Cr Clr Drug Dosing Est GFR ( Amer) Est GFR (Non-Af Amer) BUN/Creatinine Ratio Glucose POC Glucose 234 H Estimat Average Glucose Hemoglobin A1c Calcium Magnesium Total Bilirubin AST ALT Alkaline Phosphatase Troponin I 0.019 Total Protein Albumin Globulin Albumin/Globulin Ratio TSH Urine Color Yellow Urine Appearance Clear Urine pH 5.5 Ur Specific [place] 1.015 Urine Protein 3+ H Urine Glucose (UA) 1+ H Urine Ketones Negative Urine Blood 2+ H Urine Nitrite Negative Urine Bilirubin Negative Urine Urobilinogen Negative Ur Leukocyte Esterase Negative Urine WBC (Auto) 1-5 Urine RBC (Auto) 5-10 H U Hyaline Cast (Auto) 1-5 U Epithel Cells (Auto) >30 H Urine Bacteria (Auto) Negative Ur Random Creatinine U Random Total Protein Ur Random Sodium Ur Random Urea Nitrogn Protein/Creatinin Ratio COVID-19 Eval Order SARS-CoV-2 (PCR) 08/28/21 08/28/21 08/28/21 02:25 05:58 05:58 WBC 7.48 RBC 4.10 L Hgb 11.8 L Hct 36.4 L MCV 88.8 MCH 28.8 MCHC 32.4 RDW Std Deviation 47.6 H RDW Coeff of Mario 14.7 H Plt Count 193 MPV 10.9 H Immature Gran % (Auto) Neut % (Auto) Lymph % (Auto) Traill % (Auto) Eos % (Auto) Baso % (Auto) Neut # (Auto) Lymph # (Auto) Traill # (Auto) Eos # (Auto) Baso # (Auto) Immature Gran # (Auto) PT INR APTT PTT Ratio Sodium 137 Potassium 4.7 Chloride 108 H Carbon Dioxide 25 Anion Gap 4.0 BUN 37 H Creatinine 1.72 H Est Cr Clr Drug Dosing 34.0 Est GFR ( Amer) 34.3 Est GFR (Non-Af Amer) 29.6 BUN/Creatinine Ratio 21.5 H Glucose 256 H POC Glucose Estimat Average Glucose Hemoglobin A1c Calcium 8.6 Magnesium 2.0 Total Bilirubin AST ALT Alkaline Phosphatase Troponin I 0.021 Total Protein Albumin Globulin Albumin/Globulin Ratio TSH Urine Color Urine Appearance Urine pH Ur Specific [place] Urine Protein Urine Glucose (UA) Urine Ketones Urine Blood Urine Nitrite Urine Bilirubin Urine Urobilinogen Ur Leukocyte Esterase Urine WBC (Auto) Urine RBC (Auto) U Hyaline Cast (Auto) U Epithel Cells (Auto) Urine Bacteria (Auto) Ur Random Creatinine U Random Total Protein Ur Random Sodium Ur Random Urea Nitrogn Protein/Creatinin Ratio COVID-19 Eval Order SARS-CoV-2 (PCR) 08/28/21 08/28/21 05:58 08:05 WBC RBC Hgb Hct MCV MCH MCHC RDW Std Deviation RDW Coeff of Mario Plt Count MPV Immature Gran % (Auto) Neut % (Auto) Lymph % (Auto) [place]ill % (Auto) Eos % (Auto) Baso % (Auto) Neut # (Auto) Lymph # (Auto) Traill # (Auto) Eos # (Auto) Baso # (Auto) Immature Gran # (Auto) PT INR APTT PTT Ratio Sodium Potassium Chloride Carbon Dioxide Anion Gap BUN Creatinine Est Cr Clr Drug Dosing Est GFR ( Amer) Est GFR (Non-Af Amer) BUN/Creatinine Ratio Glucose POC Glucose 214 H Estimat Average Glucose 263 Hemoglobin A1c 10.8 H Calcium Magnesium Total Bilirubin AST ALT Alkaline Phosphatase Troponin I Total Protein Albumin Globulin Albumin/Globulin Ratio TSH Urine Color Urine Appearance Urine pH Ur Specific [place] Urine Protein Urine Glucose (UA) Urine Ketones Urine Blood Urine Nitrite Urine Bilirubin Urine Urobilinogen Ur Leukocyte Esterase Urine WBC (Auto) Urine RBC (Auto) U Hyaline Cast (Auto) U Epithel Cells (Auto) Urine Bacteria (Auto) Ur Random Creatinine U Random Total Protein Ur Random Sodium Ur Random Urea Nitrogn Protein/Creatinin Ratio COVID-19 Eval Order SARS-CoV-2 (PCR) Diagnostic Findings Telemetry: Atrial flutter in the 120's
[2021-08-28] MEDS ORDERED: LIDOCAINE 2% 2 ML VIAL/AMP(20MG/ML) INFIL ONE (11:01)
[2021-08-28] MEDS ORDERED: PROPOFOL IV EMULSION 10 MG/ML 20 ML VIAL IV ONE (11:03)
--- NOTE | 2021-08-28 11:31 | Cardioversion ---
Date of Service August 28, 2021 Electrical Cardioversion Rpt Electrical Cardioversion Report Patient was seen and examined. Rhythm atrial flutter with 2:1 conduction Procedure of synchronized electrical cardioversion discussed in detail, informed consent obtained. After formal TIMEOUT, patient was sedated via anesthesia consult with O2,HR, BP endtidal CO2 monitoring. Single biphasic synchronized 150J countershock was administered with successful conversion to sinus Patient aroused, tolerated well EKG: Sinus rhythm with 1st degree AV block @ 72 bpm, NSST changes , Poor r wave progression V1-2 Plan: Observe for 2 hours, if ambulatory and awake, may be discharged later today.
--- NOTE | 2021-08-28 12:31 | Anesthesiology Progress Note ---
Date of Service August 28, 2021 Anesthesia Post Procedure Vital Signs Vital Signs: Temp Pulse Pulse Resp BP BP Pulse Ox 08/28/21 11:35 73 16 94/52 L 95 08/28/21 11:20 74 16 111/52 L 97 08/28/21 10:49 124 H 16 125/80 100 08/28/21 08:37 115/81 08/28/21 08:22 97.5 F L 129 H 20 167/109 H 99 08/28/21 04:39 97.3 F L 126 H 16 102/69 95 08/28/21 00:18 98.2 F 124 H 18 134/81 95 08/27/21 19:30 97.3 F L 132 H 22 123/84 99 08/27/21 17:45 127 H 19 96 08/27/21 17:30 127 H 18 167/104 H 96 08/27/21 17:15 133 H 23 99 08/27/21 17:03 131 H 16 99 08/27/21 16:30 124 H 15 99 08/27/21 16:15 125 H 17 98 08/27/21 16:10 125 H 08/27/21 15:45 139 H 16 94 08/27/21 15:30 140 H 19 95 08/27/21 15:15 138 H 19 94 08/27/21 15:00 137 H 18 94 08/27/21 14:46 136 H 19 96 08/27/21 14:30 137 H 23 96 08/27/21 14:15 138 H 18 97 08/27/21 14:05 97 08/27/21 14:04 139 H 19 96 08/27/21 13:45 99.5 F 137 H 21 165/87 H 98 Transfer of Care Handoff Completed per policy Notes Mental Status: alert / awake / arousable and participated in evaluation Patient Amnestic to Procedure: Yes Nausea / Vomiting: adequately controlled Pain: adequately controlled Airway Patency, RR, SpO2: stable & adequate BP & HR: stable & adequate Hydration State: stable & adequate Anesthetic Complications: no major complications apparent and Pt Satisfied with anesthetic care
--- NOTE | 2021-08-28 12:33 | Electrocardiogram Report ---
Test Reason : Blood Pressure : / mmHG Vent. Rate : 127 BPM Atrial Rate : 254 BPM P-R Int : 000 ms QRS Dur : 090 ms QT Int : 352 ms P-R-T Axes : 033 002 114 degrees QTc Int : 511 ms Atrial flutter with 2 to 1 block Septal infarct (cited on or before 27-AUG-2021) Cannot rule out Anteroseptal infarct Abnormal ECG When compared with ECG of 27-AUG-2021 14:01, Questionable change in QRS duration Confirmed by Sukhjinder Funk ([id number]) on 08/28/2021 12:33:17 PM Referred By: REFERRED SELF Confirmed By:Sukhjinder Funk
--- NOTE | 2021-08-28 12:46 | Electrocardiogram Report ---
Test Reason : Blood Pressure : / mmHG Vent. Rate : 072 BPM Atrial Rate : 072 BPM P-R Int : 282 ms QRS Dur : 082 ms QT Int : 410 ms P-R-T Axes : 045 -04 124 degrees QTc Int : 448 ms Sinus rhythm with 1st degree A-V block Septal infarct (cited on or before 27-AUG-2021) T wave abnormality, consider lateral ischemia Abnormal ECG When compared with ECG of 28-AUG-2021 05:01, (unconfirmed) Sinus rhythm has replaced Atrial flutter Vent. rate has decreased BY 55 BPM Serial changes of evolving Septal infarct Present Confirmed by Sukhjinder Funk ([id number]) on 08/28/2021 12:45:33 PM Referred By: REFERRED SELF Confirmed By:Sukhjinder Funk
--- NOTE | 2021-08-28 17:21 | Hospitalist Progress Note ---
Date of Service August 28, 2021 Assessment & Plan (1) Atrial flutter with rapid ventricular response: Plan: -Admit to telemetry -Patient presenting from home with reports of generalized weakness and diarrhea x 2 weeks -In the ED, found to be in atrial flutter with RVR with rates in the 130s. History of paroxysmal atrial flutter typically controlled on carvedilol 12.5 mg twice daily and anticoagulated on apixaban. History of aortic stenosis s/p TAVR 03/2021 -Patient received diltiazem 10 mg and 20mg IV, metoprolol 5 mg IV x 2 doses without much improvement in HR -RVR likely secondary to dehydration from ongoing diarrhea in combination with missed a.m. dose beta-raman dose -Case discussed with Dr. Marinelli -increase carvedilol to 25 mg twice daily giving evening dose now, treat dehydration with IVF, replace magnesium. N.p.o. after midnight for possible cardioversion tomorrow. -Status post cardioversion with reversion to sinus rhythm -Denies any symptoms following cardioversion, will observe her overnight -Discharge tomorrow Morbid obesity BMI noted to be 41.0 kg/m Advised reduction of weight and follow diet and exercise (2) Acute kidney injury superimposed on CKD: Plan: Creatinine improved to 1.72 from 1.83 on admit Advised to drink more fluid (3) CKD (chronic kidney disease), stage III: Plan: -Creatinine 1.8, baseline ~ 1.5 -Likely prerenal in nature due to dehydration from diarrhea -IVF, follow renal functions (4) Diarrhea: Plan: -No abdominal pain, has had some intermittent nausea and vomiting -Clear liquid diet for now -C. difficile and stool culture-negative for C. difficile toxin (5) Chronic diastolic CHF (congestive heart failure): Plan: -Hold furosemide and giving IVF as above -We will continue furosemide on discharge (6) DM type 2 (diabetes mellitus, type 2): Plan: -Hgb A1c 5.9 12/2020 -Lantus/NovoLog (7) DVT prophylaxis: Plan: -On apixaban Admission and Anticipated Discharge Date Admission Date: August 27, 2021 Subjective 08/28/2021 The patient was seen and examined in telemetry unit She is status post cardioversion and has been feeling much better Denies any palpitation and/or shortness of breath Review of Systems Review of Systems: All systems reviewed and are unremarkable except as noted below Physical Exam Physical Exam: Lying in bed comfortably Constitutional: well developed, well nourished and + morbidly obese; not ill appearing Eyes: PERRL, conjunctivae normal, anicteric sclerae ENMT: external ear and nose normal, oropharynx normal Neck: trachea midline, no thyromegaly Respiratory: no respiratory distress and no cough Auscultation: lungs clear to auscultation bilaterally Cardiovascular: Rate/Rhythm: regular rate and regular rhythm; not tachycardic Heart Sounds: normal S1 and normal S2; no murmur Extremities: + edema (Trace edema bilaterally) Gastrointestinal (Abdomen): normal bowel sounds, soft, nontender, no hepatosplenomegaly Musculoskeletal: No acute arthritis in any joint Neurologic: Alert, awake and oriented x3 Results & Data Results & Data ([facility]) Vital Signs (Past 12 Hours) Vital Signs Temp Pulse Resp BP Pulse Ox 08/28/21 15:45 36.4 C L 75 19 109/69 94 08/28/21 12:36 80 18 120/55 L 96 08/28/21 12:12 36.8 C 76 20 109/72 98 08/28/21 11:57 36.6 C 77 20 117/71 98 08/28/21 11:35 73 16 94/52 L 95 08/28/21 11:20 74 16 111/52 L 97 08/28/21 10:49 124 H 16 125/80 100 08/28/21 08:37 115/81 08/28/21 08:22 36.4 C L 129 H 20 167/109 H 99 Laboratory Results Short CBC 08/28/21 Range/Units 05:58 WBC 7.48 (4.8-10.8) K/uL Hgb 11.8 L (12.0-16.0) g/dL Hct 36.4 L (37-47) % Plt Count 193 (130-400) K/uL BMP 08/28/21 05:58 Sodium 137 Potassium 4.7 Chloride 108 H Carbon Dioxide 25 BUN 37 H Creatinine 1.72 H Glucose 256 H Calcium 8.6 Cardiac Enzymes 08/27/21 08/28/21 Range/Units 21:02 02:25 Troponin I 0.019 0.021 (0-0.045) ng/ml Urine 08/27/21 Range/Units 20:01 Urine Color Yellow Urine Appearance Clear (Clear) Urine pH 5.5 (4.5-7.5) Ur Specific [place] 1.015 (1.000-1.030) Urine Protein 3+ H (Negative) Urine Glucose (UA) 1+ H (Negative) Medications Administered Current Inpatient Medications Acetaminophen (Acetaminophen 325 Mg Tab) 650 mg PO Q4H PRN PRN Reason: Pain or Fever Stop: 09/26/21 19:59 Amlodipine Besylate (Amlodipine Besylate 5 Mg Tab) 5 mg PO DAILY REPLACED BY [facility] Stop: 09/27/21 08:59 Last Admin: 08/28/21 08:11 Dose: 5 mg Documented by: Apixaban (Apixaban 5 Mg Tablet) 5 mg PO BID REPLACED BY [facility] Stop: 09/26/21 20:59 Last Admin: 08/28/21 08:12 Dose: 5 mg Documented by: Aspirin (Aspirin 81 Mg Ectab) 81 mg PO QAM REPLACED BY [facility] Stop: 09/27/21 08:59 Last Admin: 08/28/21 08:11 Dose: 81 mg Documented by: Atorvastatin Calcium (Atorvastatin 40 Mg Tab) 40 mg PO QAM REPLACED BY [facility] Stop: 09/27/21 08:59 Last Admin: 08/28/21 08:12 Dose: 40 mg Documented by: Bupropion HCl (Bupropion Sr 150 Mg Tabcr) 150 mg PO DAILY REPLACED BY [facility] Stop: 09/27/21 08:59 Last Admin: 08/28/21 08:11 Dose: 150 mg Documented by: Carvedilol (Carvedilol 25 Mg Tab) 25 mg PO BID REPLACED BY [facility] Stop: 09/26/21 17:39 Last Admin: 08/28/21 08:10 Dose: 25 mg Documented by: Dextrose (Dextrose 50% 50 Ml Syringe) 25 - 50 ml IV UD PRN; Protocol PRN Reason: Hypoglycemia Protocol Stop: 09/26/21 19:59 Fluoxetine HCl (Fluoxetine Hcl 20 Mg Cap) 40 mg PO QAM REPLACED BY [facility] Stop: 09/27/21 08:59 Last Admin: 08/28/21 08:11 Dose: 40 mg Documented by: Glucagon (Glucagon For Inj 1 Mg Vial) 1 mg SQ UD PRN; Protocol PRN Reason: Hypoglycemia Protocol Stop: 09/26/21 19:59 Glucose (Glucose 10 Tabs/Tube) 4 - 8 tabs PO UD PRN; Protocol PRN Reason: Hypoglycemia Protocol Stop: 09/26/21 19:59 Glucose (Glucose 40% Gel 15 Gm Tube) 15 - 30 gm PO UD PRN; Protocol PRN Reason: Hypoglycemia Protocol Stop: 09/26/21 19:59 Insulin Aspart (Insulin Aspart 100 Units/Ml 3 Ml Pen) 0 units SC ACHS LSIA Stop: 09/26/21 20:59 Last Admin: 08/28/21 16:51 Dose: 4 units Documented by: Insulin Glargine (Insulin Glargine Solostar 100 Units/Ml 3 Ml Pen) 20 units SC BID LISA Stop: 09/26/21 20:59 Last Admin: 08/28/21 12:23 Dose: 10 units Documented by: Magnesium Oxide (Magnesium Oxide 400 Mg Tab) 400 mg PO DAILY LISA Stop: 09/27/21 08:59 Last Admin: 08/28/21 08:11 Dose: 400 mg Documented by: Miscellaneous (Carbohydrates For Hypoglycemia ) 15 - 30 gm PO UD PRN PRN Reason: Hypoglycemia Protocol Stop: 09/26/21 19:59 Nortriptyline HCl (Nortriptyline Hcl 25 Mg Cap) 50 mg PO HS REPLACED BY [facility] Stop: 09/26/21 20:59 Last Admin: 08/27/21 21:36 Dose: 50 mg Documented by: Tolterodine Tartrate (Tolterodine Tartrate La 2 Mg Capcr) 2 mg PO QAM REPLACED BY [facility] Stop: 09/27/21 08:59 Last Admin: 08/28/21 08:11 Dose: 2 mg Documented by:
[2021-08-28] MEDS: NORTRIPTYLINE HCL 25 MG CAP PO SCH (20:04)
[2021-08-29 07:52] LABS: BUN Creatinine Ratio 19.3 (10-20); Calcium 8.9 mg/dl (8.5-10.1); Creatinine Clr Calc Pharmacy 28.7 ml/min; Est GFR (African American) 26.2 ml/min; Est GFR (Non-African American) 22.6 ml/min; Magnesium 2.1 mg/dl (1.8-2.4); Potassium 4.6 mmol/L (3.5-5.1)
[2021-08-29] MEDS: INSULIN ASPART 100 UNITS/ML 3 ML PEN SC SCH ×3 (08:28→17:27)
[2021-08-29] MEDS: INSULIN GLARGINE SOLOSTAR 100 UNITS/ML 3 ML PEN SC SCH (08:30)
[2021-08-29] MEDS: MAGNESIUM OXIDE 400 MG TAB PO SCH (08:31)
[2021-08-29] MEDS: FLUoxetine HCL 20 MG CAP PO SCH (08:32)
[2021-08-29] MEDS: buPROPion SR 150 MG TABCR PO SCH (08:32)
[2021-08-29] MEDS: ASPIRIN 81 MG ECTAB PO SCH (08:32)
[2021-08-29] MEDS: carvediloL 25 MG TAB PO SCH (08:32)
[2021-08-29] MEDS: ATORVASTATIN 40 MG TAB PO SCH (08:32)
[2021-08-29] MEDS: APIXABAN 5 MG TABLET PO SCH (08:33)
[2021-08-29] MEDS: amLODIPine BESYLATE 5 MG TAB PO SCH (08:33)
[2021-08-29] MEDS: TOLTERODINE TARTRATE LA 2 MG CAPCR PO SCH (08:33)
[2021-08-29] MEDS ORDERED: SODIUM CHLORIDE 0.9% 1000ML 1,000 ML IV SCH (09:15)
--- NOTE | 2021-08-29 10:53 | Hospitalist Progress Note ---
Date of Service August 29, 2021 Assessment & Plan (1) Atrial flutter with rapid ventricular response: Plan: -Admit to telemetry -Patient presenting from home with reports of generalized weakness and diarrhea x 2 weeks -In the ED, found to be in atrial flutter with RVR with rates in the 130s. History of paroxysmal atrial flutter typically controlled on carvedilol 12.5 mg twice daily and anticoagulated on apixaban. History of aortic stenosis s/p TAVR 03/2021 -Patient received diltiazem 10 mg and 20mg IV, metoprolol 5 mg IV x 2 doses without much improvement in HR -RVR likely secondary to dehydration from ongoing diarrhea in combination with missed a.m. dose beta-raman dose -Case discussed with Dr. Marinelli -increase carvedilol to 25 mg twice daily giving evening dose now, treat dehydration with IVF, replace magnesium. N.p.o. after midnight for possible cardioversion tomorrow. -Status post cardioversion with reversion to sinus rhythm -Denies any symptoms following cardioversion, will observe her overnight -Remains asymptomatic and monitor did not show any more arrhythmias -Will be discharged home this afternoon Morbid obesity BMI noted to be 41.0 kg/m Advised reduction of weight and follow diet and exercise (2) Acute kidney injury superimposed on CKD: Plan: Creatinine improved to 1.72 from 1.83 on admit Advised to drink more fluid Creatinine went up to 2.15 likely secondary to dehydration Will give 1 L of normal saline infusion and was advised to drink more fluids We will recheck PRP at 3 PM and the patient was discharged following that (3) CKD (chronic kidney disease), stage III: Plan: -Creatinine 1.8, baseline ~ 1.5 -Likely prerenal in nature due to dehydration from diarrhea -IVF, follow renal functions (4) Diarrhea: Plan: -No abdominal pain, has had some intermittent nausea and vomiting -Clear liquid diet for now -C. difficile and stool culture-negative for C. difficile toxin -No more diarrhea (5) Chronic diastolic CHF (congestive heart failure): Plan: -Hold furosemide and giving IVF as above -We will continue furosemide on discharge -No signs and or symptoms of fluid overload (6) DM type 2 (diabetes mellitus, type 2): Plan: -Hgb A1c 5.9 12/2020 -Lantus/NovoLog (7) DVT prophylaxis: Plan: -On apixaban Admission and Anticipated Discharge Date Admission Date: August 27, 2021 Subjective 08/28/2021 The patient was seen and examined in telemetry unit She is status post cardioversion and has been feeling much better Denies any palpitation and/or shortness of breath 08/29/2021 The patient was seen and examined in telemetry unit She has been feeling a lot better denies any cardiac symptoms Did not have any arrhythmias on monitor No palpitation, chest pain and/or shortness of breath Review of Systems Review of Systems: All systems reviewed and are unremarkable except as noted below Physical Exam Physical Exam: Sitting on a chair without any acute distress Constitutional: well developed, well nourished and + morbidly obese; not ill appearing Eyes: PERRL, conjunctivae normal, anicteric sclerae ENMT: external ear and nose normal, oropharynx normal Neck: trachea midline, no thyromegaly Respiratory: no respiratory distress and no cough Auscultation: lungs clear to auscultation bilaterally Cardiovascular: Rate/Rhythm: regular rate and regular rhythm; not tachycardic Heart Sounds: normal S1 and normal S2; no murmur Extremities: + edema (Trace edema bilaterally) Gastrointestinal (Abdomen): normal bowel sounds, soft, nontender, no hepatosplenomegaly Musculoskeletal: No acute arthritis in any joint Neurologic: Alert, awake and oriented x3. No focal sensory and motor deficit appreciated Results & Data Results & Data ([facility]) Vital Signs (Past 12 Hours) Vital Signs Temp Pulse Pulse Resp BP Pulse Ox 08/29/21 08:28 36.6 C 77 18 141/63 H 96 08/29/21 03:26 36.5 C 71 14 135/74 94 08/29/21 00:02 36.5 C 73 18 116/68 96 08/29/21 00:00 76 Laboratory Results [facility] 08/29/21 06:59 Sodium 137 Potassium 4.6 Chloride 108 H Carbon Dioxide 24 BUN 41 H Creatinine 2.15 H D Glucose 195 H Calcium 8.9 Medications Administered Current Inpatient Medications Acetaminophen (Acetaminophen 325 Mg Tab) 650 mg PO Q4H PRN PRN Reason: Pain or Fever Stop: 09/26/21 19:59 Amlodipine Besylate (Amlodipine Besylate 5 Mg Tab) 5 mg PO DAILY [facility] Stop: 09/27/21 08:59 Last Admin: 08/29/21 08:33 Dose: 5 mg Documented by: Apixaban (Apixaban 5 Mg Tablet) 5 mg PO BID [facility] Stop: 09/26/21 20:59 Last Admin: 08/29/21 08:33 Dose: 5 mg Documented by: Aspirin (Aspirin 81 Mg Ectab) 81 mg PO QAM [facility] Stop: 09/27/21 08:59 Last Admin: 08/29/21 08:32 Dose: 81 mg Documented by: Atorvastatin Calcium (Atorvastatin 40 Mg Tab) 40 mg PO QAM [facility] Stop: 09/27/21 08:59 Last Admin: 08/29/21 08:32 Dose: 40 mg Documented by: Bupropion HCl (Bupropion Sr 150 Mg Tabcr) 150 mg PO DAILY [facility] Stop: 09/27/21 08:59 Last Admin: 08/29/21 08:32 Dose: 150 mg Documented by: Carvedilol (Carvedilol 25 Mg Tab) 25 mg PO BID [facility] Stop: 09/26/21 17:39 Last Admin: 08/29/21 08:32 Dose: 25 mg Documented by: Dextrose (Dextrose 50% 50 Ml Syringe) 25 - 50 ml IV UD PRN; Protocol PRN Reason: Hypoglycemia Protocol Stop: 09/26/21 19:59 Fluoxetine HCl (Fluoxetine Hcl 20 Mg Cap) 40 mg PO [facility] Stop: 09/27/21 08:59 Last Admin: 08/29/21 08:32 Dose: 40 mg Documented by: Glucagon (Glucagon For Inj 1 Mg Vial) 1 mg SQ UD PRN; Protocol PRN Reason: Hypoglycemia Protocol Stop: 09/26/21 19:59 Glucose (Glucose 10 Tabs/Tube) 4 - 8 tabs PO UD PRN; Protocol PRN Reason: Hypoglycemia Protocol Stop: 09/26/21 19:59 Glucose (Glucose 40% Gel 15 Gm Tube) 15 - 30 gm PO UD PRN; Protocol PRN Reason: Hypoglycemia Protocol Stop: 09/26/21 19:59 Sodium Chloride (Nss 1000ml) 1,000 mls @ 125 mls/hr IV .Q8H [facility] Stop: 08/29/21 17:14 Last Admin: 08/29/21 10:04 Dose: 125 mls/hr Documented by: Insulin Aspart (Insulin Aspart 100 Units/Ml 3 Ml Pen) 0 units SC ACHS [facility] Stop: 09/26/21 20:59 Last Admin: 08/29/21 08:28 Dose: 5 units Documented by: Insulin Glargine (Insulin Glargine Solostar 100 Units/Ml 3 Ml Pen) 20 units SC BID [facility] Stop: 09/26/21 20:59 Last Admin: 08/29/21 08:30 Dose: 20 units Documented by: Magnesium Oxide (Magnesium Oxide 400 Mg Tab) 400 mg PO DAILY [facility] Stop: 09/27/21 08:59 Last Admin: 08/29/21 08:31 Dose: 400 mg Documented by: Miscellaneous (Carbohydrates For Hypoglycemia ) 15 - 30 gm PO UD PRN PRN Reason: Hypoglycemia Protocol Stop: 09/26/21 19:59 Nortriptyline HCl (Nortriptyline Hcl 25 Mg Cap) 50 mg PO HS [facility] Stop: 09/26/21 20:59 Last Admin: 08/28/21 20:04 Dose: 50 mg Documented by: Tolterodine Tartrate (Tolterodine Tartrate La 2 Mg Capcr) 2 mg PO QAM [facility] Stop: 09/27/21 08:59 Last Admin: 08/29/21 08:33 Dose: 2 mg Documented by:
--- NOTE | 2021-08-29 11:01 | Cardiology Progress Note ---
Date of Service August 29, 2021 Assessment & Plan (1) Atrial flutter: (2) Chronic diastolic CHF (congestive heart failure): (3) S/P TAVR (transcatheter aortic valve replacement): (4) CAD (coronary artery disease): Plan: Presentation with symptomatic paroxysmal atrial flutter with a rapid ventricular response status post August 28, 2021 direct-current cardioversion by Dr. Marinelli using a single biphasic synchronized 150 J countershock, without complication. Recommend continuation of the increased dose of carvedilol post discharge, for heart rate as well as blood pressure control. Anticoagulation to be continued without interruption. Oral hydration encouraged. Outpatient cardiology follow- up in 1 to 2 weeks. Recommend outpatient electrophysiology consultation. Admission and Anticipated Discharge Date Admission Date: August 27, 2021 Supervising Physician Co-Signing Physician Notes Patient seen and examined. Ambulatory in the ortiz without complaints. Anxious to be discharged home. No further arrhythmias on telemetry. Plan as outlined above Subjective Patient seen and examined earlier this morning. Chart, medications, and telemetry reviewed. Telemetry, following direct-current cardioversion on 08/28/2021, has revealed sinus rhythm throughout with a first-degree AV block. EKG this morning revealed a sinus rhythm at 67 bpm with a first-degree AV block (304 ms), possible old septal infarct. QTc was 462 ms. Patient notes feeling well. Notes less fluid intake during hospitalization compared to home. No chest pain, palpitations, dyspnea, cough, chest congestion, orthopnea, PND, increased edema, lightheadedness, dizziness, near s yncope, fevers, chills, melena, or hematochezia. Review of Systems Review of Systems: Complete Review of Systems is as stated above, negative, or noncontributory. Physical Exam Physical Exam: General: A&Ox3. NAD. Elevated BMI HENT: Normocephalic. Atraumatic. Eyes: PER. Conjunctiva pink, sclera clear. Neck: No carotid bruits. No JVD. No HJR. Heart: Regular at 70 bpm. Grade 2 systolic ejection murmur. No diastolic murmur. No rub. No gallop. PMI is nondisplaced. Lungs: Left mid lung rhonchi. No wheeze. Abdomen: +BS. Soft. Nontender. No masses or organomegaly. Extremities: Stasis changes. Mild edema. No clubbing. No cyanosis. No posterior tibial pulses appreciated. Limited neurological examination without focal deficit. Results & Data ([facility]) Vital Signs (Past 12 Hours) Vital Signs Temp Pulse Pulse Resp BP Pulse Ox 08/29/21 08:28 36.6 C 77 18 141/63 H 96 08/29/21 03:26 36.5 C 71 14 135/74 94 08/29/21 00:02 36.5 C 73 18 116/68 96 08/29/21 00:00 76 Laboratory Results Laboratory Results - last 24 hr 08/28/21 08/28/21 08/28/21 12:01 16:08 20:45 Sodium Potassium Chloride Carbon Dioxide Anion Gap BUN Creatinine Est Cr Clr Drug Dosing Est GFR ( Amer) Est GFR (Non-Af Amer) BUN/Creatinine Ratio Glucose POC Glucose 244 H 266 H 250 H Calcium Magnesium 08/29/21 08/29/21 06:59 07:38 Sodium 137 Potassium 4.6 Chloride 108 H Carbon Dioxide 24 Anion Gap 5.0 BUN 41 H Creatinine 2.15 H D Est Cr Clr Drug Dosing 28.7 Est GFR ( Amer) 26.2 Est GFR (Non-Af Amer) 22.6 BUN/Creatinine Ratio 19.3 Glucose 195 H POC Glucose 172 H Calcium 8.9 Magnesium 2.1
--- NOTE | 2021-08-29 17:07 | Electrocardiogram Report ---
Test Reason : Blood Pressure : / mmHG Vent. Rate : 067 BPM Atrial Rate : 067 BPM P-R Int : 304 ms QRS Dur : 090 ms QT Int : 438 ms P-R-T Axes : 040 -03 082 degrees QTc Int : 462 ms Sinus rhythm with 1st degree A-V block Septal infarct (cited on or before 27-AUG-2021) Abnormal ECG When compared with ECG of 28-AUG-2021 11:22, T wave inversion less evident in Lateral leads Confirmed by Brennen Smith ([id number]) on 08/29/2021 5:07:29 PM Referred By: REFERRED SELF Confirmed By:Brennen Smith
[2021-08-29 17:09] LABS: BUN Creatinine Ratio 20.2 (10-20); Calcium 8.6 mg/dl (8.5-10.1); Creatinine Clr Calc Pharmacy 30.2 ml/min; Est GFR (African American) 27.9 ml/min; Est GFR (Non-African American) 24.1 ml/min; Potassium 5.1 mmol/L (3.5-5.1)
--- NOTE | 2021-08-30 08:17 | Discharge Summary ---
Date of Service August 30, 2021 Admission HPI Per Admitting Provider Chief Complaint: Weakness, diarrhea Primary Care Provider: Garrett Kay DO 70-year-old female with PMH IDDM, CKD stage III, paroxysmal atrial flutter rate controlled on beta-raman and anticoagulated on apixaban, chronic diastolic CHF, aortic valve stenosis s/p TAVR 03/2021, HTN, GERD, and other problems listed below who presents the ED for evaluation of generalized weakness and diarrhea. Patient reports she has been having diarrhea for the past 2 weeks. Reports going up to 10 times per day. Describes stools as watery and brown. Denies abdominal pain. Has had some intermittent episodes of nausea and vomiting however ate a cheese steak last night for dinner. Last episode of vomiting was this morning. Patient denies bright red bleeding per rectum, dark tarry stools, hematemesis, coffee-ground emesis. Today while walking back from the bathroom she had a brief episode of left-sided chest pain. She reports this resolved quickly with sitting down. Denies shortness of breath and palpitations. No lightheadedness, dizziness, diaphoresis, syncopal events. She denies fevers and chills. No urinary symptoms. In the ED, patient is found to be in atrial flutter with RVR with rates in the 130s. Labs show a mild LAUREN with creatinine 1.8 (baseline 1.5) and mild hypomagnesemia with magnesium 1.6. Patient received diltiazem 10 mg IV and 20 mg IV, metoprolol 5 mg IV x2 doses, IVF, magnesium re placement. Admission Exam Per Admitting Provider Constitutional: WD/WN, vitals as above Eyes: PERRL, conjunctivae normal, anicteric sclerae ENMT: external ear and nose normal, oropharynx normal Respiratory: normal respiratory effort, lungs clear to auscultation Cardiovascular: Rate/Rhythm: regular rhythm and + tachycardic Vessels: normal peripheral pulses Extremities: no edema Gastrointestinal (Abdomen): normal bowel sounds, soft, nontender, no hepatosplenomegaly Musculoskeletal: no cyanosis or clubbing, extremities motor strength 5/5 Skin: no rashes, warm and dry Chronic venous changes BLE Neurologic: PERRL, EOMI, accommodation nl, no face palsy, no dysarthria Psychiatric: A+Ox3, euthymic affect Principal Diagnosis Atrial flutter with rapid ventricular response, status post cardioversion, chronic kidney disease, chronic diastolic CHF, type 2 diabetes Discharge Exam Constitutional well developed, well nourished and + morbidly obese; not ill appearing Eyes PERRL, conjunctivae normal, anicteric sclerae ENMT external ear and nose normal, oropharynx normal Neck trachea midline, no thyromegaly Respiratory no respiratory distress and no cough Auscultation: lungs clear to auscultation bilaterally Cardiovascular Rate/Rhythm: regular rate and regular rhythm; not tachycardic Heart Sounds: normal S1 and normal S2; no murmur Extremities: + edema (Trace edema bilaterally) Gastrointestinal (Abdomen) normal bowel sounds, soft, nontender, no hepatosplenomegaly Discharge Data Allergies Allergy/AdvReac Type Severity Reaction Status Date / Time colchicine Allergy Mild GI SYMPTOMS Verified 08/27/21 14:28 Consultations 08/27/21 16:30 ED Decision to Admit Stat 08/27/21 16:54 Consult Cardiology Routine Procedures Performed Operation Date: 08/28/21 11:00 Actual Procedures p Cardioversion - Roberto Marinelli MD Diabetes Follow up Diabetes Follow-up Needed for HgbA1c >9% Hospital Course (1) Atrial flutter with rapid ventricular response: -Admit to telemetry -Patient presenting from home with reports of generalized weakness and diarrhea x 2 weeks -In the ED, found to be in atrial flutter with RVR with rates in the 130s. History of paroxysmal atrial flutter typically controlled on carvedilol 12.5 mg twice daily and anticoagulated on apixaban. History of aortic stenosis s/p TAVR 03/2021 -Patient received diltiazem 10 mg and 20mg IV, metoprolol 5 mg IV x 2 doses without much improvement in HR -RVR likely secondary to dehydration from ongoing diarrhea in combination with missed a.m. dose beta-raman dose -Case discussed with Dr. Marinelli -increase carvedilol to 25 mg twice daily giving evening dose now, treat dehydration with IVF, replace magnesium. N.p.o. after midnight for possible cardioversion tomorrow. -Status post cardioversion with reversion to sinus rhythm -Denies any symptoms following cardioversion, will observe her overnight -Remains asymptomatic and monitor did not show any more arrhythmias -Will be discharged home this afternoon Morbid obesity BMI noted to be 41.0 kg/m Advised reduction of weight and follow diet and exercise (2) Acute kidney injury superimposed on CKD: Creatinine improved to 1.72 from 1.83 on admit Advised to drink more fluid Creatinine went up to 2.15 likely secondary to dehydration Will give 1 L of normal saline infusion and was advised to drink more fluids We will recheck PRP at 3 PM and the patient was discharged following that (3) CKD (chronic kidney disease), stage III: -Creatinine 1.8, baseline ~ 1.5 -Likely prerenal in nature due to dehydration from diarrhea -IVF, follow renal functions (4) Diarrhea: -No abdominal pain, has had some intermittent nausea and vomiting -Clear liquid diet for now -C. difficile and stool culture-negative for C. difficile toxin -No more diarrhea (5) Chronic diastolic CHF (congestive heart failure): -Hold furosemide and giving IVF as above -We will continue furosemide on discharge -No signs and or symptoms of fluid overload (6) DM type 2 (diabetes mellitus, type 2): -Hgb A1c 5.9 12/2020 -Lantus/NovoLog (7) DVT prophylaxis: -On apixaban Total Time Total Time Spent Total Time Spent (In Minutes): 35 minutes Discharge Plan Discharge Items Patient Disposition: Home - Self-Care Reason For Visit: AFIB RVR Discharge Diagnosis: Atrial flutter with rapid ventricular response, status post cardioversion, chronic kidney disease, chronic diastolic CHF, type 2 diabetes Condition on Discharge: Fair Activity: Resume your previous activity Non-emergency contact: Primary Care Provider Call non-emergency contact if: you have any medication questions and your symptoms worsen Follow-up/Referrals: [facility] [Other] (Date & Time 08/30/2021 12:30 PM Provider Kindra Garrison, JACQUELINE Department [facility], [facility] ) Garrett Kay DO [Primary Care Provider] - (Date & Time 09/02/2021 12:00 PM Provider Garrett Kay DO Department Family Practice [facility] ) Nicole Gibbs CRNP [Nurse Practitioner] - (Date & Time 09/04/2021 2:30 PM Provider MAURO Ledezma Department Cardiology, [facility] ) Diet: Carb Consistent or DM2 and Heart Healthy Fluids: 1800ml (7 cups) Addtl Attending Provider Instructions: Please take precautions to avoid fall Try to drink little bit more fluid to improve your kidney function as advised Keep appointments with your healthcare providers Do not take your furosemide until you are seen by your PCP and have a basic metabolic panel done Pending Studies at Discharge: No Stand-Alone Forms: My [facility], Smoking Cessation Medications and DC Order Prescriptions: New carvedilol 25 mg Tablet 25 mg PO BID Qty: 60 RF: 0 Continued Eliquis 5 mg tablet 5 mg PO BID RF: 0 Levemir U-100 Insulin 100 unit/mL solution 55 unit subcut AMHS RF: 0 insulin aspart U-100 [Novolog U-100 Insulin aspart] 100 unit/mL solution 30 unit subcut BIDM RF: 0 fluoxetine 40 mg capsule 40 mg PO QAM RF: 0 atorvastatin 40 mg tablet 40 mg PO QAM RF: 0 aspirin 81 mg Tablet,Delayed Release (Dr/Ec) 81 mg PO QAM RF: 0 allopurinol 300 mg tablet 300 mg PO QAM RF: 0 tolterodine 2 mg capsule,extended release 24hr 2 mg PO QAM RF: 0 nortriptyline 50 mg capsule 50 mg PO HS RF: 0 pantoprazole 40 mg tablet,delayed release (DR/EC) 40 mg PO DAILY RF: 0 bupropion HCl 150 mg tablet sustained-release 12 hr 150 mg PO DAILY RF: 0 multivitamin Tablet 1 tab PO DAILY RF: 0 furosemide 40 mg tablet 20 mg PO DAILY RF: 0 amlodipine 5 mg tablet 5 mg PO DAILY RF: 0 ondansetron 4 mg tablet,disintegrating 4 mg PO Q8H PRN (Reason: Nausea) RF: 0 nystatin [Nystop] 100,000 unit/gram powder 1 applic TOPICAL UD PRN (Reason: Skin Irritation) RF: 0 magnesium oxide 400 mg magnesium Tablet 400 mg PO DAILY RF: 0 Discontinued carvedilol 12.5 mg tablet 12.5 mg PO BID RF: 0 Discharge Orders: Discharge Order (Routine); Ordered 08/29/21 Ordered By: Johny Chopra Admission Data Admit Date/Time: 08/27/21 16:50 Attending Provider: Johny Chopra Admit Provider: Bethany Box Primary Care Provider: Garrett Kay Other Providers: Roberto Marinelli ; Bethany Box. Other Interventions: Discharge Summary Assessment (RN) Last Done: 08/29/21 17:54
== END 2021-08-29 18:20 | disposition home or self-care (01) | DRG 309 ==
LOC: ED 13:45 → 2S 16:50 → SUATTDRO 16:50 → 2S 19:44

== ENCOUNTER 2022-04-27 02:35 | Inpatient (IN) ==
[2022-04-27 03:30] LABS: Basophils # (auto) 0.01 K/uL (0-0.2); Basophils % (auto) 0.1 %; Hemoglobin 11.3 g/dL (12.0-16.0); Immature Granulocytes # (auto) 0.03 K/uL (0.00-0.02); Immature Granulocytes % (auto) 0.3 %; Lymphocytes # (auto) 0.84 K/uL (1.2-3.4); Lymphocytes % (auto) 9.2 %; Mean Corpuscular Hemoglobin 29.8 pg (25-34); Mean Corpuscular Hgb Conc 34.2 g/dL (32-36); Mean Corpuscular Volume 87.1 fL (80-100); Monocytes # (auto) 0.65 K/uL (0.11-0.59); Monocytes % (auto) 7.1 %; Neutrophils # (auto) 7.58 K/uL (1.4-6.5); Neutrophils % (auto) 83.3 %; Platelet Count 204 K/uL (130-400); RDW Coefficient of Variation 14.8 % (11.5-14.5); RDW Standard Deviation 47.7 fL (36.4-46.3); Red Blood Count 3.79 M/uL (4.2-5.4); White Blood Count 9.11 K/uL (4.8-10.8)
[2022-04-27 03:40] LABS: INR 1.1 (0.9-1.1); Partial Thromboplastin Ratio 1.2; Partial Thromboplastin Time 31.9 Seconds (21.0-31.0); Prothrombin Time 11.8 Seconds (9.0-12.0)
[2022-04-27 03:47] LABS: Albumin Level 3.2 gm/dl (3.4-5.0); BUN Creatinine Ratio 29.8 (10-20); Bilirubin,Total 0.7 mg/dl (0.2-1.0); Calcium 8.8 mg/dl (8.5-10.1); Creatinine Clr Calc Pharmacy 36.2 ml/min; Est GFR (African American) 36.9 ml/min; Est GFR (Non-African American) 31.8 ml/min; Globulin 3.2 gm/dl (2.5-4.0); Magnesium 1.8 mg/dl (1.7-2.4); Potassium 4.5 mmol/L (3.5-5.1); Total Protein 6.4 gm/dl (6.0-8.3)
[2022-04-27 03:49] LABS: Troponin I High Sensitivity 34.3 pg/ml (0-14)
[2022-04-27] MEDS ORDERED: SODIUM CHLORIDE 0.9% 500 ML IV ONE (04:10)
[2022-04-27] MEDS ORDERED: LORazepam 2 MG/1 ML VIAL ONE (06:19)
--- NOTE | 2022-04-27 06:47 | Emergency Department Note ---
Impression & Plan Acute hyponatremia, Seizure Admit to the [facility] ED Provider Note NAME: FRANCINE CHAVES AGE: 71 SEX: F ARRIVES VIA: Ambulance INFORMANT: EMS; the patient's neighbor ED PROVIDER(S): Jasmin Wick DO CHIEF COMPLAINT: Altered mental status PLAN: Disposition: Admit to the [facility] Condition: Stable MEDICAL DECISION MAKING: This is a 71-year-old female patient who presents to the emergency department with an altered mental status. The patient was noted to be significantly hyponatremic and had a tonic-clonic seizure here in the emergency department followed by a postictal phase. CT scan of the brain was unremarkable. The patient received IV normal saline solution. Patient has no history of hyponatremia according to medical records or the neighbor who accompanies her here. After discussing the situation with the neighbor, it seems that when she checked on her tonight, she was most likely postictal. I discussed the case with the [facility] and they will evaluate for further management. Triage Nursing notes reviewed and agree with them. Additional history obtained from the patient's neighbor Prior medical records reviewed Vital Signs: reviewed and remarkable for hypertension Differential diagnosis: Intracranial hemorrhage; TIA; CVA; seizure; hypoglycemia; electrolyte abnormality ER treatment provided: IV normal saline Diagnostics interpreted by me: ECG: Normal sinus rhythm at a rate of 97 with a first-degree AV block. There is no ST segment elevation. There is ST segment depression in leads I and aVL with T wave inversion. There is no signs of ischemia. There is no ectopy. Cardiac Monitoring: Sinus rhythm at 98 Laboratory studies: See below Imaging studies: As per my interpretation Portable chest x-ray: No acute pulmonary infiltrates or consolidations CT scan of the brain: Unremarkable as per stat rad HPI: 71/F arrives for evaluation of altered mental status. The patient had an altered mental status according to the neighbor when she checked on her this morning. The neighbor explains that she was in her usual mental state earlier this evening when they were together but the neighbor checked on her overnight and found her to be confused and not recognizing the neighbor. She denies ever having an altered mental status like this before. ROS: Unable to complete due to her altered mental status PAST MEDICAL HISTORY:See Below PAST SURGICAL HISTORY:See Below FAMILY HISTORY:See Below SOCIAL HISTORY:The patient lives alone but the neighbor checks on her. HOME MEDICATIONS:See list ALLERGIES:See list VITALS:See Below PHYSICAL EXAMINATION: HEENT: Head - normocephalic and atraumatic. Pupils are equal, round, and reactive to light. Extraocular eye muscles are intact, and sclera are anicteric . Nose - moist nasal mucosa without discharge. Mouth - moist buccal mucosa. Oropharynx is nonerythematous and there is no tonsillar exudate or edema noted. Neck: Supple; no JVD or cervical lymphadenopathy Heart: Regular rate and rhythm. There is a normal S1 and S2 with no murmurs, clicks, or gallops appreciated. Lungs: Clear to auscultation bilaterally with no wheezes, rales, or rhonchi. Abdomen: Soft, completely nontender, nondistended, with good bowel sounds. There are no palpable pulsatile masses or hepatosplenomegaly. There is no guarding, rigidity, or rebound noted. Extremities: No evidence of cyanosis, clubbing, or edema. There are easily palpable peripheral pulses. Skin: Pale, warm and dry with good turgor and no rashes. Neuro: The patient will only intermittently follow commands. She will only occasionally focus on me when I am trying to talk to her. ED COURSE: Times/Reassessments: 255: The patient was evaluated in room A2. A complete history and physical was performed. Laboratory studies were drawn as above. A twelve-lead EKG was obtained. An order was placed for continuous cardiac monitoring. The patient was in a normal sinus rhythm at a rate of 98. The patient went for CT scanning of the brain. Upon returning from radiology, nursing staff called me to the room as the patient was having a seizure. Upon my arrival, the patient was postictal and hypoxic. She was placed on supplemental oxygen. The neighbor was at the bedside and confirmed that she had had a seizure. [facility] and [facility] will evaluate for further management. Jasmin Wick DO Past Med/Surg History Medical History Chronic anticoagulation Chronic diastolic CHF (congestive heart failure) CKD (chronic kidney disease), stage III DM type 2 (diabetes mellitus, type 2) Dyslipidemia Dyspnea GERD (gastroesophageal reflux disease) History of Clostridium difficile infection Hypothyroidism Paroxysmal atrial flutter Stress incontinence Umbilical hernia Surgical History History of fracture of leg s/p surgical fixation S/P TAVR (transcatheter aortic valve replacement) 03/2021 Status post cataract extraction Family History Mother , 67 Alzheimer disease Father Myocardial infarction, Onset Age: 47 Social History Smoking Status: Unknown if ever smoked Tobacco Type: Cigarettes Years Smoked: 5; Second Hand Exposure: No; Preferred Language: Kiswahili Communication Ability: Impaired Hospice Fellow Required: No Beliefs That Will Affect Care: None marital status: / Current Living Situation: Alone Current Living Situation Comment: UNABLE TO ANSWER DUE TO AMS Feels Safe at Home: Declines to Answer Assistive Devices: None Allergies Allergies Allergy/AdvReac Type Severity Reaction Status Date / Time colchicine Allergy Mild GI SYMPTOMS Verified 08/27/21 14:28 Home Meds Home Medications Medication Instructions Recorded Confirmed allopurinol 300 mg tablet 300 mg PO QAM 02/27/19 04/27/22 aspirin 81 mg tablet,delayed 81 mg PO QAM 02/27/19 04/27/22 release atorvastatin 40 mg tablet 40 mg PO QAM 02/27/19 04/27/22 fluoxetine 40 mg capsule 40 mg PO QAM 02/27/19 04/27/22 nortriptyline 50 mg capsule 50 mg PO HS 02/27/19 04/27/22 tolterodine 2 mg capsule,extended 2 mg PO QAM 02/27/19 04/27/22 release 24 hr pantoprazole 40 mg tablet,delayed 40 mg PO DAILY 09/27/20 04/27/22 release bupropion HCl 150 mg tablet,12 hr 150 mg PO DAILY 10/03/20 04/27/22 sustained-release apixaban 5 mg tablet (Eliquis) 5 mg PO BID 01/12/21 04/27/22 insulin aspart U-100 100 unit/mL 30 unit SUBCUT BIDM 01/12/21 08/27/21 subcutaneous solution (Novolog U-100 Insulin aspart) insulin detemir U-100 100 unit/mL 55 unit SUBCUT AMHS 01/12/21 08/27/21 subcutaneous solution (Levemir U-100 Insulin) magnesium oxide 400 mg PO DAILY 03/07/21 04/27/22 nystatin 100,000 unit/gram topical 1 applic TOPICAL UD PRN 03/07/21 08/27/21 powder (Nystop) amlodipine 5 mg tablet 5 mg PO DAILY 08/27/21 04/27/22 furosemide 40 mg tablet 40 mg PO DAILY 08/27/21 04/27/22 multivitamin 1 tab PO DAILY 08/27/21 04/27/22 ondansetron 4 mg disintegrating 4 mg PO Q8H PRN 08/27/21 08/27/21 tablet cholecalciferol (vitamin D3) 1,250 50,000 unit PO UD 04/27/22 04/27/22 mcg (50,000 unit) capsule iron bisglycinate chelate 28 mg PO DAILY 04/27/22 04/27/22 Previous Rx's Medication Instructions Recorded carvedilol 25 mg tablet 25 mg PO BID #60 tab 08/29/21 Results & Data (ED) Vital Signs Vital Signs - 24 hr 04/27/22 02:43 04/27/22 04:12 04/27/22 05:01 Temperature 36.7 C Temperature Source Oral Pulse Rate 96 H 100 H Pulse Rate [Apical] 98 H Pulse Rate from SpO2 Sensor 98 H Respiratory Rate 18 14 16 Respiratory Effort / Characteristics Non-Labored Spontaneous Respiratory Depth Normal Blood Pressure 182/81 H 143/69 H Blood Pressure [Left Arm] 118/85 Blood Pressure Mean 114 93 Blood Pressure Mean [Left Arm] 96 Pulse Oximetry 96 93 Oxygen Delivery Method Room Air Nasal Cannula Room Air Oxygen Flow Rate 4 Sepsis Recent Fever Within 48 Hours No Sepsis New/Unexplained Change in Mental Status N/A Sepsis Action Taken by Nursing No Action Required 04/27/22 06:17 04/27/22 06:31 Temperature Temperature Source Pulse Rate Pulse Rate [Apical] 96 H 98 H Pulse Rate from SpO2 Sensor Respiratory Rate 24 20 Respiratory Effort / Characteristics Respiratory Depth Blood Pressure Blood Pressure [Left Arm] 198/89 H 193/84 H Blood Pressure Mean Blood Pressure Mean [Left Arm] 125 120 Pulse Oximetry 99 100 Oxygen Delivery Method Room Air Oxymask Oxygen Flow Rate 10 Sepsis Recent Fever Within 48 Hours Sepsis New/Unexplained Change in Mental Status Sepsis Action Taken by Nursing Laboratory Data Result diagrams: 04/28/22 02:36 04/28/22 02:36 Lab Results 04/27/22 04/27/22 04/27/22 Range/Units 02:46 02:46 02:46 WBC 9.11 (4.8-10.8) K/uL RBC 3.79 L (4.2-5.4) M/uL Hgb 11.3 L (12.0-16.0) g/dL Hct 33.0 L (37-47) % MCV 87.1 (80-100) fL MCH 29.8 (25-34) pg MCHC 34.2 (32-36) g/dL RDW Std Deviation 47.7 H (36.4-46.3) fL RDW Coeff of Mario 14.8 H (11.5-14.5) % Plt Count 204 (130-400) K/uL MPV 10.0 (7.4-10.4) fL Immature Gran % (Auto) 0.3 % Neut % (Auto) 83.3 % Lymph % (Auto) 9.2 % Union % (Auto) 7.1 % Eos % (Auto) 0.0 % Baso % (Auto) 0.1 % Neut # (Auto) 7.58 H (1.4-6.5) K/uL Lymph # (Auto) 0.84 L (1.2-3.4) K/uL Union # (Auto) 0.65 H (0.11-0.59) K/uL Eos # (Auto) 0.00 (0-0.5) K/uL Baso # (Auto) 0.01 (0-0.2) K/uL Immature Gran # (Auto) 0.03 H (0.00-0.02) K/uL PT 11.8 (9.0-12.0) Seconds INR 1.1 (0.9-1.1) APTT 31.9 H (21.0-31.0) Seconds PTT Ratio 1.2 Sodium 127 L (136-145) mmol/L Potassium 4.5 (3.5-5.1) mmol/L Chloride 92 L (98-107) mmol/L Carbon Dioxide 25 (21-32) mmol/L Anion Gap 10 (3-11) BUN 48 H (6-23) mg/dl Creatinine 1.61 H (0.6-1.2) mg/dl Est Cr Clr Drug Dosing 36.2 ml/min Est GFR ( Amer) 36.9 ml/min Est GFR (Non-Af Amer) 31.8 ml/min BUN/Creatinine Ratio 29.8 H (10-20) Glucose 291 H (70-99(Fasting)) mg/dl Calcium 8.8 (8.5-10.1) mg/dl Magnesium 1.8 (1.7-2.4) mg/dl Total Bilirubin 0.7 (0.2-1.0) mg/dl AST 19 (13-39) U/L ALT 9 (7-52) U/L Alkaline Phosphatase 176 H (34-104) U/L Troponin I High Sens 34.3 H (0-14) pg/ml Total Protein 6.4 (6.0-8.3) gm/dl Albumin 3.2 L (3.4-5.0) gm/dl Globulin 3.2 (2.5-4.0) gm/dl Albumin/Globulin Ratio 1.0 (0.9-2) SARS-CoV-2, RNA, NAAT (NEGATIVE) Blood Type Antibody Screen 04/27/22 04/27/22 Range/Units 03:30 05:37 WBC (4.8-10.8) K/uL RBC (4.2-5.4) M/uL Hgb (12.0-16.0) g/dL Hct (37-47) % MCV (80-100) fL MCH (25-34) pg MCHC (32-36) g/dL RDW Std Deviation (36.4-46.3) fL RDW Coeff of Mario (11.5-14.5) % Plt Count (130-400) K/uL MPV (7.4-10.4) fL Immature Gran % (Auto) % Neut % (Auto) % Lymph % (Auto) % Union % (Auto) % Eos % (Auto) % Baso % (Auto) % Neut # (Auto) (1.4-6.5) K/uL Lymph # (Auto) (1.2-3.4) K/uL Union # (Auto) (0.11-0.59) K/uL Eos # (Auto) (0-0.5) K/uL Baso # (Auto) (0-0.2) K/uL Immature Gran # (Auto) (0.00-0.02) K/uL PT (9.0-12.0) Seconds INR (0.9-1.1) APTT (21.0-31.0) Seconds PTT Ratio Sodium (136-145) mmol/L Potassium (3.5-5.1) mmol/L Chloride (98-107) mmol/L Carbon Dioxide (21-32) mmol/L Anion Gap (3-11) BUN (6-23) mg/dl Creatinine (0.6-1.2) mg/dl Est Cr Clr Drug Dosing ml/min Est GFR ( Amer) ml/min Est GFR (Non-Af Amer) ml/min BUN/Creatinine Ratio (10-20) Glucose (70-99(Fasting)) mg/dl Calcium (8.5-10.1) mg/dl Magnesium (1.7-2.4) mg/dl Total Bilirubin (0.2-1.0) mg/dl AST (13-39) U/L ALT (7-52) U/L Alkaline Phosphatase (34-104) U/L Troponin I High Sens (0-14) pg/ml Total Protein (6.0-8.3) gm/dl Albumin (3.4-5.0) gm/dl Globulin (2.5-4.0) gm/dl Albumin/Globulin Ratio (0.9-2) SARS-CoV-2, RNA, NAAT NEGATIVE (NEGATIVE) Blood Type O Positive Antibody Screen NEGATIVE Administered Medications Allopurinol (Allopurinol 300 Mg Tab) 300 mg PO QAM [facility] Stop: 05/27/22 08:59 Last Admin: 04/27/22 09:28 Dose: Not Given Documented by: [id number] Amlodipine Besylate (Amlodipine Besylate 5 Mg Tab) 5 mg PO DAILY [facility] Stop: 05/27/22 08:59 Last Admin: 04/27/22 09:28 Dose: Not Given Documented by: [id number] Apixaban (Apixaban 5 Mg Tablet) 5 mg PO BID [facility] Stop: 05/27/22 08:59 Last Admin: 04/27/22 09:28 Dose: Not Given Documented by: [id number] Aspirin (Aspirin 81 Mg Ectab) 81 mg PO QAM [facility] Stop: 05/27/22 08:59 Last Admin: 04/27/22 09:28 Dose: Not Given Documented by: [id number] Atorvastatin Calcium (Atorvastatin 40 Mg Tab) 40 mg PO QAM [facility] Stop: 05/27/22 08:59 Last Admin: 04/27/22 09:28 Dose: Not Given Documented by: [id number] Bupropion HCl (Bupropion Sr 150 Mg Tabcr) 150 mg PO DAILY [facility] Stop: 05/27/22 08:59 Last Admin: 04/27/22 09:28 Dose: Not Given Documented by: [id number] Carvedilol (Carvedilol 25 Mg Tab) 25 mg PO BID [facility] Stop: 05/27/22 08:59 Last Admin: 04/27/22 20:43 Dose: Not Given Documented by: [id number] Admin: 04/27/22 09:28 Dose: Not Given Documented by: [id number] Dextrose (Dextrose 50% 50 Ml Syringe) 25 - 50 ml IV UD PRN; Protocol PRN Reason: Hypoglycemia Protocol Stop: 05/27/22 08:44 Last Admin: 04/27/22 18:03 Dose: 50 ml Documented by: [id number] Fluoxetine HCl (Fluoxetine Hcl 20 Mg Cap) 40 mg PO QAM [facility] Stop: 05/27/22 08:59 Last Admin: 04/27/22 09:28 Dose: Not Given Documented by: [id number] Sodium Chloride (Nss 1000ml) 1,000 mls @ 100 mls/hr IV .Q10H [facility] Stop: 05/27/22 08:03 Last Infusion: 04/28/22 07:20 Dose: 0 mls/hr Documented by: [id number] Admin: 04/27/22 20:34 Dose: 100 mls/hr Documented by: [id number] Infusion: 04/27/22 18:51 Dose: 100 mls/hr Documented by: [id number] Admin: 04/27/22 08:51 Dose: 100 mls/hr Documented by: [id number] Levetiracetam 500 mg/ Sodium (Chloride) 105 mls @ 420 mls/hr IV Q12H [facility] Stop: 05/27/22 11:59 Last Infusion: 04/28/22 00:36 Dose: 0 mls/hr Documented by: [id number] Admin: 04/28/22 00:21 Dose: 420 mls/hr Documented by: [id number] Infusion: 04/27/22 11:50 Dose: 0 mls/hr Documented by: [id number] Admin: 04/27/22 11:35 Dose: 420 mls/hr Documented by: [id number] Ceftriaxone Sodium 2,000 mg/ (Dextrose) 70 mls @ 100 mls/hr IV Q12H [facility]; Protocol Stop: 05/07/22 11:59 Last Infusion: 04/28/22 01:37 Dose: 0 mls/hr Documented by: [id number] Admin: 04/28/22 00:55 Dose: 100 mls/hr Documented by: [id number] Infusion: 04/27/22 13:17 Dose: 0 mls/hr Documented by: [id number] Admin: 04/27/22 12:35 Dose: 100 mls/hr Documented by: [id number] Acyclovir Sodium 700 mg/ (Dextrose) 264 mls @ 250 mls/hr IV Q12H [facility]; Protocol Stop: 05/07/22 13:59 Last Infusion: 04/28/22 04:07 Dose: 0 mls/hr Documented by: [id number] Admin: 04/28/22 03:03 Dose: 250 mls/hr Documented by: [id number] Infusion: 04/27/22 15:54 Dose: 0 mls/hr Documented by: [id number] Admin: 04/27/22 14:50 Dose: 250 mls/hr Documented by: [id number] Pantoprazole Sodium 40 mg/ (Syringe) 10 mls @ 5 mls/min IV BID [facility] Stop: 05/27/22 11:59 Last Admin: 04/27/22 21:04 Dose: 5 mls/min Documented by: [id number] Admin: 04/27/22 13:05 Dose: 5 mls/min Documented by: [id number] Ampicillin Sodium 2,000 mg/ (Sodium Chloride) 100 mls @ 200 mls/hr IV Q6H [facility]; Protocol Stop: 05/07/22 11:59 Last Infusion: 04/28/22 02:14 Dose: 0 mls/hr Documented by: [id number] Admin: 04/28/22 01:44 Dose: 200 mls/hr Documented by: [id number] Infusion: 04/27/22 19:07 Dose: 0 mls/hr Documented by: [id number] Admin: 04/27/22 18:26 Dose: 200 mls/hr Documented by: [id number] Infusion: 04/27/22 12:35 Dose: 0 mls/hr Documented by: [id number] Admin: 04/27/22 12:05 Dose: 200 mls/hr Documented by: [id number] Heparin Sodium/Dextrose (Heparin Sodium/Dextrose) 25,000 units in 500 mls @ 17 mls/hr IV .Q24H [facility]; Protocol Stop: 05/27/22 19:29 Last Admin: 04/27/22 20:34 Dose: 850 units/hr, 17 mls/hr Documented by: [id number] Cosigned by: [id number] Insulin Aspart (Insulin Aspart Per Unit) 0 units SC ACHS [facility] Stop: 05/27/22 08:03 Last Admin: 04/27/22 20:44 Dose: Not Given Documented by: [id number] Cosigned by: [id number] Admin: 04/27/22 18:03 Dose: Not Given Documented by: [id number] Cosigned by: [id number] Admin: 04/27/22 12:15 Dose: 4 units Documented by: [id number] Cosigned by: [id number] Admin: 04/27/22 09:03 Dose: 10 units Documented by: [id number] Cosigned by: [id number] Insulin Detemir (Insulin Detemir Flexpen/Flex Touch 100 Units/Ml 3ml) 25 units SC BID [facility] Stop: 05/27/22 08:59 Last Admin: 04/27/22 21:03 Dose: Not Given Documented by: [id number] Admin: 04/27/22 09:10 Dose: 25 units Documented by: [id number] Cosigned by: [id number] Magnesium Oxide (Magnesium Oxide 400 Mg Tab) 400 mg PO DAILY [facility] Stop: 05/27/22 08:59 Last Admin: 04/27/22 09:28 Dose: Not Given Documented by: [id number] Metoprolol Tartrate (Metoprolol Tartrate 1 Mg/Ml Vial) 5 mg IV Q6 [facility] Stop: 05/27/22 11:59 Last Admin: 04/28/22 06:15 Dose: 5 mg Documented by: [id number] Admin: 04/28/22 00:43 Dose: 5 mg Documented by: [id number] Admin: 04/27/22 18:26 Dose: 5 mg Documented by: [id number] Admin: 04/27/22 13:05 Dose: 5 mg Documented by: [id number] Miscellaneous (Iron Bisglycinate Chelate 28 Mg: Order Awaiting Action) 1 ea N/A QS [facility] Stop: 05/27/22 15:59 Last Admin: 04/28/22 01:00 Dose: Not Given Documented by: [id number] Admin: 04/27/22 19:10 Dose: Not Given Documented by: [id number] Multivitamins (Multivitamin Tab) 1 tab PO DAILY [facility] Stop: 05/27/22 08:59 Last Admin: 04/27/22 09:29 Dose: Not Given Documented by: [id number] Pantoprazole Sodium (Pantoprazole 40 Mg Tab) 40 mg PO DAILY [facility] Stop: 05/27/22 08:59 Last Admin: 04/27/22 09:29 Dose: Not Given Documented by: [id number] Tolterodine Tartrate (Tolterodine Tartrate La 2 Mg Capcr) 2 mg PO QAM [facility] Stop: 05/27/22 08:59 Last Admin: 04/27/22 09:29 Dose: Not Given Documented by: [id number] Discontinued Medications Enoxaparin Sodium (Enoxaparin 100 Mg/1ml Syr) 100 mg SQ Q12H [facility] Stop: 05/27/22 17:14 Last Admin: 04/27/22 20:57 Dose: Not Given Documented by: [id number] Sodium Chloride (Nss) 500 mls @ 999 mls/hr IV .Q31M [facility] Stop: 04/27/22 04:40 Last Infusion: 04/27/22 04:59 Dose: 0 mls/hr Documented by: [id number] Admin: 04/27/22 04:18 Dose: 999 mls/hr Documented by: [id number] Levetiracetam 1,000 mg/ Sodium (Chloride) 110 mls @ 440 mls/hr IV NOW STA Stop: 04/27/22 08:28 Last Infusion: 04/27/22 09:06 Dose: 0 mls/hr Documented by: [id number] Admin: 04/27/22 08:51 Dose: 440 mls/hr Documented by: [id number] Levetiracetam 500 mg/ Sodium (Chloride) 105 mls @ 420 mls/hr IV Q12H [facility] Stop: 05/27/22 08:59 Last Admin: 04/27/22 09:28 Dose: Not Given Documented by: [id number] Vancomycin HCl 2,500 mg/ (Sodium Chloride) 550 mls @ 180 mls/hr IV NOW STA Stop: 04/27/22 14:45 Last Infusion: 04/27/22 16:31 Dose: 0 mls/hr Documented by: [id number] Admin: 04/27/22 13:18 Dose: 180 mls/hr Documented by: [id number] Sodium Chloride (Nss 1000ml) 1,000 mls @ 999 mls/hr IV .Q1H1M [facility] Stop: 04/27/22 14:35 Last Infusion: 04/27/22 16:02 Dose: 0 mls/hr Documented by: [id number] Admin: 04/27/22 14:50 Dose: 999 mls/hr Documented by: [id number] Lorazepam (Lorazepam 2 Mg/1 Ml Vial) Confirm Administered Dose 2 mg .ROUTE .STK- MED ONE Stop: 04/27/22 06:20 Last Admin: 04/27/22 06:50 Dose: 1.5 mg Documented by: [id number] Lorazepam (Lorazepam 2 Mg/1 Ml Vial) 1.5 mg IV NOW STA; Protocol Stop: 04/27/22 08:23 Last Admin: 04/27/22 08:57 Dose: 1.5 mg Documented by: [id number] Discharge Plan Visit Data Chief Complaint: Altered Mental Status Stated Complaint: ALTERED LEVEL OF CONSCIOUSNESS ED Provider: Jasmin Wick Discharge Problem: Acute hyponatremia, Seizure Patient Disposition: Admitted As Inpatient Discharge Instructions Interventions: ED Discharge Assessment Last Done: 04/27/22 07:38
[2022-04-27] MEDS ORDERED: LORazepam 2 MG/1 ML VIAL IV PRN (08:04)
[2022-04-27] MEDS ORDERED: NITROGLYCERIN SL 0.4 MG/TAB TAB SL PRN (08:04)
[2022-04-27] MEDS ORDERED: ONDANSETRON INJ 2 MG/ML 2 ML VIAL IV PRN (08:04)
[2022-04-27] MEDS ORDERED: POLYETHYLENE (MIRALAX) 17 GM PACK PO PRN (08:04)
[2022-04-27] MEDS ORDERED: ACETAMINOPHEN 325 MG TAB PO PRN (08:04)
[2022-04-27] MEDS ORDERED: levETIRAcetam 1,000 MG in 0.9 % SODIUM CHLORIDE 100 ML IV STA (08:14)
[2022-04-27] MEDS ORDERED: LORazepam 2 MG/1 ML VIAL IV STA (08:22)
[2022-04-27] MEDS ORDERED: GLUCOSE 40% GEL 15 GM TUBE PO PRN (08:45)
[2022-04-27] MEDS ORDERED: DEXTROSE 50% 50 ML SYRINGE IV PRN (08:45)
[2022-04-27] MEDS ORDERED: GLUCOSE 10 TABS/TUBE PO PRN (08:45)
[2022-04-27] MEDS ORDERED: CARBOHYDRATES FOR HYPOGLYCEMIA PO PRN (08:45)
[2022-04-27] MEDS ORDERED: GLUCAGON FOR INJ 1 MG VIAL IM PRN (08:45)
[2022-04-27] MEDS: SODIUM CHLORIDE 0.9% 1000ML 1,000 ML IV SCH ×2 (08:51→20:34)
[2022-04-27] MEDS ORDERED: ATORVASTATIN 40 MG TAB PO SCH (09:00)
[2022-04-27] MEDS ORDERED: MULTIVITAMIN TAB PO SCH (09:00)
[2022-04-27] MEDS ORDERED: PANTOprazole 40 MG TAB PO SCH (09:00)
[2022-04-27] MEDS ORDERED: MAGNESIUM OXIDE 400 MG TAB PO SCH (09:00)
[2022-04-27] MEDS ORDERED: ASPIRIN 81 MG ECTAB PO SCH (09:00)
[2022-04-27] MEDS ORDERED: TOLTERODINE TARTRATE LA 2 MG CAPCR PO SCH (09:00)
[2022-04-27] MEDS ORDERED: buPROPion SR 150 MG TABCR PO SCH (09:00)
[2022-04-27] MEDS ORDERED: levETIRAcetam 500 MG in 0.9 % SODIUM CHLORIDE 100 ML IV SCH (09:00)
[2022-04-27] MEDS ORDERED: allopurinoL 300 MG TAB PO SCH (09:00)
[2022-04-27] MEDS ORDERED: amLODIPine BESYLATE 5 MG TAB PO SCH (09:00)
[2022-04-27] MEDS ORDERED: APIXABAN 5 MG TABLET PO SCH (09:00)
[2022-04-27] MEDS ORDERED: FLUoxetine HCL 20 MG CAP PO SCH (09:00)
[2022-04-27] MEDS: INSULIN ASPART PER UNIT SC SCH ×4 (09:03→20:44)
[2022-04-27] MEDS: INSULIN DETEMIR FLEXPEN/FLEX TOUCH 100 UNITS/ML 3ML SC SCH ×2 (09:10→21:03)
--- NOTE | 2022-04-27 09:20 | CT Scan Report ---
CT head/brain wo con CLINICAL HISTORY: Stroke Like Symptoms . Altered mental status. Unresponsive. COMPARISON STUDY: 04/07/2022 CT DOSE: 614.27 mGy.cm TECHNIQUE: Standard CT of the Brain was performed without IV contrast. A dose lowering technique was utilized adhering to the principles of ALARA. FINDINGS: Extraaxial space: There is no evidence for subdural hematoma. There are no extra-axial fluid collecti ons. Ventricles and cisterns: The ventricles are mildly dilated bilaterally. There is no evidence for midl ine shift or mass effect. Parenchyma: There is no subarachnoid or intraparenchymal hemorrhage. There is no evidence for an acut e infarct or cerebral edema. There is mild cerebral cortical atrophy and decreased attenuation in the periventricular white matter representing remote small vessel disease. There are no gross mass lesio ns. Osseous structures: There is no evidence for an acute fracture. The visualized paranasal sinuses are clear. The mastoid air cells are clear bilaterally. Soft tissues: There is no evidence for focal soft tissue swelling. IMPRESSION: 1. No acute intracerebral pathology. 2. Cerebral cortical atrophy and remote small vessel disease are again seen. ACT 112: Negative or not required by law. Electronically signed by: River Jeffries M.D. 04/27/2022 9:18 AM
[2022-04-27] MEDS: carvediloL 25 MG TAB PO SCH ×2 (09:28→20:43)
--- NOTE | 2022-04-27 10:14 | History and Physical Report ---
DATE OF ADMISSION: 04/27/2022. CHIEF COMPLAINT: Altered mental status, seizures. HISTORY OF PRESENT ILLNESS: A 71-year-old female with past medical history significant for diabetes, diabetic retinopathy, peripheral vascular disease, chronic kidney disease stage III, hypothyroidism, hyperlipidemia, neuropathy, atrial flutter, peripheral vascular disease, moderate aortic stenosis, status post TAVR, venous stasis of both lower extremities, history of CAD, GERD, female stress incontinence, depression, history of cardioversion, who presents with altered mental status. The patient lives alone, and neighbor checks on her. As per neighbor she also has nurses come and checks on her. Apparently, she was doing okay, but she is not ambulating much. She ambulates with a walker. For last few days she is not eating much, not ambulating much and today when she went, she was found to be confused and neighbor thinks she was having the seizure episode and she was brought into the hospital. In the ER also she had another episode of seizure. Labs showed of sodium of 127, creatinine of 1.6, glucose of 291. SARS-CoV-[address] of the head, preliminary report, no acute findings. When I was seeing the patient, she had another episode of seizure and became drowsy. We gave one dose of Ativan 1.5 mg IV and she was placed on OxyMask. Could not get any history from the patient. As per the neighbor who was in the room, she was doing apparently okay until this happened. She is afebrile. ALLERGIES: COLCHICINE. PAST MEDICAL HISTORY: As mentioned above. PAST SURGICAL HISTORY: Left heart catheterization, laser trabeculoplasty cataract surgery, repair of thigh fracture, TAVR. MEDICATIONS: As per [facility], the patient is on Zofran 4 mg p.r.n., vitamin D 2000 units p.o. daily, insulin Levemir 55 units b.i.d., Lasix 40 mg p.o. daily, insulin aspart as directed, allopurinol 300 mg p.o. daily, amlodipine 5 mg p.o. daily, Eliquis 5 mg p.o. b.i.d., atorvastatin 40 mg p.o. daily, bupropion ER 150 mg p.o. daily, fluoxetine 40 mg p.o. daily, Iron 28 mg p.o. daily, magnesium oxide 400 mg p.o. daily, multivitamin p.o. daily, nortriptyline 50 mg p.o. at bedtime, Protonix 40 mg p.o. daily, tolterodine tartrate 2 mg p.o. daily, vitamin B12 1000 mcg p.o. daily, aspirin 81 mg p.o. daily, Coreg 25 mg p.o. b.i.d. SOCIAL HISTORY: . She quit smoking in 1979, smoked 1 pack for 5 years. Alcohol as per [employer], quit many years ago. No drug use. FAMILY HISTORY: Significant for mother had dementia. Father had AR. REVIEW OF SYSTEMS: Unobtainable at this time. PHYSICAL EXAMINATION: GENERAL: The patient is drowsy and had a seizure. VITAL SIGNS: Temperature 36.7, pulse 90, respiratory 20, blood pressure 193/84, oxygen 100% on 10 liters OxyMask. HEENT: Pupils equal. Atraumatic. Pupils are sluggish to react to light. No facial droop seen. NECK: No JVD. No neck masses seen. CARDIOVASCULAR: S1 and S2 heard. Regular rate and rhythm. No murmur, no gallop. RESPIRATORY SYSTEM: Normal AP diameter. No accessory muscle use. No wheezing, no crackles. ABDOMEN: Soft. Bowel sounds are present, no distention. CENTRAL NERVOUS SYSTEM: Drowsy. No facial droop seen. EXTREMITIES: Lower extremities, chronic skin changes seen. No edema seen. LABORATORY: WBC 9.1, hemoglobin 11.3, hematocrit 33, platelets 204. PT 11.8, INR 1.1, APTT 31.9. Sodium 137, potassium 4.5, chloride 92, bicarb 25, BUN 40, creatinine 1.6, serum glucose 291, calcium 8.8, magnesium 1.8, total bilirubin 0.7, AST 19, ALT 9, alkaline phosphatase 176, troponin I 34.3. SARS-CoV-2 rapid test negative. IMAGING: CT of the head, preliminary report, no acute findings. EKG: Normal sinus rhythm with first-degree AV block at a rate of 97, no significant change was found. ASSESSMENT AND PLAN: This is a 71-year-old female who presents with confusion and had seizures. 1. Altered mental status and having seizure episodes. There is no history of seizures. She had one at home, couple in the ER. Currently, given IV Ativan. We are also loading with Keppra and placed on IV Keppra 500 b.i.d., EEG and we will get MRI scan. N.p.o., IV fluids. Consult Neurology. Closely monitor in tele floor. 2. Hyponatremia, sodium of 127, getting fluids. Holding her home diuretics. follow labs. 3. Chronic kidney disease stage III, creatinine 1.6 which is her baseline. 4. Chronic diastolic congestive heart failure, valvular heart disease, status post TAVR, moderate mitral stenosis. Holding diuretics. Getting gentle fluids. Restart diuretics if possible. Monitor for volume overload. 5. Hypertension: Continue her home dose of amlodipine, Coreg. We will monitor the blood pressure. 6. Diabetes, we will cut back on Levemir to 25 units b.i.d. The patient is currently n.p.o. Insulin sliding scale, follow the blood sugars. 7. Depression. Continue fluoxetine, bupropion, nortriptyline. 8. Gout. Continue allopurinol. 9. Hyperlipidemia. Continue statin. 10. History of atrial flutter, rate controlled with Coreg on Eliquis. 11. Peripheral vascular disease, on statin and aspirin. 12. Female stress incontinence on tolterodine. 13. Deep venous thrombosis prophylaxis, on Eliquis. DISPOSITION: Closely monitor in the tele floor. PT/OT prior to discharge. Social Service to help with discharge planning. Job ID: [id number] CARLOS
[2022-04-27] MEDS: levETIRAcetam 500 MG in 0.9 % SODIUM CHLORIDE 100 ML IV SCH (11:35)
[2022-04-27] MEDS ORDERED: VANCOMYCIN CONSULT ACTIVE PRN (11:36)
[2022-04-27] MEDS ORDERED: VANCOMYCIN HCL 2,500 MG in SODIUM CHLORIDE 0.9% 500 ML IV STA (11:42)
[2022-04-27] MEDS ORDERED: VANCOMYCIN HCL 1,000 MG in SODIUM CHLORIDE 0.9% 250 ML IV SCH (11:45)
--- NOTE | 2022-04-27 11:52 | XRay Report ---
XR chest 1V portable CLINICAL HISTORY: Difficulty breathing.. COMPARISON STUDY: 08/27/2021 TECHNIQUE: 1 view of the chest FINDINGS: Single frontal view of the chest demonstrates the cardiomediastinal silhouette to be within normal li mits. The lungs are clear of alveolar opacities. There is no evidence for pleural effusion. There is no evidence for vascular congestion. There is no acute osseous pathology. IMPRESSION: 1. No acute cardiopulmonary disease. ACT 112: Negative or not required by law. Electronically signed by: River Jeffries M.D. 04/27/2022 11:51 AM
[2022-04-27] MEDS: AMPICILLIN 2,000 MG in SODIUM CHLOR 0.9% AD-VAN 100 ML IV SCH ×2 (12:05→18:26)
--- NOTE | 2022-04-27 12:27 | Electrocardiogram Report ---
Test Reason : Blood Pressure : / mmHG Vent. Rate : 097 BPM Atrial Rate : 097 BPM P-R Int : 222 ms QRS Dur : 094 ms QT Int : 388 ms P-R-T Axes : 065 005 080 degrees QTc Int : 492 ms Poor data quality, interpretation may be adversely affected Sinus rhythm with 1st degree A-V block Abnormal ECG When compared with ECG of 29-AUG-2021 07:25, No significant change was found Confirmed by Julian Schreiber ([id number]) on 04/27/2022 12:27:28 PM Referred By: REFERRED SELF Confirmed By:Kali Schreiber
[2022-04-27] MEDS: cefTRIAXone SODIUM 2,000 MG in DEXTROSE 5% 50 ML IV SCH (12:35)
[2022-04-27] MEDS: METOPROLOL TARTRATE 1 MG/ML VIAL IV SCH ×2 (13:05→18:26)
[2022-04-27] MEDS: PANTOprazole 40 MG in SYRINGE 0 ML IV SCH ×2 (13:05→21:04)
[2022-04-27 13:35] LABS: Albumin Level 3.2 gm/dl (3.4-5.0); BUN Creatinine Ratio 29.7 (10-20); Bilirubin,Total 0.6 mg/dl (0.2-1.0); Calcium 9.1 mg/dl (8.5-10.1); Creatinine Clr Calc Pharmacy 36.3 ml/min; Est GFR (African American) 37.8 ml/min; Est GFR (Non-African American) 32.6 ml/min; Globulin 3.1 gm/dl (2.5-4.0); Phosphorus 3.8 mg/dl (2.5-4.9); Potassium 4.2 mmol/L (3.5-5.1); Total Protein 6.3 gm/dl (6.0-8.3); Troponin I High Sensitivity 35.3 pg/ml (0-14)
[2022-04-27] MEDS ORDERED: SODIUM CHLORIDE 0.9% 1000ML 1,000 ML IV ONE (13:35)
[2022-04-27] MEDS: ACYCLOVIR SOD 700 MG in DEXTROSE 5% 250 ML IV SCH (14:50)
--- NOTE | 2022-04-27 14:53 | Pharmacy Report ---
Pharmacy Vanc AUC Short Note - Date of Service April 27, 2022 - Assessment & Plan Assessment 71 year old F receiving IV vancomycin, acyclovir, ampicillin, and ceftriaxone for empiric [employer] coverage in the setting of seizures and AMS. Blood cultures pending. CKD III- renal function at baseline. Day #1 of antimicrobial (vancomycin) therapy. Plan Vancomycin * AUC/LONG is the preferred PK/PD target for vancomycin, however given obesity/body habitus, in addition to underlying renal dysfunction, AUC/LONG dosing not preferred. * S/p vancomycin load of 2500mg X 1. Estimated half life ~ 20hr. Pt at risk for accumulation. * Random level ordered for tomorrow @ 12 to guide further dosing/establish clearance prior to re-dosing. Pharmacy will continue to follow and will adjust dose/frequency as necessary. Thank you.
--- NOTE | 2022-04-27 14:56 | Consultation Report ---
DATE OF CONSULTATION: 04/27/2022 REASON FOR CONSULTATION: Change in mental status, seizure. The history is obtained from the medical record. HISTORY OF PRESENT ILLNESS: The patient is a 71-year-old female with a history of diabetes, diabetic retinopathy, peripheral vascular disease, chronic kidney disease, hypothyroidism, hyperlipidemia, ne uropathy, atrial flutter, peripheral vascular disease, moderate aortic stenosis, status post TAVR, ve nous stasis in both lower extremities, coronary artery disease, reflux, stress incontinence, depressi on, history of cardioversion, who presents with altered mental status. The patient lives alone and n bertinbors check on her. As per her neighbor, she also has nurses that check on her. She was doing adeq uately, but not ambulating much. She was at our hospital about 2 weeks ago for a fall. She ambulate s at home with a walker. For the last several days, she has not been eating much or ambulating much a nd when she was found, she was found to be confused and neighbor think she was having a seizure episo de. She was brought to the ER. In the ER, she at least had 1 or 2 episodes of seizure and was given Ativan and Keppra. CT of the head showed no acute abnormalities or trauma. There is atrophy out of proportion to age, white count 9.1, H and H 11.3/33, platelet count 204, neutrophils 7.58. PT 11.8, PTT 31.9. Serum sodium 127, chloride 92, BUN and creatinine 48/1.6, prior in 08/2021 was 41/2.04. Blood sugar 291. Point of care 233, calcium and magnesium unremarkable. Alkaline phosphatase 176. Troponin 34.3. BNP 205. Albumin 3.2. Urinalysis not yet done. Chest x-ray, no active disease. El ectrocardiogram poor quality sinus rhythm, first degree AV block, septal infarct, abnormal when stephanie red to 08/2021, no significant change. PAST MEDICAL HISTORY: As above. PAST SURGICAL HISTORY: History of left heart catheterization, laser trabeculoplasty, cataract surger y, repair of thigh fracture, TAVR. HOME MEDICATIONS: Zofran, vitamin D, insulin, Lasix, allopurinol, amlodipine, Eliquis, atorvastatin, bupropion, Prozac, iron, magnesium, multiple vitamin, nortriptyline 50 mg at bedtime, Protonix, tolt erodine tartrate, vitamin B12, aspirin, Coreg. SOCIAL HISTORY: . Stopped smoking in 1979. Alcohol, quit many years ago. FAMILY HISTORY: Mother had dementia. Father had [place]. REVIEW OF SYSTEMS: Not obtainable at present. PHYSICAL EXAMINATION: VITAL SIGNS: 162/64, 101, 18, 36.7, O2 sat is 95% on room air. GENERAL: The patient is sleepy, restless, is able to respond to painful stimuli. I did not find her to follow simple commands. Spontaneously, she moves all 4 extremities symmetrically. HEENT: Her head is normocephalic, atraumatic. NECK: Her neck feels mildly stiff. SKIN: There is skin breakdown reported under a gluteal crease bandage. There is bruising in the melany ateral buttocks and left hip. There is a well healed scar over the right hip and right iliac crest. CARDIOVASCULAR: There are no carotid bruits, no heart murmurs. Heart is regular rate and rhythm. NEUROLOGIC: The patient moans in pain, does not follow simple commands. Sleepy, but arousable. Her pupils are equal, round and reactive to light. I had difficulty visualizing the optic nerves, but I did see retinal pigmentary changes. There is no fixed gaze preference. Eye movements were conjugat e and roving. The face was symmetric to grimace. Gag was not tested. Tone appeared symmetric in the upper and lowers and the uppers were greater than antigravity and the lowers appeared to move symmet rically. Her reflexes were symmetric. EXTREMITIES: The left toe appeared to be upgoing. She has venous stasis changes in her lower extrem ities. Her left great toenail appeared to be loosened. ABDOMEN: Her abdomen had normal bowel sounds, but she was tender in both lower quadrants. IMPRESSION: New onset seizure, change in mentation. PLAN: The patient has been given Keppra and then started on 500 mg b.i.d. I have ordered a stat EEG to rule out subclinical status. An MRI of the brain when able with and without contrast if renal fu nction supports. This would be helpful to rule out a new stroke or space occupying lesion or meninge al process. Minor contributors could include the hyponatremia, although a serum sodium of 127 is lik dionisio not entirely low enough to cause seizure. Wellbutrin should be discontinued. At the time of my initial consultation, a chest x-ray was not done and it has been done now. Further imaging of the abdomen to determine the source of abdominal pain and urinalysis are appropriate. If there is no clear source of infection, then I would recommend empiric treatment for bacterial and vi ral meningitis given her immunosuppressed status. She is on Eliquis for paroxysmal atrial fibrillati on and if there are no bleeding contraindications, I would switch her to a non-oral formulation as gabby francisco is currently n.p.o. Lumbar puncture could be appropriate at some point if she is not waking up. U sing the medication such as Lovenox would make that easier. We will follow with you. Job ID: [id number]
[2022-04-27 15:06] LABS: Appearance Urine Clear (Clear); Bilirubin Urine Negative (Negative); Color Urine Yellow; Glucose Urine UA 3+ (Negative); Ketones Urine Trace (Negative); Protein Urine 4+ (Negative)
[2022-04-27 15:07] LABS: Bacteria Urine Automated Negative (Negative); Blood Urine 3+ (Negative); Epithelial Cell Urine Auto >30 /lpf (0-5); Leukocyte Esterase Urine Negative (Negative); Nitrite Urine Negative (Negative); Urobilinogen Urine Negative (Negative)
[2022-04-27 15:29] LABS: Renal Epithelial Cells Urine 0-5 /lpf (0-5)
--- NOTE | 2022-04-27 17:14 | Communication Note ---
Date of Service: April 27, 2022 Seen and examined at bedside. Chart reviewed. Discussed with neuro. Admitted earlier today (see H&P note for details) with seizure like activities. Received ativan and keppra. Remains obtunded on my multiple visits at bedside. CT head unremarkable, CXR unremarkable, WBC normal, afebrile. UA does not suggest UTI. Renal function at baseline, hyponatremia improved, trop mildly elevated but flat trend. Tender abdomen with elevated lactate- urgent CT A/P ordered- report awaited, procal pending. Also with encephalopathy and neck stiffness, neuro recommended empiric ABx for meningitis covering for both bacterial and viral meningitis including HSV. Started on empiric vanc/ceftriaxone/acyclovir/ampicillin- MRI brain pending, EEG pending. Lactate >4 which improved to 2 after 1 L fluid bolus. She might need LP if encephalopathy does not improve. Has h/o aflutter but she is currently in sinus rhythm- will continue to monitor on tele. Hold all home oral meds and switch to iv. Hold home eliquis and start on therapeutic lovenox as per neuro recommendations for her paroxysmal atrial flutter- hold if plan for LP. Consulted ID.
[2022-04-27] MEDS ORDERED: ENOXAPARIN 100 MG/1ML SYR SQ SCH (17:15)
--- NOTE | 2022-04-27 17:34 | CT Scan Report ---
CT abd pelvis wo con CLINICAL HISTORY: Right lower quadrant tenderness. Patient combative. COMPARISON STUDY: 07/25/2021 CT DOSE: 1964.49 mGy.cm TECHNIQUE: Standard CT of the Abdomen and Pelvis was performed without IV contrast. The patient did not receive oral contrast. A dose lowering technique was utilized adhering to the principles of LUCINDA Jones. FINDINGS: There is breathing motion artifact present. Lung base: The lung bases are clear. There is evidence of previous aortic and mitral valve replacemen ts. Abdominal cavity: There is no evidence for abdominal mass, adenopathy or ascites. Liver: The liver is homogeneous in attenuation on these limited noncontrast images.. Spleen: The spleen is homogeneous in attenuation on these limited noncontrast images. Pancreas: The pancreas is homogeneous in attenuation on these limited noncontrast images. Gall Bladder: The gallbladder is distended with cholelithiasis. There is no CT evidence for acute cho lecystitis. Adrenal glands: The adrenal glands are normal in size and attenuation on these limited noncontrast im ages. Kidneys: The kidneys are homogeneous in attenuation on these limited noncontrast images. There is no evidence for gross renal mass, calculus or hydronephrosis bilaterally. Bilateral renal cysts are agai n seen. Bowel: The bowel loops are normally placed within the abdomen and pelvis without evidence for dilatat ion or obstruction. There is no evidence for mass lesion. There are no inflammatory changes present. There is no evidence for free air. There is no evidence for an inflamed appendix in the right lower q uadrant. Bladder: There is distention of the bladder with no evidence for focal bladder wall thickening, calcu mary or diverticulum. : There is no evidence for pelvic mass or adenopathy. Vasculature: There is no evidence for focal aneurysmal dilatation of the abdominal aorta. Extensive a therosclerotic calcification is present. Osseous structures: There is no acute osseous pathology. Degenerative changes are seen within the spi ne. IMPRESSION: 1. Cholelithiasis with no CT evidence for acute cholecystitis. 2. Otherwise, no acute intra-abdominal or pelvic abnormality on these limited noncontrast images. 3. Additional nonacute findings are delineated above. ACT 112: Negative or not required by law. Electronically signed by: River Jeffries M.D. 04/27/2022 5:32 PM
[2022-04-27] MEDS ORDERED: Heparin IV Adult Wt-Based Low-Dose *NO* Bolus Protocol IV SCH (18:38)
[2022-04-27] MEDS: HEPARIN SODIUM/DEXTROSE 25,000 UNITS/500 ML BAG IV SCH (20:34)
[2022-04-27] MEDS ORDERED: NORTRIPTYLINE HCL 25 MG CAP PO SCH (21:00)
[2022-04-28] MEDS: levETIRAcetam 500 MG in 0.9 % SODIUM CHLORIDE 100 ML IV SCH ×2 (00:21→12:00)
[2022-04-28] MEDS: METOPROLOL TARTRATE 1 MG/ML VIAL IV SCH ×4 (00:43→17:31)
[2022-04-28] MEDS: cefTRIAXone SODIUM 2,000 MG in DEXTROSE 5% 50 ML IV SCH ×2 (00:55→12:15)
[2022-04-28] MEDS: AMPICILLIN 2,000 MG in SODIUM CHLOR 0.9% AD-VAN 100 ML IV SCH ×4 (01:44→21:16)
[2022-04-28] MEDS: ACYCLOVIR SOD 700 MG in DEXTROSE 5% 250 ML IV SCH ×2 (03:03→13:20)
[2022-04-28 03:05] LABS: Hematocrit (blood only) 32.4 % (37-47); Hemoglobin 11.2 g/dL (12.0-16.0); Mean Corpuscular Hemoglobin 30.3 pg (25-34); Mean Corpuscular Hgb Conc 34.6 g/dL (32-36); Mean Corpuscular Volume 87.6 fL (80-100); Platelet Count 198 K/uL (130-400); RDW Coefficient of Variation 14.7 % (11.5-14.5); RDW Standard Deviation 47.1 fL (36.4-46.3)
[2022-04-28 03:06] LABS: Basophils # (auto) 0.02 K/uL (0-0.2); Basophils % (auto) 0.2 %; Eosinophils # (auto) 0.04 K/uL (0-0.5); Eosinophils % (auto) 0.4 %; Immature Granulocytes # (auto) 0.03 K/uL (0.00-0.02); Immature Granulocytes % (auto) 0.3 %; Lymphocytes # (auto) 1.08 K/uL (1.2-3.4); Lymphocytes % (auto) 10.1 %; Mean Platelet Volume 9.5 fL (7.4-10.4); Monocytes # (auto) 1.17 K/uL (0.11-0.59); Monocytes % (auto) 10.9 %; Neutrophils # (auto) 8.36 K/uL (1.4-6.5); Neutrophils % (auto) 78.1 %
[2022-04-28 03:19] LABS: BUN Creatinine Ratio 28.6 (10-20); Calcium 8.5 mg/dl (8.5-10.1); Creatinine Clr Calc Pharmacy 43.1 ml/min; Est GFR (African American) 46.5 ml/min; Est GFR (Non-African American) 40.1 ml/min; Magnesium 1.8 mg/dl (1.7-2.4); Potassium 3.9 mmol/L (3.5-5.1)
[2022-04-28 03:24] LABS: Partial Thromboplastin Ratio 1.7
[2022-04-28] MEDS: SODIUM CHLORIDE 0.9% 1000ML 1,000 ML IV SCH ×2 (07:20→17:20)
[2022-04-28 07:37] LABS: Estimated Average Glucose 194 mg/dl; Hemoglobin A1C 8.4 % (4.5-5.6)
[2022-04-28] MEDS: INSULIN ASPART PER UNIT SC SCH ×4 (08:13→21:26)
[2022-04-28] MEDS: carvediloL 25 MG TAB PO SCH ×2 (08:13→19:29)
[2022-04-28] MEDS: PANTOprazole 40 MG in SYRINGE 0 ML IV SCH ×2 (08:14→21:19)
[2022-04-28 09:08] LABS: Partial Thromboplastin Ratio 1.4; Partial Thromboplastin Time 38.7 Seconds (21.0-31.0)
--- NOTE | 2022-04-28 09:18 | Magnetic Resonance Report ---
MRI OF THE BRAIN WITHOUT CONTRAST CLINICAL HISTORY: AMS, seizures COMPARISON STUDY: Head CT April 07, 2022. Head CT April 27, 2022. TECHNIQUE: Utilizing a 1.5 Raine magnet and dedicated coil, multiplanar, multiecho imaging of the bra in was performed without IV contrast. FINDINGS: This exam is moderately compromised by motion artifact. There are no foci of restricted dif fusion to suggest acute infarct. No acute intracranial hemorrhage, midline shift or mass effect is pr esent. Moderate atrophy is noted. Ventricular system is stable. Basal cisterns are patent. There are no extra-axial collections. White matter T2 hyperintense foci suggest small vessel disease. No intrac ranial mass is identified on this unenhanced examination. Calvarial signal is normal. IMPRESSION: 1. No acute intracranial findings. Exam moderately compromised by motion artifact. 2. Moderate atrophy. White matter T2 hyperintense foci suggestive of small vessel disease. ACT 112: Negative or not required by law. Electronically signed by: Napoleon Hutton M.D. 04/28/2022 9:16 AM
--- NOTE | 2022-04-28 10:04 | Neurology Progress Note ---
Date of Service April 28, 2022 Assessment & Plan (1) Seizure: Plan: 1. EEG- no seizure focus 2. MRI no stroke or lesions noted 3. continue Keppra 500 mg q 12 houirs 4. treat infectious process prophy 5. continue heparin IV or lovenox if no contra indications 6. would stop Wellbutrin 7. PT/OT for discharge needs once more responsive 8. needs LP for infection process somewhat better today but still very lethargic Admission and Anticipated Discharge Date Admission Date: April 27, 2022 Supervising Physician Co-Signing Physician Notes I have seen and discussed above patient with Dr Delia Frankel, neurology. Patient seen and examined MRI reviewed showing atrophy and chronic vascular changes but no tumor. EEG was slow but did not show subclinical status. Additional seizures have not been seen. Patient is more awake but inattentive and can follow occasional simple commands eye movements are conjugate and roving. Patient moves legs spontaneously but not antigravity upper extremities are purposeful reflexes symmetric left toe may be upgoing. Neck still appears rigid New onset seizure patient has not subclinical status continue Keppra 500 mg twice daily. Still concerned that she may have meningeal process. Would recommend hospitalist coordinate with interventional radiology with [facility] with regard to holding of heparin and timing of lumbar puncture. Routine studies including a cell count differential protein glucose bacterial cultures viral cultures viral PCR AFB and fungal and tuberculosis cultures are recommended. If negative then antibiotics can be discontinued. Delia Frankel MD Tomas Tsai is a 71 year old female with PMH- DM, DM retinopathy, PVD, CKD III, hypothyroidism, HLD, neuropathy, aFib, moderate aortic stenosis, status post TAVR, venous stasis of both lower extremities, CAD, GERD, stress incontinence, depression, cardioversion, who presents to [facility] 04/27/22 with altered mental status.She lives alone, and neighbor checks on her and nurses come and checks on her. She has not been ambulating much and uses a walker.She has not been eating much. She was found to be confused and neighbor thinks she was having the seizure episode and she was brought into the hospital. In the ER she had another episode of seizure. She had another episode of seizure in the ED. We gave one dose of Ativan 1.5 mg IV and she was placed on OxyMask. Today she is more responsive and following simple commands. denies pain. Review of Systems Review of Systems: All systems reviewed & are unremarkable except as noted in HPI & below Physical Exam Physical Exam: Physical Exam: Constitutional: appearance nourished, obese ill appearing, lethargic Ears, Nose, Mouth and Throat: mucous membranes moist, no injection and skin normal, eyes normal Cardiovascular: normal S-1 and S-2 Respiratory: course breath sounds Musculoskeletal: non pitting peripheral edema Skin: bilateral LE venous stasis no discharge Eyes: opens her eyes to command NEUROLOGIC EXAMINATION: Mental status: Alert and interactive [facility] 2021 Oriented to person Speech dysphasia limited words Cranial Nerves no facial asymmetry Reflexes: Deep tendon reflexes were symmetrical and graded 2/5. down going toes Sensory: intact to light touch Coordination: unable to test Gait/Stance: Posture lying in bed. nurse reapplying heart monitor and gown- watson in place Motor: moving spontaneously and on command. 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 and biceps unable to lift legs with command Results & Data ([facility]) Vital Signs (Past 12 Hours) Vital Signs Temp Pulse Pulse Resp BP BP BP 04/28/22 08:20 36.8 C 92 H 18 183/86 H 04/28/22 06:15 93 H 122/54 L 04/28/22 03:26 36.2 C L 92 H 18 177/90 H 04/28/22 00:43 91 H 184/77 H 04/28/22 00:18 36.7 C 89 18 159/61 H 04/27/22 22:21 89 Pulse Ox 04/28/22 08:20 97 04/28/22 06:15 04/28/22 03:26 95 04/28/22 00:43 04/28/22 00:18 95 04/27/22 22:21 Laboratory Results Abnormal lab results 04/27/22 04/27/22 04/27/22 Range/Units 11:14 12:52 12:52 RBC (4.2-5.4) M/uL Hgb (12.0-16.0) g/dL Hct (37-47) % RDW Std Deviation (36.4-46.3) fL RDW Coeff of Mario (11.5-14.5) % Neut # (Auto) (1.4-6.5) K/uL Lymph # (Auto) (1.2-3.4) K/uL [place] # (Auto) (0.11-0.59) K/uL Immature Gran # (Auto) (0.00-0.02) K/uL APTT (21.0-31.0) Seconds Sodium 133 L (136-145) mmol/L Chloride 97 L (98-107) mmol/L BUN 47 H (6-23) mg/dl Creatinine 1.58 H (0.6-1.2) mg/dl BUN/Creatinine Ratio 29.7 H (10-20) Glucose 126 H (70-99(Fasting)) mg/dl POC Glucose 233 H (70-99) mg/dl Hemoglobin A1c (4.5-5.6) % Lactate 4.1 H* (0.4-2.0) mmol/L Alkaline Phosphatase 176 H (34-104) U/L Total Creatine Kinase 293 H (26-192) U/L Troponin I High Sens 35.3 H (0-14) pg/ml Albumin 3.2 L (3.4-5.0) gm/dl Urine Protein (Negative) Urine Glucose (UA) (Negative) Urine Ketones (Negative) Urine Blood (Negative) Urine WBC (Auto) (0-5) /hpf Urine RBC (Auto) (0-4) /hpf U Hyaline Cast (Auto) (0-5) /lpf U Epithel Cells (Auto) (0-5) /lpf 04/27/22 04/27/22 04/27/22 Range/Units 14:44 14:58 18:02 RBC (4.2-5.4) M/uL Hgb (12.0-16.0) g/dL Hct (37-47) % RDW Std Deviation (36.4-46.3) fL RDW Coeff of Mario (11.5-14.5) % Neut # (Auto) (1.4-6.5) K/uL Lymph # (Auto) (1.2-3.4) K/uL [place] # (Auto) (0.11-0.59) K/uL Immature Gran # (Auto) (0.00-0.02) K/uL APTT (21.0-31.0) Seconds Sodium (136-145) mmol/L Chloride (98-107) mmol/L BUN (6-23) mg/dl Creatinine (0.6-1.2) mg/dl BUN/Creatinine Ratio (10-20) Glucose (70-99(Fasting)) mg/dl POC Glucose 61 L* (70-99) mg/dl Hemoglobin A1c (4.5-5.6) % Lactate 2.1 H* (0.4-2.0) mmol/L Alkaline Phosphatase (34-104) U/L Total Creatine Kinase (26-192) U/L Troponin I High Sens (0-14) pg/ml Albumin (3.4-5.0) gm/dl Urine Protein 4+ H (Negative) Urine Glucose (UA) 3+ H (Negative) Urine Ketones Trace H (Negative) Urine Blood 3+ H (Negative) Urine WBC (Auto) 5-10 H (0-5) /hpf Urine RBC (Auto) 5-10 H (0-4) /hpf U Hyaline Cast (Auto) 5-10 H (0-5) /lpf U Epithel Cells (Auto) >30 H (0-5) /lpf 04/27/22 04/27/22 04/28/22 Range/Units 18:03 18:22 02:36 RBC (4.2-5.4) M/uL Hgb (12.0-16.0) g/dL Hct (37-47) % RDW Std Deviation (36.4-46.3) fL RDW Coeff of Mario (11.5-14.5) % Neut # (Auto) (1.4-6.5) K/uL Lymph # (Auto) (1.2-3.4) K/uL [place] # (Auto) (0.11-0.59) K/uL Immature Gran # (Auto) (0.00-0.02) K/uL APTT 48.0 H* (21.0-31.0) Seconds Sodium (136-145) mmol/L Chloride (98-107) mmol/L BUN (6-23) mg/dl Creatinine (0.6-1.2) mg/dl BUN/Creatinine Ratio (10-20) Glucose (70-99(Fasting)) mg/dl POC Glucose 53 L* 148 H (70-99) mg/dl Hemoglobin A1c (4.5-5.6) % Lactate (0.4-2.0) mmol/L Alkaline Phosphatase (34-104) U/L Total Creatine Kinase (26-192) U/L Troponin I High Sens (0-14) pg/ml Albumin (3.4-5.0) gm/dl Urine Protein (Negative) Urine Glucose (UA) (Negative) Urine Ketones (Negative) Urine Blood (Negative) Urine WBC (Auto) (0-5) /hpf Urine RBC (Auto) (0-4) /hpf U Hyaline Cast (Auto) (0-5) /lpf U Epithel Cells (Auto) (0-5) /lpf 04/28/22 04/28/22 04/28/22 Range/Units 02:36 02:36 02:36 RBC 3.70 L (4.2-5.4) M/uL Hgb 11.2 L (12.0-16.0) g/dL Hct 32.4 L (37-47) % RDW Std Deviation 47.1 H (36.4-46.3) fL RDW Coeff of Mario 14.7 H (11.5-14.5) % Neut # (Auto) 8.36 H (1.4-6.5) K/uL Lymph # (Auto) 1.08 L (1.2-3.4) K/uL [place] # (Auto) 1.17 H (0.11-0.59) K/uL Immature Gran # (Auto) 0.03 H (0.00-0.02) K/uL APTT (21.0-31.0) Seconds Sodium 135 L (136-145) mmol/L Chloride (98-107) mmol/L BUN 38 H (6-23) mg/dl Creatinine 1.33 H (0.6-1.2) mg/dl BUN/Creatinine Ratio 28.6 H (10-20) Glucose (70-99(Fasting)) mg/dl POC Glucose (70-99) mg/dl Hemoglobin A1c 8.4 H (4.5-5.6) % Lactate (0.4-2.0) mmol/L Alkaline Phosphatase (34-104) U/L Total Creatine Kinase (26-192) U/L Troponin I High Sens (0-14) pg/ml Albumin (3.4-5.0) gm/dl Urine Protein (Negative) Urine Glucose (UA) (Negative) Urine Ketones (Negative) Urine Blood (Negative) Urine WBC (Auto) (0-5) /hpf Urine RBC (Auto) (0-4) /hpf U Hyaline Cast (Auto) (0-5) /lpf U Epithel Cells (Auto) (0-5) /lpf 04/28/22 04/28/22 Range/Units 08:03 08:26 RBC (4.2-5.4) M/uL Hgb (12.0-16.0) g/dL Hct (37-47) % RDW Std Deviation (36.4-46.3) fL RDW Coeff of Mario (11.5-14.5) % Neut # (Auto) (1.4-6.5) K/uL Lymph # (Auto) (1.2-3.4) K/uL [place] # (Auto) (0.11-0.59) K/uL Immature Gran # (Auto) (0.00-0.02) K/uL APTT 38.7 H (21.0-31.0) Seconds Sodium (136-145) mmol/L Chloride (98-107) mmol/L BUN (6-23) mg/dl Creatinine (0.6-1.2) mg/dl BUN/Creatinine Ratio (10-20) Glucose (70-99(Fasting)) mg/dl POC Glucose 136 H (70-99) mg/dl Hemoglobin A1c (4.5-5.6) % Lactate (0.4-2.0) mmol/L Alkaline Phosphatase (34-104) U/L Total Creatine Kinase (26-192) U/L Troponin I High Sens (0-14) pg/ml Albumin (3.4-5.0) gm/dl Urine Protein (Negative) Urine Glucose (UA) (Negative) Urine Ketones (Negative) Urine Blood (Negative) Urine WBC (Auto) (0-5) /hpf Urine RBC (Auto) (0-4) /hpf U Hyaline Cast (Auto) (0-5) /lpf U Epithel Cells (Auto) (0-5) /lpf Diagnostic Findings MRI brain-. No acute intracranial findings. Exam moderately compromised by motion artifact. . Moderate atrophy. White matter T2 hyperintense foci suggestive of small vessel disease. EEG-mild to moderate nonspecific generalized nonfocal encephalopathy without potentially epileptiform features
--- NOTE | 2022-04-28 12:35 | Electroencephalogram ---
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 Home Medication List Medication Instructions Recorded Confirmed Type allopurinol 300 mg tablet 300 mg PO QAM 02/27/19 04/27/22 History aspirin 81 mg tablet,delayed 81 mg PO QAM 02/27/19 04/27/22 History release atorvastatin 40 mg tablet 40 mg PO QAM 02/27/19 04/27/22 History fluoxetine 40 mg capsule 40 mg PO QAM 02/27/19 04/27/22 History nortriptyline 50 mg capsule 50 mg PO HS 02/27/19 04/27/22 History tolterodine 2 mg capsule,extended 2 mg PO QAM 02/27/19 04/27/22 History release 24 hr pantoprazole 40 mg tablet,delayed 40 mg PO DAILY 09/27/20 04/27/22 History release bupropion HCl 150 mg tablet,12 hr 150 mg PO DAILY 10/03/20 04/27/22 History sustained-release apixaban 5 mg tablet (Eliquis) 5 mg PO BID 01/12/21 04/27/22 History insulin aspart U-100 100 unit/mL 30 unit SUBCUT BIDM 01/12/21 08/27/21 History subcutaneous solution (Novolog U-100 Insulin aspart) insulin detemir U-100 100 unit/mL 55 unit SUBCUT AMHS 01/12/21 08/27/21 History subcutaneous solution (Levemir U-100 Insulin) magnesium oxide 400 mg PO DAILY 03/07/21 04/27/22 History nystatin 100,000 unit/gram topical 1 applic TOPICAL UD PRN 03/07/21 08/27/21 History powder (Nystop) amlodipine 5 mg tablet 5 mg PO DAILY 08/27/21 04/27/22 History furosemide 40 mg tablet 40 mg PO DAILY 08/27/21 04/27/22 History multivitamin 1 tab PO DAILY 08/27/21 04/27/22 History ondansetron 4 mg disintegrating 4 mg PO Q8H PRN 08/27/21 08/27/21 History tablet carvedilol 25 mg tablet 25 mg PO BID #60 tab 08/29/21 04/27/22 Rx cholecalciferol (vitamin D3) 1,250 50,000 unit PO UD 04/27/22 04/27/22 History mcg (50,000 unit) capsule iron bisglycinate chelate 28 mg PO DAILY 04/27/22 04/27/22 History Inpatient Medication List Allopurinol (Allopurinol 300 Mg Tab) 300 mg PO QAM [facility] Stop: 05/27/22 08:59 Last Admin: 04/27/22 09:28 Dose: Not Given Documented by: [id number] Amlodipine Besylate (Amlodipine Besylate 5 Mg Tab) 5 mg PO DAILY [facility] Stop: 05/27/22 08:59 Last Admin: 04/27/22 09:28 Dose: Not Given Documented by: [id number] Apixaban (Apixaban 5 Mg Tablet) 5 mg PO BID [facility] Stop: 05/27/22 08:59 Last Admin: 04/27/22 09:28 Dose: Not Given Documented by: [id number] Aspirin (Aspirin 81 Mg Ectab) 81 mg PO QAM [facility] Stop: 05/27/22 08:59 Last Admin: 04/27/22 09:28 Dose: Not Given Documented by: [id number] Atorvastatin Calcium (Atorvastatin 40 Mg Tab) 40 mg PO QAM [facility] Stop: 05/27/22 08:59 Last Admin: 04/27/22 09:28 Dose: Not Given Documented by: [id number] Bupropion HCl (Bupropion Sr 150 Mg Tabcr) 150 mg PO DAILY [facility] Stop: 05/27/22 08:59 Last Admin: 04/27/22 09:28 Dose: Not Given Documented by: [id number] Carvedilol (Carvedilol 25 Mg Tab) 25 mg PO BID [facility] Stop: 05/27/22 08:59 Last Admin: 04/28/22 08:13 Dose: Not Given Documented by: [id number] Admin: 04/27/22 20:43 Dose: Not Given Documented by: [id number] Admin: 04/27/22 09:28 Dose: Not Given Documented by: [id number] Dextrose (Dextrose 50% 50 Ml Syringe) 25 - 50 ml IV UD PRN; Protocol PRN Reason: Hypoglycemia Protocol Stop: 05/27/22 08:44 Last Admin: 04/27/22 18:03 Dose: 50 ml Documented by: [id number] Fluoxetine HCl (Fluoxetine Hcl 20 Mg Cap) 40 mg PO QAM [facility] Stop: 05/27/22 08:59 Last Admin: 04/27/22 09:28 Dose: Not Given Documented by: [id number] Sodium Chloride (Nss 1000ml) 1,000 mls @ 100 mls/hr IV .Q10H [facility] Stop: 05/27/22 08:03 Last Admin: 04/28/22 07:20 Dose: 100 mls/hr Documented by: [id number] Infusion: 04/28/22 07:20 Dose: 0 mls/hr Documented by: [id number] Admin: 04/27/22 20:34 Dose: 100 mls/hr Documented by: [id number] Infusion: 04/27/22 18:51 Dose: 100 mls/hr Documented by: [id number] Admin: 04/27/22 08:51 Dose: 100 mls/hr Documented by: [id number] Levetiracetam 500 mg/ Sodium (Chloride) 105 mls @ 420 mls/hr IV Q12H [facility] Stop: 05/27/22 11:59 Last Infusion: 04/28/22 00:36 Dose: 0 mls/hr Documented by: [id number] Admin: 04/28/22 00:21 Dose: 420 mls/hr Documented by: [id number] Infusion: 04/27/22 11:50 Dose: 0 mls/hr Documented by: [id number] Admin: 04/27/22 11:35 Dose: 420 mls/hr Documented by: [id number] Ceftriaxone Sodium 2,000 mg/ (Dextrose) 70 mls @ 100 mls/hr IV Q12H [facility]; Protocol Stop: 05/07/22 11:59 Last Infusion: 04/28/22 01:37 Dose: 0 mls/hr Documented by: [id number] Admin: 04/28/22 00:55 Dose: 100 mls/hr Documented by: [id number] Infusion: 04/27/22 13:17 Dose: 0 mls/hr Documented by: [id number] Admin: 04/27/22 12:35 Dose: 100 mls/hr Documented by: [id number] Acyclovir Sodium 700 mg/ (Dextrose) 264 mls @ 250 mls/hr IV Q12H [facility]; Protocol Stop: 05/07/22 13:59 Last Infusion: 04/28/22 04:07 Dose: 0 mls/hr Documented by: [id number] Admin: 04/28/22 03:03 Dose: 250 mls/hr Documented by: [id number] Infusion: 04/27/22 15:54 Dose: 0 mls/hr Documented by: [id number] Admin: 04/27/22 14:50 Dose: 250 mls/hr Documented by: [id number] Pantoprazole Sodium 40 mg/ (Syringe) 10 mls @ 5 mls/min IV BID [facility] Stop: 05/27/22 11:59 Last Admin: 04/28/22 08:14 Dose: 5 mls/min Documented by: [id number] Admin: 04/27/22 21:04 Dose: 5 mls/min Documented by: [id number] Admin: 04/27/22 13:05 Dose: 5 mls/min Documented by: [id number] Ampicillin Sodium 2,000 mg/ (Sodium Chloride) 100 mls @ 200 mls/hr IV Q6H [facility]; Protocol Stop: 05/07/22 11:59 Last Infusion: 04/28/22 08:53 Dose: 0 mls/hr Documented by: [id number] Admin: 04/28/22 08:13 Dose: 200 mls/hr Documented by: [id number] Infusion: 04/28/22 02:14 Dose: 0 mls/hr Documented by: [id number] Admin: 04/28/22 01:44 Dose: 200 mls/hr Documented by: [id number] Infusion: 04/27/22 19:07 Dose: 0 mls/hr Documented by: [id number] Admin: 04/27/22 18:26 Dose: 200 mls/hr Documented by: [id number] Infusion: 04/27/22 12:35 Dose: 0 mls/hr Documented by: [id number] Admin: 04/27/22 12:05 Dose: 200 mls/hr Documented by: [id number] Heparin Sodium/Dextrose (Heparin Sodium/Dextrose) 25,000 units in 500 mls @ 18 mls/hr IV .Q24H [facility]; Protocol Stop: 05/27/22 19:29 Last Titration: 04/28/22 09:50 Dose: 900 units/hr, 18 mls/hr Documented by: [id number] Cosigned by: [id number] Admin: 04/27/22 20:34 Dose: 850 units/hr, 17 mls/hr Documented by: [id number] Cosigned by: [id number] Insulin Aspart (Insulin Aspart Per Unit) 0 units SC ACHS [facility] Stop: 05/27/22 08:03 Last Admin: 04/28/22 12:21 Dose: 2 units Documented by: [id number] Cosigned by: [id number] Admin: 04/28/22 08:13 Dose: Not Given Documented by: [id number] Admin: 04/27/22 20:44 Dose: Not Given Documented by: [id number] Cosigned by: [id number] Admin: 04/27/22 18:03 Dose: Not Given Documented by: [id number] Cosigned by: [id number] Admin: 04/27/22 12:15 Dose: 4 units Documented by: [id number] Cosigned by: [id number] Admin: 04/27/22 09:03 Dose: 10 units Documented by: [id number] Cosigned by: [id number] Insulin Detemir (Insulin Detemir Flexpen/Flex Touch 100 Units/Ml 3ml) 25 units SC BID [facility] Stop: 05/27/22 08:59 Last Admin: 04/27/22 21:03 Dose: Not Given Documented by: [id number] Admin: 04/27/22 09:10 Dose: 25 units Documented by: [id number] Cosigned by: [id number] Magnesium Oxide (Magnesium Oxide 400 Mg Tab) 400 mg PO DAILY [facility] Stop: 05/27/22 08:59 Last Admin: 04/27/22 09:28 Dose: Not Given Documented by: [id number] Metoprolol Tartrate (Metoprolol Tartrate 1 Mg/Ml Vial) 5 mg IV Q6 [facility] Stop: 05/27/22 11:59 Last Admin: 04/28/22 06:15 Dose: 5 mg Documented by: [id number] Admin: 04/28/22 00:43 Dose: 5 mg Documented by: [id number] Admin: 04/27/22 18:26 Dose: 5 mg Documented by: [id number] Admin: 04/27/22 13:05 Dose: 5 mg Documented by: [id number] Miscellaneous (Iron Bisglycinate Chelate 28 Mg: Order Awaiting Action) 1 ea N/A QS [facility] Stop: 05/27/22 15:59 Last Admin: 04/28/22 01:00 Dose: Not Given Documented by: [id number] Admin: 04/27/22 19:10 Dose: Not Given Documented by: [id number] Multivitamins (Multivitamin Tab) 1 tab PO DAILY [facility] Stop: 05/27/22 08:59 Last Admin: 04/27/22 09:29 Dose: Not Given Documented by: [id number] Pantoprazole Sodium (Pantoprazole 40 Mg Tab) 40 mg PO DAILY [facility] Stop: 05/27/22 08:59 Last Admin: 04/27/22 09:29 Dose: Not Given Documented by: [id number] Tolterodine Tartrate (Tolterodine Tartrate La 2 Mg Capcr) 2 mg PO QAM [facility] Stop: 05/27/22 08:59 Last Admin: 04/27/22 09:29 Dose: Not Given Documented by: [id number] Discontinued Medications Enoxaparin Sodium (Enoxaparin 100 Mg/1ml Syr) 100 mg SQ Q12H [facility] Stop: 05/27/22 17:14 Last Admin: 04/27/22 20:57 Dose: Not Given Documented by: [id number] Sodium Chloride (Nss) 500 mls @ 999 mls/hr IV .Q31M [facility] Stop: 04/27/22 04:40 Last Infusion: 04/27/22 04:59 Dose: 0 mls/hr Documented by: [id number] Admin: 04/27/22 04:18 Dose: 999 mls/hr Documented by: [id number] Levetiracetam 1,000 mg/ Sodium (Chloride) 110 mls @ 440 mls/hr IV NOW STA Stop: 04/27/22 08:28 Last Infusion: 04/27/22 09:06 Dose: 0 mls/hr Documented by: [id number] Admin: 04/27/22 08:51 Dose: 440 mls/hr Documented by: [id number] Levetiracetam 500 mg/ Sodium (Chloride) 105 mls @ 420 mls/hr IV Q12H [facility] Stop: 05/27/22 08:59 Last Admin: 04/27/22 09:28 Dose: Not Given Documented by: [id number] Vancomycin HCl 2,500 mg/ (Sodium Chloride) 550 mls @ 180 mls/hr IV NOW STA Stop: 04/27/22 14:45 Last Infusion: 04/27/22 16:31 Dose: 0 mls/hr Documented by: [id number] Admin: 06/12/22 13:18 Dose: 180 mls/hr Documented by: [id number] Sodium Chloride (Nss 1000ml) 1,000 mls @ 999 mls/hr IV .Q1H1M [facility] Stop: 04/27/22 14:35 Last Infusion: 04/27/22 16:02 Dose: 0 mls/hr Documented by: [id number] Admin: 04/27/22 14:50 Dose: 999 mls/hr Documented by: [id number] Lorazepam (Lorazepam 2 Mg/1 Ml Vial) Confirm Administered Dose 2 mg .ROUTE .STK- MED ONE Stop: 04/27/22 06:20 Last Admin: 04/27/22 06:50 Dose: 1.5 mg Documented by: [id number] Lorazepam (Lorazepam 2 Mg/1 Ml Vial) 1.5 mg IV NOW STA; Protocol Stop: 04/27/22 08:23 Last Admin: 04/27/22 08:57 Dose: 1.5 mg Documented by: [id number] Description This is a 21 electrode EEG with a single channel dedicated to limited EKG. The electrodes were placed in accordance with the International 10-20 system. Current tracings as a bedside recording is of good technical quality. Visual analysis of patient mood and behavior was achieved by video. Photic stimulation was performed Under these conditions there is no normal background rhythm in the alpha range but rather a theta rhythm of about 70 Hz maximal frequency and appears to be maximal posteriorly and is bilaterally symmetrical. There is a T5 electrode artifact which presently throughout the tracing but otherwise does not render the tracing uninterpretable. Polymorphic mid to lower frequency theta delta activity seen over the central regions and fairly symmetrical fashion. Beta activity is difficult to detect. Stimulation with minimal response No potentially epileptiform activity is noted Interpretation Mild to moderate nonspecific generalized nonfocal encephalopathy without potentially epileptiform features Clinical Correlation Current tracing reveals evidence for nonspecific generalized encephalopathy without lateralizing features and without associated ongoing for potential epileptiform features and does not support the clinical suspicion of nonconvulsive status epilepticus Truong Christianson MD
--- NOTE | 2022-04-28 14:47 | Pharmacy Report ---
Pharmacy Vanc AUC Short Note - Date of Service April 28, 2022 - Assessment & Plan Assessment 71 year old F receiving vancomycin for treatment of possible meningitis. Pertinent microbiologic data includes: N/A. Day # 2 of antimicrobial therapy. Plan Vancomycin * AUC/LONG is the preferred PK/PD target for vancomycin * AUC guided dosing is effective and associated with decreased risk of nephrotoxicity compared to traditional trough targets * Trough level of 12.9 mcg/mL is predicted to achieve target AUC/LONG of 400-600 mg/L.hr and may be associated with a 15 % risk of nephrotoxicity * Continue dose of 1000 mg IV every 24 hours * Random level ordered for: 04/30/22 Pharmacy will continue to follow and will adjust dose/frequency as necessary. Thank you.
[2022-04-28] MEDS: VANCOMYCIN HCL 1,000 MG in SODIUM CHLORIDE 0.9% 250 ML IV SCH (15:00)
[2022-04-28 18:07] LABS: Partial Thromboplastin Ratio 2.8
[2022-04-28 18:11] LABS: Partial Thromboplastin Time 77.9 Seconds (21.0-31.0)
[2022-04-28] MEDS: LABETALOL HCL IV 5 MG/ML 20ML IV PRN (19:35)
[2022-04-28] MEDS ORDERED: Nursing to Pharmacy Communication SCH (19:45)
--- NOTE | 2022-04-28 20:06 | Hospitalist Progress Note ---
Date of Service April 28, 2022 Assessment & Plan (1) Seizure: Plan: 71-year-old female with PMH of diabetes, diabetic retinopathy, peripheral vascular disease, chronic kidney disease stage III, hypothyroidism, hyperlipidemia, neuropathy, atrial flutter, peripheral vascular disease, moderate aortic stenosis, status post TAVR, venous stasis of both lower extremities, history of CAD, GERD, female stress incontinence, depression, history of cardioversion, who presented 04/27 with altered mental status. The patient lives alone, and neighbor checks on her. Per neighbor, she was having seizure episode and hence brought to hospital. She ambulates w/ walker at baseline. 1. Altered mental status and having seizure episodes. There is no history of seizures. She had one at home, couple in the ER. Neuro evaluated, EEG nonconclusive, continue with Keppra 500 mg 12 hourly, being treated prophylactically for meningitis/encephalitis, lumbar puncture and CSF studies ordered. If negative, then antibiotics can be discontinued per neurology. Per neuro, stop Wellbutrin. 04/28 MRI brain with no acute findings. WBC wnl, Temp fairly wnl. Started on empiric vanc/ceftriaxone/acyclovir/ampicillin on 04/27, c/w same for now PT/OT and speech eval when appropriate. Patient more awake today, oriented x2 but very drowsy and lethargic, falls back to sleep frequently during bedside exam. Continue to monitor over telemetry. Hold Heparin reinforcer for possible LP tomorrow. 2. Hyponatremia, sodium of 127, getting fluids. Holding her home diuretics. follow labs. Improving. 3. Chronic kidney disease stage III, creatinine 1.6 which is her baseline. 4. Chronic diastolic congestive heart failure, valvular heart disease, status post TAVR, moderate mitral stenosis. Holding diuretics. Getting gentle fluids.Reassess tomorrow for restart diuretics. Monitor for volume overload. 5. Hypertension: Continue her home dose of amlodipine, Coreg. We will monitor the blood pressure. 6. Diabetes, we will cut back on Levemir to 25 units b.i.d. The patient is currently n.p.o. Insulin sliding scale, follow the blood sugars. 7. Depression. Continue fluoxetine, bupropion, nortriptyline. 8. Gout. Continue allopurinol. 9. Hyperlipidemia. Continue statin. 10. History of atrial flutter, rate controlled with Coreg on Eliquis. 11. Peripheral vascular disease, on statin and aspirin. 12. Female stress incontinence on tolterodine. 13. Deep venous thrombosis prophylaxis, on Eliquis. DISPOSITION: Closely monitor in the tele floor. PT/OT prior to discharge. Social Service to help with discharge planning. Admission and Anticipated Discharge Date Admission Date: April 27, 2022 Subjective Patient seen and examined at bedside as a follow-up of altered mental status, seizure. Patient was lying in bed, on room air, drowsy, falling back to sleep easily, ROS n/a. Per RN, no new acute events overnight. Per RN, patient is more alert compared to yesterday. Physical Exam Physical Exam: GENERAL: Drowsy, easily arousable, oriented x2. HEENT: No pallor, no icterus. Pupils equal, round and reactive to light. Oral mucosa dry. NECK: No JVD, no neck masses. HEART: S1 and S2 heard. Regular rate and rhythm. No murmur, no gallop. RESPIRATORY SYSTEM: Normal AP diameter. No accessory muscle use. No wheezing, no crackles. ABDOMEN: Soft, bowel sounds present, nontender, no distention. CENTRAL NERVOUS SYSTEM: No facial droop. Speech is clear. Obeys simple commands. Moves extremities. EXTREMITIES: No edema, no erythema seen. BLE chronic skin changes noted. Urinary catheter with yellow urine noted. Results & Data Results & Data ([facility]) Vital Signs (Past 12 Hours) Vital Signs Temp Pulse Pulse Resp BP BP BP 04/28/22 19:27 37.7 C H 85 28 H 190/83 H 04/28/22 17:31 91 H 122/54 L 04/28/22 15:20 37.1 C 90 20 129/80 04/28/22 12:00 91 H 04/28/22 11:37 36.9 C 91 H 18 148/79 H 04/28/22 08:20 36.8 C 92 H 18 183/86 H Pulse Ox 04/28/22 19:27 96 04/28/22 17:31 04/28/22 15:20 96 04/28/22 12:00 04/28/22 11:37 94 04/28/22 08:20 97
[2022-04-28] MEDS: HEPARIN SODIUM/DEXTROSE 25,000 UNITS/500 ML BAG IV SCH (21:16)
[2022-04-29] MEDS: METOPROLOL TARTRATE 1 MG/ML VIAL IV SCH ×5 (00:33→23:27)
[2022-04-29] MEDS: SODIUM CHLORIDE 0.9% 1000ML 1,000 ML IV SCH ×2 (00:39→15:13)
[2022-04-29] MEDS: levETIRAcetam 500 MG in 0.9 % SODIUM CHLORIDE 100 ML IV SCH ×3 (00:41→23:37)
[2022-04-29] MEDS: cefTRIAXone SODIUM 2,000 MG in DEXTROSE 5% 50 ML IV SCH ×2 (00:42→12:01)
[2022-04-29 02:06] LABS: Partial Thromboplastin Ratio 3.1
[2022-04-29 02:08] LABS: Partial Thromboplastin Time 85.1 Seconds (21.0-31.0)
[2022-04-29] MEDS: ACYCLOVIR SOD 700 MG in DEXTROSE 5% 250 ML IV SCH ×2 (03:02→13:30)
[2022-04-29] MEDS: AMPICILLIN 2,000 MG in SODIUM CHLOR 0.9% AD-VAN 100 ML IV SCH ×4 (03:05→21:00)
[2022-04-29] MEDS: INSULIN ASPART PER UNIT SC SCH ×4 (03:10→23:27)
[2022-04-29] MEDS: HEPARIN SODIUM/DEXTROSE 25,000 UNITS/500 ML BAG IV SCH (03:11)
[2022-04-29 08:04] LABS: Hematocrit (blood only) 30.3 % (37-47); Hemoglobin 10.1 g/dL (12.0-16.0); Mean Corpuscular Hemoglobin 28.6 pg (25-34); Mean Corpuscular Hgb Conc 33.3 g/dL (32-36); Mean Corpuscular Volume 85.8 fL (80-100); Mean Platelet Volume 9.2 fL (7.4-10.4); Platelet Count 194 K/uL (130-400); RDW Coefficient of Variation 15.2 % (11.5-14.5); RDW Standard Deviation 47.8 fL (36.4-46.3); Red Blood Count 3.53 M/uL (4.2-5.4); White Blood Count 7.84 K/uL (4.8-10.8)
[2022-04-29 08:11] LABS: Partial Thromboplastin Ratio 1.3; Partial Thromboplastin Time 34.7 Seconds (21.0-31.0)
[2022-04-29 08:36] LABS: Basophils # (auto) 0.09 K/uL (0-0.2); Basophils % (auto) 1.1 %; Creatinine Clr Calc Pharmacy 42.6 ml/min; Eosinophils # (auto) 0.07 K/uL (0-0.5); Eosinophils % (auto) 0.9 %; Est GFR (African American) 43.7 ml/min; Est GFR (Non-African American) 37.7 ml/min; Immature Granulocytes # (auto) 0.04 K/uL (0.00-0.02); Immature Granulocytes % (auto) 0.5 %; Lymphocytes # (auto) 1.85 K/uL (1.2-3.4); Lymphocytes % (auto) 23.6 %; Magnesium 1.7 mg/dl (1.7-2.4); Neutrophils # (auto) 4.69 K/uL (1.4-6.5); Neutrophils % (auto) 59.9 %; Phosphorus 2.5 mg/dl (2.5-4.9); Potassium 3.6 mmol/L (3.5-5.1)
[2022-04-29] MEDS: PANTOprazole 40 MG in SYRINGE 0 ML IV SCH ×2 (08:54→21:09)
[2022-04-29] MEDS: carvediloL 25 MG TAB PO SCH ×2 (08:56→20:11)
--- NOTE | 2022-04-29 13:24 | Communication Note ---
Date of Service: April 29, 2022 Talked with Quin Lovell ([phone]) over the phone, updated on Quin Guthrie, explained risks and benefits of Spinal tap. She verbalized understanding. She is agreeable to the test. Also had discussion with neuro yesterday, spinal tap is needed to further explain her medical condition. Pt can't give consent due to her mental status. I think we can proceed with spinal tap.
[2022-04-29] MEDS: VANCOMYCIN HCL 1,000 MG in SODIUM CHLORIDE 0.9% 250 ML IV SCH (15:16)
[2022-04-29] MEDS: INSULIN GLARGINE SOLOSTAR 100 UNITS/ML 3 ML PEN SC SCH (15:19)
--- NOTE | 2022-04-29 15:49 | Fluoroscopy Report ---
04/29/2022 3:10 PM [place] lumbar puncture diagnostic EXAMINATION: Fluoroscopic-guided lumbar puncture. CLINICAL HISTORY: Altered mental status and confusion. Evaluate for infection. The patient could not consent to the examination. Consultation was performed with Dr. Rendon and it was deemed to be medical ly necessary to do the procedure. Fluoroscopy time: 18 seconds. Images: 1 fluoroscopic spot image PROCEDURE: After the technique, risks, alternatives, and benefits of the procedure were explained to the patient, signed consent was obtained. A confirmatory timeout was performed prior to initiation o f the procedure. A suitable puncture site at the L3-4 level was obtained using fluoroscopy. The site was then cleaned and prepped in the usual sterile fashion. A total of 4 mL of 1% lidocaine was infus ed into the subcutaneous tissues during the procedure to achieve local anesthesia. Using a 20-gauge 6 inch spinal needle, the thecal sac was accessed under fluoroscopic guidance with t he patient in the prone position.. Approximately 8 mL of clear CSF was collected into four separate vials of 2 mL each. The spinal need le with stylet in place was removed and pressure was placed over the puncture site until hemostasis w as achieved. There were no immediate complications. The patient tolerated the procedure well. IMPRESSION: Fluoroscopic guided lumbar puncture. Approximately 8 mL of clear CSF was collected into f our separate vials of 2 mL each. No immediate complications. ACT 112: Negative or not required by law. Electronically signed by: River Jeffries M.D. 04/29/2022 3:48 PM
--- NOTE | 2022-04-29 16:32 | Neurology Progress Note ---
Date of Service April 29, 2022 Assessment & Plan (1) Seizure: Plan: 1. EEG- no seizure focus 2. MRI no stroke or lesions noted 3. continue Keppra 500 mg q 12 houirs 4. treat infectious process prophy 5. continue heparin IV or lovenox if no contra indications 6. would stop Wellbutrin 7. PT/OT for discharge needs once more responsive 8. LP done awaiting labs. Admission and Anticipated Discharge Date Admission Date: April 27, 2022 Supervising Physician Co-Signing Physician Notes I have seen and discussed above patient with Dr Delia Frankel, neurology. Patient seen and examined she attended to voice and asked me who is Dr. Aragon but otherwise would not state her name or follow commands. Her neck is slightly more supple today. She developed prompt blepharospasm when I attempted to do a funduscopic exam. Her eye movements were conjugate no fixed gaze preference no obvious facial asymmetry she appears to move all 4 extremities symmetrically. Her left toe is up Impression lumbar puncture was performed today white count 150 differential not yet known red count 56. Unclear if of viral encephalitides versus partially treated bacterial complicated by seizure. Recommend that hospitalist reach out to infectious disease regarding tailoring her antibiotics although this may take some time for the cultures to return. Clinically she looks about the same. May consider a repeat EEG at some point if patient is not improving. Tomas Tsai is a 71 year old female with PMH- DM, DM retinopathy, PVD, CKD III, hypothyroidism, HLD, neuropathy, aFib, moderate aortic stenosis, status post TAVR, venous stasis of both lower extremities, CAD, GERD, stress incontinence, depression, cardioversion, who presents to [facility] 04/27/22 with altered mental status.She lives alone, and neighbor checks on her and nurses come and checks on her. She has not been ambulating much and uses a walker.She has not been eating much. She was found to be confused and neighbor thinks she was having the seizure episode and she was brought into the hospital. In the ER she had another episode of seizure. She had another episode of seizure in the ED. We gave one dose of Ativan 1.5 mg IV and she was placed on OxyMask. Today she is not responding to verbal command or answering simple questons Review of Systems Review of Systems: Unobtainable due to cognitive status Physical Exam Physical Exam: Physical Exam: Constitutional: appearance nourished, obese ill appearing, lethargic Ears, Nose, Mouth and Throat: mucous membranes moist, no injection and skin normal, eyes normal Cardiovascular: normal S-1 and S-2 Respiratory: course breath sounds Musculoskeletal: non pitting peripheral edema Skin: bilateral LE venous stasis no discharge Eyes: opens her eyes to command NEUROLOGIC EXAMINATION: Mental status: Alert and interactive [facility] 2021 Oriented to person Speech garbled speech Cranial Nerves no facial asymmetry Reflexes: Deep tendon reflexes were symmetrical and graded 2/5. down going toes Sensory: intact to light touch Coordination: unable to test Gait/Stance: Posture lying in bed. watson in place Motor: moving spontaneously no with command Strength: unable to assess Results & Data ([facility]) Vital Signs (Past 12 Hours) Vital Signs Temp Pulse Pulse Pulse Resp BP BP 04/29/22 15:00 36.7 C 77 19 120/85 04/29/22 11:56 79 103/64 04/29/22 11:38 36.8 C 79 19 103/64 04/29/22 08:06 37.0 C 88 16 159/72 H 04/29/22 08:00 81 04/29/22 06:02 80 Pulse Ox 04/29/22 15:00 97 04/29/22 11:56 04/29/22 11:38 96 04/29/22 08:06 95 04/29/22 08:00 04/29/22 06:02 Laboratory Results Abnormal lab results 04/28/22 04/28/22 04/28/22 Range/Units 16:52 17:21 20:28 RBC (4.2-5.4) M/uL Hgb (12.0-16.0) g/dL Hct (37-47) % RDW Std Deviation (36.4-46.3) fL RDW Coeff of Mario (11.5-14.5) % [place] # (Auto) (0.11-0.59) K/uL Immature Gran # (Auto) (0.00-0.02) K/uL APTT 77.9 H* (21.0-31.0) Seconds Sodium (136-145) mmol/L BUN (6-23) mg/dl Creatinine (0.6-1.2) mg/dl BUN/Creatinine Ratio (10-20) Glucose 234 H (70-99(Fasting)) mg/dl POC Glucose 172 H (70-99) mg/dl Calcium (8.5-10.1) mg/dl 04/29/22 04/29/22 04/29/22 Range/Units 01:14 02:51 07:21 RBC 3.53 L (4.2-5.4) M/uL Hgb 10.1 L (12.0-16.0) g/dL Hct 30.3 L (37-47) % RDW Std Deviation 47.8 H (36.4-46.3) fL RDW Coeff of Mario 15.2 H (11.5-14.5) % [place] # (Auto) 1.10 H (0.11-0.59) K/uL Immature Gran # (Auto) 0.04 H (0.00-0.02) K/uL APTT 85.1 H* (21.0-31.0) Seconds Sodium (136-145) mmol/L BUN (6-23) mg/dl Creatinine (0.6-1.2) mg/dl BUN/Creatinine Ratio (10-20) Glucose (70-99(Fasting)) mg/dl POC Glucose 186 H (70-99) mg/dl Calcium (8.5-10.1) mg/dl 04/29/22 04/29/22 04/29/22 Range/Units 07:21 07:21 07:40 RBC (4.2-5.4) M/uL Hgb (12.0-16.0) g/dL Hct (37-47) % RDW Std Deviation (36.4-46.3) fL RDW Coeff of Mario (11.5-14.5) % [place] # (Auto) (0.11-0.59) K/uL Immature Gran # (Auto) (0.00-0.02) K/uL APTT 34.7 H (21.0-31.0) Seconds Sodium 135 L (136-145) mmol/L BUN 35 H (6-23) mg/dl Creatinine 1.40 H (0.6-1.2) mg/dl BUN/Creatinine Ratio 25.0 H (10-20) Glucose 180 H (70-99(Fasting)) mg/dl POC Glucose 192 H (70-99) mg/dl Calcium 8.0 L (8.5-10.1) mg/dl 04/29/22 04/29/22 Range/Units 11:10 16:23 RBC (4.2-5.4) M/uL Hgb (12.0-16.0) g/dL Hct (37-47) % RDW Std Deviation (36.4-46.3) fL RDW Coeff of Mario (11.5-14.5) % [place] # (Auto) (0.11-0.59) K/uL Immature Gran # (Auto) (0.00-0.02) K/uL APTT (21.0-31.0) Seconds Sodium (136-145) mmol/L BUN (6-23) mg/dl Creatinine (0.6-1.2) mg/dl BUN/Creatinine Ratio (10-20) Glucose (70-99(Fasting)) mg/dl POC Glucose 193 H 227 H (70-99) mg/dl Calcium (8.5-10.1) mg/dl Diagnostic Findings LP-Fluoroscopic guided lumbar puncture. Approximately 8 mL of clear CSF was collected into four separate vials of 2 mL each. No immediate complications.
[2022-04-29 16:47] LABS: CSF Glucose 112 mg/dl (40-70)
[2022-04-29 16:52] LABS: Appearance CSF Cloudy; CSF Count Tube # 3; CSF Xanthrochromic Xanthochromic; Color CSF Colorless; Red Blood Cell CSF (A) 56 /uL (0-)
[2022-04-29 16:56] LABS: White Blood Cell CSF (A) 150 /uL (0-5)
--- NOTE | 2022-04-29 17:05 | Hospitalist Progress Note ---
Date of Service April 29, 2022 Assessment & Plan (1) Seizure: Plan: 71-year-old female with PMH of diabetes, diabetic retinopathy, peripheral vascular disease, chronic kidney disease stage III, hypothyroidism, hyperlipidemia, neuropathy, atrial flutter, peripheral vascular disease, moderate aortic stenosis, status post TAVR, venous stasis of both lower extremities, history of CAD, GERD, female stress incontinence, depression, history of cardioversion, who presented 04/27 with altered mental status. The patient lives alone, and neighbor checks on her. Per neighbor, she was having seizure episode and hence brought to hospital. She ambulates w/ walker at baseline. #. New onset seizure #. Metabolic and/or infectious encephalopathy versus post ictal confusion #. Abnormal CSF, WBC elevated There is no history of seizures. She had one at home, couple in the ER. Neuro evaluated, EEG nonconclusive, continue with Keppra 500 mg 12 hourly, being treated prophylactically for meningitis/encephalitis 04/29 lumbar puncture and CSF studies ordered --> with elevated WBC, follow other studies. Per neuro, stop Wellbutrin. 04/28 MRI brain with no acute findings. WBC wnl, Temp fairly wnl. Started on empiric vanc/ceftriaxone/acyclovir/ampicillin on 04/27, c/w same for now, will re-discuss with ID tomorrow. ID evaluated 04/29 but CSF results were not out at the time. PT/OT and speech eval when appropriate. Patient remains confused, oriented x0. Continue to monitor over telemetry. Resume heparin when cleared by IR. 2. Hyponatremia, sodium of 127 at admission, getting fluids. Holding her home diuretics. follow labs. Improving. 3. Chronic kidney disease stage III, creatinine at her baseline. 4. Chronic diastolic congestive heart failure, valvular heart disease, status post TAVR, moderate mitral stenosis. Holding diuretics. Getting gentle fluids.Reassess daily for restarting diuretics. Monitor for volume overload. 5. Hypertension: Continue her home dose of amlodipine, Coreg. We will monitor the blood pressure. 6. Diabetes, on long acting, pt npo. The patient is currently n.p.o. Insulin sliding scale, follow the blood sugars. 7. Depression. Continue fluoxetine, nortriptyline. DC wellbutrin per neuro. 8. Gout. Continue allopurinol. 9. Hyperlipidemia. Continue statin. 10. History of atrial flutter, rate controlled with Coreg on Eliquis. 11. Peripheral vascular disease, on statin and aspirin. 12. Female stress incontinence on tolterodine. 13. Deep venous thrombosis prophylaxis, on Eliquis. DISPOSITION: Closely monitor in the tele floor. PT/OT prior to discharge. Social Service to help with discharge planning. Admission and Anticipated Discharge Date Admission Date: April 27, 2022 Subjective Patient seen and examined at bedside as a follow-up of altered mental status, seizure. Patient was lying in bed, on room air, drowsy, falling back to sleep easily, ROS n/a. Per RN, no new acute events overnight. Pt remains confused and lethargic. Physical Exam Physical Exam: GENERAL: Drowsy, easily arousable, oriented x 0 HEENT: No pallor, no icterus. Pupils equal, round and reactive to light. Oral mucosa dry. NECK: No JVD, no neck masses. HEART: S1 and S2 heard. Regular rate and rhythm. No murmur, no gallop. RESPIRATORY SYSTEM: Normal AP diameter. No accessory muscle use. No wheezing, no crackles. ABDOMEN: Soft, bowel sounds present, nontender, no distention. CENTRAL NERVOUS SYSTEM: No facial droop. Speech is clear. Obeys simple commands. Moves extremities. EXTREMITIES: No edema, no erythema seen. BLE chronic skin changes noted. Urinary catheter with yellow urine noted. Results & Data Results & Data ([facility]) Vital Signs (Past 12 Hours) Vital Signs Temp Pulse Pulse Pulse Resp BP BP 04/29/22 15:00 36.7 C 77 19 120/85 04/29/22 11:56 79 103/64 04/29/22 11:38 36.8 C 79 19 103/64 04/29/22 08:06 37.0 C 88 16 159/72 H 04/29/22 08:00 81 04/29/22 06:02 80 Pulse Ox 04/29/22 15:00 97 04/29/22 11:56 04/29/22 11:38 96 04/29/22 08:06 95 04/29/22 08:00 04/29/22 06:02
[2022-04-29 18:29] LABS: CSF Chemistry Tube # 1
[2022-04-29] MEDS ORDERED: LORAZEPAM IV PRN (19:37)
[2022-04-29 20:28] LABS: Cryptococcus neoformans/ga PCR Not Detected (NotDetected); Cytomegalovirus PCR Not Detected (NotDetected); Enterovirus PCR Not Detected (NotDetected); Escherichia coli K1 PCR Not Detected (NotDetected); Haemophilius influenzae PCR Not Detected (NotDetected); Herpes Simplex Virus 1 PCR Not Detected (NotDetected); Herpes Simplex Virus 2 PCR Not Detected (NotDetected); Human Herpes Virus 6 PCR Not Detected (NotDetected); Human Parechovirus PCR Not Detected (NotDetected); Listeria monocytogenes PCR Not Detected (NotDetected); Neisseria meningitidis PCR Not Detected (NotDetected); Streptococcus agalactiae PCR Not Detected (NotDetected); Streptococcus pneumoniae PCR Not Detected (NotDetected)
[2022-04-29 20:33] LABS: Varicella Zoster Virus PCR DETECTED (NotDetected)
[2022-04-29] MEDS ORDERED: LORazepam 1.5 MG in SYRINGE 0.75 ML IV PRN (23:35)
[2022-04-30] MEDS: cefTRIAXone SODIUM 2,000 MG in DEXTROSE 5% 50 ML IV SCH
[2022-04-30] MEDS: AMPICILLIN 2,000 MG in SODIUM CHLOR 0.9% AD-VAN 100 ML IV SCH ×2 (01:04→08:51)
[2022-04-30] MEDS: ACYCLOVIR SOD 700 MG in DEXTROSE 5% 250 ML IV SCH ×2 (01:05→13:36)
[2022-04-30] MEDS ORDERED: MoRPHine SULFATE 2 MG/ML CARP IV STA (01:12)
[2022-04-30] MEDS: SODIUM CHLORIDE 0.9% 1000ML 1,000 ML IV SCH (03:53)
[2022-04-30] MEDS: INSULIN ASPART PER UNIT SC SCH ×3 (06:32→19:23)
[2022-04-30] MEDS: METOPROLOL TARTRATE 1 MG/ML VIAL IV SCH ×3 (06:32→19:33)
[2022-04-30] MEDS: INSULIN GLARGINE SOLOSTAR 100 UNITS/ML 3 ML PEN SC SCH (08:58)
[2022-04-30] MEDS: carvediloL 25 MG TAB PO SCH ×2 (09:33→21:05)
[2022-04-30] MEDS: PANTOprazole 40 MG in SYRINGE 0 ML IV SCH ×2 (09:36→20:55)
[2022-04-30 10:35] LABS: Hematocrit (blood only) 26.9 % (37-47); Hemoglobin 9.2 g/dL (12.0-16.0); Mean Corpuscular Hemoglobin 29.8 pg (25-34); Mean Corpuscular Hgb Conc 34.2 g/dL (32-36); Mean Corpuscular Volume 87.1 fL (80-100); Mean Platelet Volume 9.3 fL (7.4-10.4); Platelet Count 176 K/uL (130-400); Red Blood Count 3.09 M/uL (4.2-5.4); White Blood Count 8.75 K/uL (4.8-10.8)
[2022-04-30 10:36] LABS: Partial Thromboplastin Ratio 1.5; Partial Thromboplastin Time 40.4 Seconds (21.0-31.0)
[2022-04-30 10:44] LABS: BUN Creatinine Ratio 20.9 (10-20); Calcium 8.1 mg/dl (8.5-10.1); Creatinine Clr Calc Pharmacy 42.8 ml/min; Est GFR (African American) 44.1 ml/min; Magnesium 1.7 mg/dl (1.7-2.4); Phosphorus 2.9 mg/dl (2.5-4.9); Potassium 3.3 mmol/L (3.5-5.1)
[2022-04-30] MEDS: levETIRAcetam 500 MG in 0.9 % SODIUM CHLORIDE 100 ML IV SCH (13:15)
--- NOTE | 2022-04-30 13:42 | Neurology Progress Note ---
Date of Service April 30, 2022 Assessment & Plan (1) Seizure: Plan: 1. EEG- no seizure focus continue to watch and observe repeat EEG- tomorrow 2. MRI no stroke or lesions noted 3. continue Keppra 500 mg q 12 hours 4. VZV treatment with acyclovir - ID is involved. 5. continue heparin IV can be stopped easily if needed 6. would stop Wellbutrin 7. PT/OT for discharge needs once more responsive 8. LP done pending final results. Admission and Anticipated Discharge Date Admission Date: April 27, 2022 Supervising Physician Co-Signing Physician Notes I have seen and discussed above patient with Dr Delia Frankel, neurology. Patient seen and examined. CSF notable for positive varicella-zoster PCR. Antibiotics have just been discontinued and acyclovir continued. No noted seizure activity. On exam the patient is more awake today she is able to state her name. Her eye movements are conjugate and roving she moves all 4 extremities symmetrically. 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 Repeat EEG recommended. We will follow with you. Delia Frankel MD Tomas Tsai is a 71 year old female with PMH- DM, DM retinopathy, PVD, CKD III, hypothyroidism, HLD, neuropathy, aFib, moderate aortic stenosis, status post TAVR, venous stasis of both lower extremities, CAD, GERD, stress incontinence, depression, cardioversion, who presents to [facility] 04/27/22 with altered mental status.She lives alone, and neighbor checks on her and nurses come and checks on her. She has not been ambulating much and uses a walker.She has not been eating much. She was found to be confused and neighbor thinks she was having the seizure episode and she was brought into the hospital. In the ER she had another episode of seizure. She had another episode of seizure in the ED. We gave one dose of Ativan 1.5 mg IV and she was placed on OxyMask. She was not improve so LP was done and protein and WBC high. Her VZV PCR was positive. She is speaking one word responses and following some commends. Review of Systems Review of Systems: Unobtainable due to cognitive status Physical Exam Physical Exam: Physical Exam: Constitutional: appearance nourished, obese ill appearing, lethargic Ears, Nose, Mouth and Throat: mucous membranes moist, no injection and skin normal, eyes normal Cardiovascular: normal S-1 and S-2 Respiratory: course breath sounds Musculoskeletal: non pitting peripheral edema Skin: bilateral LE venous stasis no discharge Eyes: opens her eyes to command NEUROLOGIC EXAMINATION: Mental status: Alert off and on Oriented to person Speech garbled speech some words clear Cranial Nerves no facial asymmetry Reflexes: Deep tendon reflexes were symmetrical and graded 2/5. down going toes Sensory: intact to light touch Coordination: unable to test Gait/Stance: Posture lying in bed. watson in place Motor: moving spontaneously not with command Strength: unable to assess Results & Data ([facility]) Vital Signs (Past 12 Hours) Vital Signs Temp Pulse Pulse Resp BP BP Pulse Ox 04/30/22 13:11 67 04/30/22 11:21 36.5 C 67 18 156/74 H 95 04/30/22 07:58 36.4 C L 70 20 139/56 L 96 04/30/22 06:45 69 04/30/22 06:32 72 04/30/22 03:13 36.8 C 72 20 145/86 H 97 Laboratory Results Abnormal lab results 04/29/22 04/29/22 04/29/22 Range/Units 14:55 14:55 14:55 RBC (4.2-5.4) M/uL Hgb (12.0-16.0) g/dL Hct (37-47) % RDW Std Deviation (36.4-46.3) fL RDW Coeff of Mario (11.5-14.5) % APTT (21.0-31.0) Seconds Potassium (3.5-5.1) mmol/L Chloride (98-107) mmol/L BUN (6-23) mg/dl Creatinine (0.6-1.2) mg/dl BUN/Creatinine Ratio (10-20) POC Glucose (70-99) mg/dl Calcium (8.5-10.1) mg/dl CSF WBC 150 H* (0-5) /uL CSF Glucose 112 H (40-70) mg/dl CSF Lactate (0.6-2.2) mmol/L CSF Total Protein 239.4 H (15-45) mg/dl CSF VZV DNA (PCR) (NotDetected) 04/29/22 04/29/22 04/29/22 Range/Units 14:55 16:23 20:14 RBC (4.2-5.4) M/uL Hgb (12.0-16.0) g/dL Hct (37-47) % RDW Std Deviation (36.4-46.3) fL RDW Coeff of Mario (11.5-14.5) % APTT (21.0-31.0) Seconds Potassium (3.5-5.1) mmol/L Chloride (98-107) mmol/L BUN (6-23) mg/dl Creatinine (0.6-1.2) mg/dl BUN/Creatinine Ratio (10-20) POC Glucose 227 H 144 H (70-99) mg/dl Calcium (8.5-10.1) mg/dl CSF WBC (0-5) /uL CSF Glucose (40-70) mg/dl CSF Lactate 4.8 H (0.6-2.2) mmol/L CSF Total Protein (15-45) mg/dl CSF VZV DNA (PCR) (NotDetected) 04/29/22 04/30/22 04/30/22 Range/Units Unknown 10:00 10:00 RBC 3.09 L (4.2-5.4) M/uL Hgb 9.2 L (12.0-16.0) g/dL Hct 26.9 L (37-47) % RDW Std Deviation 48.0 H (36.4-46.3) fL RDW Coeff of Mario 15.0 H (11.5-14.5) % APTT 40.4 H (21.0-31.0) Seconds Potassium (3.5-5.1) mmol/L Chloride (98-107) mmol/L BUN (6-23) mg/dl Creatinine (0.6-1.2) mg/dl BUN/Creatinine Ratio (10-20) POC Glucose (70-99) mg/dl Calcium (8.5-10.1) mg/dl CSF WBC (0-5) /uL CSF Glucose (40-70) mg/dl CSF Lactate (0.6-2.2) mmol/L CSF Total Protein (15-45) mg/dl CSF VZV DNA (PCR) DETECTED A* (NotDetected) 04/30/22 Range/Units 10:00 RBC (4.2-5.4) M/uL Hgb (12.0-16.0) g/dL Hct (37-47) % RDW Std Deviation (36.4-46.3) fL RDW Coeff of Mario (11.5-14.5) % APTT (21.0-31.0) Seconds Potassium 3.3 L (3.5-5.1) mmol/L Chloride 109 H (98-107) mmol/L BUN 29 H (6-23) mg/dl Creatinine 1.39 H (0.6-1.2) mg/dl BUN/Creatinine Ratio 20.9 H (10-20) POC Glucose (70-99) mg/dl Calcium 8.1 L (8.5-10.1) mg/dl CSF WBC (0-5) /uL CSF Glucose (40-70) mg/dl CSF Lactate (0.6-2.2) mmol/L CSF Total Protein (15-45) mg/dl CSF VZV DNA (PCR) (NotDetected) Diagnostic Findings LP under fluro -Fluoroscopic guided lumbar puncture. Approximately 8 mL of clear CSF was collected into four separate vials of 2 mL each. No immediate complications.04/29/22
--- NOTE | 2022-04-30 14:18 | Hospitalist Progress Note ---
Date of Service April 30, 2022 Assessment & Plan (1) Seizure: Plan: 71-year-old female with PMH of diabetes, diabetic retinopathy, peripheral vascular disease, chronic kidney disease stage III, hypothyroidism, hyperlipidemia, neuropathy, atrial flutter, peripheral vascular disease, moderate aortic stenosis, status post TAVR, venous stasis of both lower extremities, history of CAD, GERD, female stress incontinence, depression, history of cardioversion, who presented 04/27 with altered mental status. The patient lives alone, and neighbor checks on her. Per neighbor, she was having seizure episode and hence brought to hospital. She ambulates w/ walker at baseline. #. New onset seizure #. Metabolic and/or infectious encephalopathy versus post ictal confusion #. Abnormal CSF, WBC elevated There is no history of seizures. She had one at home, couple in the ER. Neuro evaluated, EEG nonconclusive, continue with Keppra 500 mg 12 hourly, being treated prophylactically for meningitis/encephalitis 04/29 lumbar puncture and CSF studies ordered --> WBC 150/uL, Glucose elevated with marked protein elevation. VZV PCR positive; F/U REST of the RESULTS incl C/S 04/29. Per neuro, stop Wellbutrin. 04/28 MRI brain with no acute findings. WBC wnl, Temp fairly wnl. Started on empiric vanc/ceftriaxone/acyclovir/ampicillin on 04/27 --> re discussed w/ ID 04/30 w/ updated CSF results --> drop ATBs and c/w acyclovir. PT/OT and speech eval when appropriate. Patient remains confused, oriented x self. Continue to monitor over telemetry. Updated Pt's cousin and Pt's neighbour at bedside 04/30. Pt remains NPO, will change IVF w/ glucose, if not awake by next 1-2 days, consider PPN Change positions every 3-4 hours. 2. Hyponatremia, sodium of 127 at admission, getting fluids. Holding her home diuretics. follow labs. Resolved. 3. Chronic kidney disease stage III, creatinine at her baseline. 4. Chronic diastolic congestive heart failure, valvular heart disease, status post TAVR, moderate mitral stenosis. Holding diuretics. Getting gentle fluids.Reassess daily for restarting diuretics. Monitor for volume overload. 5. Hypertension: Continue her home dose of amlodipine, Coreg. We will monitor the blood pressure. 6. Diabetes, on long acting, pt npo. The patient is currently n.p.o. Insulin sliding scale, follow the blood sugars. 7. Depression. Continue fluoxetine, nortriptyline. DC wellbutrin per neuro. 8. Gout. Continue allopurinol. 9. Hyperlipidemia. Continue statin. 10. History of atrial flutter, rate controlled with Coreg on Eliquis. 11. Peripheral vascular disease, on statin and aspirin. 12. Female stress incontinence on tolterodine. 13. Deep venous thrombosis prophylaxis, on Eliquis. DISPOSITION: Closely monitor in the tele floor. PT/OT prior to discharge. Social Service to help with discharge planning. Admission and Anticipated Discharge Date Admission Date: April 27, 2022 Subjective Patient seen and examined at bedside as a follow-up of altered mental status, seizure. Patient was lying in bed, on room air, drowsy, falling back to sleep easily, oriented to self, ROS n/a. Per RN, no new acute events overnight.Pt remains confused and lethargic. Physical Exam Physical Exam: GENERAL: Drowsy, easily arousable, oriented x self HEENT: No pallor, no icterus. Pupils equal, round and reactive to light. Oral mucosa dry. NECK: No JVD, no neck masses. HEART: S1 and S2 heard. Regular rate and rhythm. No murmur, no gallop. RESPIRATORY SYSTEM: Normal AP diameter. No accessory muscle use. No wheezing, no crackles. ABDOMEN: Soft, bowel sounds present, nontender, no distention. CENTRAL NERVOUS SYSTEM: No facial droop. Speech is clear. Obeys simple commands. Moves extremities. EXTREMITIES: No edema, no erythema seen. BLE chronic skin changes noted. Urinary catheter with yellow urine noted. Results & Data Results & Data ([facility]) Vital Signs (Past 12 Hours) Vital Signs Temp Pulse Pulse Resp BP BP Pulse Ox 04/30/22 13:11 67 04/30/22 11:21 36.5 C 67 18 156/74 H 95 04/30/22 07:58 36.4 C L 70 20 139/56 L 96 04/30/22 06:45 69 04/30/22 06:32 72 04/30/22 03:13 36.8 C 72 20 145/86 H 97
[2022-04-30] MEDS: D5W AND 1/2NSS 1,000 ML IV SCH (15:55)
[2022-04-30] MEDS: MAGNESIUM SULFATE / D5W 1 GM/100 ML BAG IV SCH ×2 (15:56→17:47)
[2022-04-30] MEDS: POTASSIUM CHLORIDE / WTR 10 MEQ/100 ML PLCT IV SCH ×4 (16:07→19:35)
[2022-04-30 16:38] LABS: Partial Thromboplastin Time 63.2 Seconds (21.0-31.0)
[2022-04-30 16:40] LABS: Partial Thromboplastin Ratio 2.3
--- NOTE | 2022-04-30 17:22 | Electroencephalogram ---
EEG Procedure Note Date of Service April 30, 2022 Start / End Times Start Time: 08:16 End Time: 08:[address] Delia Frankel MD History A 71 year old woman encephalopathic and agitated. EEG performed for evaluation of epileptiform activity. Home Medication List Medication Instructions Recorded Confirmed Type allopurinol 300 mg tablet 300 mg PO QAM 02/27/19 04/27/22 History aspirin 81 mg tablet,delayed 81 mg PO QAM 02/27/19 04/27/22 History release atorvastatin 40 mg tablet 40 mg PO QAM 02/27/19 04/27/22 History fluoxetine 40 mg capsule 40 mg PO QAM 02/27/19 04/27/22 History nortriptyline 50 mg capsule 50 mg PO HS 02/27/19 04/27/22 History tolterodine 2 mg capsule,extended 2 mg PO QAM 02/27/19 04/27/22 History release 24 hr pantoprazole 40 mg tablet,delayed 40 mg PO DAILY 09/27/20 04/27/22 History release bupropion HCl 150 mg tablet,12 hr 150 mg PO DAILY 10/03/20 04/27/22 History sustained-release apixaban 5 mg tablet (Eliquis) 5 mg PO BID 01/12/21 04/27/22 History insulin aspart U-100 100 unit/mL 30 unit SUBCUT BIDM 01/12/21 08/27/21 History subcutaneous solution (Novolog U-100 Insulin aspart) insulin detemir U-100 100 unit/mL 55 unit SUBCUT AMHS 01/12/21 08/27/21 History subcutaneous solution (Levemir U-100 Insulin) magnesium oxide 400 mg PO DAILY 03/07/21 04/27/22 History nystatin 100,000 unit/gram topical 1 applic TOPICAL UD PRN 03/07/21 08/27/21 History powder (Nystop) amlodipine 5 mg tablet 5 mg PO DAILY 08/27/21 04/27/22 History furosemide 40 mg tablet 40 mg PO DAILY 08/27/21 04/27/22 History multivitamin 1 tab PO DAILY 08/27/21 04/27/22 History ondansetron 4 mg disintegrating 4 mg PO Q8H PRN 08/27/21 08/27/21 History tablet carvedilol 25 mg tablet 25 mg PO BID #60 tab 08/29/21 04/27/22 Rx cholecalciferol (vitamin D3) 1,250 50,000 unit PO UD 04/27/22 04/27/22 History mcg (50,000 unit) capsule iron bisglycinate chelate 28 mg PO DAILY 04/27/22 04/27/22 History Inpatient Medication List Allopurinol (Allopurinol 300 Mg Tab) 300 mg PO QAM [facility] Stop: 05/27/22 08:59 Last Admin: 04/27/22 09:28 Dose: Not Given Documented by: [id number] Amlodipine Besylate (Amlodipine Besylate 5 Mg Tab) 5 mg PO DAILY LISA Stop: 05/27/22 08:59 Last Admin: 04/27/22 09:28 Dose: Not Given Documented by: [id number] Apixaban (Apixaban 5 Mg Tablet) 5 mg PO BID LISA Stop: 05/27/22 08:59 Last Admin: 04/27/22 09:28 Dose: Not Given Documented by: [id number] Aspirin (Aspirin 81 Mg Ectab) 81 mg PO QAM LISA Stop: 05/27/22 08:59 Last Admin: 04/27/22 09:28 Dose: Not Given Documented by: [id number] Atorvastatin Calcium (Atorvastatin 40 Mg Tab) 40 mg PO QAM [facility] Stop: 05/27/22 08:59 Last Admin: 04/27/22 09:28 Dose: Not Given Documented by: [id number] Carvedilol (Carvedilol 25 Mg Tab) 25 mg PO BID LISA Stop: 05/27/22 08:59 Last Admin: 04/30/22 09:33 Dose: Not Given Documented by: [id number] Admin: 04/29/22 20:11 Dose: Not Given Documented by: [id number] Admin: 04/29/22 08:56 Dose: Not Given Documented by: [id number] Admin: 04/28/22 19:29 Dose: Not Given Documented by: [id number] Admin: 04/28/22 08:13 Dose: Not Given Documented by: [id number] Admin: 04/27/22 20:43 Dose: Not Given Documented by: [id number] Admin: 04/27/22 09:28 Dose: Not Given Documented by: [id number] Dextrose (Dextrose 50% 50 Ml Syringe) 25 - 50 ml IV UD PRN; Protocol PRN Reason: Hypoglycemia Protocol Stop: 05/27/22 08:44 Last Admin: 04/27/22 18:03 Dose: 50 ml Documented by: [id number] Fluoxetine HCl (Fluoxetine Hcl 20 Mg Cap) 40 mg PO QAM LISA Stop: 05/27/22 08:59 Last Admin: 04/27/22 09:28 Dose: Not Given Documented by: [id number] Levetiracetam 500 mg/ Sodium (Chloride) 105 mls @ 420 mls/hr IV Q12H LISA Stop: 05/27/22 11:59 Last Infusion: 04/30/22 14:15 Dose: 0 mls/hr Documented by: [id number] Admin: 04/30/22 13:15 Dose: 105 mls/hr Documented by: [id number] Infusion: 04/29/22 23:52 Dose: 0 mls/hr Documented by: [id number] Admin: 04/29/22 23:37 Dose: 420 mls/hr Documented by: [id number] Infusion: 04/29/22 12:22 Dose: 0 mls/hr Documented by: [id number] Admin: 04/29/22 11:59 Dose: 420 mls/hr Documented by: [id number] Infusion: 04/29/22 02:08 Dose: 0 mls/hr Documented by: [id number] Admin: 04/29/22 00:41 Dose: 105 mls/hr Documented by: [id number] Infusion: 04/28/22 12:15 Dose: 0 mls/hr Documented by: [id number] Admin: 04/28/22 12:00 Dose: 420 mls/hr Documented by: [id number] Infusion: 04/28/22 00:36 Dose: 0 mls/hr Documented by: [id number] Admin: 04/28/22 00:21 Dose: 420 mls/hr Documented by: [id number] Infusion: 04/27/22 11:50 Dose: 0 mls/hr Documented by: [id number] Admin: 04/27/22 11:35 Dose: 420 mls/hr Documented by: [id number] Acyclovir Sodium 700 mg/ (Dextrose) 264 mls @ 250 mls/hr IV Q12H LIAS; Protocol Stop: 05/07/22 13:59 Last Infusion: 04/30/22 14:47 Dose: 0 mls/hr Documented by: [id number] Admin: 04/30/22 13:36 Dose: 250 mls/hr Documented by: [id number] Infusion: 04/30/22 02:09 Dose: 0 mls/hr Documented by: [id number] Admin: 04/30/22 01:05 Dose: 250 mls/hr Documented by: [id number] Infusion: 04/29/22 14:43 Dose: 0 mls/hr Documented by: [id number] Admin: 04/29/22 13:30 Dose: 250 mls/hr Documented by: [id number] Infusion: 04/29/22 04:06 Dose: 0 mls/hr Documented by: [id number] Admin: 04/29/22 03:02 Dose: 250 mls/hr Documented by: [id number] Infusion: 04/28/22 14:24 Dose: 0 mls/hr Documented by: [id number] Admin: 04/28/22 13:20 Dose: 250 mls/hr Documented by: [id number] Infusion: 04/28/22 04:07 Dose: 0 mls/hr Documented by: [id number] Admin: 04/28/22 03:03 Dose: 250 mls/hr Documented by: [id number] Infusion: 04/27/22 15:54 Dose: 0 mls/hr Documented by: [id number] Admin: 04/27/22 14:50 Dose: 250 mls/hr Documented by: [id number] Pantoprazole Sodium 40 mg/ (Syringe) 10 mls @ 5 mls/min IV BID LISA Stop: 05/27/22 11:59 Last Admin: 04/30/22 09:36 Dose: 5 mls/min Documented by: [id number] Admin: 04/29/22 21:09 Dose: 5 mls/min Documented by: [id number] Admin: 04/29/22 08:54 Dose: 5 mls/min Documented by: [id number] Admin: 04/28/22 21:19 Dose: 5 mls/min Documented by: [id number] Admin: 04/28/22 08:14 Dose: 5 mls/min Documented by: [id number] Admin: 04/27/22 21:04 Dose: 5 mls/min Documented by: [id number] Admin: 04/27/22 13:05 Dose: 5 mls/min Documented by: [id number] Heparin Sodium/Dextrose (Heparin Sodium/Dextrose) 25,000 units in 500 mls @ 14 mls/hr IV .Q24H LISA; Protocol Stop: 05/27/22 19:29 Last Titration: 04/30/22 09:20 Dose: 700 units/hr, 14 mls/hr Documented by: [id number] Cosigned by: [id number] Titration: 04/29/22 04:06 Dose: 0 units/hr, 0 mls/hr Documented by: [id number] Cosigned by: [id number] Admin: 04/29/22 03:11 Dose: 700 units/hr, 14 mls/hr Documented by: [id number] Cosigned by: [id number] Titration: 04/29/22 02:09 Dose: 0 units/hr, 0 mls/hr Documented by: [id number] Cosigned by: [id number] Admin: 04/28/22 21:16 Dose: Not Given Documented by: [id number] Titration: 04/28/22 18:12 Dose: 850 units/hr, 17 mls/hr Documented by: [id number] Cosigned by: [id number] Titration: 04/28/22 09:50 Dose: 900 units/hr, 18 mls/hr Documented by: [id number] Cosigned by: [id number] Admin: 04/27/22 20:34 Dose: 850 units/hr, 17 mls/hr Documented by: [id number] Cosigned by: [id number] Potassium Chloride (K Anupam / Wtr) 10 meq in 100 mls @ 100 mls/hr IV Q1H LISA; Protocol Stop: 04/30/22 18:14 Last Admin: 04/30/22 16:57 Dose: 100 mls/hr Documented by: [id number] Infusion: 04/30/22 16:57 Dose: 100 mls/hr Documented by: [id number] Admin: 04/30/22 16:07 Dose: 100 mls/hr Documented by: [id number] Magnesium Sulfate/Dextrose (Magnesium Sulfate / D5w) 1 gm in 100 mls @ 50 mls/hr IV Q2H LISA Stop: 04/30/22 18:14 Last Admin: 04/30/22 15:56 Dose: 50 mls/hr Documented by: [id number] Dextrose/Sodium Chloride (D5w And 1/2nss) 1,000 mls @ 75 mls/hr IV .[id number] LISA Stop: 05/30/22 14:29 Last Admin: 04/30/22 15:55 Dose: 75 mls/hr Documented by: [id number] Insulin Aspart (Insulin Aspart Per Unit) 0 units SC Q6H [facility] Stop: 05/28/22 20:44 Last Admin: 04/30/22 13:21 Dose: Not Given Documented by: [id number] Cosigned by: [id number] Admin: 04/30/22 06:32 Dose: Not Given Documented by: [id number] Admin: 04/29/22 23:27 Dose: Not Given Documented by: [id number] Admin: 04/29/22 17:22 Dose: 4 units Documented by: [id number] Cosigned by: [id number] Admin: 04/29/22 11:55 Dose: 2 units Documented by: [id number] Cosigned by: [id number] Admin: 04/29/22 03:10 Dose: 2 units Documented by: [id number] Cosigned by: [id number] Admin: 04/28/22 21:26 Dose: 1 units Documented by: [id number] Cosigned by: [id number] Insulin Detemir (Insulin Detemir Flexpen/Flex Touch 100 Units/Ml 3ml) 25 units SC BID [facility] Stop: 05/27/22 08:59 Last Admin: 04/27/22 21:03 Dose: Not Given Documented by: [id number] Admin: 04/27/22 09:10 Dose: 25 units Documented by: [id number] Cosigned by: [id number] Insulin Glargine (Insulin Glargine Solostar 100 Units/Ml 3 Ml Pen) 15 units SC DAILY [facility] Stop: 05/29/22 14:59 Last Admin: 04/30/22 08:58 Dose: 15 units Documented by: [id number] Cosigned by: [id number] Admin: 04/29/22 15:19 Dose: 15 units Documented by: [id number] Cosigned by: [id number] Labetalol HCl (Labetalol Hcl Iv 5 Mg/Ml 20ml) 10 mg IV Q4H PRN PRN Reason: Hypertension Stop: 05/27/22 08:03 Last Admin: 04/28/22 19:35 Dose: 10 mg Documented by: [id number] Cosigned by: [id number] Magnesium Oxide (Magnesium Oxide 400 Mg Tab) 400 mg PO DAILY [facility] Stop: 05/27/22 08:59 Last Admin: 04/27/22 09:28 Dose: Not Given Documented by: [id number] Metoprolol Tartrate (Metoprolol Tartrate 1 Mg/Ml Vial) 5 mg IV Q6 LISA Stop: 05/27/22 11:59 Last Admin: 04/30/22 13:11 Dose: 5 mg Documented by: [id number] Admin: 04/30/22 06:32 Dose: 5 mg Documented by: [id number] Admin: 04/29/22 23:27 Dose: 5 mg Documented by: [id number] Admin: 04/29/22 17:21 Dose: 5 mg Documented by: [id number] Admin: 04/29/22 11:56 Dose: 5 mg Documented by: [id number] Admin: 04/29/22 06:02 Dose: 5 mg Documented by: [id number] Admin: 04/29/22 00:33 Dose: 5 mg Documented by: [id number] Admin: 04/28/22 17:31 Dose: 5 mg Documented by: [id number] Admin: 04/28/22 12:00 Dose: 5 mg Documented by: [id number] Admin: 04/28/22 06:15 Dose: 5 mg Documented by: [id number] Admin: 04/28/22 00:43 Dose: 5 mg Documented by: [id number] Admin: 04/27/22 18:26 Dose: 5 mg Documented by: [id number] Admin: 04/27/22 13:05 Dose: 5 mg Documented by: [id number] Multivitamins (Multivitamin Tab) 1 tab PO DAILY LISA Stop: 05/27/22 08:59 Last Admin: 04/27/22 09:29 Dose: Not Given Documented by: [id number] Pantoprazole Sodium (Pantoprazole 40 Mg Tab) 40 mg PO DAILY LISA Stop: 05/27/22 08:59 Last Admin: 04/27/22 09:29 Dose: Not Given Documented by: [id number] Tolterodine Tartrate (Tolterodine Tartrate La 2 Mg Capcr) 2 mg PO QAM LISA Stop: 05/27/22 08:59 Last Admin: 04/27/22 09:29 Dose: Not Given Documented by: [id number] Discontinued Medications Bupropion HCl (Bupropion Sr 150 Mg Tabcr) 150 mg PO DAILY LISA Stop: 05/27/22 08:59 Last Admin: 04/27/22 09:28 Dose: Not Given Documented by: [id number] Enoxaparin Sodium (Enoxaparin 100 Mg/1ml Syr) 100 mg SQ Q12H [facility] Stop: 05/27/22 17:14 Last Admin: 04/27/22 20:57 Dose: Not Given Documented by: [id number] Sodium Chloride (Nss) 500 mls @ 999 mls/hr IV .Q31M ONE Stop: 04/27/22 04:40 Last Infusion: 04/27/22 04:59 Dose: 0 mls/hr Documented by: [id number] Admin: 04/27/22 04:18 Dose: 999 mls/hr Documented by: [id number] Sodium Chloride (Nss 1000ml) 1,000 mls @ 75 mls/hr IV .[id number] LISA Stop: 05/27/22 08:03 Last Infusion: 04/30/22 14:48 Dose: 0 mls/hr Documented by: [id number] Admin: 04/30/22 03:53 Dose: 75 mls/hr Documented by: [id number] Infusion: 04/30/22 03:53 Dose: 75 mls/hr Documented by: [id number] Admin: 04/29/22 15:13 Dose: 75 mls/hr Documented by: [id number] Infusion: 04/29/22 15:13 Dose: 75 mls/hr Documented by: [id number] Infusion: 04/29/22 02:08 Dose: 75 mls/hr Documented by: [id number] Infusion: 04/29/22 00:52 Dose: 0 mls/hr Documented by: [id number] Admin: 04/29/22 00:39 Dose: 75 mls/hr Documented by: [id number] Infusion: 04/29/22 00:39 Dose: 75 mls/hr Documented by: [id number] Infusion: 04/28/22 21:23 Dose: 75 mls/hr Documented by: [id number] Admin: 04/28/22 17:20 Dose: 100 mls/hr Documented by: [id number] Infusion: 04/28/22 17:20 Dose: 0 mls/hr Documented by: [id number] Admin: 04/28/22 07:20 Dose: 100 mls/hr Documented by: [id number] Infusion: 04/28/22 07:20 Dose: 0 mls/hr Documented by: [id number] Admin: 04/27/22 20:34 Dose: 100 mls/hr Documented by: [id number] Infusion: 04/27/22 18:51 Dose: 100 mls/hr Documented by: [id number] Admin: 04/27/22 08:51 Dose: 100 mls/hr Documented by: [id number] Levetiracetam 1,000 mg/ Sodium (Chloride) 110 mls @ 440 mls/hr IV NOW STA Stop: 04/27/22 08:28 Last Infusion: 04/27/22 09:06 Dose: 0 mls/hr Documented by: [id number] Admin: 04/27/22 08:51 Dose: 440 mls/hr Documented by: [id number] Levetiracetam 500 mg/ Sodium (Chloride) 105 mls @ 420 mls/hr IV Q12H LISA Stop: 05/27/22 08:59 Last Admin: 04/27/22 09:28 Dose: Not Given Documented by: [id number] Ceftriaxone Sodium 2,000 mg/ (Dextrose) 70 mls @ 100 mls/hr IV Q12H LISA; Protocol Stop: 05/07/22 11:59 Last Infusion: 04/30/22 00:42 Dose: 0 mls/hr Documented by: [id number] Admin: 04/30/22 00:00 Dose: 100 mls/hr Documented by: [id number] Infusion: 04/29/22 12:51 Dose: 0 mls/hr Documented by: [id number] Admin: 04/29/22 12:01 Dose: 100 mls/hr Documented by: [id number] Infusion: 04/29/22 01:28 Dose: 0 mls/hr Documented by: [id number] Admin: 04/29/22 00:42 Dose: 100 mls/hr Documented by: [id number] Infusion: 04/28/22 13:00 Dose: 0 mls/hr Documented by: [id number] Admin: 04/28/22 12:15 Dose: 100 mls/hr Documented by: [id number] Infusion: 04/28/22 01:37 Dose: 0 mls/hr Documented by: [id number] Admin: 04/28/22 00:55 Dose: 100 mls/hr Documented by: [id number] Infusion: 04/27/22 13:17 Dose: 0 mls/hr Documented by: [id number] Admin: 04/27/22 12:35 Dose: 100 mls/hr Documented by: [id number] Vancomycin HCl 2,500 mg/ (Sodium Chloride) 550 mls @ 180 mls/hr IV NOW STA Stop: 04/27/22 14:45 Last Infusion: 04/27/22 16:31 Dose: 0 mls/hr Documented by: [id number] Admin: 04/27/22 13:18 Dose: 180 mls/hr Documented by: [id number] Ampicillin Sodium 2,000 mg/ (Sodium Chloride) 100 mls @ 200 mls/hr IV Q6H [facility]; Protocol Stop: 05/07/22 11:59 Last Admin: 04/30/22 08:51 Dose: Not Given Documented by: [id number] Infusion: 04/30/22 01:34 Dose: 0 mls/hr Documented by: [id number] Admin: 04/30/22 01:04 Dose: 200 mls/hr Documented by: [id number] Infusion: 04/29/22 21:30 Dose: 0 mls/hr Documented by: [id number] Admin: 04/29/22 21:00 Dose: 200 mls/hr Documented by: [id number] Infusion: 04/29/22 14:16 Dose: 0 mls/hr Documented by: [id number] Admin: 04/29/22 13:34 Dose: 200 mls/hr Documented by: [id number] Infusion: 04/29/22 10:19 Dose: 0 mls/hr Documented by: [id number] Admin: 04/29/22 08:54 Dose: 200 mls/hr Documented by: [id number] Infusion: 04/29/22 03:46 Dose: 0 mls/hr Documented by: [id number] Admin: 04/29/22 03:05 Dose: 200 mls/hr Documented by: [id number] Infusion: 04/28/22 22:28 Dose: 0 mls/hr Documented by: [id number] Admin: 04/28/22 21:16 Dose: 200 mls/hr Documented by: [id number] Infusion: 04/28/22 15:00 Dose: 0 mls/hr Documented by: [id number] Admin: 04/28/22 14:25 Dose: 200 mls/hr Documented by: [id number] Infusion: 04/28/22 08:53 Dose: 0 mls/hr Documented by: [id number] Admin: 04/28/22 08:13 Dose: 200 mls/hr Documented by: [id number] Infusion: 04/28/22 02:14 Dose: 0 mls/hr Documented by: [id number] Admin: 04/28/22 01:44 Dose: 200 mls/hr Documented by: [id number] Infusion: 04/27/22 19:07 Dose: 0 mls/hr Documented by: [id number] Admin: 04/27/22 18:26 Dose: 200 mls/hr Documented by: [id number] Infusion: 04/27/22 12:35 Dose: 0 mls/hr Documented by: [id number] Admin: 04/27/22 12:05 Dose: 200 mls/hr Documented by: [id number] Sodium Chloride (Nss 1000ml) 1,000 mls @ 999 mls/hr IV .Q1H1M ONE Stop: 04/27/22 14:35 Last Infusion: 04/27/22 16:02 Dose: 0 mls/hr Documented by: [id number] Admin: 04/27/22 14:50 Dose: 999 mls/hr Documented by: [id number] Vancomycin HCl 1,000 mg/ (Sodium Chloride) 270 mls @ 200 mls/hr IV Q24H LISA Stop: 05/08/22 14:59 Last Infusion: 04/29/22 16:16 Dose: 0 mls/hr Documented by: [id number] Admin: 04/29/22 15:16 Dose: 2,100 mls/hr Documented by: [id number] Infusion: 04/28/22 16:25 Dose: 0 mls/hr Documented by: [id number] Admin: 04/28/22 15:00 Dose: 200 mls/hr Documented by: [id number] Insulin Aspart (Insulin Aspart Per Unit) 0 units SC ACHS LISA Stop: 05/27/22 08:03 Last Admin: 04/28/22 16:56 Dose: 5 units Documented by: [id number] Cosigned by: [id number] Admin: 04/28/22 12:21 Dose: 2 units Documented by: [id number] Cosigned by: [id number] Admin: 04/28/22 08:13 Dose: Not Given Documented by: [id number] Admin: 04/27/22 20:44 Dose: Not Given Documented by: [id number] Cosigned by: [id number] Admin: 04/27/22 18:03 Dose: Not Given Documented by: [id number] Cosigned by: [id number] Admin: 04/27/22 12:15 Dose: 4 units Documented by: [id number] Cosigned by: [id number] Admin: 04/27/22 09:03 Dose: 10 units Documented by: [id number] Cosigned by: [id number] Lorazepam (Lorazepam 2 Mg/1 Ml Vial) Confirm Administered Dose 2 mg .ROUTE .STK- MED ONE Stop: 04/27/22 06:20 Last Admin: 04/27/22 06:50 Dose: 1.5 mg Documented by: [id number] Lorazepam (Lorazepam 2 Mg/1 Ml Vial) 1.5 mg IV NOW STA; Protocol Stop: 04/27/22 08:23 Last Admin: 04/27/22 08:57 Dose: 1.5 mg Documented by: [id number] Miscellaneous (Iron Bisglycinate Chelate 28 Mg: Order Awaiting Action) 1 ea N/A QS LISA Stop: 05/27/22 15:59 Last Admin: 04/28/22 22:58 Dose: Not Given Documented by: [id number] Admin: 04/28/22 01:00 Dose: Not Given Documented by: [id number] Admin: 04/27/22 19:10 Dose: Not Given Documented by: [id number] Morphine Sulfate (Morphine Sulfate 2 Mg/Ml Carp) 2 mg IV NOW STA Stop: 04/30/22 01:13 Last Admin: 04/30/22 01:28 Dose: 2 mg Documented by: [id number] Description This is a 21 electrode EEG with a single channel dedicated to limited EKG. The electrodes were placed in accordance with the International 10-20 system. REPORT: At the onset of the EEG the patient is in an altered mental state. The background is symmetric and predominantly consist of generalized polymorphic delta activity with some intermittent movement artifact. No stage II sleep transients are seen. Photic does not induce any abnormalities. Interpretation IMPRESSION: This is an abnormal routine EEG in patient with altered mentation due to generalized background slowing suggestive of of non specific encephaloapthy. No epileptiform discharges or electrographic seizures are recorded.
[2022-04-30] MEDS ORDERED: LORazepam 0.25 MG in SYRINGE 0.125 ML IV STA ×2 (21:06→23:32)
[2022-04-30] MEDS ORDERED: LORazepam 2 MG/1 ML VIAL ONE (21:13)
[2022-05-01] MEDS: METOPROLOL TARTRATE 1 MG/ML VIAL IV SCH ×5 (00:06→23:57)
[2022-05-01] MEDS: levETIRAcetam 500 MG in 0.9 % SODIUM CHLORIDE 100 ML IV SCH ×2 (00:07→12:56)
[2022-05-01] MEDS: INSULIN ASPART PER UNIT SC SCH ×4 (00:14→18:24)
[2022-05-01] MEDS: ACYCLOVIR SOD 700 MG in DEXTROSE 5% 250 ML IV SCH ×2 (02:44→13:27)
[2022-05-01] MEDS: D5W AND 1/2NSS 1,000 ML IV SCH (03:37)
[2022-05-01 06:37] LABS: Basophils # (auto) 0.01 K/uL (0-0.2); Basophils % (auto) 0.1 %; Eosinophils # (auto) 0.72 K/uL (0-0.5); Eosinophils % (auto) 7.5 %; Hematocrit (blood only) 29.8 % (37-47); Immature Granulocytes # (auto) 0.06 K/uL (0.00-0.02); Immature Granulocytes % (auto) 0.6 %; Lymphocytes % (auto) 20.8 %; Mean Corpuscular Hemoglobin 28.9 pg (25-34); Mean Corpuscular Hgb Conc 33.6 g/dL (32-36); Mean Corpuscular Volume 86.1 fL (80-100); Mean Platelet Volume 9.3 fL (7.4-10.4); Monocytes # (auto) 1.07 K/uL (0.11-0.59); Monocytes % (auto) 11.1 %; Neutrophils # (auto) 5.77 K/uL (1.4-6.5); Neutrophils % (auto) 59.9 %; Platelet Count 201 K/uL (130-400); RDW Coefficient of Variation 15.3 % (11.5-14.5); RDW Standard Deviation 48.2 fL (36.4-46.3); Red Blood Count 3.46 M/uL (4.2-5.4); White Blood Count 9.63 K/uL (4.8-10.8)
[2022-05-01 07:07] LABS: Partial Thromboplastin Ratio 2.6
[2022-05-01 07:11] LABS: Partial Thromboplastin Time 71.7 Seconds (21.0-31.0)
[2022-05-01] MEDS: INSULIN GLARGINE SOLOSTAR 100 UNITS/ML 3 ML PEN SC SCH (09:12)
[2022-05-01 09:26] LABS: Potassium 3.7 mmol/L (3.5-5.1)
[2022-05-01] MEDS: carvediloL 25 MG TAB PO SCH (09:30)
[2022-05-01] MEDS: PANTOprazole 40 MG in SYRINGE 0 ML IV SCH ×2 (09:30→20:35)
[2022-05-01] MEDS: LABETALOL HCL IV 5 MG/ML 20ML IV PRN ×3 (09:44→20:31)
[2022-05-01] MEDS: HEPARIN SODIUM/DEXTROSE 25,000 UNITS/500 ML BAG IV SCH (10:53)
--- NOTE | 2022-05-01 11:31 | XRay Report ---
SINGLE VIEW CHEST CLINICAL HISTORY: Fluid overload. FINDINGS: An AP, portable, semierect chest radiograph is compared to study dated 04/27/2022. The exami nation is degraded by portable technique and patient rotation. The heart is enlarged noting atherosc lerotic calcification of the thoracic aorta. There is evidence of previous cardiac valve surgery. The re is mild pulmonary vascular congestion. There are small pleural effusions with dependent atelectasi s. No pneumothorax is seen. The skeletal structures are osteopenic. The bony thorax is grossly intact . Calcific tendinopathy is suggested in the left shoulder. IMPRESSION: 1. Cardiomegaly with mild pulmonary vascular congestion. 2. Small pleural effusions with dependent atelectasis. ACT 112: Negative or not required by law. Electronically signed by: Kelvin Stroud M.D. 05/01/2022 11:29 AM
[2022-05-01] MEDS ORDERED: TPN/PPN CONSULT PHARMACY PRN (12:59)
--- NOTE | 2022-05-01 13:11 | Neurology Progress Note ---
Date of Service May 01, 2022 Assessment & Plan (1) Seizure: Plan: 1. EEG- no seizure focus continue to watch and observe repeat EEG 04/30/22- generalized slowing 2. MRI no stroke or lesions noted 3. continue Keppra 500 mg q 12 hours 4. VZV treatment with acyclovir - ID is involved. will be a long recovery 5. continue heparin IV can be stopped easily if needed 6. would stop Wellbutrin 7. PT/OT for discharge needs once more responsive 8. LP done pending final results. 9. serum [place] virus was ordered 10. pathology report - there is unusual plasma cells which he had never seen prior. Since she has a positive varicella on [employer] it is assumed it is a re active process not multiple myeloma or similar process. If she doesn't improve would retap her and consider flow cytometry for CSF plasmacytosis. there are a few reports with wnv. but not varicella Admission and Anticipated Discharge Date Admission Date: April 27, 2022 Supervising Physician Co-Signing Physician Notes I have seen and discussed above patient with Dr Delia Frankel, neurology. Patient seen and examined. EEG shows diffuse slowing but no subclinical status. There have been no witnessed generalized seizures. On exam her pupils are equal her eyes are conjugate and roving. There is some spontaneous speech but is nonsensical I did not get her to follow commands. She moves all 4 extremities somewhat voluntarily. Reflexes are symmetric query left toe upgoing cerebellar sensory not tested. Still appears rigid impression meningitis with positive testing for varicella zoster continue further treatment as per infectious disease. See note from pathologist regarding an unusual number of plasma cells. If patient fails to be improving or repeat lumbar puncture may be reasonable with CSF cytology and flow cytometry. Please see Delia Guzman specific instructions. Continue Keppra at current dosing patient is marginally less responsive today i.e. did not state her name and did yesterday consider repeat CT of the head electively if she is not improving. Dr. Christianson will take over the service tomorrow. Delia Frankel Tomas Tsai is a 71 year old female with PMH- DM, DM retinopathy, PVD, CKD III, hypothyroidism, HLD, neuropathy, aFib, moderate aortic stenosis, status post TAVR, venous stasis of both lower extremities, CAD, GERD, stress incontinence, depression, cardioversion, who presents to [facility] 04/27/22 with altered mental status.She lives alone, and neighbor checks on her and nurses come and checks on her. She has not been ambulating much and uses a walker.She has not been eating much. She was found to be confused and neighbor thinks she was having the seizure episode and she was brought into the hospital. In the ER she had another episode of seizure. She had another episode of seizure in the ED. We gave one dose of Ativan 1.5 mg IV and she was placed on OxyMask. She was not improve so LP was done and protein and WBC high. Her VZV PCR was positive. She is speaking one word responses and following some commends. Review of Systems Review of Systems: Unobtainable due to cognitive status Physical Exam Physical Exam: Physical Exam: Constitutional: appearance nourished, obese ill appearing, lethargic Ears, Nose, Mouth and Throat: mucous membranes moist, no injection and skin normal, eyes normal, bleeding from left nares Cardiovascular: normal S-1 and S-2 Respiratory: course breath sounds Musculoskeletal: non pitting peripheral edema Skin: bilateral LE venous stasis no discharge Eyes: opens her eyes to command NEUROLOGIC EXAMINATION: Mental status: Alert off and on Oriented to person Speech garbled speech some words clear Cranial Nerves no facial asymmetry Reflexes: Deep tendon reflexes were symmetrical and graded 2/5. down going toes Sensory: intact to light touch Coordination: unable to test Gait/Stance: Posture lying in bed. watson in place Motor: moving spontaneously all extremities. 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 Results & Data ([facility]) Vital Signs (Past 12 Hours) Vital Signs Temp Pulse Pulse Resp BP BP Pulse Ox 05/01/22 12:08 36.3 C L 70 17 214/69 H 97 05/01/22 09:30 73 202/46 H 05/01/22 07:13 36.4 C L 68 20 211/46 H 100 05/01/22 06:13 65 05/01/22 05:55 69 149/72 H 05/01/22 04:44 37.1 C 69 17 132/67 92 Laboratory Results Abnormal lab results 04/30/22 04/30/22 04/30/22 Range/Units 15:49 18:49 23:52 RBC (4.2-5.4) M/uL Hgb (12.0-16.0) g/dL Hct (37-47) % RDW Std Deviation (36.4-46.3) fL RDW Coeff of Mario (11.5-14.5) % [place] # (Auto) (0.11-0.59) K/uL Eos # (Auto) (0-0.5) K/uL Immature Gran # (Auto) (0.00-0.02) K/uL APTT 63.2 H* (21.0-31.0) Seconds Creatinine (0.6-1.2) mg/dl Glucose (70-99(Fasting)) mg/dl POC Glucose 129 H 147 H (70-99) mg/dl Calcium (8.5-10.1) mg/dl 05/01/22 05/01/22 05/01/22 Range/Units 05:31 05:31 05:55 RBC 3.46 L (4.2-5.4) M/uL Hgb 10.0 L (12.0-16.0) g/dL Hct 29.8 L (37-47) % RDW Std Deviation 48.2 H (36.4-46.3) fL RDW Coeff of Mario 15.3 H (11.5-14.5) % [place] # (Auto) 1.07 H (0.11-0.59) K/uL Eos # (Auto) 0.72 H (0-0.5) K/uL Immature Gran # (Auto) 0.06 H (0.00-0.02) K/uL APTT 71.7 H* (21.0-31.0) Seconds Creatinine (0.6-1.2) mg/dl Glucose (70-99(Fasting)) mg/dl POC Glucose 161 H (70-99) mg/dl Calcium (8.5-10.1) mg/dl 05/01/22 05/01/22 05/01/22 Range/Units 12:07 12:48 13:04 RBC (4.2-5.4) M/uL Hgb (12.0-16.0) g/dL Hct (37-47) % RDW Std Deviation (36.4-46.3) fL RDW Coeff of Mario (11.5-14.5) % [place] # (Auto) (0.11-0.59) K/uL Eos # (Auto) (0-0.5) K/uL Immature Gran # (Auto) (0.00-0.02) K/uL APTT 64.3 H* (21.0-31.0) Seconds Creatinine 1.24 H (0.6-1.2) mg/dl Glucose 177 H (70-99(Fasting)) mg/dl POC Glucose 196 H (70-99) mg/dl Calcium 8.3 L (8.5-10.1) mg/dl Diagnostic Findings CXR-Cardiomegaly with mild pulmonary vascular congestion. . Small pleural effusions with dependent atelectasis. EEG-his is an abnormal routine EEG in patient with altered mentation due to generalized background slowing suggestive of of non specific encephaloapthy. No epileptiform discharges or electrographic seizures are recorded.
[2022-05-01 13:47] LABS: Partial Thromboplastin Ratio 2.3
[2022-05-01 13:48] LABS: BUN Creatinine Ratio 17.7 (10-20); Calcium 8.3 mg/dl (8.5-10.1); Creatinine Clr Calc Pharmacy 48.3 ml/min; Est GFR (African American) 50.6 ml/min; Est GFR (Non-African American) 43.7 ml/min; Phosphorus 2.8 mg/dl (2.5-4.9); Potassium 3.8 mmol/L (3.5-5.1)
[2022-05-01 13:48] LABS: Partial Thromboplastin Time 64.3 Seconds (21.0-31.0)
--- NOTE | 2022-05-01 14:15 | Pharmacy Report ---
Pharmacy PN Initial Consult - Date of Service May 01, 2022 - Scope Pharmacy has been consulted to manage parenteral nutrition orders and order appropriate labs. As part of the Nutrition Support Team guidelines, pharmacy will work in conjunction with dietary when determining the patients caloric needs. - Subjective The patient is a 71 year old F admitted on 04/27/22 06:33 for AMS. Patient is to receive parenteral nutrition for prolonged NPO status - Objective Height: 5 ft 2 in Weight: 108.8 kg Diet: NPO Intake & Output (Last 24Hrs): Intake & Output 04/29/22 04/30/22 05/01/22 05/02/22 06:59 06:59 06:59 06:59 Intake Total 4727.083 / 4727.083 3381.75 / 3381.75 3010.083 / 3010.083 956.6 / 956.6 Output Total 1225 / 1225 1200 / 1200 1350 / 1350 Balance 3502.083 / 3502.083 2181.75 / 2181.75 1660.083 / 1660.083 956.6 / 956.6 Weight 107.8 kg 107.6 kg 108.8 kg 108.8 kg Laboratory Data (Last 24 Hrs):: 05/01/22 05/01/22 05:31 12:48 Sodium 137 Potassium 3.7 3.8 Chloride 107 Carbon Dioxide 26 BUN 22 Creatinine 1.24 H Glucose 177 H Calcium 8.3 L Phosphorus 2.8 Magnesium 2.0 Triglycerides 143 Nutrition Assessment:: Please refer to the Notes section of the EMR for the most recent head of drama note. - Plan Discussed with provider for PPN start today, due to prolonged NPO status. Provider okay with fluids in PPN ~1500 ml/24 hrs. Discussed that PPN will not provide full Kcal needed as we are limited due to mOsm with peripheral access. He plans to trial PPN for a couple days and may consider central line thereafter. Palliative care consult placed. Will start PPN with below additives for today. Due to fluid restriction, we are limited with Kcals we can provide Macronutrients Amino acids 56 grams/day Dextrose 66 grams/day Lipids 40 grams/day Micronutrients Combined electrolytes 20 mL - contains 35 mEq Na, 20 meq K, 4.5 mEq Ca, 5 mEq Mg, 35 mEq Cl, 29.5 mEq acetate per 20 mL Sodium phosphate 15 MMol Sodium chloride 20 mEq Sodium acetate 30 mEq Multivitamins 10 mL Trace Elements 10 mL Additional additives: thiamine 100 mg Total volume ~1380 with Amino acids/dextrose + 200 ml with lipids (total 1580 ml volume) to be infused over 24 hrs will provide 848 kcal/day Final osmolarity 887 mOsm/L (maximum for PPN is 900 mOsm/L) Labs to be ordered per PN order protocol Pharmacy will follow and adjust parenteral nutrition orders on a daily basis. Thank you.
[2022-05-01] MEDS ORDERED: DEXTROSE 10% 1,000 ML IV PRN (16:00)
[2022-05-01] MEDS ORDERED: PERIPHERAL TPN IV SCH (16:00)
[2022-05-01] MEDS ORDERED: D5W IV SCH (16:00)
[2022-05-01] MEDS ORDERED: AMINO ACIDS 4.25% IV SCH (16:00)
[2022-05-01] MEDS: CLINOLIPID 20% IV FAT EMULSION 100 ML IV SCH ×2 (16:01→18:07)
[2022-05-01] MEDS: hydrALAZINE HCL 20 MG/ML VIAL IV PRN (17:21)
--- NOTE | 2022-05-01 18:13 | Hospitalist Progress Note ---
Date of Service May 01, 2022 Assessment & Plan (1) Seizure: Plan: 71-year-old female with PMH of diabetes, diabetic retinopathy, peripheral vascular disease, chronic kidney disease stage III, hypothyroidism, hyperlipidemia, neuropathy, atrial flutter, peripheral vascular disease, moderate aortic stenosis, status post TAVR, venous stasis of both lower extremities, history of CAD, GERD, female stress incontinence, depression, history of cardioversion, who presented 04/27 with altered mental status. The patient lives alone, and neighbor checks on her. Per neighbor, she was having seizure episode and hence brought to hospital. She ambulates w/ walker at baseline. #. New onset seizure #. Metabolic and/or infectious encephalopathy versus post ictal confusion #. Abnormal CSF, WBC elevated There is no history of seizures. She had one at home, couple in the ER. Neuro evaluated, EEG nonconclusive, continue with Keppra 500 mg 12 hourly, being treated prophylactically for meningitis/encephalitis 04/29 lumbar puncture and CSF studies ordered --> WBC 150/uL, Glucose elevated with marked protein elevation. VZV PCR positive; F/U REST of the RESULTS incl C/S 04/29. Per Path 05/01, very unusual CSF specimen w/ abundant plasma cells, could be reactive from positive varicella, rec is for flow cytometry if she doesn't improve and she gets another lumbar puncture. Per neuro, stop Wellbutrin. 04/28 MRI brain with no acute findings. WBC wnl, Temp fairly wnl. Started on empiric vanc/ceftriaxone/acyclovir/ampicillin on 04/27 --> re discussed w/ ID 04/30 w/ updated CSF results --> drop ATBs and c/w acyclovir. PT/OT and speech eval when appropriate. Patient remains confused, oriented x self. Continue to monitor over telemetry. Updated Pt's cousin and Pt's neighbour at bedside 04/30. Reconnected w/ Pt's cousin for PPN options and updated on her status Rediscussed w/ ID 05/01: acyclovir for total of 14 days, watch for renal toxicity. Might take weeks to see improvement, continue supportive care. PPN 05/01, plan for TPN in next few days. Limit fluid for some minimal vascular congestion on CXR. Change positions every 3-4 hours. 2. Hyponatremia, sodium of 127 at admission, getting fluids. Holding her home diuretics. follow labs. Resolved. 3. Chronic kidney disease stage III, creatinine at her baseline. 4. Chronic diastolic congestive heart failure, valvular heart disease, status post TAVR, moderate mitral stenosis. Holding diuretics. Getting gentle fluids.Reassess daily for restarting diuretics. Monitor for volume overload. 5. Hypertension: Continue her home dose of amlodipine, Coreg. We will monitor the blood pressure. #. H/o Aflutter and h/o TAVR on eliquis at home, so concerns of nose bleed on bedside exam - minimal. Since pt is on sinus rhythm can hold heparin for now, RN/Telemetry to communicate MD when the Rhythm changes to Afib or flutter. On Coreg --> iv virgilio meto tartrate 6. Diabetes, on long acting, pt npo. The patient is currently n.p.o. Insulin sliding scale, follow the blood sugars. 7. Depression. Continue fluoxetine, nortriptyline. DC wellbutrin per neuro. Hold all neuropsychotropic for now. 8. Gout. Continue allopurinol. 9. Hyperlipidemia. Continue statin when able. 11. Peripheral vascular disease, on statin and aspirin. 12. Female stress incontinence on tolterodine. 13. Deep venous thrombosis prophylaxis, Heparin drip on hold, Heparin SQ until drip can be resumed. DISPOSITION: Closely monitor in the tele floor. PT/OT prior to discharge. Social Service to help with discharge planning. Admission and Anticipated Discharge Date Admission Date: April 27, 2022 Subjective Patient seen and examined at bedside as a follow-up of altered mental status, seizure. Patient was lying in bed, on room air, drowsy, falling back to sleep easily, oriented to self, ROS n/a. Per RN, pulled out iv line, some bleed from nose, minimal.Pt remains confused and lethargic. Physical Exam Physical Exam: GENERAL: Drowsy, easily arousable, oriented x self HEENT: No pallor, no icterus. Pupils equal, round and reactive to light. Oral mucosa dry. NECK: No JVD, no neck masses. HEART: S1 and S2 heard. Regular rate and rhythm. No murmur, no gallop. RESPIRATORY SYSTEM: Normal AP diameter. No accessory muscle use. No wheezing, no crackles. ABDOMEN: Soft, bowel sounds present, nontender, no distention. CENTRAL NERVOUS SYSTEM: No facial droop. Speech is clear. Obeys simple commands. Moves extremities. EXTREMITIES: No edema, no erythema seen. BLE chronic skin changes noted. Urinary catheter with yellow urine noted. Results & Data Results & Data ([facility]) Vital Signs (Past 12 Hours) Vital Signs Temp Pulse Pulse Resp BP BP BP 05/01/22 17:21 70 191/97 H 05/01/22 16:07 36.3 C L 68 185/82 H 05/01/22 14:19 69 05/01/22 13:44 68 180/72 H 05/01/22 13:31 64 199/79 H 05/01/22 13:24 69 05/01/22 12:08 36.3 C L 70 17 214/69 H 05/01/22 09:30 73 202/46 H 05/01/22 07:13 36.4 C L 68 20 211/46 H 05/01/22 06:13 65 05/01/22 05:55 69 149/72 H Pulse Ox 05/01/22 17:21 05/01/22 16:07 94 05/01/22 14:19 05/01/22 13:44 05/01/22 13:31 05/01/22 13:24 05/01/22 12:08 97 05/01/22 09:30 05/01/22 07:13 100 05/01/22 06:13 05/01/22 05:55
[2022-05-01] MEDS ORDERED: METOPROLOL TARTRATE 1 MG/ML VIAL IV SCH (19:00)
[2022-05-01] MEDS: NYSTATIN POWDER 15GM BTL EXT PRN (20:31)
[2022-05-02] MEDS: levETIRAcetam 500 MG in 0.9 % SODIUM CHLORIDE 100 ML IV SCH ×3 (00:13→23:55)
[2022-05-02] MEDS: NYSTATIN POWDER 15GM BTL EXT PRN (00:14)
[2022-05-02] MEDS: INSULIN ASPART PER UNIT SC SCH ×4 (00:26→18:40)
[2022-05-02] MEDS: ACYCLOVIR SOD 700 MG in DEXTROSE 5% 250 ML IV SCH ×3 (02:55→22:38)
[2022-05-02] MEDS: METOPROLOL TARTRATE 1 MG/ML VIAL IV SCH ×4 (05:06→23:57)
[2022-05-02 08:06] LABS: Partial Thromboplastin Ratio 1.4; Partial Thromboplastin Time 39.1 Seconds (21.0-31.0)
[2022-05-02] MEDS: INSULIN GLARGINE SOLOSTAR 100 UNITS/ML 3 ML PEN SC SCH (08:19)
[2022-05-02] MEDS: PANTOprazole 40 MG in SYRINGE 0 ML IV SCH ×2 (08:24→21:20)
[2022-05-02 08:50] LABS: BUN Creatinine Ratio 19.8 (10-20); Calcium 8.2 mg/dl (8.5-10.1); Creatinine Clr Calc Pharmacy 51.6 ml/min; Est GFR (African American) 54.9 ml/min; Est GFR (Non-African American) 47.3 ml/min; Magnesium 1.8 mg/dl (1.7-2.4); Phosphorus 3.4 mg/dl (2.5-4.9); Potassium 3.6 mmol/L (3.5-5.1)
[2022-05-02] MEDS ORDERED: MAGNESIUM SULFATE / D5W 1 GM/100 ML BAG IV ONE (09:16)
[2022-05-02] MEDS: POTASSIUM CHLORIDE / WTR 10 MEQ/100 ML PLCT IV SCH ×2 (09:45→11:39)
[2022-05-02] MEDS ORDERED: PHARMACY GLYCEMIC MGMT CONSULT PRN (10:11)
--- NOTE | 2022-05-02 11:13 | Pharmacy Report ---
Pharmacy Glycemic Short Note 2 - Date of Service May 02, 2022 - Glycemic Short BSG Results (Last 24 hours): 05/01/22 05/01/22 05/01/22 12:07 12:48 18:06 Glucose 177 H POC Glucose 196 H 182 H 05/01/22 05/01/22 05/02/22 20:10 23:53 06:29 Glucose POC Glucose 209 H 187 H 198 H 05/02/22 07:28 Glucose 203 H POC Glucose OUTPATIENT ANTIDIABETIC REGIMEN: * Levemir 55 units Q AM/HS, 30 units novolog BIDM * A1c 8.4% ASSESSMENT: * 71 year old admitted with new onset seizures, hyponatremia. Recently started on PPN due to prolonged NPO status (05/01 first day) * Since starting PPN BSGs are trending upward. Patient received total of 22 units of insulin yesterday, of which 15 units were basal * Fasting BSG 198 mg/dl, plan to increase basal insulin tomorrow AM. Will add 10 units of insulin into PPN bag today PLAN FOR INPATIENT GLYCEMIC CONTROL: * Hold outpatient oral diabetes medications * Basal insulin * Lantus 15-18 units daily based upon BSG value * Bolus insulin * NovoLog per scale ACHS or Q6hrs while NPO * Goal Range: Low 110 mg/dL - High 140 mg/dL * Correction Factor: 20 mg/dL/unit * Nutritional / Prandial insulin per carb ratio of 1 unit per 10 grams CHO consumed
--- NOTE | 2022-05-02 15:09 | Palliative Care Consultation ---
Date of Consultation May 02, 2022 Assessment & Plan (1) Palliative care encounter: Quin is not able to participate in any goals of care discussion. I did speak to her cousin, Quin Lovell who is very close to Quin and has known her for a long time. She tells me that Quin has talked with her in the past about what she would want for her care and she is confident that Quin would not want resuscitation in the even of cardiopulmonary arrest. She is tearful and worried about Quin. At this time, the plan would be to continue current treatment with the hope of improving Quin's mental status. I did mention to her cousin, that if, at any point, she feels that there are things that Quin would not want, or if Quin is not able to recover, we would talk about adjusting her plan of care. Per RN, there is another cousin who is said to have POA but does not have documentation. In lieu of documentation, given prior discussions that Quin has had with her cousin, will adjust code status to DNR/DNI and continue current level of care. (2) Seizure: (3) Encephalopathy acute: History of Present Illness Reason for Consultation: goals of care Requesting Physician: Dr. Rendon Attending Physician: Anyi Rendon MD History of Present Illness 71 yo lady who lives alone and has no immediate family, was found at home by her neighbor, to be confused with a possible seizure. She was encephalopathic on admission with further seizure activity in the ER. She had an LP which was positive for varicella zoster. She was also hyponatremic which resolved and has been receiving IV keppra and acyclovir. She continues to be encephalpathic. She is restless and calling out but does not respond to my voice or simple commands. Per the RN, she has at times answered questions with appropriate answers though it is not consistent. We have been consulted to assist with goals of care. Allergies Allergy/AdvReac Type Severity Reaction Status Date / Time colchicine Allergy Mild GI SYMPTOMS Verified 08/27/21 14:28 Home Medications Medication Instructions Recorded Confirmed Type allopurinol 300 mg tablet 300 mg PO QAM 02/27/19 04/27/22 History aspirin 81 mg tablet,delayed 81 mg PO QAM 02/27/19 04/27/22 History release atorvastatin 40 mg tablet 40 mg PO QAM 02/27/19 04/27/22 History fluoxetine 40 mg capsule 40 mg PO QAM 02/27/19 04/27/22 History nortriptyline 50 mg capsule 50 mg PO HS 02/27/19 04/27/22 History tolterodine 2 mg capsule,extended 2 mg PO QAM 02/27/19 04/27/22 History release 24 hr pantoprazole 40 mg tablet,delayed 40 mg PO DAILY 09/27/20 04/27/22 History release bupropion HCl 150 mg tablet,12 hr 150 mg PO DAILY 10/03/20 04/27/22 History sustained-release apixaban 5 mg tablet (Eliquis) 5 mg PO BID 01/12/21 04/27/22 History insulin aspart U-100 100 unit/mL 30 unit SUBCUT BIDM 01/12/21 08/27/21 History subcutaneous solution (Novolog U-100 Insulin aspart) insulin detemir U-100 100 unit/mL 55 unit SUBCUT AMHS 01/12/21 08/27/21 History subcutaneous solution (Levemir U-100 Insulin) magnesium oxide 400 mg PO DAILY 03/07/21 04/27/22 History nystatin 100,000 unit/gram topical 1 applic TOPICAL UD PRN 03/07/21 08/27/21 History powder (Nystop) amlodipine 5 mg tablet 5 mg PO DAILY 08/27/21 04/27/22 History furosemide 40 mg tablet 40 mg PO DAILY 08/27/21 04/27/22 History multivitamin 1 tab PO DAILY 08/27/21 04/27/22 History ondansetron 4 mg disintegrating 4 mg PO Q8H PRN 08/27/21 08/27/21 History tablet carvedilol 25 mg tablet 25 mg PO BID #60 tab 08/29/21 04/27/22 Rx cholecalciferol (vitamin D3) 1,250 50,000 unit PO UD 04/27/22 04/27/22 History mcg (50,000 unit) capsule iron bisglycinate chelate 28 mg PO DAILY 04/27/22 04/27/22 History Patient History Medical History Chronic anticoagulation Chronic diastolic CHF (congestive heart failure) CKD (chronic kidney disease), stage III DM type 2 (diabetes mellitus, type 2) Dyslipidemia Dyspnea GERD (gastroesophageal reflux disease) History of Clostridium difficile infection Hypothyroidism Paroxysmal atrial flutter Stress incontinence Umbilical hernia Surgical History History of fracture of leg s/p surgical fixation S/P TAVR (transcatheter aortic valve replacement) 03/2021 Status post cataract extraction Family History Mother , 67 Alzheimer disease Father Myocardial infarction, Onset Age: 47 Social History Smoking Status: Unknown if ever smoked Tobacco Type: Cigarettes Years Smoked: 5; Second Hand Exposure: No; Preferred Language: [place] Communication Ability: Impaired Retread Supervisor Required: No Beliefs That Will Affect Care: None marital status: / Current Living Situation: Alone Current Living Situation Comment: UNABLE TO ANSWER DUE TO AMS How many Children do You have: 0 Feels Safe at Home: Declines to Answer Assistive Devices: Walker Review of Systems Review of Systems: Unobtainable due to reduced consciousness PPS 20% Physical Exam Constitutional: restless, calling out Respiratory: normal respiratory effort; no labored breathing Cardiovascular: Rate/Rhythm: + irregularly irregular Gastrointestinal (Abdomen): obese, soft, nontender Skin: warm and dry Neurologic: Speech / Cognition: + abnormal cognition Results & Data ([facility]) Vital Signs (Past 12 Hours) Vital Signs Temp Pulse Pulse Resp BP BP BP 05/02/22 12:46 75 119/75 05/02/22 11:49 97.5 F L 75 18 119/65 05/02/22 10:19 98.2 F 81 22 151/49 H 05/02/22 08:28 98.2 F 74 19 149/63 H 05/02/22 07:00 74 05/02/22 05:06 98.1 F 77 77 17 181/78 H Pulse Ox 05/02/22 12:46 05/02/22 11:49 95 05/02/22 10:19 95 05/02/22 08:28 95 05/02/22 07:00 05/02/22 05:06 94 PG Care Time/CCT Total # of Minutes Spent Total Time Spent: 60 Total Time Spent with Patient: Total time spent is greater than 50% in coordination of care (as documented) at patient's floor/unit and/or counseling patient: Coding Level of Care Code 27535 Initial Inpt Care Lvl 2 Diagnoses Palliative care encounter Z51.5 Seizure R56.9 Encephalopathy acute G93.40
--- NOTE | 2022-05-02 15:41 | Neurology Progress Note ---
Date of Service May 02, 2022 Assessment & Plan (1) Seizure: Plan: 1. EEG- no seizure focus continue to watch and observe repeat EEG 04/30/22- generalized slowing 2. MRI no stroke or lesions noted 3. continue Keppra 500 mg q 12 hours 4. VZV treatment with acyclovir - ID is involved. will be a long recovery 5. continue heparin IV can be stopped easily if needed 6. would stop Wellbutrin 7. PT/OT for discharge needs once more responsive 8. serum west nile virus was ordered - pending 9. pathology report - there is unusual plasma cells which he had never seen prior. Since she has a positive varicella on [employer] it is assumed it is a reactive process not multiple myeloma or similar process. If she doesn't improve would retap her and consider flow cytometry for CSF plasmacytosis. there are a few reports with wnv. but not varicella 10. palliative medicine helping with direction of care. Admission and Anticipated Discharge Date Admission Date: April 27, 2022 Supervising Physician Co-Signing Physician Notes I have seen and discussed above patient with Dr Truong Christianson, neurology I have evaluated this woman reviewed her case to date and discussed the above note with Delia Guzman PA-C. 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 The CSF did show plasma cells which are unusual and could be seen in West Nile virus so these titers are pending If she begins to decline or fails to improve significantly over the next week or 2 then a repeat lumbar puncture might be indicated but at this point it appears that the family has elected to place her on a DO NOT RESUSCITATE DO NOT INTUBATE status and supportive care Neurology will follow periodically primarily through chart review and will make selected return visits next week or as needed should should things base remover the weekend Truong Christianson MD Tomas Tsai is a 71 year old female with PMH- DM, DM retinopathy, PVD, CKD III, hypothyroidism, HLD, neuropathy, aFib, moderate aortic stenosis, status post TAVR, venous stasis of both lower extremities, CAD, GERD, stress incontinence, depression, cardioversion, who presents to [facility] 04/27/22 with altered mental status.She lives alone, and neighbor checks on her and nurses come and checks on her. She has not been ambulating much and uses a walker.She has not been eating much. She was found to be confused and neighbor thinks she was having the seizure episode and she was brought into the hospital. In the ER she had another episode of seizure. She had another episode of seizure in the ED. We gave one dose of Ativan 1.5 mg IV and she was placed on OxyMask. She was not improve so LP was done and protein and WBC high. Her VZV PCR was positive. She is speaking one word responses and following some commends.Her cousin who is her closest relation is in the room along with her neighbor. Review of Systems Review of Systems: Unobtainable due to cognitive status Physical Exam Physical Exam: Physical Exam: Constitutional: appearance nourished, obese ill appearing, lethargic Ears, Nose, Mouth and Throat: mucous membranes moist, no injection and skin normal, eyes normal Cardiovascular: normal S-1 and S-2 Respiratory: course breath sounds Musculoskeletal: non pitting peripheral edema Skin: bilateral LE venous stasis no discharge Eyes: opens her eyes to command NEUROLOGIC EXAMINATION: Mental status: Alert off and on Oriented to person Speech garbled speech some words clear, can state her name and knows her cousin by name Cranial Nerves no facial asymmetry Reflexes: Deep tendon reflexes were symmetrical and graded 2/5. down going toes Sensory: intact to light touch Coordination: unable to test Gait/Stance: Posture lying in bed. watson in place Motor: moving spontaneously all extremities. move toes with command Strength: hand process consultant 5/5 bilaterally but does not let go of process consultant. Results & Data ([facility]) Vital Signs (Past 12 Hours) Vital Signs Temp Pulse Pulse Resp BP BP BP 05/02/22 15:20 36.7 C 75 24 145/44 H 05/02/22 12:46 75 119/75 05/02/22 11:49 36.4 C L 75 18 119/65 05/02/22 10:19 36.8 C 81 22 151/49 H 05/02/22 08:28 36.8 C 74 19 149/63 H 05/02/22 07:00 74 05/02/22 05:06 36.7 C 77 77 17 181/78 H Pulse Ox 06/17/22 15:20 95 05/02/22 12:46 05/02/22 11:49 95 05/02/22 10:19 95 05/02/22 08:28 95 05/02/22 07:00 05/02/22 05:06 94 Laboratory Results Abnormal lab results 05/01/22 05/01/22 05/01/22 Range/Units 18:06 20:10 23:53 APTT (21.0-31.0) Seconds Glucose (70-99(Fasting)) mg/dl POC Glucose 182 H 209 H 187 H (70-99) mg/dl Calcium (8.5-10.1) mg/dl 05/02/22 05/02/22 05/02/22 Range/Units 06:29 07:28 07:28 APTT 39.1 H (21.0-31.0) Seconds Glucose 203 H (70-99(Fasting)) mg/dl POC Glucose 198 H (70-99) mg/dl Calcium 8.2 L (8.5-10.1) mg/dl 05/02/22 Range/Units 11:59 APTT (21.0-31.0) Seconds Glucose (70-99(Fasting)) mg/dl POC Glucose 192 H (70-99) mg/dl Calcium (8.5-10.1) mg/dl Diagnostic Findings no new imaging
[2022-05-02] MEDS ORDERED: AMINO ACIDS 4.25% IV SCH (16:00)
[2022-05-02] MEDS ORDERED: D5W IV SCH (16:00)
[2022-05-02] MEDS ORDERED: PERIPHERAL TPN IV SCH (16:00)
[2022-05-02] MEDS: CLINOLIPID 20% IV FAT EMULSION 100 ML IV SCH ×2 (17:21→20:10)
--- NOTE | 2022-05-02 18:07 | Hospitalist Progress Note ---
Date of Service May 02, 2022 Assessment & Plan (1) Seizure: Plan: 71-year-old female with PMH of diabetes, diabetic retinopathy, peripheral vascular disease, chronic kidney disease stage III, hypothyroidism, hyperlipidemia, neuropathy, atrial flutter, peripheral vascular disease, moderate aortic stenosis, status post TAVR, venous stasis of both lower extremities, history of CAD, GERD, female stress incontinence, depression, history of cardioversion, who presented 04/27 with altered mental status. The patient lives alone, and neighbor checks on her. Per neighbor, she was having seizure episode and hence brought to hospital. She ambulates w/ walker at baseline. #. New onset seizure #. Metabolic and/or infectious encephalopathy versus post ictal confusion #. Abnormal CSF, WBC elevated There is no history of seizures. She had one at home, couple in the ER. Neuro evaluated, EEG nonconclusive, continue with Keppra 500 mg 12 hourly, being treated prophylactically for meningitis/encephalitis 04/29 lumbar puncture and CSF studies ordered --> WBC 150/uL, Glucose elevated with marked protein elevation. VZV PCR positive; F/U REST of the RESULTS incl C/S 04/29. Per Path 05/01, very unusual CSF specimen w/ abundant plasma cells, could be reactive from positive varicella, rec is for flow cytometry if she doesn't improve and she gets another lumbar puncture. Per neuro, stop Wellbutrin. 04/28 MRI brain with no acute findings. WBC wnl, Temp fairly wnl. Started on empiric vanc/ceftriaxone/acyclovir/ampicillin on 04/27 --> re discussed w/ ID 04/30 w/ updated CSF results --> drop ATBs and c/w acyclovir for total of 14 days, renally adjust as appropriated PT/OT and speech eval when appropriate. Patient remains confused, oriented x self. Continue to monitor over telemetry. Updated Pt's cousin and Pt's neighbour at bedside 04/30. Reconnected w/ Pt's cousin for PPN options and updated on her status Rediscussed w/ ID 05/01: acyclovir for total of 14 days, watch for renal toxicity. Might take weeks to see improvement, continue supportive care. PPN 05/01, plan for TPN in next few days. Limit fluid for some minimal vascular congestion on CXR. Change positions every 3-4 hours. Monitor and replete electrolytes. 2. Hyponatremia, sodium of 127 at admission, getting fluids. Holding her home diuretics. follow labs. Resolved. 3. Chronic kidney disease stage III, creatinine at her baseline. 4. Chronic diastolic congestive heart failure, valvular heart disease, status post TAVR, moderate mitral stenosis. Holding diuretics. Getting gentle fluids.Reassess daily for restarting diuretics. Monitor for volume overload. 5. Hypertension: Continue her home dose of amlodipine, Coreg. We will monitor the blood pressure. #. H/o Aflutter and h/o TAVR on eliquis at home, so concerns of nose bleed on bedside exam - minimal. Since pt is on sinus rhythm c/t hold heparin for now, RN/Telemetry to communicate MD when the Rhythm changes to Afib or flutter. On Coreg --> iv virgilio meto tartrate Likely resume tomorrow if w/ no nasal bleed 6. Diabetes, on long acting, pt npo. The patient is currently n.p.o. Insulin sliding scale, follow the blood sugars. 7. Depression. Continue fluoxetine, nortriptyline. DC wellbutrin per neuro. Hold all neuropsychotropic for now. 8. Gout. Continue allopurinol. 9. Hyperlipidemia. Continue statin when able. 11. Peripheral vascular disease, on statin and aspirin. 12. Female stress incontinence on tolterodine. 13. Deep venous thrombosis prophylaxis, Heparin drip on hold, Heparin SQ until drip can be resumed. DISPOSITION: Closely monitor in the tele floor. PT/OT prior to discharge. Social Service to help with discharge planning. Admission and Anticipated Discharge Date Admission Date: April 27, 2022 Subjective Patient seen and examined at bedside as a follow-up of altered mental status, seizure. Patient was lying in bed, on room air, drowsy, falling back to sleep easily, oriented to self, ROS n/a. Per RN, pulled out iv line overnight, takes out soft mittens.Pt remains confused and lethargic. Physical Exam Physical Exam: GENERAL: Drowsy, easily arousable, oriented x self HEENT: No pallor, no icterus. Pupils equal, round and reactive to light. Oral mucosa dry. NECK: No JVD, no neck masses. HEART: S1 and S2 heard. Regular rate and rhythm. No murmur, no gallop. RESPIRATORY SYSTEM: Normal AP diameter. No accessory muscle use. No wheezing, no crackles. ABDOMEN: Soft, bowel sounds present, nontender, no distention. CENTRAL NERVOUS SYSTEM: No facial droop. Speech is clear. Obeys simple commands. Moves extremities. EXTREMITIES: No edema, no erythema seen. BLE chronic skin changes noted. Urinary catheter with yellow urine noted. Results & Data Results & Data ([facility]) Vital Signs (Past 12 Hours) Vital Signs Temp Pulse Pulse Resp BP BP BP 05/02/22 15:20 36.7 C 75 24 145/44 H 05/02/22 12:46 75 119/75 05/02/22 11:49 36.4 C L 75 18 119/65 05/02/22 10:19 36.8 C 81 22 151/49 H 05/02/22 08:28 36.8 C 74 19 149/63 H 05/02/22 07:00 74 Pulse Ox 05/02/22 15:20 95 05/02/22 12:46 05/02/22 11:49 95 05/02/22 10:19 95 05/02/22 08:28 95 05/02/22 07:00
[2022-05-02] MEDS: HEPARIN SOD 5,000 UNIT/0.5 ML VIAL SQ SCH (21:28)
[2022-05-03] MEDS: INSULIN ASPART PER UNIT SC SCH ×4 (00:07→18:18)
[2022-05-03] MEDS: ACYCLOVIR SOD 700 MG in DEXTROSE 5% 250 ML IV SCH ×3 (03:51→19:52)
[2022-05-03] MEDS: HEPARIN SOD 5,000 UNIT/0.5 ML VIAL SQ SCH ×3 (05:11→21:05)
[2022-05-03] MEDS: METOPROLOL TARTRATE 1 MG/ML VIAL IV SCH ×4 (05:21→23:55)
[2022-05-03 06:34] LABS: Basophils # (auto) 0.02 K/uL (0-0.2); Basophils % (auto) 0.2 %; Eosinophils # (auto) 0.39 K/uL (0-0.5); Eosinophils % (auto) 4.5 %; Hematocrit (blood only) 29.4 % (37-47); Immature Granulocytes # (auto) 0.09 K/uL (0.00-0.02); Lymphocytes # (auto) 1.91 K/uL (1.2-3.4); Mean Corpuscular Hemoglobin 29.1 pg (25-34); Mean Corpuscular Volume 85.5 fL (80-100); Mean Platelet Volume 9.6 fL (7.4-10.4); Monocytes # (auto) 0.74 K/uL (0.11-0.59); Monocytes % (auto) 8.5 %; Neutrophils # (auto) 5.53 K/uL (1.4-6.5); Neutrophils % (auto) 63.8 %; Platelet Count 220 K/uL (130-400); RDW Standard Deviation 46.9 fL (36.4-46.3); Red Blood Count 3.44 M/uL (4.2-5.4); White Blood Count 8.68 K/uL (4.8-10.8)
[2022-05-03 06:43] LABS: Partial Thromboplastin Ratio 1.2; Partial Thromboplastin Time 33.3 Seconds (21.0-31.0)
[2022-05-03 07:06] LABS: BUN Creatinine Ratio 22.1 (10-20); Calcium 8.3 mg/dl (8.5-10.1); Creatinine Clr Calc Pharmacy 52.9 ml/min; Est GFR (African American) 56.6 ml/min; Est GFR (Non-African American) 48.9 ml/min; Magnesium 1.9 mg/dl (1.7-2.4); Phosphorus 3.3 mg/dl (2.5-4.9); Potassium 3.7 mmol/L (3.5-5.1)
[2022-05-03] MEDS: hydrALAZINE HCL 20 MG/ML VIAL IV PRN ×2 (08:30→17:05)
[2022-05-03] MEDS ORDERED: INSULIN GLARGINE SOLOSTAR 100 UNITS/ML 3 ML PEN SC SCH (09:00)
[2022-05-03] MEDS: INSULIN GLARGINE SOLOSTAR 100 UNITS/ML 3 ML PEN SC SCH (09:29)
[2022-05-03] MEDS: PANTOprazole 40 MG in SYRINGE 0 ML IV SCH ×2 (09:30→21:06)
[2022-05-03] MEDS: levETIRAcetam 500 MG in 0.9 % SODIUM CHLORIDE 100 ML IV SCH ×2 (14:00→23:52)
[2022-05-03] MEDS ORDERED: PERIPHERAL TPN IV SCH (16:00)
[2022-05-03] MEDS ORDERED: AMINO ACIDS 4.25% IV SCH (16:00)
[2022-05-03] MEDS ORDERED: D5W IV SCH (16:00)
[2022-05-03] MEDS: CLINOLIPID 20% IV FAT EMULSION 100 ML IV SCH ×2 (16:49→19:54)
--- NOTE | 2022-05-03 17:50 | Hospitalist Progress Note ---
Date of Service May 03, 2022 Assessment & Plan (1) Seizure: Plan: 71-year-old female with PMH of diabetes, diabetic retinopathy, peripheral vascular disease, chronic kidney disease stage III, hypothyroidism, hyperlipidemia, neuropathy, atrial flutter, peripheral vascular disease, moderate aortic stenosis, status post TAVR, venous stasis of both lower extremities, history of CAD, GERD, female stress incontinence, depression, history of cardioversion, who presented 04/27 with altered mental status. The patient lives alone, and neighbor checks on her. Per neighbor, she was having seizure episode and hence brought to hospital. She ambulates w/ walker at baseline. #. New onset seizure #. Metabolic and/or infectious encephalopathy versus post ictal confusion #. Abnormal CSF, WBC elevated There is no history of seizures. She had one at home, couple in the ER. Neuro evaluated, EEG nonconclusive, continue with Keppra 500 mg 12 hourly, being treated prophylactically for meningitis/encephalitis 04/29 lumbar puncture and CSF studies ordered --> WBC 150/uL, Glucose elevated with marked protein elevation. VZV PCR positive; F/U REST of the RESULTS incl C/S 04/29. Per Path 05/01, very unusual CSF specimen w/ abundant plasma cells, could be reactive from positive varicella, rec is for flow cytometry if she doesn't improve and she gets another lumbar puncture. Per neuro, stop Wellbutrin. 04/28 MRI brain with no acute findings. WBC wnl, Temp fairly wnl. Started on empiric vanc/ceftriaxone/acyclovir/ampicillin on 04/27 --> re discussed w/ ID 04/30 w/ updated CSF results --> drop ATBs and c/w acyclovir for total of 14 days, renally adjust as appropriate. PT/OT and speech eval when appropriate. Patient remains confused, oriented x self, restless, pulling out iv lines. Continue to monitor over telemetry. Updated Pt's cousin and Pt's neighbour at bedside 04/30. Reconnected w/ Pt's cousin for PPN options and updated on her status. Rediscussed w/ ID 05/01: acyclovir for total of 14 days, watch for renal toxicity. Might take weeks to see improvement, continue supportive care. PPN 05/01, plan for TPN in next few days. Will arrange for PICC Line tomorrow. Limit fluid for some minimal vascular congestion on CXR. Change positions every 3-4 hours. Monitor and replete electrolytes. 2. Hyponatremia, sodium of 127 at admission, getting fluids. Holding her home diuretics. follow labs. Resolved. 3. Chronic kidney disease stage III, creatinine at her baseline. 4. Chronic diastolic congestive heart failure, valvular heart disease, status post TAVR, moderate mitral stenosis. Holding diuretics. Getting gentle fluids.Reassess daily for restarting diuretics. Monitor for volume overload. 5. Hypertension: Continue her home dose of amlodipine, Coreg. We will monitor the blood pressure. #. H/o Aflutter and h/o TAVR on eliquis at home, so concerns of nose bleed on bedside exam - minimal. Since pt is on sinus rhythm c/t hold heparin for now, RN/Telemetry to communicate MD when the Rhythm changes to Afib or flutter. On Coreg at home --> iv virgilio meto tartrate no nasal bleed now, Will continue to hold heparin drip as long as rhythm is sinus. 6. Diabetes, on long acting, pt npo. The patient is currently n.p.o. Insulin sliding scale, follow the blood sugars. 7. Depression. Continue fluoxetine, nortriptyline. DC wellbutrin per neuro. Hold all neuropsychotropic for now. 8. Gout. Continue allopurinol. 9. Hyperlipidemia. Continue statin when able. 11. Peripheral vascular disease, on statin and aspirin. 12. Female stress incontinence on tolterodine. 13. Deep venous thrombosis prophylaxis, Heparin drip on hold, Heparin SQ for now. DISPOSITION: Closely monitor in the tele floor. PT/OT prior to discharge. Social Service to help with discharge planning. Likely PICC line and TPN and possibly LTAC placement w/ further rediscussion w/ ID prior to Discharge if there is new updates in her CSF studies. Admission and Anticipated Discharge Date Admission Date: April 27, 2022 Subjective Patient seen and examined at bedside as a follow-up of altered mental status, seizure. Patient was lying in bed, on room air, more alert, tracking occasionally, but still lethargic/drowsy. oriented to self, ROS n/a. Per RN, no nasal bleeding noted.Pt remains confused and lethargic. Physical Exam Physical Exam: GENERAL: Drowsy, easily arousable, oriented x self HEENT: No pallor, no icterus. Pupils equal, round and reactive to light. Oral mucosa dry. NECK: No JVD, no neck masses. HEART: S1 and S2 heard. Regular rate and rhythm. No murmur, no gallop. RESPIRATORY SYSTEM: Normal AP diameter. No accessory muscle use. No wheezing, occasional crackles. ABDOMEN: Soft, bowel sounds present, nontender, no distention. CENTRAL NERVOUS SYSTEM: No facial droop. Speech is clear. Obeys simple commands. Moves extremities. EXTREMITIES: No edema, no erythema seen. BLE chronic skin changes noted. Urinary catheter with yellow urine noted. Results & Data Results & Data ([facility]) Vital Signs (Past 12 Hours) Vital Signs Temp Pulse Pulse Resp BP BP BP 05/03/22 17:02 36.5 C 79 19 190/81 H 05/03/22 14:36 70 05/03/22 13:37 66 164/57 H 05/03/22 12:00 05/03/22 10:06 160/87 H 05/03/22 08:06 36.3 C L 75 22 218/85 H 05/03/22 06:12 75 BP Pulse Ox 05/03/22 17:02 97 05/03/22 14:36 05/03/22 13:37 05/03/22 12:00 128/76 05/03/22 10:06 05/03/22 08:06 96 05/03/22 06:12
[2022-05-03] MEDS: NYSTATIN POWDER 15GM BTL EXT PRN (23:51)
[2022-05-04] MEDS: INSULIN ASPART PER UNIT SC SCH ×5 (00:07→23:37)
[2022-05-04] MEDS: hydrALAZINE HCL 20 MG/ML VIAL IV PRN ×2 (03:53→20:16)
[2022-05-04] MEDS: ACYCLOVIR SOD 700 MG in DEXTROSE 5% 250 ML IV SCH ×3 (03:55→20:15)
[2022-05-04] MEDS: HEPARIN SOD 5,000 UNIT/0.5 ML VIAL SQ SCH ×3 (05:10→22:38)
[2022-05-04] MEDS: METOPROLOL TARTRATE 1 MG/ML VIAL IV SCH ×4 (05:21→23:30)
[2022-05-04 06:40] LABS: Hematocrit (blood only) 29.2 % (37-47); Hemoglobin 9.8 g/dL (12.0-16.0); Mean Corpuscular Hgb Conc 33.6 g/dL (32-36); Mean Corpuscular Volume 86.4 fL (80-100); Platelet Count 234 K/uL (130-400); RDW Standard Deviation 47.4 fL (36.4-46.3); Red Blood Count 3.38 M/uL (4.2-5.4); White Blood Count 8.11 K/uL (4.8-10.8)
[2022-05-04 07:00] LABS: Partial Thromboplastin Ratio 0.9; Partial Thromboplastin Time 26.1 Seconds (21.0-31.0)
[2022-05-04 07:02] LABS: Potassium 3.6 mmol/L (3.5-5.1)
[2022-05-04 07:03] LABS: BUN Creatinine Ratio 26.4 (10-20); Creatinine Clr Calc Pharmacy 54.3 ml/min; Est GFR (African American) 58.5 ml/min; Est GFR (Non-African American) 50.5 ml/min; Magnesium 1.9 mg/dl (1.7-2.4); Phosphorus 3.6 mg/dl (2.5-4.9)
[2022-05-04 07:49] LABS: Calcium 8.7 mg/dl (8.5-10.1)
[2022-05-04] MEDS: PANTOprazole 40 MG in SYRINGE 0 ML IV SCH ×2 (08:41→20:12)
[2022-05-04] MEDS: POTASSIUM CHLORIDE / WTR 10 MEQ/100 ML PLCT IV SCH ×2 (08:45→09:51)
[2022-05-04] MEDS: INSULIN GLARGINE SOLOSTAR 100 UNITS/ML 3 ML PEN SC SCH (09:37)
[2022-05-04] MEDS: levETIRAcetam 500 MG in 0.9 % SODIUM CHLORIDE 100 ML IV SCH ×2 (11:32→23:33)
--- NOTE | 2022-05-04 13:16 | Pharmacy Report ---
Pharmacy Glycemic Short Note 2 - Date of Service May 04, 2022 - Glycemic Short BSG Results (Last 24 hours): 05/03/22 05/03/22 05/03/22 13:55 18:12 23:35 Glucose POC Glucose 120 H 132 H 139 H 05/04/22 05/04/22 05/04/22 05:09 06:19 11:38 Glucose 149 H POC Glucose 151 H 132 H OUTPATIENT ANTIDIABETIC REGIMEN: * Levemir 55 units Q AM/HS, 30 units novolog BIDM * A1c 8.4% (04/28/22) ASSESSMENT: 05/04/22 * BSGs well-controlled yesterday, ranging 120-145 mg/dL * Received 29 units of insulin (18 units of Lantus, 10 units of insulin in TPN, and 1 unit of correctional Novolog) * Plan is to continue on with PPN today, possible trial of tube feeds tomorrow * No changes to insulin regimen today 05/02/22 * 71 year old admitted with new onset seizures, hyponatremia. Recently started on PPN due to prolonged NPO status (05/01 first day) * Since starting PPN BSGs are trending upward. Patient received total of 22 units of insulin yesterday, of which 15 units were basal * Fasting BSG 198 mg/dl, plan to increase basal insulin tomorrow AM. Will add 10 units of insulin into PPN bag today PLAN FOR INPATIENT GLYCEMIC CONTROL: * Basal insulin * Lantus 18 units daily * 10 units of regular insulin (TPN) * Bolus insulin * NovoLog per scale ACHS or Q6hrs while NPO * Goal Range: Low 110 mg/dL - High 140 mg/dL * Correction Factor: 30 mg/dL/unit * Nutritional / Prandial insulin per carb ratio of 1 unit per 10 grams CHO consumed
[2022-05-04] MEDS ORDERED: AMINO ACIDS 4.25% IV SCH (16:00)
[2022-05-04] MEDS ORDERED: D5W IV SCH (16:00)
[2022-05-04] MEDS ORDERED: PERIPHERAL TPN IV SCH (16:00)
--- NOTE | 2022-05-04 16:00 | Hospitalist Progress Note ---
Date of Service May 04, 2022 Assessment & Plan (1) Seizure: Plan: 71-year-old female with PMH of diabetes, diabetic retinopathy, peripheral vascular disease, chronic kidney disease stage III, hypothyroidism, hyperlipidemia, neuropathy, atrial flutter, peripheral vascular disease, moderate aortic stenosis, status post TAVR, venous stasis of both lower extremities, history of CAD, GERD, female stress incontinence, depression, history of cardioversion, who presented 04/27 with altered mental status. The patient lives alone, and neighbor checks on her. Per neighbor, she was having seizure episode and hence brought to hospital. She ambulates w/ walker at baseline. #. New onset seizure #. Metabolic and/or infectious encephalopathy versus post ictal confusion #. Abnormal CSF, WBC elevated There is no history of seizures. She had one at home, couple in the ER. Neuro evaluated, EEG nonconclusive, continue with Keppra 500 mg 12 hourly, being treated prophylactically for meningitis/encephalitis 04/29 lumbar puncture and CSF studies ordered --> WBC 150/uL, Glucose elevated with marked protein elevation. VZV PCR positive; F/U REST of the RESULTS incl C/S 04/29. Per Path 05/01, very unusual CSF specimen w/ abundant plasma cells, could be reactive from positive varicella, rec is for flow cytometry if she doesn't improve and she gets another lumbar puncture. Per neuro, stop Wellbutrin. 04/28 MRI brain with no acute findings. WBC wnl, Temp fairly wnl. 04/27 blood culture: No growth 04/29 CSF culture: No growth 04/29 CSF AFB smear negative, AFB culture pending 04/29 CSF fungal culture: Pending, no yeast or fungus isolated so far. 04/29 CSF serology: Lyme/EBV/WNV pending Started on empiric vanc/ceftriaxone/acyclovir/ampicillin on 04/27 --> re discussed w/ ID 04/30 w/ updated CSF results --> drop ATBs and c/w acyclovir for total of 14 days, renally adjust as appropriate. PT/OT and speech eval when appropriate. Patient remains confused, oriented x self, restless, pulling out iv lines. Questionable very minimal improvement, continue to monitor over telemetry. Updated Pt's cousin and Pt's neighbor at bedside 04/30. Reconnected w/ Pt's cousin for possible feeding methods --> Pt's cousin agrees w/ corsef tube/or PICC line when indicated. Rediscussed w/ ID 05/01: acyclovir for total of 14 days, watch for renal toxicity. Might take weeks to see improvement, continue supportive care. PPN 05/01, plan for tube feeds tomorrow, hold on plan for PICC line. Change positions every 3-4 hours. Monitor and replete electrolytes. Maintain potassium greater than 4.0 and magnesium greater than 2.0. 2. Hyponatremia, sodium of 127 at admission, getting fluids. Holding her home diuretics. follow labs. Resolved. 3. Chronic kidney disease stage III, creatinine at her baseline. 4. Chronic diastolic congestive heart failure, valvular heart disease, status post TAVR, moderate mitral stenosis. Holding diuretics. Getting gentle fluids.Reassess daily for restarting diuretics. Monitor for volume overload. 5. Hypertension: Continue her home dose of amlodipine, Coreg. We will monitor the blood pressure. #. H/o Aflutter and h/o TAVR on eliquis at home, so concerns of nose bleed on bedside exam - minimal. Since pt is on sinus rhythm c/t hold heparin for now, RN/Telemetry to communicate MD when the Rhythm changes to Afib or flutter. On Coreg at home --> iv virgilio meto tartrate no nasal bleed now, Will continue to hold heparin drip as long as rhythm is sinus. 6. Diabetes, on long acting, pt npo. The patient is currently n.p.o. Insulin sliding scale, follow the blood sugars. 7. Depression. Continue fluoxetine, nortriptyline. DC wellbutrin per neuro. Hold all neuropsychotropic for now. 8. Gout. Continue allopurinol. 9. Hyperlipidemia. Continue statin when able. 11. Peripheral vascular disease, on statin and aspirin. 12. Female stress incontinence on tolterodine. 13. Deep venous thrombosis prophylaxis, Heparin drip on hold, Heparin SQ for now. DISPOSITION: Closely monitor in the tele floor. PT/OT prior to discharge. Social Service to help with discharge planning. Likely PICC line and TPN and possibly LTAC placement w/ further rediscussion w/ ID prior to Discharge if there is new updates in her CSF studies. Admission and Anticipated Discharge Date Admission Date: April 27, 2022 Subjective Patient seen and examined at bedside as a follow-up of altered mental status, seizure. Patient was lying in bed, on room air, more alert, tracking occasionally, but still lethargic/drowsy. oriented to self, ROS n/a. Per RN, pulling IV lines, will order BUE soft restraint. Pt remains confused and lethargic. Today patient was able to give consent for chest examination which was not present before and able to take a deep breath upon requesting. Physical Exam Physical Exam: GENERAL: Drowsy, easily arousable, oriented x self HEENT: No pallor, no icterus. Pupils equal, round and reactive to light. Oral mucosa dry. NECK: No JVD, no neck masses. HEART: S1 and S2 heard. Regular rate and rhythm. No murmur, no gallop. RESPIRATORY SYSTEM: Normal AP diameter. No accessory muscle use. No wheezing, no crackles. ABDOMEN: Soft, bowel sounds present, nontender, no distention. CENTRAL NERVOUS SYSTEM: No facial droop. Speech is clear. Obeys simple commands. Moves extremities. EXTREMITIES: No edema, no erythema seen. BLE chronic skin changes noted. Urinary catheter with yellow urine noted. Results & Data Results & Data ([facility]) Vital Signs (Past 12 Hours) Vital Signs Temp Pulse Pulse Resp BP BP Pulse Ox 05/04/22 11:49 66 148/62 H 05/04/22 11:41 36.8 C 66 20 148/62 H 96 05/04/22 08:12 72 05/04/22 08:00 36.4 C L 70 19 177/62 H 97 05/04/22 05:21 87 173/63 H
[2022-05-04] MEDS: CLINOLIPID 20% IV FAT EMULSION 100 ML IV SCH ×3 (17:07→20:11)
[2022-05-05] MEDS: ACYCLOVIR SOD 700 MG in DEXTROSE 5% 250 ML IV SCH ×3 (03:42→19:43)
[2022-05-05] MEDS: HEPARIN SOD 5,000 UNIT/0.5 ML VIAL SQ SCH ×3 (05:36→21:59)
[2022-05-05] MEDS: INSULIN ASPART PER UNIT SC SCH ×4 (05:39→20:51)
[2022-05-05] MEDS: METOPROLOL TARTRATE 1 MG/ML VIAL IV SCH ×3 (05:44→17:16)
[2022-05-05 07:52] LABS: Basophils # (auto) 0.02 K/uL (0-0.2); Basophils % (auto) 0.3 %; Eosinophils # (auto) 0.36 K/uL (0-0.5); Hematocrit (blood only) 29.2 % (37-47); Hemoglobin 9.8 g/dL (12.0-16.0); Immature Granulocytes # (auto) 0.06 K/uL (0.00-0.02); Immature Granulocytes % (auto) 0.8 %; Lymphocytes # (auto) 1.37 K/uL (1.2-3.4); Lymphocytes % (auto) 18.9 %; Mean Corpuscular Hemoglobin 28.8 pg (25-34); Mean Corpuscular Hgb Conc 33.6 g/dL (32-36); Mean Corpuscular Volume 85.9 fL (80-100); Mean Platelet Volume 9.4 fL (7.4-10.4); Monocytes # (auto) 0.74 K/uL (0.11-0.59); Monocytes % (auto) 10.2 %; Neutrophils # (auto) 4.69 K/uL (1.4-6.5); Neutrophils % (auto) 64.8 %; Platelet Count 199 K/uL (130-400); RDW Coefficient of Variation 15.5 % (11.5-14.5); RDW Standard Deviation 47.7 fL (36.4-46.3); White Blood Count 7.24 K/uL (4.8-10.8)
[2022-05-05 08:30] LABS: BUN Creatinine Ratio 30.7 (10-20); Calcium 8.7 mg/dl (8.5-10.1); Creatinine Clr Calc Pharmacy 53.8 ml/min; Est GFR (Non-African American) 48.3 ml/min; Magnesium 1.9 mg/dl (1.7-2.4); Phosphorus 3.9 mg/dl (2.5-4.9); Potassium 4.2 mmol/L (3.5-5.1)
[2022-05-05] MEDS: PANTOprazole 40 MG in SYRINGE 0 ML IV SCH ×2 (08:53→20:56)
[2022-05-05] MEDS: INSULIN GLARGINE SOLOSTAR 100 UNITS/ML 3 ML PEN SC SCH (08:59)
--- NOTE | 2022-05-05 10:58 | XRay Report ---
KUB CLINICAL HISTORY: after NG tube placed for position COMPARISON STUDY: Chest radiograph May 01, 2022. FINDINGS: Calcific density adjacent to the left shoulder is indeterminate. Prosthetic aortic valve is noted. There are small bilateral pleural effusions. Interstitial thickening is noted. Left basilar a nd right perihilar opacities are present. Tip of nasogastric/feeding tube projects over the body of t he stomach. IMPRESSION: 1. Tip of nasogastric/feeding tube projects over the body of the stomach. 2. Small bilateral pleural effusions. Perihilar and bibasilar opacities which could reflect pulmonary edema or pneumonia. ACT 112: Negative or not required by law. Electronically signed by: Napoleon Hutton M.D. 05/05/2022 10:56 AM
[2022-05-05] MEDS: levETIRAcetam 500 MG in 0.9 % SODIUM CHLORIDE 100 ML IV SCH (12:24)
--- NOTE | 2022-05-05 14:31 | Pharmacy Report ---
Pharmacy Glycemic Short Note 2 - Date of Service May 05, 2022 - Glycemic Short BSG Results (Last 24 hours): 05/04/22 05/04/22 05/05/22 18:03 23:22 05:35 Glucose POC Glucose 161 H 191 H 192 H 05/05/22 05/05/22 06:43 12:00 Glucose 179 H POC Glucose 163 H OUTPATIENT ANTIDIABETIC REGIMEN: * Levemir 55 units Q AM/HS, 30 units novolog BIDM * A1c 8.4% (04/28/22) ASSESSMENT: 05/05/22 * BSGs trended up throughout the day yesterday, 151, 132, 161, and 191 mg/dL * Last day of PPN today, transitioned to tube feeds (Peptamen VHP which provides 78 g CHO/L) * Will tighten Novolog parameters today and allow for increased dose of Lantus today 05/04/22 * BSGs well-controlled yesterday, ranging 120-145 mg/dL * Received 29 units of insulin (18 units of Lantus, 10 units of insulin in TPN, and 1 unit of correctional Novolog) * Plan is to continue on with PPN today, possible trial of tube feeds tomorrow * No changes to insulin regimen today 05/02/22 * 71 year old admitted with new onset seizures, hyponatremia. Recently started on PPN due to prolonged NPO status (05/01 first day) * Since starting PPN BSGs are trending upward. Patient received total of 22 units of insulin yesterday, of which 15 units were basal * Fasting BSG 198 mg/dl, plan to increase basal insulin tomorrow AM. Will add 10 units of insulin into PPN bag today PLAN FOR INPATIENT GLYCEMIC CONTROL: * Basal insulin * Lantus 18 units daily * Lantus 0-5 units HS (see EHR for details) * Bolus insulin * NovoLog per scale q4h to cover tube feeds * Goal Range: Low 110 mg/dL - High 140 mg/dL * Correction Factor: 25 mg/dL/unit * Nutritional / Prandial insulin per carb ratio of 1 unit per 8 grams CHO consumed
[2022-05-05] MEDS: TUBE FEEDING WATER FLUSH NG SCH ×3 (14:52→21:20)
[2022-05-05] MEDS: PEPTAMEN INTENSE VHP 1.0 CAL 1,000 ML BAG OG SCH (15:09)
--- NOTE | 2022-05-05 17:27 | Hospitalist Progress Note ---
Date of Service May 05, 2022 Assessment & Plan (1) Seizure: Plan: 71-year-old female with PMH of diabetes, diabetic retinopathy, peripheral vascular disease, chronic kidney disease stage III, hypothyroidism, hyperlipidemia, neuropathy, atrial flutter, peripheral vascular disease, moderate aortic stenosis, status post TAVR, venous stasis of both lower extremities, history of CAD, GERD, female stress incontinence, depression, history of cardioversion, who presented 04/27 with altered mental status. The patient lives alone, and neighbor checks on her. Per neighbor, she was having seizure episode and hence brought to hospital. She ambulates w/ walker at baseline. #. New onset seizure #. Metabolic and/or infectious encephalopathy versus post ictal confusion #. Abnormal CSF, WBC elevated There is no history of seizures. She had one at home, couple in the ER. Neuro evaluated, EEG nonconclusive, continue with Keppra 500 mg 12 hourly, being treated prophylactically for meningitis/encephalitis 04/29 lumbar puncture and CSF studies ordered --> WBC 150/uL, Glucose elevated with marked protein elevation. VZV PCR positive; F/U REST of the RESULTS incl C/S 04/29. Per Path 05/01, very unusual CSF specimen w/ abundant plasma cells, could be reactive from positive varicella, rec is for flow cytometry if she doesn't improve and she gets another lumbar puncture. Per neuro, stop Wellbutrin. 04/28 MRI brain with no acute findings. WBC wnl, Temp fairly wnl. 04/27 blood culture: No growth 04/29 CSF culture: No growth 04/29 CSF AFB smear negative, AFB culture pending 04/29 CSF fungal culture: Pending, no yeast or fungus isolated so far. 04/29 CSF serology: Lyme/EBV/WNV pending Started on empiric vanc/ceftriaxone/acyclovir/ampicillin on 04/27 --> re discussed w/ ID 04/30 w/ updated CSF results --> drop ATBs and c/w acyclovir for total of 14 days, renally adjust as appropriate. PT/OT and speech eval when appropriate. Patient remains confused, restless, pulling out iv lines. Questionable very minimal improvement, continue to monitor over telemetry. Updated Pt's cousin and Pt's neighbor at bedside 04/30. Reconnected w/ Pt's cousin for possible feeding methods --> Pt's cousin agrees w/ corsef tube/or PICC line when indicated. Rediscussed w/ ID 05/01: acyclovir for total of 14 days, watch for renal toxic ity. Might take weeks to see improvement, continue supportive care. Tube feed 05/05. Change positions every 3-4 hours. Monitor and replete electrolytes. Maintain potassium greater than 4.0 and magnesium greater than 2.0. 2. Hyponatremia, sodium of 127 at admission, getting fluids. Holding her home diuretics. follow labs. Resolved. 3. Chronic kidney disease stage III, creatinine at her baseline. 4. Chronic diastolic congestive heart failure, valvular heart disease, status post TAVR, moderate mitral stenosis. Holding diuretics. Getting gentle fluids.Reassess daily for restarting diuretics. Monitor for volume overload. 5. Hypertension: Continue her home dose of amlodipine, Coreg. We will monitor the blood pressure. #. H/o Aflutter and h/o TAVR on eliquis at home, so concerns of nose bleed on bedside exam - minimal. Since pt is on sinus rhythm c/t hold heparin for now, RN/Telemetry to communicate MD when the Rhythm changes to Afib or flutter. On Coreg at home --> iv virgilio meto tartrate no nasal bleed now, Will continue to hold heparin drip as long as rhythm is sinus. 6. Diabetes, on long acting, pt npo. The patient is currently n.p.o. Insulin sliding scale, follow the blood sugars. 7. Depression. Continue fluoxetine, nortriptyline. DC wellbutrin per neuro. Hold all neuropsychotropic for now. 8. Gout. Continue allopurinol. 9. Hyperlipidemia. Continue statin when able. 11. Peripheral vascular disease, on statin and aspirin. 12. Female stress incontinence on tolterodine. 13. Deep venous thrombosis prophylaxis, Heparin drip on hold, Heparin SQ for now. DISPOSITION: Closely monitor in the tele floor. PT/OT prior to discharge. Social Service to help with discharge planning. Possibly LTAC placement w/ further rediscussion w/ ID prior to Discharge if there is new updates in her CSF studies. Admission and Anticipated Discharge Date Admission Date: April 27, 2022 Subjective Patient seen and examined at bedside as a follow-up of altered mental status, seizure. Patient was lying in bed, on room air, more alert, tracking occasionally, but still lethargic/drowsy. oriented to self, ROS n/a. Per RN, pulling IV lines, renew BUE soft restraint. Pt sleeping, not able to arouse. Per RN, no new event and pt remains lethargic. Physical Exam Physical Exam: GENERAL: sleeping, not able to arouse. HEENT: atraumatic, Oral mucosa dry. NECK: No JVD, no neck masses. HEART: S1 and S2 heard. Regular rate and rhythm. No murmur, no gallop. RESPIRATORY SYSTEM: Normal AP diameter. No accessory muscle use. No wheezing, no crackles. ABDOMEN: Soft, bowel sounds present, nontender, no distention. CENTRAL NERVOUS SYSTEM: No facial droop. Speech is clear. Obeys simple commands. Moves extremities. EXTREMITIES: No edema, no erythema seen. BLE chronic skin changes noted. Urinary catheter with yellow urine noted. Results & Data Results & Data ([facility]) Vital Signs (Past 12 Hours) Vital Signs Temp Pulse Pulse Resp BP BP BP 05/05/22 15:34 36.2 C L 61 22 151/68 H 05/05/22 15:00 55 L 05/05/22 11:56 36.2 C L 61 24 178/71 H 05/05/22 08:03 36.3 C L 60 24 116/83 05/05/22 08:00 64 05/05/22 05:44 62 138/66 05/05/22 05:33 62 138/66 Pulse Ox 05/05/22 15:34 94 05/05/22 15:00 05/05/22 11:56 97 05/05/22 08:03 97 05/05/22 08:00 05/05/22 05:44 05/05/22 05:33
[2022-05-05] MEDS ORDERED: INSULIN GLARGINE SOLOSTAR 100 UNITS/ML 3 ML PEN SC SCH (20:00)
[2022-05-06] MEDS: levETIRAcetam 500 MG in 0.9 % SODIUM CHLORIDE 100 ML IV SCH ×3 (00:22→23:18)
[2022-05-06] MEDS: INSULIN ASPART PER UNIT SC SCH ×7 (00:26→23:48)
[2022-05-06] MEDS: METOPROLOL TARTRATE 1 MG/ML VIAL IV SCH ×5 (00:36→23:23)
[2022-05-06] MEDS: TUBE FEEDING WATER FLUSH NG SCH ×6 (01:15→20:10)
[2022-05-06] MEDS: ACYCLOVIR SOD 700 MG in DEXTROSE 5% 250 ML IV SCH ×3 (03:16→20:08)
[2022-05-06] MEDS: HEPARIN SOD 5,000 UNIT/0.5 ML VIAL SQ SCH ×3 (06:00→23:17)
[2022-05-06 07:13] LABS: BUN Creatinine Ratio 31.1 (10-20); Calcium 8.4 mg/dl (8.5-10.1); Creatinine Clr Calc Pharmacy 49.3 ml/min; Est GFR (African American) 51.6 ml/min; Est GFR (Non-African American) 44.5 ml/min; Magnesium 1.8 mg/dl (1.7-2.4); Phosphorus 3.5 mg/dl (2.5-4.9); Potassium 3.9 mmol/L (3.5-5.1)
[2022-05-06] MEDS: PANTOprazole 40 MG in SYRINGE 0 ML IV SCH ×2 (08:05→20:09)
[2022-05-06] MEDS ORDERED: MAGNESIUM SULFATE / D5W 1 GM/100 ML BAG IV ONE (08:41)
[2022-05-06] MEDS: INSULIN GLARGINE SOLOSTAR 100 UNITS/ML 3 ML PEN SC SCH (13:53)
--- NOTE | 2022-05-06 17:02 | Hospitalist Progress Note ---
Date of Service May 06, 2022 Assessment & Plan (1) Seizure: Plan: 71-year-old female with PMH of diabetes, diabetic retinopathy, peripheral vascular disease, chronic kidney disease stage III, hypothyroidism, hyperlipidemia, neuropathy, atrial flutter, peripheral vascular disease, moderate aortic stenosis, status post TAVR, venous stasis of both lower extremities, history of CAD, GERD, female stress incontinence, depression, history of cardioversion, who presented 04/27 with altered mental status. The patient lives alone, and neighbor checks on her. Per neighbor, she was having seizure episode and hence brought to hospital. She ambulates w/ walker at baseline. She is being managed for the following: #. New onset seizure #. Metabolic and/or infectious encephalopathy versus post ictal confusion #. Abnormal CSF, WBC elevated There is no history of seizures. She had one at home, couple in the ER. Neuro evaluated, EEG nonconclusive, continue with Keppra 500 mg 12 hourly, being treated prophylactically for meningitis/encephalitis 04/29 lumbar puncture and CSF studies ordered --> WBC 150/uL, Glucose elevated with marked protein elevation. VZV PCR positive; F/U REST of the RESULTS incl C/S 04/29. Per Path 05/01, very unusual CSF specimen w/ abundant plasma cells, could be reactive from positive varicella, rec is for flow cytometry if she doesn't improve and she gets another lumbar puncture. Per neuro, stop Wellbutrin. 04/28 MRI brain with no acute findings. WBC wnl, Temp fairly wnl. 04/27 blood culture: No growth 04/29 CSF culture: No growth 04/29 CSF AFB smear negative, AFB culture pending 04/29 CSF fungal culture: Pending, no yeast or fungus isolated so far. 04/29 CSF serology: Lyme/EBV/WNV pending Started on empiric vanc/ceftriaxone/acyclovir/ampicillin on 04/27 --> re discussed w/ ID 04/30 w/ updated CSF results --> drop ATBs and c/w acyclovir for total of 14 days, renally adjust as appropriate. PT/OT and speech eval when appropriate. Patient remains confused, restless, pulling out iv lines. Questionable very minimal improvement noted again today, continue to monitor over telemetry. Updated Pt's cousin and Pt's neighbor at bedside 04/30. Reconnected w/ Pt's cousin for possible feeding methods --> Pt's cousin agrees w/ corsef tube/or PICC line when indicated. Rediscussed w/ ID 05/01: acyclovir for total of 14 days, watch for renal toxicity. Might take weeks to see improvement, continue supportive care. Tube feed 05/05. At rate 35. Tolerating well. Change positions every 3-4 hours. Monitor and replete electrolytes. Maintain potassium greater than 4.0 and magnesium greater than 2.0. 2. Hyponatremia, sodium of 127 at admission, getting fluids. Holding her home diuretics. follow labs. Resolved. 3. Chronic kidney disease stage III, creatinine at her baseline. 4. Chronic diastolic congestive heart failure, valvular heart disease, status post TAVR, moderate mitral stenosis. Holding diuretics. Reassess daily for restarting diuretics. Monitor for volume overload. 5. Hypertension: Continue her home dose of amlodipine, Coreg. We will monitor the blood pressure. #. H/o Aflutter and h/o TAVR on eliquis at home, so concerns of nose bleed on bedside exam - minimal. Telemetry reviewed. Since pt is on sinus rhythm c/t hold heparin for now, RN/Telemetry to communicate MD when the Rhythm changes to Afib or flutter. On Coreg at home --> iv virgilio meto tartrate no nasal bleed , Will continue to hold heparin drip as long as rhythm is sinus. 6. Diabetes, on long acting, pt npo. The patient is currently n.p.o. Insulin sliding scale, follow the blood sugars. 7. Depression. Continue fluoxetine, nortriptyline. DC wellbutrin per neuro. Hold all neuropsychotropic for now. 8. Gout. Continue allopurinol. 9. Hyperlipidemia. Continue statin when able. 11. Peripheral vascular disease, on statin and aspirin. 12. Female stress incontinence on tolterodine. 13. Deep venous thrombosis prophylaxis, Heparin drip on hold, Heparin SQ for now. DISPOSITION: Closely monitor in the tele floor. PT/OT prior to discharge. Social Service to help with discharge planning. Possibly LTAC placement w/ further rediscussion w/ ID prior to Discharge if there is new updates in her CSF studies. Admission and Anticipated Discharge Date Admission Date: April 27, 2022 Subjective Patient seen and examined at bedside as a follow-up of altered mental status, seizure. Patient was lying in bed, on room air, more alert, was able to tell her name and upon questioning where she is, she verbalized "in the hospital" once but not again upon repeating this same question. Still incompresensible mumbles mostly but appears "slightly" improving. oriented to self, ROS n/a. Per RN, pulling IV lines, Will see w/ soft mittens how she does, can renew soft restraints if needed. Per RN, no new event overnight and pt remains confused/drowsy. Moved bowel per RN. Physical Exam Physical Exam: GENERAL: confused/drowsy/incomprehensible mumbles. HEENT: atraumatic, Oral mucosa dry. NECK: No JVD, no neck masses. HEART: S1 and S2 heard. Regular rate and rhythm. No murmur, no gallop. RESPIRATORY SYSTEM: Normal AP diameter. No accessory muscle use. No wheezing, no crackles. ABDOMEN: Soft, bowel sounds present, nontender, no distention. CENTRAL NERVOUS SYSTEM: No facial droop. Speech is clear. Obeys simple commands. Moves extremities. EXTREMITIES: No edema, no erythema seen. BLE chronic skin changes noted. Urinary catheter with yellow urine noted. NG tube w/ feed rate of 35. Results & Data Results & Data ([facility]) Vital Signs (Past 12 Hours) Vital Signs Temp Pulse Pulse Resp BP BP BP 05/06/22 16:36 36.7 C 65 18 05/06/22 15:57 71 05/06/22 12:00 36.7 C 66 18 108/61 05/06/22 08:00 36.3 C L 66 67 20 150/36 H 05/06/22 06:00 68 106/56 L BP Pulse Ox 05/06/22 16:36 132/56 L 95 05/06/22 15:57 05/06/22 12:00 96 05/06/22 08:00 96 05/06/22 06:00
[2022-05-06 20:01] LABS: EBV DNA Quant Source CSF; Lyme DNA Source CSF; Lyme IgG Band Pattern CSF DNR; Lyme IgG CSF NO BANDS DETECTED; Lyme IgM Band Pattern CSF DNR; Lyme IgM CSF NO BANDS DETECTED; VDRL Qualitative CSF Nonreactive (Nonreactive); West Nile Virus, PCR, CSF Not Detected (Not Detected)
[2022-05-06] MEDS: PEPTAMEN INTENSE VHP 1.0 CAL 1,000 ML BAG OG SCH (20:09)
[2022-05-07] MEDS: TUBE FEEDING WATER FLUSH NG SCH ×6 (02:00→20:35)
[2022-05-07] MEDS: INSULIN ASPART PER UNIT SC SCH ×5 (05:18→20:16)
[2022-05-07] MEDS: ACYCLOVIR SOD 700 MG in DEXTROSE 5% 250 ML IV SCH (05:56)
[2022-05-07] MEDS: HEPARIN SOD 5,000 UNIT/0.5 ML VIAL SQ SCH ×3 (05:56→20:41)
[2022-05-07] MEDS: METOPROLOL TARTRATE 1 MG/ML VIAL IV SCH ×4 (05:58→23:43)
[2022-05-07 06:09] LABS: Hematocrit (blood only) 26.9 % (37-47); Hemoglobin 9.3 g/dL (12.0-16.0); Mean Corpuscular Hemoglobin 29.7 pg (25-34); Mean Corpuscular Hgb Conc 34.6 g/dL (32-36); Mean Corpuscular Volume 85.9 fL (80-100); Mean Platelet Volume 9.7 fL (7.4-10.4); Platelet Count 216 K/uL (130-400); RDW Coefficient of Variation 15.5 % (11.5-14.5); RDW Standard Deviation 47.6 fL (36.4-46.3); Red Blood Count 3.13 M/uL (4.2-5.4); White Blood Count 8.54 K/uL (4.8-10.8)
[2022-05-07 06:33] LABS: BUN Creatinine Ratio 31.3 (10-20); Calcium 8.3 mg/dl (8.5-10.1); Creatinine Clr Calc Pharmacy 45.9 ml/min; Est GFR (African American) 47.4 ml/min; Est GFR (Non-African American) 40.9 ml/min; Phosphorus 3.6 mg/dl (2.5-4.9); Potassium 4.4 mmol/L (3.5-5.1)
[2022-05-07] MEDS: PANTOprazole 40 MG in SYRINGE 0 ML IV SCH ×2 (07:59→20:10)
[2022-05-07] MEDS: INSULIN GLARGINE SOLOSTAR 100 UNITS/ML 3 ML PEN SC SCH (08:08)
--- NOTE | 2022-05-07 09:31 | Pharmacy Report ---
Pharmacy Glycemic Short Note 2 - Date of Service May 07, 2022 - Glycemic Short BSG Results (Last 24 hours): 05/06/22 05/06/22 05/06/22 08:40 11:38 16:31 Glucose POC Glucose 121 H 114 H 109 H 05/06/22 05/06/22 05/07/22 20:06 23:02 03:54 Glucose POC Glucose 109 H 140 H 135 H 05/07/22 05/07/22 05:50 07:24 Glucose 128 H POC Glucose 173 H OUTPATIENT ANTIDIABETIC REGIMEN: * Levemir 55 units Q AM/HS, 30 units novolog BIDM * A1c 8.4% (04/28/22) ASSESSMENT: 05/07/22 * BSGs very well-controlled yesterday, ranging 109-140 mg/dL * Peptamen VHP now at goal rate of 55 mL/hr 05/05/22 * BSGs trended up throughout the day yesterday, 151, 132, 161, and 191 mg/dL * Last day of PPN today, transitioned to tube feeds (Peptamen VHP which provides 78 g CHO/L) * Will tighten Novolog parameters today and allow for increased dose of Lantus today 05/04/22 * BSGs well-controlled yesterday, ranging 120-145 mg/dL * Received 29 units of insulin (18 units of Lantus, 10 units of insulin in TPN, and 1 unit of correctional Novolog) * Plan is to continue on with PPN today, possible trial of tube feeds tomorrow * No changes to insulin regimen today 05/02/22 * 71 year old admitted with new onset seizures, hyponatremia. Recently started on PPN due to prolonged NPO status (05/01 first day) * Since starting PPN BSGs are trending upward. Patient received total of 22 units of insulin yesterday, of which 15 units were basal * Fasting BSG 198 mg/dl, plan to increase basal insulin tomorrow AM. Will add 10 units of insulin into PPN bag today PLAN FOR INPATIENT GLYCEMIC CONTROL: * Basal insulin * Lantus 18 units daily * Bolus insulin * NovoLog per scale q4h to cover tube feeds * Goal Range: Low 110 mg/dL - High 140 mg/dL * Correction Factor: 30 mg/dL/unit * Nutritional / Prandial insulin per carb ratio of 1 unit per 9 grams CHO consumed
[2022-05-07] MEDS: levETIRAcetam 500 MG in 0.9 % SODIUM CHLORIDE 100 ML IV SCH ×2 (11:51→23:48)
--- NOTE | 2022-05-07 15:04 | Hospitalist Progress Note ---
Date of Service May 07, 2022 Assessment & Plan (1) Seizure: Plan: 71 yo F w/ diabetes, diabetic retinopathy, peripheral vascular disease, chronic kidney disease stage III, hypothyroidism, hyperlipidemia, neuropathy, atrial flutter, moderate aortic stenosis, status post TAVR, venous stasis of both lower extremities, history of CAD, GERD, female stress incontinence, depression, history of cardioversion, who presented 04/27 with altered mental status. The patient lives alone, and neighbor checks on her. Per neighbor, she was having seizure episode and hence brought to hospital. She ambulates w/ walker at baseline. She is being managed for the following: New onset seizure Metabolic and/or infectious encephalopathy versus post ictal confusion Abnormal CSF, WBC elevated Varicella-zoster virus encephalitis There is no history of seizures. She had one at home, couple in the ER. Neuro evaluated, EEG nonconclusive, continue with Keppra 500 mg 12 hourly, being treated prophylactically for meningitis/encephalitis 04/29 lumbar puncture and CSF studies ordered --> WBC 150/uL, Glucose elevated with marked protein elevation. VZV PCR positive; F/U REST of the RESULTS incl C/S 04/29. Per Path 05/01, very unusual CSF specimen w/ abundant plasma cells, could be reactive from positive varicella, rec is for flow cytometry if she doesn't improve and she gets another lumbar puncture. Per neuro, stop Wellbutrin. 04/28 MRI brain with no acute findings. WBC wnl, Temp fairly wnl. 04/27 blood culture: No growth 04/29 CSF culture: No growth 04/29 CSF AFB smear negative, AFB culture pending 04/29 CSF fungal culture: Pending, no yeast or fungus isolated so far. 04/29 CSF serology: Lyme/EBV/WNV pending Started on empiric vanc/ceftriaxone/acyclovir/ampicillin on 04/27 --> re discussed w/ ID 04/30 w/ updated CSF results --> drop ATBs and c/w acyclovir for total of 14 days, renally adjust as appropriate. PT/OT and speech eval when appropriate. Patient remains confused, restless, pulling out iv lines. Questionable very minimal improvement noted again today, continue to monitor over telemetry. Updated Pt's cousin and Pt's neighbor at bedside 04/30. Reconnected w/ Pt's cousin for possible feeding methods --> Pt's cousin agrees w/ corsef tube/or PICC line when indicated. Rediscussed w/ ID 05/01: acyclovir for total of 14 days, watch for renal toxicity. Might take weeks to see improvement, continue supportive care. Tube feed 05/05. Tolerating well. Change positions every 3-4 hours. Monitor and replete electrolytes. Maintain potassium greater than 4.0 and magnesium greater than 2.0. 2. Hyponatremia, sodium of 127 at admission, getting fluids. Held her home diuretics. follow labs. Resolved. 3. Chronic kidney disease stage III, creatinine at her baseline. 4. Chronic diastolic congestive heart failure, valvular heart disease, status post TAVR, moderate mitral stenosis. Held diuretics. Reassess daily for restarting diuretics. Monitor for volume overload. 5. Hypertension: Continue her home dose of amlodipine, Coreg. We will monitor the blood pressure. #. H/o Aflutter and h/o TAVR On eliquis at home, concerns of nose bleed on bedside exam - minimal. Telemetry reviewed. Since pt is in sinus rhythm c/t hold heparin for now, RN/Telemetry to communicate MD when the Rhythm changes to Afib or flutter. On Coreg at home --> iv virgilio meto tartrate no nasal bleed , Will continue to hold heparin drip as long as rhythm is sinus. 6. Diabetes, on long acting, pt npo. The patient is currently n.p.o. Insulin sliding scale, follow the blood sugars. 7. Depression. Continue fluoxetine, nortriptyline. DC wellbutrin per neuro. Hold all neuropsychotropic for now. 8. Gout. Continue allopurinol. 9. Hyperlipidemia. Continue statin when able. 11. Peripheral vascular disease, on statin and aspirin. 12. Female stress incontinence on tolterodine. DVT prophylaxis, Heparin drip on hold, Heparin SQ for now. DISPOSITION: Closely monitor in the tele floor. PT/OT prior to discharge. Social Service to help with discharge planning. Possibly LTAC placement w/ further rediscussion w/ ID prior to Discharge if there is new updates in her CSF studies. Admission and Anticipated Discharge Date Admission Date: April 27, 2022 Subjective Patient seen in follow up of altered mental status, seizure, varicella-zoster virus encephalitis Patient is lying in bed, on room air, in NAD. She opens her eyes to command, however does not verbalize, does not answer any question. Per prior report, patient was occasionally able to give 1 word answers. She does move extremities. Review of Systems Review of Systems: Unobtainable due to cognitive status Physical Exam Physical Exam: GENERAL: obese F i n NAD HEENT: atra umatic, Oral mucos a dry., NG tube pl aced. NECK: No JV D, no neck masses. HEART: S1 and S2 heard. Regular r ate and rhythm. N o murmur, no gallego p. RESPIRATORY SYS TEM: Normal AP di ameter. No access ory muscle use. N o wheezing, no aircraft structure mechanic ckles. ABDOMEN: S oft, bowel sounds present, nontender , no distention. G U: Urinary cathete r with yellow urin e noted. NEURO: N o facial droop.Mo ves extremities. Opens her eyes to command. Does not answer any questi ons EXTREMITIES: No edema, no eryth justin seen. BLE chr onic skin changes noted. Results & Data Results & Data ([facility]) Vital Signs (Past 12 Hours) Vital Signs Temp Pulse Pulse Resp BP BP Pulse Ox 05/07/22 11:55 36.3 C L 73 20 148/58 H 95 05/07/22 11:51 82 05/07/22 08:00 67 05/07/22 07:38 36.3 C L 73 18 125/65 94 05/07/22 05:58 80 134/91 05/07/22 03:59 36.3 C L 69 18 122/62 93 Laboratory Results 05/07/22 05/07/22 05/07/22 Range/Units 11:41 07:24 05:50 WBC (4.8-10.8) K/uL RBC (4.2-5.4) M/uL Hgb (12.0-16.0) g/dL Hct (37-47) % MCV (80-100) fL MCH (25-34) pg MCHC (32-36) g/dL RDW Std Deviation (36.4-46.3) fL RDW Coeff of Mario (11.5-14.5) % Plt Count (130-400) K/uL MPV (7.4-10.4) fL Sodium 133 L (136-145) mmol/L Potassium 4.4 (3.5-5.1) mmol/L Chloride 103 (98-107) mmol/L Carbon Dioxide 26 (21-32) mmol/L Anion Gap 4 (3-11) BUN 41 H (6-23) mg/dl Creatinine 1.31 H (0.6-1.2) mg/dl Est Cr Clr Drug Dosing 45.9 ml/min Est GFR ( Amer) 47.4 ml/min Est GFR (Non-Af Amer) 40.9 ml/min BUN/Creatinine Ratio 31.3 H (10-20) Glucose 128 H (70-99(Fasting)) mg/dl POC Glucose 113 H 173 H (70-99) mg/dl Calcium 8.3 L (8.5-10.1) mg/dl Phosphorus 3.6 (2.5-4.9) mg/dl Magnesium 2.0 (1.7-2.4) mg/dl Fld Lyme DNA (PCR) CSF VDRL (Nonreactive) CSF Lyme IgG (Immblot) CSF Lyme IgG Bands Det CSF Lyme IgM (Immblot) CSF Lyme IgM Bands Det CSF West Nile RNA (Not Detected) Lyme Specimen Source EBV Source EBV DNA, Quant EBV DNA (PCR) Varicella-Zoster Source VZV DNA (PCR) 05/07/22 05/07/22 05/06/22 Range/Units 05:50 03:54 23:02 WBC 8.54 (4.8-10.8) K/uL RBC 3.13 L (4.2-5.4) M/uL Hgb 9.3 L (12.0-16.0) g/dL Hct 26.9 L (37-47) % MCV 85.9 (80-100) fL MCH 29.7 (25-34) pg MCHC 34.6 (32-36) g/dL RDW Std Deviation 47.6 H (36.4-46.3) fL RDW Coeff of Mario 15.5 H (11.5-14.5) % Plt Count 216 (130-400) K/uL MPV 9.7 (7.4-10.4) fL Sodium (136-145) mmol/L Potassium (3.5-5.1) mmol/L Chloride (98-107) mmol/L Carbon Dioxide (21-32) mmol/L Anion Gap (3-11) BUN (6-23) mg/dl Creatinine (0.6-1.2) mg/dl Est Cr Clr Drug Dosing ml/min Est GFR ( Amer) ml/min Est GFR (Non-Af Amer) ml/min BUN/Creatinine Ratio (10-20) Glucose (70-99(Fasting)) mg/dl POC Glucose 135 H 140 H (70-99) mg/dl Calcium (8.5-10.1) mg/dl Phosphorus (2.5-4.9) mg/dl Magnesium (1.7-2.4) mg/dl Fld Lyme DNA (PCR) CSF VDRL (Nonreactive) CSF Lyme IgG (Immblot) CSF Lyme IgG Bands Det CSF Lyme IgM (Immblot) CSF Lyme IgM Bands Det CSF West Nile RNA (Not Detected) Lyme Specimen Source EBV Source EBV DNA, Quant EBV DNA (PCR) Varicella-Zoster Source VZV DNA (PCR) 05/06/22 05/06/22 04/29/22 Range/Units 20:06 16:31 14:55 WBC (4.8-10.8) K/uL RBC (4.2-5.4) M/uL Hgb (12.0-16.0) g/dL Hct (37-47) % MCV (80-100) fL MCH (25-34) pg MCHC (32-36) g/dL RDW Std Deviation (36.4-46.3) fL RDW Coeff of Mario (11.5-14.5) % Plt Count (130-400) K/uL MPV (7.4-10.4) fL Sodium (136-145) mmol/L Potassium (3.5-5.1) mmol/L Chloride (98-107) mmol/L Carbon Dioxide (21-32) mmol/L Anion Gap (3-11) BUN (6-23) mg/dl Creatinine (0.6-1.2) mg/dl Est Cr Clr Drug Dosing ml/min Est GFR ( Amer) ml/min Est GFR (Non-Af Amer) ml/min BUN/Creatinine Ratio (10-20) Glucose (70-99(Fasting)) mg/dl POC Glucose 109 H 109 H (70-99) mg/dl Calcium (8.5-10.1) mg/dl Phosphorus (2.5-4.9) mg/dl Magnesium (1.7-2.4) mg/dl Fld Lyme DNA (PCR) TNP CSF VDRL Nonreactive (Nonreactive) CSF Lyme IgG (Immblot) NO BANDS DETECTED CSF Lyme IgG Bands Det DNR CSF Lyme IgM (Immblot) NO BANDS DETECTED CSF Lyme IgM Bands Det DNR CSF West Nile RNA Not Detected (Not Detected) Lyme Specimen Source CSF EBV Source CSF EBV DNA, Quant DNR EBV DNA (PCR) TNP Varicella-Zoster Source Cancelled VZV DNA (PCR) Cancelled Medications Administered Current Inpatient Medications Acetaminophen (Acetaminophen 325 Mg Tab) 650 mg PO Q4H PRN PRN Reason: Pain or Fever Stop: 05/27/22 08:03 Allopurinol (Allopurinol 300 Mg Tab) 300 mg PO QAM [facility] Stop: 05/27/22 08:59 Last Admin: 04/27/22 09:28 Dose: Not Given Documented by: Amlodipine Besylate (Amlodipine Besylate 5 Mg Tab) 5 mg PO DAILY [facility] Stop: 05/27/22 08:59 Last Admin: 04/27/22 09:28 Dose: Not Given Documented by: Apixaban (Apixaban 5 Mg Tablet) 5 mg PO BID [facility] Stop: 05/27/22 08:59 Last Admin: 04/27/22 09:28 Dose: Not Given Documented by: Aspirin (Aspirin 81 Mg Ectab) 81 mg PO QAM [facility] Stop: 05/27/22 08:59 Last Admin: 04/27/22 09:28 Dose: Not Given Documented by: Atorvastatin Calcium (Atorvastatin 40 Mg Tab) 40 mg PO QAM [facility] Stop: 05/27/22 08:59 Last Admin: 04/27/22 09:28 Dose: Not Given Documented by: Carvedilol (Carvedilol 25 Mg Tab) 25 mg PO BID [facility] Stop: 05/27/22 08:59 Last Admin: 05/01/22 09:30 Dose: Not Given Documented by: Dextrose (Dextrose 50% 50 Ml Syringe) 25 - 50 ml IV UD PRN; Protocol PRN Reason: Hypoglycemia Protocol Stop: 05/27/22 08:44 Last Admin: 04/27/22 18:03 Dose: 50 ml Documented by: Fluoxetine HCl (Fluoxetine Hcl 20 Mg Cap) 40 mg PO QAM [facility] Stop: 05/27/22 08:59 Last Admin: 04/27/22 09:28 Dose: Not Given Documented by: Glucagon (Glucagon For Inj 1 Mg Vial) 1 mg IM UD PRN; Protocol PRN Reason: Hypoglycemia Protocol Stop: 05/27/22 08:44 Glucose (Glucose 40% Gel 15 Gm Tube) 15 - 30 gm PO UD PRN; Protocol PRN Reason: Hypoglycemia Protocol Stop: 05/27/22 08:44 Glucose (Glucose 10 Tabs/Tube) 4 - 8 tabs PO UD PRN; Protocol PRN Reason: Hypoglycemia Protocol Stop: 05/27/22 08:44 Heparin Sodium (Porcine) (Heparin Sod 5,000 Unit/0.5 Ml Vial) 5,000 units SQ Q8 [facility] Stop: 06/01/22 21:59 Last Admin: 05/07/22 14:30 Dose: 5,000 units Documented by: Hydralazine HCl (Hydralazine Hcl 20 Mg/Ml Vial) 10 mg IV Q4H PRN PRN Reason: hypertension Stop: 05/31/22 16:29 Last Admin: 05/04/22 20:16 Dose: 10 mg Documented by: Levetiracetam 500 mg/ Sodium (Chloride) 105 mls @ 420 mls/hr IV Q12H [facility] Stop: 05/27/22 11:59 Last Infusion: 05/07/22 12:16 Dose: Infused Documented by: Pantoprazole Sodium 40 mg/ (Syringe) 10 mls @ 5 mls/min IV BID [facility] Stop: 05/27/22 11:59 Last Admin: 05/07/22 07:59 Dose: 5 mls/min Documented by: Heparin Sodium/Dextrose (Heparin Sodium/Dextrose) 25,000 units in 500 mls @ 13 mls/hr IV .Q24H [facility]IRGILIO; Protocol Stop: 05/27/22 19:29 Last Titration: 05/01/22 18:25 Dose: Infused Documented by: Lorazepam 1.5 mg/ Syringe 1.5 mls @ 2 mls/min IV Q2H PRN PRN Reason: Breaktrough seizures Stop: 05/29/22 23:34 Dextrose (D10w) 1,000 mls @ 0 mls/hr IV .Q0M PRN PRN Reason: protocol (see label comments) Stop: 05/31/22 15:59 Acyclovir Sodium 700 mg/ (Dextrose) 264 mls @ 250 mls/hr IV Q12H [facility]; Protocol Stop: 05/11/22 13:59 Insulin Aspart (Insulin Aspart Per Unit) 0 units SC Q4 [facility] Stop: 05/31/22 17:59 Last Admin: 05/07/22 12:14 Dose: 2 units Documented by: Insulin Glargine (Insulin Glargine Solostar 100 Units/Ml 3 Ml Pen) 18 units SC DAILY [facility] Stop: 06/05/22 12:59 Last Admin: 05/07/22 08:08 Dose: 18 units Documented by: Labetalol HCl (Labetalol Hcl Iv 5 Mg/Ml 20ml) 10 mg IV Q4H PRN PRN Reason: Hypertension Stop: 05/27/22 08:03 Last Admin: 05/01/22 20:31 Dose: 10 mg Documented by: Magnesium Oxide (Magnesium Oxide 400 Mg Tab) 400 mg PO DAILY [facility] Stop: 05/27/22 08:59 Last Admin: 04/27/22 09:28 Dose: Not Given Documented by: Metoprolol Tartrate (Metoprolol Tartrate 1 Mg/Ml Vial) 5 mg IV Q6 [facility] Stop: 05/27/22 11:59 Last Admin: 05/07/22 11:51 Dose: 5 mg Documented by: Miscellaneous (Carbohydrates For Hypoglycemia ) 15 - 30 gm PO UD PRN PRN Reason: Hypoglycemia Treatment Stop: 05/27/22 08:44 Miscellaneous Information (Pharmacy Glycemic Mgmt Consult) 1 ea N/A UD PRN PRN Reason: Consult Stop: 06/01/22 10:10 Multivitamins (Multivitamin Tab) 1 tab PO DAILY [facility] Stop: 05/27/22 08:59 Last Admin: 04/27/22 09:29 Dose: Not Given Documented by: Nitroglycerin (Nitroglycerin Sl 0.4 Mg/Tab Tab) 0.4 mg SL UD PRN PRN Reason: Chest Pain Stop: 05/27/22 08:03 Nortriptyline HCl (Nortriptyline Hcl 25 Mg Cap) 50 mg PO HS [facility] Stop: 05/27/22 20:59 Nutritional Formula (Peptamen Intense Vhp 1.0 Jace 1,000 Ml Bag) 1,000 ml OG UD [facility]; Protocol Stop: 06/04/22 13:14 Last Admin: 05/06/22 20:09 Dose: 1,000 ml Documented by: Nystatin (Nystatin Powder 15gm Btl) 1 appln EXT UD PRN PRN Reason: Skin Irritation Stop: 05/27/22 08:03 Last Admin: 05/03/22 23:51 Dose: 1 appln Documented by: Ondansetron HCl (Ondansetron Inj 2 Mg/Ml 2 Ml Vial) 4 mg IV Q6H PRN PRN Reason: Nausea Stop: 05/27/22 08:03 Pantoprazole Sodium (Pantoprazole 40 Mg Tab) 40 mg PO DAILY [facility] Stop: 05/27/22 08:59 Last Admin: 04/27/22 09:29 Dose: Not Given Documented by: Polyethylene Glycol (Polyethylene (Miralax) 17 Gm Pack) 17 gm PO DAILY PRN PRN Reason: Constipation Stop: 05/27/22 08:03 Sterile Water (Tube Feeding Water Flush) 100 ml NG Q4H [facility] Stop: 06/04/22 13:14 Last Admin: 05/07/22 13:09 Dose: 100 ml Documented by: Tolterodine Tartrate (Tolterodine Tartrate La 2 Mg Capcr) 2 mg PO QAM [facility] Stop: 05/27/22 08:59 Last Admin: 04/27/22 09:29 Dose: Not Given Documented by:
[2022-05-07] MEDS ORDERED: ACYCLOVIR SOD 700 MG in DEXTROSE 5% 250 ML IV SCH (16:00)
[2022-05-07] MEDS ORDERED: FUROSEMIDE INJ 20 MG/2 ML VIAL IV ONE (19:15)
[2022-05-07] MEDS: hydrALAZINE HCL 20 MG/ML VIAL IV PRN (20:29)
[2022-05-07] MEDS: PEPTAMEN INTENSE VHP 1.0 CAL 1,000 ML BAG OG SCH (20:32)
[2022-05-07] MEDS ORDERED: ALBUT/IPRATROP 3MG/0.5MG NEB 3 ML VIAL NEB STA (21:35)
[2022-05-07] MEDS ORDERED: methylPREDNISolone 20 MG in SYRINGE 0 ML IV STA (22:55)
--- NOTE | 2022-05-07 22:55 | Communication Note ---
Date of Service: May 07, 2022 Overnight developments : 05/07 1050 PM Made aware by RN of course respiration and cough symptoms. Patient received Lasix an hour ago with O2 sats noted to be 70s on room air as per RN. CXR as per my interpretation : Congestion, bilateral effusions, atelectasis, bibasilar infiltrates Patient with cough symptoms, concern for aspiration as per RN. AP Hypoxemic respiratory failure HCAP, possible aspiration Solu-Medrol, neb treatment, Zosyn Improved respiration after treatment as per RN update 05/08 335 AM Patient suddenly became bradycardic and ceased to breathe as per RN. CPR not performed due to DNR status. 345 AM Patient pronounced at bedside. Attempted to contact primary contact (Ms. Quin Lovell) over the phone. No answer. Left message for call back. Merarykhris Saldivar (second contact and patient friend at [phone]) updated of developments and patient demise over the phone. She requests for patient's attending physician to contact her in a.m. to address some questions regarding patient's sudden demise.
[2022-05-07 23:06] LABS: HCO3 ABG 26 mmol/L (19-24); Oxygen Saturation ABG 95.4 % (90-95); PCO2 ABG 49 mmHg (35-46); PO2 ABG 95 mmHg (80-95); pH ABG 7.34 (7.35-7.45)
[2022-05-07 23:09] LABS: Allen Test Pos (Pos)
[2022-05-07] MEDS ORDERED: PIPERACILLIN/TAZOBACTAM 4.5 GM in DEXTROSE 5% 100 ML IV ONE (23:15)
[2022-05-07 23:16] LABS: Partial Thromboplastin Ratio 1.4; Partial Thromboplastin Time 38.4 Seconds (21.0-31.0)
[2022-05-08] MEDS: INSULIN ASPART PER UNIT SC SCH (00:03)
[2022-05-08] MEDS: TUBE FEEDING WATER FLUSH NG SCH (00:09)
--- NOTE | 2022-05-08 03:41 | Death Pronouncement Note ---
Date of Service May 08, 2022 Pronouncement Note Admission Date April 27, 2022 Date and Time of Date of : 05/08/22 Time of : 03:45 Summary Discharge summary and certificate to be completed by Dr. Eaton. Additional Data Confirmation of : no pulse, no respirations, no heart sounds and pupils fixed and dilated Family: contacted Attending physician: Luis Eaton MD Was code activated?: No
[2022-05-08] MEDS ORDERED: PIPERACILLIN/TAZOBACTAM 4.5 GM in DEXTROSE 5% 100 ML IV SCH (04:00)
--- NOTE | 2022-05-08 07:53 | XRay Report ---
XR chest 1V portable CLINICAL HISTORY: low o2 COMPARISON STUDY: Chest radiograph May 01, 2022. FINDINGS: Tip of feeding tube is not well visualized on this examination. A prosthetic cardiac valve is noted. Cardiomegaly is noted. There is no pneumothorax. Small bilateral pleural effusions persist. Bibasilar airspace opacities are again noted. There is persistent pulmonary vascular congestion with possible mild pulmonary edema. IMPRESSION: 1. Small bilateral pleural effusions with associated bibasilar opacities which could reflect pneumon ia or atelectasis. Radiographic follow-up is recommended. 2. Pulmonary vascular congestion with suspected mild pulmonary edema. ACT 112: Negative or not required by law. Electronically signed by: Napoleon Hutton M.D. 05/08/2022 7:51 AM
--- NOTE | 2022-05-08 07:58 | Discharge Summary ---
Date of Service May 08, 2022 Admission HPI Per Admitting Provider A 71-year-old female with past medical history significant for diabetes, diabetic retinopathy, peripheral vascular disease, chronic kidney disease stage III, hypothyroidism, hyperlipidemia, neuropathy, atrial flutter, peripheral vascular disease, moderate aortic stenosis, status post TAVR, venous stasis of both lower extremities, history of CAD, GERD, female stress incontinence, depression, history of cardioversion, who presents with altered mental status. The patient lives alone, and neighbor checks on her. As per neighbor she also has nurses come and checks on her. Apparently, she was doing okay, but she is not ambulating much. She ambulates with a walker. For last few days she is not eating much, not ambulating much and today when she went, she was found to be confused and neighbor thinks she was having the seizure episode and she was brought into the hospital. In the ER also she had another episode of seizure. Labs showed of sodium of 127, creatinine of 1.6, glucose of 291. SARS-CoV-[address] of the head, preliminary report, no acute findings. When I was seeing the patient, she had another episode of seizure and became drowsy. We gave one dose of Ativan 1.5 mg IV and she was placed on OxyMask. Could not get any history from the patient. As per the neighbor who was in the room, she was doing apparently okay until this happened. She is afebrile. Admission Exam Per Admitting Provider GENERAL: The patient is drowsy and had a seizure. VITAL SIGNS: Temperature 36.7, pulse 90, respiratory 20, blood pressure 193/84, oxygen 100% on 10 liters OxyMask. HEENT: Pupils equal. Atraumatic. Pupils are sluggish to react to light. No facial droop seen. NECK: No JVD. No neck masses seen. CARDIOVASCULAR: S1 and S2 heard. Regular rate and rhythm. No murmur, no gallop. RESPIRATORY SYSTEM: Normal AP diameter. No accessory muscle use. No wheezing, no crackles. ABDOMEN: Soft. Bowel sounds are present, no distention. CENTRAL NERVOUS SYSTEM: Drowsy. No facial droop seen. EXTREMITIES: Lower extremities, chronic skin changes seen. No edema seen. Principal Diagnosis Varicella-zoster virus encephalitis New onset seizure Discharge Exam Per Dr. Randhawa, confirmation of : no pulse, no respirations, no heart sounds and pupils fixed and dilated Family: contacted Discharge Data Allergies Allergy/AdvReac Type Severity Reaction Status Date / Time colchicine Allergy Mild GI SYMPTOMS Verified 08/27/21 14:28 Consultations 04/27/22 05:20 ED Decision to Admit Stat 04/27/22 08:04 Consult Neurology Routine 04/27/22 11:49 Consult Infectious Diseases Routine 05/01/22 11:35 Consult Palliative Care Routine Ordered Studies 04/27/22 03:19 CT head/brain wo con Urgent IMPRESSION: 1. No acute intracerebral pathology. 2. Cerebral cortical atrophy and remote small vessel disease are again seen. 04/27/22 11:38 CT abd pelvis wo con Urgent IMPRESSION: 1. Cholelithiasis with no CT evidence for acute cholecystitis. 2. Otherwise, no acute intra-abdominal or pelvic abnormality on these limited noncontrast images. 3. Additional nonacute findings are delineated above. 04/28/22 08:04 MR brain wo con Routine IMPRESSION: 1. No acute intracranial findings. Exam moderately compromised by motion artifact. 2. Moderate atrophy. White matter T2 hyperintense foci suggestive of small vessel disease. 04/29/22 17:11 FL lumbar puncture diagnostic Routine Hospital Course (1) Seizure: 71 yo F w/ diabetes, diabetic retinopathy, peripheral vascular disease, chronic kidney disease stage III, hypothyroidism, hyperlipidemia, neuropathy, atrial flutter, moderate aortic stenosis, status post TAVR, venous stasis of both lower extremities, history of CAD, GERD, female stress incontinence, depression, history of cardioversion, who presented 04/27 with altered mental status. The patient lives alone, and neighbor checks on her. Per neighbor, she was having seizure episode and hence brought to hospital. She ambulates w/ walker at baseline. She is being managed for the following: New onset seizure Metabolic and/or infectious encephalopathy versus post ictal confusion Abnormal CSF, WBC elevated Varicella-zoster virus encephalitis There is no history of seizures. She had one at home, couple in the ER. Neuro evaluated, EEG nonconclusive, continue with Keppra 500 mg 12 hourly, being treated prophylactically for meningitis/encephalitis 04/29 lumbar puncture and CSF studies ordered --> WBC 150/uL, Glucose elevated with marked protein elevation. VZV PCR positive; F/U REST of the RESULTS incl C /S 04/29. Per Path 05/01, very unusual CSF specimen w/ abundant plasma cells, could be reactive from positive varicella, rec is for flow cytometry if she doesn't improve and she gets another lumbar puncture. Per neuro, stop Wellbutrin. 04/28 MRI brain with no acute findings. WBC wnl, Temp fairly wnl. 04/27 blood culture: No growth 04/29 CSF culture: No growth 04/29 CSF AFB smear negative, AFB culture pending 04/29 CSF fungal culture: Pending, no yeast or fungus isolated so far. 04/29 CSF serology: Lyme/EBV/WNV pending Started on empiric vanc/ceftriaxone/acyclovir/ampicillin on 04/27 --> re discussed w/ ID 04/30 w/ updated CSF results --> drop ATBs and c/w acyclovir for total of 14 days, renally adjust as appropriate. PT/OT and speech eval when appropriate. Patient remains confused, restless, pulling out iv lines. Questionable very minimal improvement noted again today, continue to monitor over telemetry. Updated Pt's cousin and Pt's neighbor at bedside 04/30. Reconnected w/ Pt's cousin for possible feeding methods --> Pt's cousin agrees w/ corsef tube/or PICC line when indicated. Rediscussed w/ ID 05/01: acyclovir for total of 14 days, watch for renal toxicity. Might take weeks to see improvement, continue supportive care. Tube feed 05/05. Tolerating well. Change positions every 3-4 hours. Monitor and replete electrolytes. Maintain potassium greater than 4.0 and magnesium greater than 2.0. 2. Hyponatremia, sodium of 127 at admission, getting fluids. Held her home diuretics. follow labs. Resolved. 3. Chronic kidney disease stage III, creatinine at her baseline. 4. Chronic diastolic congestive heart failure, valvular heart disease, status post TAVR, moderate mitral stenosis. Held diuretics. Reassess daily for restarting diuretics. Monitor for volume overload. 5. Hypertension: Continue her home dose of amlodipine, Coreg. We will monitor the blood pressure. #. H/o Aflutter and h/o TAVR On eliquis at home, concerns of nose bleed on bedside exam - minimal. Telemetry reviewed. Since pt is in sinus rhythm c/t hold heparin for now, RN/Telemetry to communicate MD when the Rhythm changes to Afib or flutter. On Coreg at home --> iv virgilio meto tartrate no nasal bleed , Will continue to hold heparin drip as long as rhythm is sinus. 6. Diabetes, on long acting, pt npo. The patient is currently n.p.o. Insulin sliding scale, follow the blood sugars. 7. Depression. Continue fluoxetine, nortriptyline. DC wellbutrin per neuro. Hold all neuropsychotropic for now. 8. Gout. Continue allopurinol. 9. Hyperlipidemia. Continue statin when able. 11. Peripheral vascular disease, on statin and aspirin. 12. Female stress incontinence on tolterodine. DVT prophylaxis, Heparin drip on hold, Heparin SQ for now. DISPOSITION: Closely monitor in the tele floor. PT/OT prior to discharge. Social Service to help with discharge planning. Possibly LTAC placement w/ further rediscussion w/ ID prior to Discharge if there is new updates in her CSF studies. Update: 05/07 -overnight, patient became hypoxic, night physician was notified, there was concern for aspiration per RN. Patient received breathing treatments, antibiotic/Zosyn, Solu-Medrol. Initially patient seemed improved, however some hours later, became bradycardic and ceased to breathe. CPR not performed due to DNR status. Please refer to Dr. Randhawa's note for further detail. 05/08 - Ms. Merary Saldivar was contacted by magnetic tape composer operator physician and updated. I also updated her myself and answered her questions this morning. Ms. Quin Lovell was also contacted by Dr. Randhawa,, however he was only able to leave a voicemail. I updated Ms. Lovell and answered all her questions at this morning. [place]. GARSIA Total Time Total Time Spent Total Time Spent (In Minutes): 10 Discharge Plan Discharge Items Patient Disposition: Discharge Diagnosis: Varicella-zoster virus encephalitis New onset seizure Other Date/Time: 05/08/22 03:45
== END 2022-05-08 05:51 | disposition expired | DRG 73 ==
LOC: ED 02:35 → 2S 06:33 → SUATTDRO 06:33 → 2S 07:38